=== PATIENT | female | born 1955 | race Caucasian/White ===

== ENCOUNTER 2019-05-29 22:10 | Inpatient (IN) | payer MEDICARE ==
[~2019-05-29] VITALS: Ht 162.6 cm; Wt 128.8 kg
[2019-05-30] MEDS ORDERED: MAG HYDROX/AL HYDROX/SIMETH 30 ML ORAL.SUSP PO PRN
[2019-05-30] MEDS ORDERED: MAGNESIUM HYDROXIDE 2,400 MG/30 ML ORAL.SUSP. PO PRN
[2019-05-30] MEDS ORDERED: METHYL SALICYLATE/MENTHOL TOPICAL OINTMENT 57GM TUBE. TP PRN
[2019-05-30 00:31] VITALS: BP 106/62
[2019-05-30] MEDS ORDERED: CALC500T31 PO (00:58)
[2019-05-30] MEDS ORDERED: CETI10TA16 PO (00:58)
[2019-05-30] MEDS ORDERED: IPRA0.2S5 IH (00:58)
[2019-05-30] MEDS ORDERED: HYDR-2765 PO (00:58)
[2019-05-30] MEDS ORDERED: FLUT1DIS5 IH (00:58)
[2019-05-30] MEDS ORDERED: NYST15CR TP (00:58)
[2019-05-30] MEDS ORDERED: CYAN100072 PO (00:58)
[2019-05-30] MEDS ORDERED: ASPI-612 PO (00:58)
[2019-05-30] MEDS ORDERED: FERR324T14 PO (00:58)
[2019-05-30] MEDS ORDERED: CYCL-331 PO (00:58)
[2019-05-30] MEDS ORDERED: POTA20TA4 PO (00:58)
[2019-05-30] MEDS ORDERED: ERGO800010 PO (00:58)
[2019-05-30] MEDS ORDERED: MECL-75 PO (00:58)
[2019-05-30] MEDS ORDERED: FLUO15CR TP (00:58)
[2019-05-30] MEDS ORDERED: LOSA100T14 PO (00:58)
[2019-05-30] MEDS ORDERED: ALPR0.5T6 PO (00:58)
[2019-05-30] MEDS ORDERED: FURO40TA4 PO (00:58)
[2019-05-30] MEDS ORDERED: PANT40TA5 PO (00:58)
[2019-05-30] MEDS ORDERED: SENN1TAB37 PO (00:58)
[2019-05-30] MEDS ORDERED: XOPENEX0.63 MG/3 IH (00:58)
[2019-05-30] MEDS ORDERED: CARV25TA2 PO (00:58)
[2019-05-30] MEDS ORDERED: TIOT18CA IH (00:58)
[2019-05-30] MEDS ORDERED: SIME80TA14 PO (00:58)
[2019-05-30] MEDS ORDERED: SIMETHICONE 80 MG TAB.CHEW PO PRN (01:00)
[2019-05-30] MEDS ORDERED: CALCIUM CARBONATE 500 MG TAB.CHEW PO PRN (01:15)
[2019-05-30] MEDS: IPRATRPIUM/ALBUTEROL 0.5/2.5MG 3 ML NEBU. NEB SCH ×4 (05:24→23:04)
[2019-05-30 06:40] VITALS: BP 134/76
[2019-05-30 07:34] LABS: BASO % 0 % (0-3); EOS # 0.2 x10^3/uL (0.0-0.7); EOS % 3 % (0-3); HEMOGLOBIN 13.1 g/dL (12.0-15.5); LYMPH # 1.7 x10^3/uL (1.0-4.8); LYMPH % 18 % (24-48); MEAN CORPUSCULAR HEMOGLOBIN 29 pg (25-35); MEAN CORPUSCULAR HGB CONC 32 g/dL (31-37); MEAN CORPUSCULAR VOLUME 92 fL (79-100); MONO # 0.5 x10^3/uL (0.0-1.1); MONO % 5 % (0-9); NEUT % 74 % (31-73); PLATELET COUNT 289 x10^3/uL (140-400); RED BLOOD COUNT 4.48 x10^6/uL (3.50-5.40); RED CELL DISTRIBUTION WIDTH 13.6 % (11.5-14.5); WHITE BLOOD COUNT 9.5 x10^3/uL (4.0-11.0)
[2019-05-30 07:47] LABS: ALBUMIN 3.5 g/dL (3.4-5.0); ALBUMIN/GLOBULIN RATIO 0.8 (1.0-1.7); CALCIUM 8.9 mg/dL (8.5-10.1); CREATININE 0.9 mg/dL (0.6-1.0); GFR 62.8; POTASSIUM 4.1 mmol/L (3.5-5.1); TOTAL BILIRUBIN 0.3 mg/dL (0.2-1.0); TOTAL PROTEIN 8.1 g/dL (6.4-8.2)
[2019-05-30] MEDS: PANTOPRAZOLE 40 MG TABLET. PO SCH (08:20)
[2019-05-30] MEDS: CETIRIZINE HCL 10 MG TABLET PO SCH (08:22)
[2019-05-30] MEDS: SENNOSIDES/DOCUSATE 8.6/50MG TABLET. PO SCH (08:23)
[2019-05-30] MEDS: POTASSIUM CHLORIDE 20 MEQ TABLET.ER. PO SCH ×2 (08:23→21:14)
[2019-05-30] MEDS: ASPIRIN ENTERIC COATED 81 MG TABLET.DR. PO SCH (08:24)
[2019-05-30] MEDS: CARVEDILOL 6.25 MG TABLET PO SCH ×2 (08:24→16:12)
[2019-05-30] MEDS: CYANOCOBALAMIN (VITAMIN B-12) 1,000 MCG TABLET. PO SCH (08:25)
[2019-05-30] MEDS: LOSARTAN 50 MG TABLET. PO SCH (08:25)
[2019-05-30] MEDS: FERROUS SULFATE 325 MG TABLET. PO SCH (08:25)
[2019-05-30] MEDS: HYDROCORTISONE 1% TOPICAL CREAM 30GM TUBE. TP SCH (09:00)
[2019-05-30] MEDS ORDERED: FUROSEMIDE 40 MG TABLET PO SCH (09:00)
[2019-05-30] MEDS ORDERED: NON FORMULARY ITEM (Tiotropium Bromide (Spiriva) 18 MCG) IH SCH (09:00)
[2019-05-30] MEDS: BUDESONIDE 0.5 MG/2 ML NEBU NEB SCH ×2 (10:20→23:04)
[2019-05-30 11:24] LABS: BILIRUBIN,URINE NEG (NEG); CLARITY,URINE CLOUDY; COLOR,URINE AMBER; GLUCOSE,URINE NEG (NEG)
[2019-05-30 11:25] LABS: UROBILINOGEN,URINE 0.2 mg/dL (0.2 mg/dL)
[2019-05-30 11:27] LABS: BACTERIA,URINE MOD /HPF (0-FEW); NITRITE,URINE POS (NEG); SQUAMOUS EPITHELIAL CELL,UR FEW /LPF; WBC,URINE >40 /HPF (0-4)
[2019-05-30 13:43] LABS: THYROID STIM HORMONE (TSH) 2.627 uIU/mL (0.358-3.740)
[2019-05-30] MEDS: FUROSEMIDE 40 MG TABLET PO SCH (16:12)
[2019-05-30 16:26] VITALS: BP 125/74
[2019-05-30] MEDS: NYSTATIN 100,000 UNITS/ML ORAL SUSPENSION 60ML BOTTLE. SWSW SCH ×2 (17:00→21:00)
[2019-05-30 17:07] LABS: THYROXINE 6.9 ug/dL (4.5-12.0)
[2019-05-30] MEDS: ENOXAPARIN 40 MG/0.4 ML SYRINGE. SQ SCH (21:14)
[2019-05-30] MEDS: ALPRAZolam 0.5 MG TABLET PO PRN (21:15)
--- NOTE | 2019-05-30 21:21 | PDOC ---
Exam Note: Heri Note: Please also refer to the separate dictated note~for this date of service dictated separately. Discussed the patient with Nursing staff reviewed the chart.~Reviewed interim history and current functioning. Reviewed vital signs,~Labs/ Radiology~and current medications noted below. Continue current treatment with the changes noted in the dictated addendum note Assessment: Vital Signs/I&O: Vital Signs Date Time Temp Pulse Resp B/P (MAP) Pulse Ox O2 Delivery O2 Flow Rate FiO2 05/30/19 16:26 98.2 83 18 125/74 (91) 95 2.0 05/30/19 16:17 Nasal Cannula Labs: Laboratory Tests Test 05/30/19 06:45 05/30/19 11:00 White Blood Count 9.5 x10^3/uL (4.0-11.0) Red Blood Count 4.48 x10^6/uL (3.50-5.40) Hemoglobin 13.1 g/dL (12.0-15.5) Hematocrit 41.0 % (36.0-47.0) Mean Corpuscular Volume 92 fL (79-100) Mean Corpuscular Hemoglobin 29 pg (25-35) Mean Corpuscular Hemoglobin Concent 32 g/dL (31-37) Red Cell Distribution Width 13.6 % (11.5-14.5) Platelet Count 289 x10^3/uL (140-400) Neutrophils (%) (Auto) 74 % (31-73) H Lymphocytes (%) (Auto) 18 % (24-48) L Monocytes (%) (Auto) 5 % (0-9) Eosinophils (%) (Auto) 3 % (0-3) Basophils (%) (Auto) 0 % (0-3) Neutrophils # (Auto) 7.0 x10^3uL (1.8-7.7) Lymphocytes # (Auto) 1.7 x10^3/uL (1.0-4.8) Monocytes # (Auto) 0.5 x10^3/uL (0.0-1.1) Eosinophils # (Auto) 0.2 x10^3/uL (0.0-0.7) Basophils # (Auto) 0.0 x10^3/uL (0.0-0.2) Sodium Level 139 mmol/L (136-145) Potassium Level 4.1 mmol/L (3.5-5.1) Chloride Level 96 mmol/L (98-107) L Carbon Dioxide Level 37 mmol/L (21-32) H Anion Gap 6 (6-14) Blood Urea Nitrogen 20 mg/dL (7-20) Creatinine 0.9 mg/dL (0.6-1.0) Estimated GFR (Cockcroft-Gault) 62.8 BUN/Creatinine Ratio 22 (6-20) H Glucose Level 147 mg/dL (70-99) H Calcium Level 8.9 mg/dL (8.5-10.1) Magnesium Level 2.0 mg/dL (1.8-2.4) Iron Level 59 ug/dL (50-170) Total Iron Binding Capacity 376 ug/dL (250-450) Iron Saturation 16 % (15-34) Total Bilirubin 0.3 mg/dL (0.2-1.0) Aspartate Amino Transferase (AST) 21 U/L (15-37) Alanine Aminotransferase (ALT) 41 U/L (14-59) Alkaline Phosphatase 82 U/L (46-116) Total Protein 8.1 g/dL (6.4-8.2) Albumin 3.5 g/dL (3.4-5.0) Albumin/Globulin Ratio 0.8 (1.0-1.7) L Triglycerides Level 142 mg/dL (0-150) Cholesterol Level 204 mg/dL (0-200) H LDL Cholesterol, Calculated 121 mg/dL (0-100) H VLDL Cholesterol, Calculated 28 mg/dL (0-40) Non-HDL Cholesterol Calculated 149 mg/dL (0-129) H HDL Cholesterol 55 mg/dL (40-60) Cholesterol/HDL Ratio 3.0 Vitamin B12 Level 1645 pg/mL (247-911) H 25-Hydroxy Vitamin D Total 17.1 ng/mL (30-100) L Thyroid Stimulating Hormone (TSH) 2.627 uIU/mL (0.358-3.740) Thyroxine (T4) 6.9 ug/dL (4.5-12.0) Total Triiodothyronine (TT3) 78 ng/dL (71-180) Treponema pallidum Antibody Nonreactive (Nonreactive) Urine Collection Type Unknown Urine Color Amelia Urine Clarity Cloudy Urine pH 6.0 Urine Specific [place] 1.020 Urine Protein 30 mg/dl (NEG-TRACE) Urine Glucose (UA) Neg mg/dL (NEG) Urine Ketones (Stick) Neg mg/dL (NEG) Urine Blood Mod (NEG) Urine Nitrite Pos (NEG) Urine Bilirubin Neg (NEG) Urine Urobilinogen Dipstick 0.2 mg/dL (0.2 mg/dL) Urine Leukocyte Esterase Mod (NEG) Urine RBC 1-2 /HPF (0-2) Urine WBC >40 /HPF (0-4) Urine Squamous Epithelial Cells Few /LPF Urine Bacteria Mod /HPF (0-FEW) Current Medications: Meds: Current Medications Medications (Trade) Dose Ordered Sig/Mason Route PRN Reason Start Time Stop Time Status Last Admin Dose Admin Alprazolam (Xanax) 0.5 mg PRN Q6HRS PRN PO ANXIETY / AGITATION 05/30/19 01:00 05/30/19 21:15 Aspirin (Aspirin Enteric Coated) 81 mg DAILY PO 05/30/19 09:00 05/30/19 08:24 Cetirizine HCl (ZyrTEC) 10 mg DAILY PO 05/30/19 09:00 05/30/19 08:22 Cyanocobalamin (Vitamin B-12) 2,500 mcg DAILY PO 05/30/19 09:00 05/30/19 08:25 Furosemide (Lasix) 40 mg DAILY PO 05/30/19 09:00 05/30/19 14:04 DC 05/30/19 08:23 Albuterol/ Ipratropium (Duoneb) 3 ml RTQID NEB 05/30/19 08:00 05/30/19 16:16 Pantoprazole Sodium (Protonix) 40 mg DAILYAC PO 05/30/19 07:30 05/30/19 08:20 Potassium Chloride (Klor-Con) 20 meq BID PO 05/30/19 09:00 05/30/19 21:14 Senna/Docusate Sodium (Senna Plus) 2 tab DAILY PO 05/30/19 09:00 05/30/19 08:23 Carvedilol (Coreg) 6.25 mg BIDWMEALS PO 05/30/19 08:00 05/30/19 16:12 Ferrous Sulfate (Feosol) 325 mg DAILYWBKFT PO 05/30/19 08:00 05/30/19 08:25 Hydrocortisone (Cortaid) 1 gricel DAILY TP 05/30/19 09:00 05/30/19 09:00 Budesonide (Pulmicort) 0.5 mg RTBID NEB 05/30/19 08:00 05/30/19 10:20 Losartan Potassium (Cozaar) 50 mg DAILY PO 05/30/19 09:00 05/30/19 08:25 Furosemide (Lasix) 40 mg BID94 PO 05/30/19 16:00 05/30/19 16:12 Enoxaparin Sodium (Lovenox 40mg Syringe) 40 mg BID SQ 05/30/19 21:00 05/30/19 21:14 I have reviewed the current psychotropics carefully including drug interactions. Risk benefit ratio favors no change other than as noted in my dictated progress note. ALBER GARCES MD May 30, 2019 21:21
[2019-05-30 23:07] LABS: HEMOGLOBIN A1C 6.6 % (4.8-5.6)
[2019-05-31] MEDS: IPRATRPIUM/ALBUTEROL 0.5/2.5MG 3 ML NEBU. NEB SCH ×4 (06:16→19:28)
[2019-05-31 06:36] VITALS: BP 116/73
[2019-05-31] MEDS: ASPIRIN ENTERIC COATED 81 MG TABLET.DR. PO SCH (08:25)
[2019-05-31] MEDS: CARVEDILOL 6.25 MG TABLET PO SCH ×2 (08:25→17:22)
[2019-05-31] MEDS: PANTOPRAZOLE 40 MG TABLET. PO SCH (08:25)
[2019-05-31] MEDS: FERROUS SULFATE 325 MG TABLET. PO SCH (08:25)
[2019-05-31] MEDS: SENNOSIDES/DOCUSATE 8.6/50MG TABLET. PO SCH (08:26)
[2019-05-31] MEDS: FUROSEMIDE 40 MG TABLET PO SCH ×2 (08:26→17:22)
[2019-05-31] MEDS: LOSARTAN 50 MG TABLET. PO SCH (08:26)
[2019-05-31] MEDS: POTASSIUM CHLORIDE 20 MEQ TABLET.ER. PO SCH ×2 (08:26→21:23)
[2019-05-31] MEDS: CYANOCOBALAMIN (VITAMIN B-12) 1,000 MCG TABLET. PO SCH (08:27)
[2019-05-31] MEDS: ENOXAPARIN 40 MG/0.4 ML SYRINGE. SQ SCH ×3 (08:27→21:25)
[2019-05-31] MEDS: CETIRIZINE HCL 10 MG TABLET PO SCH (08:27)
[2019-05-31] MEDS: HYDROCORTISONE 1% TOPICAL CREAM 30GM TUBE. TP SCH (09:00)
[2019-05-31] MEDS: NYSTATIN 100,000 UNITS/ML ORAL SUSPENSION 60ML BOTTLE. SWSW SCH ×4 (09:00→21:23)
[2019-05-31] MEDS: BUDESONIDE 0.5 MG/2 ML NEBU NEB SCH ×2 (10:03→19:28)
--- NOTE | 2019-05-31 13:40 | CONS ---
DATE OF CONSULTATION: 05/30/2019 REASON FOR CONSULTATION: Medical management. HISTORY OF PRESENT ILLNESS: The patient is a 63-year-old female patient who was transferred from [facility] where she was admitted with suicidal ideation. She was admitted originally to the Emergency Room with complaint of aches and pains all over. She apparently has been almost in every hospital including [facility], [facility] and [facility]. 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 for inpatient psychiatric stabilization. PAST MEDICAL HISTORY: Significant for hypertension, chronic obstructive pulmonary disease, congestive heart failure, bronchial asthma. She apparently, had tonsillectomy, total abdominal hysterectomy, breast surgery, open reduction and internal fixation of left ankle and hardware removal. ALLERGIES: She is allergic to WELLBUTRIN, CLONAZEPAM, ERYTHROMYCIN, FENTANYL, HALOPERIDOL, LISINOPRIL, LORAZEPAM, ONDANSETRON, and TREE NUT. MEDICATIONS: She is currently on following medications: She is on cetirizine 10 mg once a day, ipratropium bromide 4 times a day, Spiriva HandiHaler 1 inhalation once a day, Xopenex 0.63 mg every 6 hours, Flexeril 10 mg every 6 hours, ferrous fumarate 325 mg once a day, carvedilol 6.25 mg twice a day, losartan potassium 50 mg once a day, aspirin 81 mg once a day, hydrocodone/APAP 7.5/325 one tablet every 6 hours, alprazolam 0.5 mg every 6 hours, calcium carbonate 500 mg once a day, potassium chloride 20 mEq twice a day, furosemide 40 mg once a day, Advair Diskus 500/50 twice a day, simethicone 125 mg twice a day, senna-S 1 capsule twice a day, meclizine 25 mg every 6 hours, Protonix 40 mg daily, Nystatin cream applied topically 3 times a day, fluocinonide cream apply topically daily. She is on cyanocobalamin 1000 mcg tablet once a day and ergocalciferol for vitamin D2 50,000 units once a week. REVIEW OF SYSTEMS: The patient denied any blurring of vision, cataract, glaucoma or macular degeneration. Denied any earache, tinnitus or sensorineural deafness. Denied any nosebleeds, stuffy nose or postnasal drip. Did complain of sore throat that has been going on for almost 4 months now. Denied any nausea, vomiting, diarrhea or constipation. Denied any hematemesis, melena, hematochezia. Denied any dysuria, frequency or hematuria. PHYSICAL EXAMINATION: GENERAL: When I examined her, she was resting slightly propped up in bed, in no apparent respiratory distress. No pallor, jaundice, cyanosis or thyromegaly. No jugular venous distention. No lower limb edema. VITAL SIGNS: Her heart rate was 93, blood pressure was 134/76, temperature was 98.1, respiratory rate was 22 and oxygen saturation was 93% on 2.5 liters of oxygen. HEAD, EYES, EARS, NOSE AND THROAT: Showed she is normocephalic, atraumatic. NECK: Supple. HEART: Showed normal first and second heart sounds with no gallop, rub or murmur. CHEST: Clear to auscultation. No crepitation or rhonchi. ABDOMEN: Distended, soft, nontender. NEUROLOGIC: She is awake, alert, responding appropriately. All cranial nerves intact. EXTREMITIES: She moves extremities without difficulty. LABORATORY DATA: Showed a white cell count 9500, hemoglobin 13, hematocrit 41, MCV 92, and platelet count 289,000. Her chemistry showed a serum sodium 139, potassium 4.1, chloride 96, bicarbonate 37, anion gap of 6, BUN 20, creatinine 0.9, estimated GFR was 62 mL per minute. Her glucose 147, calcium was 8.9, magnesium 2. Her serum iron, TIBC and iron saturation are all consistent with replenished iron stores. Her total bilirubin, AST, ALT, alkaline phosphatase were normal. Total protein was 8.1, albumin was 3.5. Serum triglycerides 142, total cholesterol 204, LDL was 121, VLDL was 28, HDL was 55 and the ratio was 3. TSH was 2.67. Her urinalysis showed the urine was cloudy with a pH of 6, specific gravity of 1.020. There was small amount of protein. The urine was negative for glucose and ketones. There was moderate amount of blood, positive for nitrite, moderate amount of leukocyte esterase, 1-2 rbc's, more than 40 wbc's, moderate amount of bacteria. ASSESSMENT AND PLAN: In summary, this is a 63-year-old female patient who was basically admitted on account of making suicidal threats and has suicidal ideation. She has a multitude of complaints of somatic nature, difficult to verify. She is definitely on oxygen apparently at 2.5 liters and maintaining her oxygen saturation above 90. Clinically, I do not hear any wheezing or rhonchi. She does not seem to be in congestive heart failure. Her legs are not swollen. She claims that she has hoarseness of voice and sore throat for the last 4 months. My plan is to obviously continue with all her medication; however, she is already on cyclobenzaprine. I will add Lovenox as she seemed to be mostly bedbound and nystatin suspension swish and swallow 4 times a day for possible yeast infection. MADELINE PHILLIPS MD DR: MADHAV/roslyn JOB#: [id number] / [id number]
[2019-05-31 16:26] VITALS: BP 110/70
--- NOTE | 2019-05-31 21:19 | PDOC ---
Exam Note: Heri Note: Please also refer to the separate dictated note~for this date of service dictated separately.~Patient seen individually. Discussed the patient with Nursing staff reviewed the chart.~Reviewed interim history and current functioning. Reviewed vital signs,~Labs/ Radiology~and current medications noted below. Continue current treatment with the changes noted in the dictated addendum note Assessment: Vital Signs/I&O: Vital Signs Date Time Temp Pulse Resp B/P (MAP) Pulse Ox O2 Delivery O2 Flow Rate FiO2 05/31/19 19:32 97 Nasal Cannula 2.5 05/31/19 17:22 79 110/70 05/31/19 16:26 97.6 16 I & O 0 05/30/19 05/30/19 05/31/19 15:00 23:00 07:00 Intake Total 480 ml 480 ml 240 ml Balance 480 ml 480 ml 240 ml Current Medications: I have reviewed the current psychotropics carefully including drug interactions. Risk benefit ratio favors no change other than as noted in my dictated progress note. Diagnosis: Problems: (1) Anxiety disorder (2) Major depressive disorder, recurrent episode (3) Bipolar affective, mixed ALBER GARCES MD May 31, 2019 21:19
[2019-05-31] MEDS: risperiDONE 0.25 MG TABLET. PO SCH (21:22)
--- NOTE | 2019-05-31 21:22 | HP ---
ADMIT DATE: 05/30/2019 PSYCHIATRIC ADMISSION HISTORY/EVALUATION This late entry 05/30/2019 covers elements not covered in my initial note. SUBJECTIVE: I met with the patient evening of 05/30/2019, previously discussed with Ana Gutierrez, quality improvement coordinator (rn). IDENTIFYING DATA: The patient is a 63-year-old female referred to us from [facility] where she was seen for a Psychiatry consult on account of depression and anxiety. Reportedly, the patient lives by herself at home and has multiple medical issues she feels overwhelmed with. She has been depressed and voiced suicidal ideation. Has failed multiple psychotropics in the past and was started on Cymbalta and then referred to us for inpatient psychiatric stabilization. CHIEF COMPLAINT: "They say I have borderline personality disorder. That is wrong. I have medical issues, no one can figure out what they are, that is the problem. I could go home and just end my life." HISTORY OF PRESENT ILLNESS: The patient has a long history of psychiatric treatment including with Dr. Chao Duran in [place], [place]. She is unaware of her diagnosis and states she never was given a diagnosis, but states she gets intermittently depressed, anxious. Nevertheless, she does seem to have significant mood swings as well, but has never been diagnosed with bipolar disorder in the past. More recently, she feels hopeless, helpless, worthless with sleep and appetite changes, suicidal ideation and living alone by herself at home, has been overwhelming. 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 Cognitively, she is reasonably intact. PAST PSYCHIATRIC HISTORY: Positive for depression; anxiety. She has had inpatient psychiatric hospitalizations at [facility] and a suicide attempt by overdose on alcohol. She has been on multiple psychotropics in the past with inadequate response. DRUG ALLERGIES: LISINOPRIL causing cardiac arrest and ATIVAN, TREE NUTS AND BUPROPION causing cramps and CLONAZEPAM, ERYTHROMYCIN, FENTANYL, HALDOL, ZOFRAN. CURRENT PSYCHOTROPICS: Cymbalta 30 mg a day. FAMILY HISTORY: Noncontributory. SOCIAL HISTORY: No alcohol, drug abuse, physical, sexual or elder abuse history is noted. Not known to be a perpetrator. REACTION TO HOSPITALIZATION: The patient accepting of it. The quality improvement coordinator (rn) Ana Gutierrez had called and talked to the patient at length prior to admission, explaining to the patient that this was a Dementia Unit and whether the patient felt comfortable coming here. She had agreed to this hospitalization. MENTAL STATUS EXAMINATION: The patient was seen individually evening of 05/30/2019. She is oriented reasonably. Speech coherent, rapid at times, quite anxious. Abstraction fair, computation impaired, language function intact. Mood and affect labile, appears depressed at times, quite obsessive, somatically preoccupied. No active suicidal or homicidal ideation. Intellect average. Insight limited, judgment marginal. IMPRESSION: Major depressive disorder, recurrent; anxiety disorder, unspecified; probable bipolar disorder, mixed versus depressed, personality disorder, unspecified. Rest as above. PLAN: Admit to Geropsychiatry Unit at [facility]. I will see the patient daily individually from a psychiatric standpoint. Medical followup per Dr. Morales. Continue the patient on her current psychotropics, can maintain Xanax p.r.n., Cymbalta 30 mg a day. Consider Seroquel as a mood stabilizer. We will make all these decisions post baseline assessment and get her past psychiatric records from [facility] and other facilities. She has been hospitalized. Estimated length of stay 10-12 days. DISPOSITION PLAN: Will have to be determined depending on how she responds to current treatment. ALBER GARCES MD DR: JOSE CARLOS/roslyn JOB#: [id number] / [id number]
[2019-05-31] MEDS: CYCLOBENZAPRINE 10 MG TABLET. PO PRN (22:02)
[2019-05-31] MEDS: ALPRAZolam 0.5 MG TABLET PO PRN (22:03)
[2019-06-01] MEDS: HYDROcodone/APAP 7.5/325MG 1 TAB TABLET PO PRN (00:07)
[2019-06-01] MEDS: IPRATRPIUM/ALBUTEROL 0.5/2.5MG 3 ML NEBU. NEB SCH ×4 (04:49→19:58)
[2019-06-01 06:32] VITALS: BP 173/80
[2019-06-01] MEDS: PANTOPRAZOLE 40 MG TABLET. PO SCH (08:44)
[2019-06-01] MEDS: FERROUS SULFATE 325 MG TABLET. PO SCH (08:44)
[2019-06-01] MEDS: CARVEDILOL 6.25 MG TABLET PO SCH ×2 (08:44→17:00)
[2019-06-01] MEDS: ASPIRIN ENTERIC COATED 81 MG TABLET.DR. PO SCH (08:45)
[2019-06-01] MEDS: LOSARTAN 50 MG TABLET. PO SCH (08:46)
[2019-06-01] MEDS: FUROSEMIDE 40 MG TABLET PO SCH ×2 (08:46→16:00)
[2019-06-01] MEDS: POTASSIUM CHLORIDE 20 MEQ TABLET.ER. PO SCH ×2 (08:46→21:36)
[2019-06-01] MEDS: CYANOCOBALAMIN (VITAMIN B-12) 1,000 MCG TABLET. PO SCH (08:47)
[2019-06-01] MEDS: SENNOSIDES/DOCUSATE 8.6/50MG TABLET. PO SCH (08:47)
[2019-06-01] MEDS: CETIRIZINE HCL 10 MG TABLET PO SCH (08:48)
[2019-06-01] MEDS: ENOXAPARIN 40 MG/0.4 ML SYRINGE. SQ SCH ×2 (08:48→21:35)
[2019-06-01] MEDS: CHOLECALCIFEROL (VITAMIN D3) 50,000 UNIT CAPSULE PO SCH (08:51)
[2019-06-01] MEDS: NYSTATIN 100,000 UNITS/ML ORAL SUSPENSION 60ML BOTTLE. SWSW SCH ×4 (08:52→21:40)
[2019-06-01] MEDS: HYDROCORTISONE 1% TOPICAL CREAM 30GM TUBE. TP SCH (09:00)
[2019-06-01] MEDS: BUDESONIDE 0.5 MG/2 ML NEBU NEB SCH ×2 (10:41→19:58)
[2019-06-01 16:15] VITALS: BP 95/60
[2019-06-01] MEDS: risperiDONE 0.25 MG TABLET. PO SCH (21:00)
--- NOTE | 2019-06-01 21:26 | PDOC ---
Exam Note: Heri Note: Please also refer to the separate dictated note~for this date of service dictated separately.~Patient seen individually. Discussed the patient with Nursing staff reviewed the chart.~Reviewed interim history and current functioning. Reviewed vital signs,~Labs/ Radiology~and current medications noted below. Continue current treatment with the changes noted in the dictated addendum note Assessment: Vital Signs/I&O: Vital Signs Date Time Temp Pulse Resp B/P (MAP) Pulse Ox O2 Delivery O2 Flow Rate FiO2 06/01/19 20:07 98 Nasal Cannula 2.5 06/01/19 16:15 97.9 91 20 95/60 (72) I & O 05/31/19 05/31/19 06/01/19 15:00 23:00 07:00 Intake Total 600 ml 600 ml 200 ml Balance 600 ml 600 ml 200 ml Current Medications: Meds: Current Medications Medications (Trade) Dose Ordered Sig/Mason Route PRN Reason Start Time Stop Time Status Last Admin Dose Admin Vitamin D (Vitamin D3) 50,000 unit WEEKLY PO 06/01/19 09:00 06/01/19 08:51 I have reviewed the current psychotropics carefully including drug interactions. Risk benefit ratio favors no change other than as noted in my dictated progress note. Diagnosis: Problems: (1) Anxiety disorder (2) Major depressive disorder, recurrent episode (3) Bipolar affective, mixed (4) Personality disorder, unspecified ALBER GARCES MD Jun 01, 2019 21:26
[2019-06-01] MEDS: ALPRAZolam 0.5 MG TABLET PO PRN (21:36)
[2019-06-01] MEDS: traZODone 50 MG TABLET. PO SCH (21:39)
[2019-06-02] MEDS: IPRATRPIUM/ALBUTEROL 0.5/2.5MG 3 ML NEBU. NEB SCH ×4 (04:59→20:00)
[2019-06-02 05:59] VITALS: BP 144/82
[2019-06-02] MEDS: BUDESONIDE 0.5 MG/2 ML NEBU NEB SCH ×2 (08:00→20:00)
[2019-06-02] MEDS: PANTOPRAZOLE 40 MG TABLET. PO SCH (08:14)
[2019-06-02] MEDS: FERROUS SULFATE 325 MG TABLET. PO SCH (08:14)
[2019-06-02] MEDS: CARVEDILOL 6.25 MG TABLET PO SCH ×2 (08:14→16:53)
[2019-06-02] MEDS: SENNOSIDES/DOCUSATE 8.6/50MG TABLET. PO SCH (08:15)
[2019-06-02] MEDS: FUROSEMIDE 40 MG TABLET PO SCH ×2 (08:15→16:53)
[2019-06-02] MEDS: LOSARTAN 50 MG TABLET. PO SCH (08:15)
[2019-06-02] MEDS: POTASSIUM CHLORIDE 20 MEQ TABLET.ER. PO SCH ×2 (08:15→19:30)
[2019-06-02] MEDS: ASPIRIN ENTERIC COATED 81 MG TABLET.DR. PO SCH (08:15)
[2019-06-02] MEDS: CETIRIZINE HCL 10 MG TABLET PO SCH (08:16)
[2019-06-02] MEDS: CYANOCOBALAMIN (VITAMIN B-12) 1,000 MCG TABLET. PO SCH (08:16)
[2019-06-02] MEDS: ENOXAPARIN 40 MG/0.4 ML SYRINGE. SQ SCH ×2 (08:16→19:31)
[2019-06-02] MEDS: NYSTATIN 100,000 UNITS/ML ORAL SUSPENSION 60ML BOTTLE. SWSW SCH ×4 (08:18→19:36)
[2019-06-02] MEDS: HYDROCORTISONE 1% TOPICAL CREAM 30GM TUBE. TP SCH (09:00)
--- NOTE | 2019-06-02 12:03 | PN ---
DATE: 06/01/2019 PSYCHIATRIC PROGRESS NOTE This late entry 06/01/2019 covers elements not covered in my initial note. SUBJECTIVE: I met with the patient evening of 06/01/2019. Per XIN Mir, the patient slept 3 hours previous night. She remains somatically preoccupied. States she is unable to tolerate the Risperdal due to restless legs. She has vague somatic symptoms, kidney pain, dysuria, abdominal pain, will defer to Dr. Morales and also complains of leg pain. REVIEW OF SYSTEMS: Ambulation impaired with walker. Rest as above. MENTAL STATUS EXAM: Reasonably oriented. Speech coherent, rapid at times. Abstraction fair, computation impaired, language function intact, attention span short. Mood and affect is quite labile. LABORATORY DATA: Reviewed. IMPRESSION: Probable bipolar disorder, mixed, history of major depressive disorder; anxiety disorder, unspecified. Rest as above. PLAN: Start trazodone 50 mg at bedtime, may repeat x 2 for insomnia. Continue rest of the psychotropics. We will try Risperdal another night and if she refuses consider Seroquel, Geodon or Abilify as alternative as a mood stabilizer. MAN Morris GARCES MD DR: JOSE CARLOS/roslyn JOB#: [id number] / [id number]
--- NOTE | 2019-06-02 12:04 | PN ---
DATE: 05/31/2019 PSYCHIATRIC PROGRESS NOTE This late entry 05/31/2019 covers elements not covered in my initial note. SUBJECTIVE: I met with the patient evening of 05/31/2019 at length. Per XIN Lang, the patient slept 4-1/2 hours previous night. She continues to have multiple somatic complaints. Previous night, she was on the paulino "constantly" per nursing report. During the day 05/31/2019, she has been "splitting staff" per nursing report. She has been feigning some chest pain, will defer to Dr. Morales. UA has reflex to culture. She has vague somatic symptoms including kidney pain, dysuria, vague somatic symptoms. MENTAL STATUS EXAM: Reasonably oriented. Speech coherent, rapid at times. Abstraction fair, computation impaired, language function intact. She is quite paranoid, suspicious. No active suicidal or homicidal ideation. She is hyperverbal, distractible, quite labile in her mood, restless, complaining about staff as I addressed and met with her at length. LABORATORY DATA: Reviewed. IMPRESSION: Major depressive disorder, recurrent; anxiety disorder, unspecified; rule out bipolar disorder, mixed; impulse control disorder. PLAN: Followup on possible UTI, defer to Dr. Morales. Start Risperdal 0.5 mg p.o. at bedtime. May consider alternatives including Geodon, Seroquel as a mood stabilizers in due course including Abilify. I would like to avoid antidepressants, though given the obsessiveness she has and somatic obsessiveness, may consider low dose Luvox gradually. MAN Morris GARCES MD DR: JOSE CARLOS/roslyn JOB#: [id number] / [id number]
[2019-06-02] MEDS: CEFDINIR 300 MG CAPSULE PO SCH ×2 (13:44→19:35)
[2019-06-02] MEDS: HYDROcodone/APAP 7.5/325MG 1 TAB TABLET PO PRN ×2 (13:44→19:34)
[2019-06-02 15:49] VITALS: BP 112/65
[2019-06-02] MEDS: CYCLOBENZAPRINE 10 MG TABLET. PO PRN (19:34)
[2019-06-02] MEDS: traZODone 50 MG TABLET. PO PRN (19:35)
[2019-06-02] MEDS: ALPRAZolam 0.5 MG TABLET PO PRN (19:36)
--- NOTE | 2019-06-02 21:17 | PDOC ---
Exam Note: Heri Note: Please also refer to the separate dictated note~for this date of service dictated separately.~Patient seen individually. Discussed the patient with Nursing staff reviewed the chart.~Reviewed interim history and current functioning. Reviewed vital signs,~Labs/ Radiology~and current medications noted below. Continue current treatment with the changes noted in the dictated addendum note Assessment: Vital Signs/I&O: Vital Signs Date Time Temp Pulse Resp B/P (MAP) Pulse Ox O2 Delivery O2 Flow Rate FiO2 06/02/19 19:34 18 92 06/02/19 16:53 108 112/65 06/02/19 15:49 98.2 2.0 06/02/19 05:01 Nasal Cannula I & O 06/01/19 06/01/19 06/02/19 15:00 23:00 07:00 Intake Total 480 ml 240 ml 240 ml Balance 480 ml 240 ml 240 ml Current Medications: Meds: Current Medications Medications (Trade) Dose Ordered Sig/Mason Route PRN Reason Start Time Stop Time Status Last Admin Dose Admin Trazodone HCl (Desyrel) 50 mg QHS PO 06/02/19 21:00 06/01/19 21:39 Cefdinir (Omnicef) 300 mg BID PO 06/02/19 14:00 06/06/19 21:01 06/02/19 19:35 I have reviewed the current psychotropics carefully including drug interactions. Risk benefit ratio favors no change other than as noted in my dictated progress note. Diagnosis: Problems: (1) Personality disorder, unspecified (2) Anxiety disorder (3) Major depressive disorder, recurrent episode (4) Bipolar affective, mixed ALBER GARCES MD Jun 02, 2019 21:16
[2019-06-03] MEDS: IPRATRPIUM/ALBUTEROL 0.5/2.5MG 3 ML NEBU. NEB SCH ×3 (04:49→22:02)
[2019-06-03 06:16] VITALS: BP 168/82
[2019-06-03] MEDS: HYDROCORTISONE 1% TOPICAL CREAM 30GM TUBE. TP SCH (09:00)
[2019-06-03] MEDS: CYANOCOBALAMIN (VITAMIN B-12) 1,000 MCG TABLET. PO SCH ×2 (09:00→17:01)
[2019-06-03] MEDS: SENNOSIDES/DOCUSATE 8.6/50MG TABLET. PO SCH (09:03)
[2019-06-03] MEDS: ARIPiprazole 5 MG TABLET PO SCH (09:03)
[2019-06-03] MEDS: PANTOPRAZOLE 40 MG TABLET. PO SCH (09:03)
[2019-06-03] MEDS: FERROUS SULFATE 325 MG TABLET. PO SCH (09:03)
[2019-06-03] MEDS: FUROSEMIDE 40 MG TABLET PO SCH ×2 (09:03→17:00)
[2019-06-03] MEDS: CETIRIZINE HCL 10 MG TABLET PO SCH (09:03)
[2019-06-03] MEDS: ASPIRIN ENTERIC COATED 81 MG TABLET.DR. PO SCH (09:03)
[2019-06-03] MEDS: LOSARTAN 50 MG TABLET. PO SCH (09:04)
[2019-06-03] MEDS: POTASSIUM CHLORIDE 20 MEQ TABLET.ER. PO SCH ×2 (09:04→21:30)
[2019-06-03] MEDS: CEFDINIR 300 MG CAPSULE PO SCH ×2 (09:04→21:29)
[2019-06-03] MEDS: CARVEDILOL 6.25 MG TABLET PO SCH ×2 (09:05→17:01)
[2019-06-03] MEDS: NYSTATIN 100,000 UNITS/ML ORAL SUSPENSION 60ML BOTTLE. SWSW SCH ×4 (09:05→21:30)
[2019-06-03] MEDS: ENOXAPARIN 40 MG/0.4 ML SYRINGE. SQ SCH ×2 (09:07→21:29)
[2019-06-03] MEDS: BUDESONIDE 0.5 MG/2 ML NEBU NEB SCH ×2 (10:38→22:02)
[2019-06-03 16:09] VITALS: BP 115/77
--- NOTE | 2019-06-03 21:26 | PDOC ---
Exam Note: Heri Note: Please also refer to the separate dictated note~for this date of service dictated separately.~Patient seen individually. Discussed the patient with Nursing staff reviewed the chart.~Reviewed interim history and current functioning. Reviewed vital signs,~Labs/ Radiology~and current medications noted below. Continue current treatment with the changes noted in the dictated addendum note Assessment: Vital Signs/I&O: Vital Signs Date Time Temp Pulse Resp B/P (MAP) Pulse Ox O2 Delivery O2 Flow Rate FiO2 06/03/19 17:01 94 115/77 06/03/19 16:09 98.7 18 95 2.0 06/03/19 10:38 Nasal Cannula I & O 06/02/19 06/02/19 06/03/19 14:59 22:59 06:59 Intake Total 720 ml 480 ml 120 ml Balance 720 ml 480 ml 120 ml Labs: Laboratory Tests Test 06/03/19 08:13 Glucose (Fingerstick) 136 mg/dL (70-99) H Current Medications: Meds: Current Medications Medications (Trade) Dose Ordered Sig/Mason Route PRN Reason Start Time Stop Time Status Last Admin Dose Admin Aripiprazole (Abilify) 5 mg DAILY PO 06/03/19 09:00 06/05/19 11:00 06/03/19 09:03 Cyanocobalamin (Vitamin B-12) 500 mcg DAILY PO 06/03/19 14:00 06/03/19 17:01 I have reviewed the current psychotropics carefully including drug interactions. Risk benefit ratio favors no change other than as noted in my dictated progress note. Diagnosis: Problems: (1) Personality disorder, unspecified (2) Anxiety disorder (3) Major depressive disorder, recurrent episode (4) Bipolar affective, mixed ALBER GARCES MD Jun 03, 2019 21:26
[2019-06-03] MEDS: LACTOBACILLUS RHAMNOSUS GG 1 CAPSULE. PO SCH (21:29)
[2019-06-03] MEDS: traZODone 50 MG TABLET. PO SCH (21:30)
[2019-06-03] MEDS: ALPRAZolam 0.5 MG TABLET PO PRN (21:36)
[2019-06-03] MEDS: CYCLOBENZAPRINE 10 MG TABLET. PO PRN (21:36)
--- NOTE | 2019-06-04 00:17 | PN ---
DATE: 06/02/2019 PSYCHIATRIC PROGRESS NOTE This late entry 06/02/2019 covers elements not covered in my initial note. SUBJECTIVE: I met with the patient evening of 06/02/2019 and I had multiple phone calls during the day by nursing staff and social service staff, Yenifer about the patient's noncompliance with treatment complaints of side effects from Risperdal refusing to take that in any of her other psychotropics. She has been splitting staff. She does have a UTI, started on cefdinir. She has been urinating on herself on the floor, hitting out at staff, name calling staff. We discussed added options for mood stabilizers with her and she refuses Risperdal, Geodon, Seroquel, but after a very lengthy discussion with me in the evening she is agreeable to Abilify which she states she was started in the past. REVIEW OF SYSTEMS: Ambulation impaired with walker. She has vague somatic symptoms, believes she is dying, has kidney problems, muscle problems, very somatically preoccupied, anxious, labile, loud as I met with her, somewhat domineering. MENTAL STATUS EXAM: Oriented reasonably. Speech coherent, rapid at times. Abstraction fair, computation impaired, language function intact, attention span short. Mood and affect labile. LABORATORY DATA: Reviewed. IMPRESSION: Major depressive disorder, recurrent with psychotic features, rule out bipolar disorder, mixed with psychotic features, personality disorder. Rest unchanged. PLAN: Start Abilify 2.5 mg a day, increasing to 5 mg a day. We will restart Cymbalta 30 mg a day as an antidepressant. Consider Depakote as a mood stabilizer or an alternate mood stabilizer depending on how she does with the Abilify. Continue Xanax p.r.n. unchanged. ALBER GARCES MD DR: JOSE CARLOS/roslyn JOB#: [id number] / [id number]
[2019-06-04] MEDS: IPRATRPIUM/ALBUTEROL 0.5/2.5MG 3 ML NEBU. NEB SCH ×4 (05:38→22:43)
[2019-06-04 05:55] VITALS: BP 117/70
[2019-06-04] MEDS: HYDROCORTISONE 1% TOPICAL CREAM 30GM TUBE. TP SCH (09:00)
[2019-06-04] MEDS: FUROSEMIDE 40 MG TABLET PO SCH ×2 (09:24→17:18)
[2019-06-04] MEDS: ARIPiprazole 5 MG TABLET PO SCH (09:25)
[2019-06-04] MEDS: LOSARTAN 50 MG TABLET. PO SCH (09:25)
[2019-06-04] MEDS: LACTOBACILLUS RHAMNOSUS GG 1 CAPSULE. PO SCH ×2 (09:25→20:58)
[2019-06-04] MEDS: ASPIRIN ENTERIC COATED 81 MG TABLET.DR. PO SCH (09:25)
[2019-06-04] MEDS: CEFDINIR 300 MG CAPSULE PO SCH ×2 (09:25→21:00)
[2019-06-04] MEDS: CARVEDILOL 6.25 MG TABLET PO SCH ×2 (09:25→17:18)
[2019-06-04] MEDS: DULoxetine HCL 30 MG CAPSULE.DR PO SCH (09:26)
[2019-06-04] MEDS: POTASSIUM CHLORIDE 20 MEQ TABLET.ER. PO SCH ×2 (09:26→20:58)
[2019-06-04] MEDS: CETIRIZINE HCL 10 MG TABLET PO SCH (09:26)
[2019-06-04] MEDS: SENNOSIDES/DOCUSATE 8.6/50MG TABLET. PO SCH (09:26)
[2019-06-04] MEDS: PANTOPRAZOLE 40 MG TABLET. PO SCH (09:27)
[2019-06-04] MEDS: FERROUS SULFATE 325 MG TABLET. PO SCH (09:27)
[2019-06-04] MEDS: CYANOCOBALAMIN (VITAMIN B-12) 1,000 MCG TABLET. PO SCH (09:27)
[2019-06-04] MEDS: NYSTATIN 100,000 UNITS/ML ORAL SUSPENSION 60ML BOTTLE. SWSW SCH ×4 (09:28→20:59)
[2019-06-04] MEDS: ENOXAPARIN 40 MG/0.4 ML SYRINGE. SQ SCH ×2 (09:28→20:59)
[2019-06-04] MEDS: BUDESONIDE 0.5 MG/2 ML NEBU NEB SCH ×2 (10:30→22:43)
[2019-06-04] MEDS: HYDROcodone/APAP 7.5/325MG 1 TAB TABLET PO PRN (11:23)
[2019-06-04 15:55] VITALS: BP 131/67
[2019-06-04] MEDS: traZODone 50 MG TABLET. PO SCH (20:58)
[2019-06-04] MEDS: ALPRAZolam 0.5 MG TABLET PO PRN (21:06)
--- NOTE | 2019-06-04 21:19 | PN ---
DATE: 06/03/2019 PSYCHIATRIC PROGRESS NOTE This late entry 06/03/2019 covers the elements not covered in my initial note. SUBJECTIVE: I met with the patient in the evening. I had a call from nursing staff earlier in the day. Per XIN [place], the patient slept 6-3/4 hours previous night. She has been extremely manipulative, took her medications, compliant with the 3:30 meds and oxygen, but acting very helpless, loud, disruptive, in the day room in the evening, had to be placed in the West hallway and then she urinated on the floor, blaming staff for it. REVIEW OF SYSTEMS: Ambulation impaired, in wheelchair. No CV, , eye, ENT system symptoms on review. MENTAL STATUS EXAM: Reasonably oriented. Speech is coherent, rapid, pressured at times, threatening staff. Abstraction fair, computation impaired, language function intact, attention span short. Mood and affect depressed. No active suicidal ideation. LABORATORY DATA: Reviewed. IMPRESSION: Bipolar disorder, mixed with psychotic features versus bipolar disorder, depressed; anxiety disorder, unspecified; personality disorder. Rest unchanged. PLAN: Continue current psychotropics. Start Cymbalta 30 mg a day. Maintain Geodon 20 mg b.i.d. Continue trazodone p.r.n. Adjust further as clinically indicated. MAN Morris GARCES MD DR: JOSE CARLOS/roslyn JOB#: [id number] / [id number]
--- NOTE | 2019-06-04 21:19 | PDOC ---
Exam Note: Heri Note: Please also refer to the separate dictated note~for this date of service dictated separately.~Patient seen individually. Discussed the patient with Nursing staff reviewed the chart.~Reviewed interim history and current functioning. Reviewed vital signs,~Labs/ Radiology~and current medications noted below. Continue current treatment with the changes noted in the dictated addendum note Assessment: Vital Signs/I&O: Vital Signs Date Time Temp Pulse Resp B/P (MAP) Pulse Ox O2 Delivery O2 Flow Rate FiO2 06/04/19 17:18 109 131/67 06/04/19 16:27 99 Nasal Cannula 2.0 06/04/19 15:55 98.1 20 I & O 06/03/19 06/03/19 06/04/19 15:00 23:00 07:00 Intake Total 960 ml 580 ml Balance 960 ml 580 ml Labs: Laboratory Tests Test 06/04/19 08:25 Glucose (Fingerstick) 146 mg/dL (70-99) H Current Medications: Meds: Current Medications Medications (Trade) Dose Ordered Sig/Mason Route PRN Reason Start Time Stop Time Status Last Admin Dose Admin Duloxetine HCl (Cymbalta) 30 mg DAILY PO 06/04/19 09:00 06/04/19 09:26 I have reviewed the current psychotropics carefully including drug interactions. Risk benefit ratio favors no change other than as noted in my dictated progress note. Diagnosis: Problems: (1) Personality disorder, unspecified (2) Anxiety disorder (3) Major depressive disorder, recurrent episode (4) Bipolar affective, mixed ALBER GARCES MD Jun 04, 2019 21:19
[2019-06-05] MEDS: CYCLOBENZAPRINE 10 MG TABLET. PO PRN (00:29)
[2019-06-05] MEDS: IPRATRPIUM/ALBUTEROL 0.5/2.5MG 3 ML NEBU. NEB SCH ×4 (06:00→21:57)
[2019-06-05 06:07] VITALS: BP 151/81
[2019-06-05 07:37] LABS: BASO % 1 % (0-3); EOS # 0.2 x10^3/uL (0.0-0.7); EOS % 4 % (0-3); HEMATOCRIT 35.6 % (36.0-47.0); HEMOGLOBIN 11.3 g/dL (12.0-15.5); LYMPH # 1.1 x10^3/uL (1.0-4.8); LYMPH % 20 % (24-48); MEAN CORPUSCULAR HEMOGLOBIN 29 pg (25-35); MEAN CORPUSCULAR HGB CONC 32 g/dL (31-37); MEAN CORPUSCULAR VOLUME 91 fL (79-100); MONO # 0.4 x10^3/uL (0.0-1.1); MONO % 8 % (0-9); NEUT # 3.7 x10^3uL (1.8-7.7); NEUT % 68 % (31-73); PLATELET COUNT 184 x10^3/uL (140-400); RED BLOOD COUNT 3.89 x10^6/uL (3.50-5.40); RED CELL DISTRIBUTION WIDTH 13.7 % (11.5-14.5); WHITE BLOOD COUNT 5.5 x10^3/uL (4.0-11.0)
[2019-06-05 07:52] LABS: ALBUMIN 2.8 g/dL (3.4-5.0); ALBUMIN/GLOBULIN RATIO 0.8 (1.0-1.7); CALCIUM 8.2 mg/dL (8.5-10.1); CREATININE 0.8 mg/dL (0.6-1.0); TOTAL BILIRUBIN 0.2 mg/dL (0.2-1.0); TOTAL PROTEIN 6.5 g/dL (6.4-8.2)
[2019-06-05] MEDS: NYSTATIN 100,000 UNITS/ML ORAL SUSPENSION 60ML BOTTLE. SWSW SCH ×4 (08:38→21:20)
[2019-06-05] MEDS: ARIPiprazole 5 MG TABLET PO SCH (08:38)
[2019-06-05] MEDS: PANTOPRAZOLE 40 MG TABLET. PO SCH (08:39)
[2019-06-05] MEDS: CYANOCOBALAMIN (VITAMIN B-12) 1,000 MCG TABLET. PO SCH (08:39)
[2019-06-05] MEDS: ENOXAPARIN 40 MG/0.4 ML SYRINGE. SQ SCH ×2 (08:39→21:20)
[2019-06-05] MEDS: CEFDINIR 300 MG CAPSULE PO SCH ×2 (08:39→21:19)
[2019-06-05] MEDS: LACTOBACILLUS RHAMNOSUS GG 1 CAPSULE. PO SCH ×2 (08:39→21:19)
[2019-06-05] MEDS: POTASSIUM CHLORIDE 20 MEQ TABLET.ER. PO SCH ×2 (08:40→21:20)
[2019-06-05] MEDS: SENNOSIDES/DOCUSATE 8.6/50MG TABLET. PO SCH (08:40)
[2019-06-05] MEDS: FERROUS SULFATE 325 MG TABLET. PO SCH (08:40)
[2019-06-05] MEDS: DULoxetine HCL 30 MG CAPSULE.DR PO SCH (08:40)
[2019-06-05] MEDS: FUROSEMIDE 40 MG TABLET PO SCH ×2 (08:40→16:36)
[2019-06-05] MEDS: ASPIRIN ENTERIC COATED 81 MG TABLET.DR. PO SCH (08:40)
[2019-06-05] MEDS: CETIRIZINE HCL 10 MG TABLET PO SCH (08:41)
[2019-06-05] MEDS: CARVEDILOL 6.25 MG TABLET PO SCH ×2 (08:41→16:36)
[2019-06-05] MEDS: LOSARTAN 50 MG TABLET. PO SCH (08:41)
[2019-06-05] MEDS: HYDROCORTISONE 1% TOPICAL CREAM 30GM TUBE. TP SCH (09:00)
[2019-06-05] MEDS: BUDESONIDE 0.5 MG/2 ML NEBU NEB SCH ×2 (09:41→21:57)
[2019-06-05] MEDS: HYDROcodone/APAP 7.5/325MG 1 TAB TABLET PO PRN ×2 (11:06→21:47)
--- NOTE | 2019-06-05 12:21 | RAD ---
CHEST AP ONLY Clinical Indication: Shortness of air, crackles, left base upper airway wheezes. Comparison: AP chest 06/21/2012. Findings: The cardiomediastinal silhouette is normal. There is left basilar airspace disease. There is no pneumothorax. No pleural effusion is appreciated. No acute bone abnormality. IMPRESSION: Left basilar atelectasis or pneumonia or scarring. Electronically signed by: Greg Ferreira MD (06/05/2019 12:18 PM) [id number]
[2019-06-05 16:14] VITALS: BP 125/78
[2019-06-05] MEDS: ALPRAZolam 0.5 MG TABLET PO PRN (21:19)
--- NOTE | 2019-06-05 21:19 | PDOC ---
Exam Note: Heri Note: Please also refer to the separate dictated note~for this date of service dictated separately.~Patient seen individually. Discussed the patient with Nursing staff reviewed the chart.~Reviewed interim history and current functioning. Reviewed vital signs,~Labs/ Radiology~and current medications noted below. Continue current treatment with the changes noted in the dictated addendum note Assessment: Vital Signs/I&O: Vital Signs Date Time Temp Pulse Resp B/P (MAP) Pulse Ox O2 Delivery O2 Flow Rate FiO2 06/05/19 16:36 93 125/78 06/05/19 16:14 98.0 20 96 06/05/19 15:36 Nasal Cannula 2.5 I & O 06/04/19 06/04/19 06/05/19 15:00 23:00 07:00 Intake Total 840 ml 600 ml Balance 840 ml 600 ml Labs: Laboratory Tests Test 06/05/19 07:22 06/05/19 07:57 White Blood Count 5.5 x10^3/uL (4.0-11.0) Red Blood Count 3.89 x10^6/uL (3.50-5.40) Hemoglobin 11.3 g/dL (12.0-15.5) L Hematocrit 35.6 % (36.0-47.0) L Mean Corpuscular Volume 91 fL (79-100) Mean Corpuscular Hemoglobin 29 pg (25-35) Mean Corpuscular Hemoglobin Concent 32 g/dL (31-37) Red Cell Distribution Width 13.7 % (11.5-14.5) Platelet Count 184 x10^3/uL (140-400) Neutrophils (%) (Auto) 68 % (31-73) Lymphocytes (%) (Auto) 20 % (24-48) L Monocytes (%) (Auto) 8 % (0-9) Eosinophils (%) (Auto) 4 % (0-3) H Basophils (%) (Auto) 1 % (0-3) Neutrophils # (Auto) 3.7 x10^3uL (1.8-7.7) Lymphocytes # (Auto) 1.1 x10^3/uL (1.0-4.8) Monocytes # (Auto) 0.4 x10^3/uL (0.0-1.1) Eosinophils # (Auto) 0.2 x10^3/uL (0.0-0.7) Basophils # (Auto) 0.0 x10^3/uL (0.0-0.2) Sodium Level 139 mmol/L (136-145) Potassium Level 4.0 mmol/L (3.5-5.1) Chloride Level 100 mmol/L (98-107) Carbon Dioxide Level 35 mmol/L (21-32) H Anion Gap 4 (6-14) L Blood Urea Nitrogen 16 mg/dL (7-20) Creatinine 0.8 mg/dL (0.6-1.0) Estimated GFR (Cockcroft-Gault) 72.0 BUN/Creatinine Ratio 20 (6-20) Glucose Level 117 mg/dL (70-99) H Calcium Level 8.2 mg/dL (8.5-10.1) L Total Bilirubin 0.2 mg/dL (0.2-1.0) Aspartate Amino Transferase (AST) 15 U/L (15-37) Alanine Aminotransferase (ALT) 28 U/L (14-59) Alkaline Phosphatase 65 U/L (46-116) CD-Ttt-P-Type Natriuretic Peptide 40 pg/mL (0-124) Total Protein 6.5 g/dL (6.4-8.2) Albumin 2.8 g/dL (3.4-5.0) L Albumin/Globulin Ratio 0.8 (1.0-1.7) L Glucose (Fingerstick) 118 mg/dL (70-99) H Current Medications: I have reviewed the current psychotropics carefully including drug interactions. Risk benefit ratio favors no change other than as noted in my dictated progress note. Diagnosis: Problems: (1) Personality disorder, unspecified (2) Anxiety disorder (3) Major depressive disorder, recurrent episode (4) Bipolar affective, mixed ALBER GARCES MD Jun 05, 2019 21:19
[2019-06-05] MEDS: traZODone 50 MG TABLET. PO SCH (21:20)
[2019-06-06] MEDS: IPRATRPIUM/ALBUTEROL 0.5/2.5MG 3 ML NEBU. NEB SCH ×4 (06:15→21:24)
[2019-06-06 06:38] VITALS: BP 125/61
[2019-06-06] MEDS: HYDROCORTISONE 1% TOPICAL CREAM 30GM TUBE. TP SCH (09:00)
[2019-06-06] MEDS: KETOCONAZOLE 2% TOPICAL CREAM 30GM TUBE. TP SCH (09:04)
[2019-06-06] MEDS: CEFDINIR 300 MG CAPSULE PO SCH ×2 (09:05→21:08)
[2019-06-06] MEDS: POTASSIUM CHLORIDE 20 MEQ TABLET.ER. PO SCH ×2 (09:05→21:10)
[2019-06-06] MEDS: LACTOBACILLUS RHAMNOSUS GG 1 CAPSULE. PO SCH ×2 (09:05→21:09)
[2019-06-06] MEDS: ENOXAPARIN 40 MG/0.4 ML SYRINGE. SQ SCH ×2 (09:06→21:08)
[2019-06-06] MEDS: FUROSEMIDE 40 MG TABLET PO SCH ×2 (09:07→17:26)
[2019-06-06] MEDS: ASPIRIN ENTERIC COATED 81 MG TABLET.DR. PO SCH (09:07)
[2019-06-06] MEDS: PANTOPRAZOLE 40 MG TABLET. PO SCH (09:07)
[2019-06-06] MEDS: SENNOSIDES/DOCUSATE 8.6/50MG TABLET. PO SCH (09:08)
[2019-06-06] MEDS: CARVEDILOL 6.25 MG TABLET PO SCH ×2 (09:08→17:27)
[2019-06-06] MEDS: CETIRIZINE HCL 10 MG TABLET PO SCH (09:10)
[2019-06-06] MEDS: FERROUS SULFATE 325 MG TABLET. PO SCH (09:11)
[2019-06-06] MEDS: CYANOCOBALAMIN (VITAMIN B-12) 1,000 MCG TABLET. PO SCH (09:11)
[2019-06-06] MEDS: LOSARTAN 50 MG TABLET. PO SCH (09:12)
[2019-06-06] MEDS: DULoxetine HCL 30 MG CAPSULE.DR PO SCH (09:12)
[2019-06-06] MEDS: NYSTATIN 100,000 UNITS/ML ORAL SUSPENSION 60ML BOTTLE. SWSW SCH ×4 (10:01→21:07)
[2019-06-06] MEDS: HYDROcodone/APAP 7.5/325MG 1 TAB TABLET PO PRN ×2 (10:02→21:09)
[2019-06-06] MEDS: ARIPiprazole 10 MG TABLET PO SCH (10:02)
[2019-06-06] MEDS: BUDESONIDE 0.5 MG/2 ML NEBU NEB SCH ×2 (10:15→21:24)
--- NOTE | 2019-06-06 15:16 | TX PLAN ---
Interdisciplinary Tx Plan Admission Information May 29, 2019 at 22:10 Legal Status (on Admission): Voluntary DPOA/Guardian Name: Pt is a self-sign Contact Verified Code Status: Full Code Allergies: Coded Allergies: bupropion (Verified Allergy, Unknown, 05/29/19) clonazepam (Verified Allergy, Unknown, 05/29/19) erythromycin base (Verified Allergy, Unknown, 05/29/19) fentanyl (Verified Allergy, Unknown, 05/29/19) haloperidol (Verified Allergy, Unknown, 05/29/19) lisinopril (Verified Allergy, Unknown, 05/29/19) lorazepam (Verified Allergy, Unknown, 05/29/19) ondansetron (Verified Allergy, Unknown, 05/29/19) tree nut (Verified Allergy, Unknown, 05/29/19) Diagnoses Primary Diagnosis: MDD recurrent Reasons for Admission: Depressed, Suicidal ideation Problem in Patient's Words: I have so much going on I just don't know what kind of life I have left to live. Additional Admission Comments: SI with plan but will not disclose the plan. paranoid, thinks people at hospitals don't treat her nicely, anxious, depressed, suspicious, intermittent verbal aggression. Problems Active Problems: SI with no plan Verbal aggression Physical aggression Attention-seeking/demanding Medication non-compliance Inactive Problems: N/A Pt Strengths/Limitations Ability for [place]: Poor Cognitive Functioning/Ability: Fair Communication Skills/Ability: Fair Financial Resources: Poor Insight/Judgement: Poor Intellectual Ability: Fair Physical Health: Poor Social Skills: Fair Stability in Family: Poor Stability in School/Work: Poor Verbal Skills: Fair Discharge Criteria Discharge Criteria: Able meet basic life need, No need for close observ., Able to meet health needs, Adequate arrangements @DC, Verbal commit aftercare, Adequate self-care, Improved behavior, Improved mood/thought Preliminary Discharge Plan Preliminary DC Plan: Current Living Arrange., Home Special Precautions Fall Risk: Moderate Initial D/C Plan Patient will plan to discharge home and have an evaluation for hospice Identified Discharge Needs: Pt will be assessed for Hospice and other community services Additional Needs Continued psychiatric services Currently Utilized Resources Currently Utilized Resources/P: None; pt appears to have no active services in place Referrals Community Resources: Primary Care Psychiatry Counseling Case Management/Social Work Potential Hospice referrals Identified Problems/Hx/Goals Objectives/Short-Term Goals Short Term Goals: Dec. Anxiety/Panic, Decrease Isolation, Dec. Symp. Depression, Medication Stabilization, No Suicidal/Mal. ideation, Promote Coping Skill Short Term Goals in Patient's: I need to get out of here. You guys are horrible. Interventions/Frequency Staff Interventions/Frequency&: Psychiatry to assess pt at least 3x per week. Branch Operations Manager to assess pt at least 2x per week. Nursing to complete 15 minute checks daily. Encourage group/active participation during activities. 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 Education: BS in Nursing Community Follow-up May send referrals to potential SNF's. Treatment Plan Explained Patient/Commercial Green Building Architect had this treatment plan explained to him/her as indicated by the signature below and has been given the opportunity to ask questions and make suggestions: Date: Patient/Commercial Green Building Architect Signature: Patient/Commercial Green Building Architect Decline: No Additional Comments Patient family is not active in patient care. EVITA CLARK Jun 06, 2019 15:16
[2019-06-06 15:32] VITALS: BP 124/72
--- NOTE | 2019-06-06 19:44 | PN ---
DATE: 06/04/2019 PSYCHIATRIC PROGRESS NOTE This late entry June 03, covers elements not covered in my initial note. SUBJECTIVE: I met with the patient evening of June 03. Per XIN Merritt, the patient slept six and a half hours previous night. She has had a better day, less complaints and less arguing with staff, less demeaning, remains hyperverbal, calling for help, had problems with a specific LITHOPONE MILL WORKER, which I addressed with her. REVIEW OF SYSTEMS: Ambulation impaired, in wheelchair. No CV, , pulmonary, eye system symptoms on review. She has vague somatic symptoms. MENTAL STATUS EXAM: Reasonably oriented. Speech has some latency, coherent, at times pressured. Abstraction fair, computation impaired, language function intact. Mood and affect, lability is improved. LABORATORY DATA: Reviewed. IMPRESSION: Major depressive disorder, rule out bipolar disorder, unspecified. Rest unchanged. PLAN: No change from initial note. MAN Morris GARCES MD DR: JOSE CARLOS/roslyn JOB#: [id number] / [id number]
--- NOTE | 2019-06-06 19:44 | PN ---
DATE: 06/05/2019 PSYCHIATRIC PROGRESS NOTE This late entry 06/05/2019 covers the elements not covered in my initial note. SUBJECTIVE: I met with the patient in the evening and staffed at a treatment team meeting with the entire team in the morning. The patient's appetite is 100%, sleeping average 6-1/2 hours, compliant with medications. She has been complementing staff, which is quite a change for her. Less anxious, labile. REVIEW OF SYSTEMS: Ambulation impaired, in wheelchair. No CV, , pulmonary, eye system symptoms on review. MENTAL STATUS EXAM: Reasonably oriented. Speech is coherent, abstraction fair, computation impaired, language function intact, attention span short. Mood and affect less labile, less depressed. LABORATORY DATA: Reviewed. IMPRESSION: Unchanged from initial note. PLAN: No change from initial note. MAN Morris GARCES MD DR: JOSE CARLOS/roslyn JOB#: [id number] / [id number]
[2019-06-06] MEDS: BENZOCAINE/MENTHOL LOZNGE 18'S BOX. PO PRN (21:07)
[2019-06-06] MEDS: ALPRAZolam 0.5 MG TABLET PO PRN (21:09)
[2019-06-06] MEDS: traZODone 50 MG TABLET. PO SCH (21:10)
--- NOTE | 2019-06-06 21:22 | PDOC ---
Exam Note: Heri Note: Please also refer to the separate dictated note~for this date of service dictated separately.~Patient seen individually. Discussed the patient with Nursing staff reviewed the chart.~Reviewed interim history and current functioning. Reviewed vital signs,~Labs/ Radiology~and current medications noted below. Continue current treatment with the changes noted in the dictated addendum note Assessment: Vital Signs/I&O: Vital Signs Date Time Temp Pulse Resp B/P (MAP) Pulse Ox O2 Delivery O2 Flow Rate FiO2 06/06/19 17:27 101 124/72 06/06/19 16:04 99 Nasal Cannula 2.5 06/06/19 15:32 97.4 20 I & O 06/05/19 06/05/19 06/06/19 15:00 23:00 07:00 Intake Total 360 ml 240 ml 240 ml Balance 360 ml 240 ml 240 ml Labs: Laboratory Tests Test 06/06/19 07:36 Glucose (Fingerstick) 112 mg/dL (70-99) H Current Medications: Meds: Current Medications Medications (Trade) Dose Ordered Sig/Mason Route PRN Reason Start Time Stop Time Status Last Admin Dose Admin Aripiprazole (Abilify) 10 mg DAILY PO 06/06/19 09:00 06/06/19 10:02 Ketoconazole (Nizoral 2% Topical) 1 gricel DAILY TP 06/06/19 09:00 06/06/19 09:04 Throat Lozenges (Cepacol Sore Throat Lozenge) 1 chago PRN Q2HR PRN PO SORE THROAT 06/05/19 22:00 06/06/19 21:07 Alprazolam (Xanax) 0.5 mg PRN Q4HRS PRN PO ANXIETY / AGITATION 06/06/19 18:30 06/06/19 21:09 I have reviewed the current psychotropics carefully including drug interactions. Risk benefit ratio favors no change other than as noted in my dictated progress note. Diagnosis: Problems: (1) Personality disorder, unspecified (2) Anxiety disorder (3) Major depressive disorder, recurrent episode (4) Bipolar affective, mixed ALBER GARCES MD Jun 06, 2019 21:22
[2019-06-07] MEDS: IPRATRPIUM/ALBUTEROL 0.5/2.5MG 3 ML NEBU. NEB SCH ×4 (05:10→21:20)
[2019-06-07 06:33] VITALS: BP 142/83
[2019-06-07] MEDS: HYDROCORTISONE 1% TOPICAL CREAM 30GM TUBE. TP SCH (09:00)
[2019-06-07] MEDS: SENNOSIDES/DOCUSATE 8.6/50MG TABLET. PO SCH (09:06)
[2019-06-07] MEDS: ENOXAPARIN 40 MG/0.4 ML SYRINGE. SQ SCH ×2 (09:06→21:01)
[2019-06-07] MEDS: LACTOBACILLUS RHAMNOSUS GG 1 CAPSULE. PO SCH ×2 (09:07→21:02)
[2019-06-07] MEDS: POTASSIUM CHLORIDE 20 MEQ TABLET.ER. PO SCH ×2 (09:07→21:02)
[2019-06-07] MEDS: LOSARTAN 50 MG TABLET. PO SCH (09:07)
[2019-06-07] MEDS: ARIPiprazole 10 MG TABLET PO SCH (09:07)
[2019-06-07] MEDS: ASPIRIN ENTERIC COATED 81 MG TABLET.DR. PO SCH (09:07)
[2019-06-07] MEDS: CYANOCOBALAMIN (VITAMIN B-12) 1,000 MCG TABLET. PO SCH (09:07)
[2019-06-07] MEDS: CETIRIZINE HCL 10 MG TABLET PO SCH (09:08)
[2019-06-07] MEDS: FERROUS SULFATE 325 MG TABLET. PO SCH (09:08)
[2019-06-07] MEDS: FUROSEMIDE 40 MG TABLET PO SCH ×2 (09:08→17:12)
[2019-06-07] MEDS: DULoxetine HCL 30 MG CAPSULE.DR PO SCH (09:08)
[2019-06-07] MEDS: PANTOPRAZOLE 40 MG TABLET. PO SCH (09:08)
[2019-06-07] MEDS: CARVEDILOL 6.25 MG TABLET PO SCH ×2 (09:09→17:12)
[2019-06-07] MEDS: KETOCONAZOLE 2% TOPICAL CREAM 30GM TUBE. TP SCH (09:09)
[2019-06-07] MEDS: NYSTATIN 100,000 UNITS/ML ORAL SUSPENSION 60ML BOTTLE. SWSW SCH ×4 (09:11→21:00)
[2019-06-07] MEDS: BUDESONIDE 0.5 MG/2 ML NEBU NEB SCH ×2 (09:38→21:20)
[2019-06-07 15:53] VITALS: BP 147/72
[2019-06-07] MEDS: HYDROcodone/APAP 7.5/325MG 1 TAB TABLET PO PRN (18:44)
[2019-06-07] MEDS: traZODone 50 MG TABLET. PO SCH (21:02)
[2019-06-07] MEDS: ALPRAZolam 0.5 MG TABLET PO PRN (21:05)
--- NOTE | 2019-06-07 21:14 | PDOC ---
Exam Note: Heri Note: Please also refer to the separate dictated note~for this date of service dictated separately.~Patient seen individually. Discussed the patient with Nursing staff reviewed the chart.~Reviewed interim history and current functioning. Reviewed vital signs,~Labs/ Radiology~and current medications noted below. Continue current treatment with the changes noted in the dictated addendum note Assessment: Vital Signs/I&O: Vital Signs Date Time Temp Pulse Resp B/P (MAP) Pulse Ox O2 Delivery O2 Flow Rate FiO2 06/07/19 20:53 93 06/07/19 17:12 100 147/72 06/07/19 15:53 97.9 16 06/07/19 15:46 2.5 06/07/19 09:38 Nasal Cannula I & O 06/06/19 06/06/19 06/07/19 15:00 23:00 07:00 Intake Total 720 ml 240 ml 240 ml Balance 720 ml 240 ml 240 ml Labs: Laboratory Tests Test 06/07/19 07:52 Glucose (Fingerstick) 142 mg/dL (70-99) H Current Medications: I have reviewed the current psychotropics carefully including drug interactions. Risk benefit ratio favors no change other than as noted in my dictated progress note. Diagnosis: Problems: (1) Personality disorder, unspecified (2) Anxiety disorder (3) Major depressive disorder, recurrent episode (4) Bipolar affective, mixed ALBER GARCES MD Jun 07, 2019 21:14
[2019-06-08] MEDS: IPRATRPIUM/ALBUTEROL 0.5/2.5MG 3 ML NEBU. NEB SCH ×4 (05:10→21:32)
[2019-06-08 06:20] VITALS: BP 169/85
[2019-06-08] MEDS: LOSARTAN 50 MG TABLET. PO SCH (08:43)
[2019-06-08] MEDS: CETIRIZINE HCL 10 MG TABLET PO SCH (08:43)
[2019-06-08] MEDS: FERROUS SULFATE 325 MG TABLET. PO SCH (08:44)
[2019-06-08] MEDS: LACTOBACILLUS RHAMNOSUS GG 1 CAPSULE. PO SCH ×2 (08:44→20:49)
[2019-06-08] MEDS: CYANOCOBALAMIN (VITAMIN B-12) 1,000 MCG TABLET. PO SCH (08:44)
[2019-06-08] MEDS: DULoxetine HCL 30 MG CAPSULE.DR PO SCH (08:44)
[2019-06-08] MEDS: FUROSEMIDE 40 MG TABLET PO SCH ×2 (08:44→17:11)
[2019-06-08] MEDS: CHOLECALCIFEROL (VITAMIN D3) 50,000 UNIT CAPSULE PO SCH (08:44)
[2019-06-08] MEDS: POTASSIUM CHLORIDE 20 MEQ TABLET.ER. PO SCH ×2 (08:45→20:49)
[2019-06-08] MEDS: SENNOSIDES/DOCUSATE 8.6/50MG TABLET. PO SCH (08:45)
[2019-06-08] MEDS: ASPIRIN ENTERIC COATED 81 MG TABLET.DR. PO SCH (08:45)
[2019-06-08] MEDS: CARVEDILOL 6.25 MG TABLET PO SCH ×2 (08:46→17:00)
[2019-06-08] MEDS: ARIPiprazole 10 MG TABLET PO SCH (08:46)
[2019-06-08] MEDS: PANTOPRAZOLE 40 MG TABLET. PO SCH (08:46)
[2019-06-08] MEDS: ENOXAPARIN 40 MG/0.4 ML SYRINGE. SQ SCH ×2 (08:47→20:50)
[2019-06-08] MEDS: HYDROCORTISONE 1% TOPICAL CREAM 30GM TUBE. TP SCH ×2 (08:47→09:00)
[2019-06-08] MEDS: NYSTATIN 100,000 UNIT/GM TOPICAL CREAM 15GM TUBE. TP PRN (08:47)
[2019-06-08] MEDS: KETOCONAZOLE 2% TOPICAL CREAM 30GM TUBE. TP SCH ×2 (08:47→09:00)
[2019-06-08] MEDS: NYSTATIN 100,000 UNITS/ML ORAL SUSPENSION 60ML BOTTLE. SWSW SCH ×4 (08:48→21:00)
[2019-06-08] MEDS: BUDESONIDE 0.5 MG/2 ML NEBU NEB SCH ×2 (09:47→21:32)
[2019-06-08 15:29] VITALS: BP 129/72
[2019-06-08] MEDS: HYDROcodone/APAP 7.5/325MG 1 TAB TABLET PO PRN (17:20)
[2019-06-08] MEDS: ALPRAZolam 0.5 MG TABLET PO PRN (20:49)
[2019-06-08] MEDS: traZODone 50 MG TABLET. PO SCH (20:50)
[2019-06-08] MEDS: BENZOCAINE/MENTHOL LOZNGE 18'S BOX. PO PRN (20:51)
--- NOTE | 2019-06-08 21:54 | PN ---
DATE: 06/07/2019 PSYCHIATRIC PROGRESS NOTE This late entry 06/07/2019 covers elements not covered in my initial note. SUBJECTIVE: I met with the patient evening of 06/07/2019. Per XIN Michelle, the patient slept 7-3/4 hours previous night. She has been somewhat manic splitting staff, demanding, little more anxious, restless, and some interactions reflective of a personality disorder. REVIEW OF SYSTEMS: No CV, , pulmonary, eye system symptoms on review, does complain of pedal edema, ambulation impaired, in wheelchair. MENTAL STATUS EXAM: Reasonably oriented. Speech is coherent, a little pressured at times. Abstraction fair, computation impaired, language function intact, attention span short. Mood and affect remain somewhat anxious, labile. LABORATORY DATA: Reviewed. IMPRESSION: Major depressive disorder, recurrent; anxiety disorder, unspecified; mood disorder, unspecified. PLAN: Increase the maximum Xanax to 2.5 mg in 24 hours. Maintain Abilify 5 mg a day. Continue trazodone, Cymbalta at current dosage. Rest unchanged for now. ALBER GARCES MD DR: JOSE CARLOS/roslyn JOB#: [id number] / [id number]
[2019-06-08 22:09] LABS: BACTERIA,URINE FEW /HPF (0-FEW); BILIRUBIN,URINE NEG (NEG); CLARITY,URINE HAZY; COLOR,URINE YELLOW; GLUCOSE,URINE NEG (NEG); NITRITE,URINE NEG (NEG); RBC,URINE OCC /HPF (0-2); SQUAMOUS EPITHELIAL CELL,UR MOD /LPF; UROBILINOGEN,URINE 0.2 mg/dL (0.2 mg/dL); YEAST,URINE PRESENT /HPF
--- NOTE | 2019-06-08 22:33 | PDOC ---
Exam Note: Heri Note: Please also refer to the separate dictated note~for this date of service dictated separately.~Patient seen individually. Discussed the patient with Nursing staff reviewed the chart.~Reviewed interim history and current functioning. Reviewed vital signs,~Labs/ Radiology~and current medications noted below. Continue current treatment with the changes noted in the dictated addendum note Assessment: Vital Signs/I&O: Vital Signs Date Time Temp Pulse Resp B/P (MAP) Pulse Ox O2 Delivery O2 Flow Rate FiO2 06/08/19 21:32 95 Nasal Cannula 2.5 06/08/19 17:00 92 129/72 06/08/19 15:29 97.8 18 I & O 06/07/19 06/07/19 06/08/19 15:00 23:00 07:00 Intake Total 720 ml 480 ml 240 ml Balance 720 ml 480 ml 240 ml Labs: Laboratory Tests Test 06/08/19 21:50 Urine Collection Type Unknown Urine Color Yellow Urine Clarity Hazy Urine pH 5.0 Urine Specific [place] 1.015 Urine Protein Neg (NEG-TRACE) Urine Glucose (UA) Neg mg/dL (NEG) Urine Ketones (Stick) Neg mg/dL (NEG) Urine Blood Neg (NEG) Urine Nitrite Neg (NEG) Urine Bilirubin Neg (NEG) Urine Urobilinogen Dipstick 0.2 mg/dL (0.2 mg/dL) Urine Leukocyte Esterase Neg (NEG) Urine RBC Occ /HPF (0-2) Urine WBC 1-4 /HPF (0-4) Urine Squamous Epithelial Cells Mod /LPF Urine Bacteria Few /HPF (0-FEW) Urine Mucus Slight /LPF Urine Yeast Present /HPF Current Medications: I have reviewed the current psychotropics carefully including drug interactions. Risk benefit ratio favors no change other than as noted in my dictated progress note. Diagnosis: Problems: (1) Personality disorder, unspecified (2) Anxiety disorder (3) Major depressive disorder, recurrent episode (4) Bipolar affective, mixed (5) Mood disorder ALBER GARCES MD Jun 08, 2019 22:33
[2019-06-09] MEDS: IPRATRPIUM/ALBUTEROL 0.5/2.5MG 3 ML NEBU. NEB SCH ×4 (05:04→20:04)
[2019-06-09] MEDS: HYDROcodone/APAP 7.5/325MG 1 TAB TABLET PO PRN ×2 (06:07→21:17)
[2019-06-09 06:17] VITALS: BP 156/71
[2019-06-09] MEDS: SENNOSIDES/DOCUSATE 8.6/50MG TABLET. PO SCH (08:48)
[2019-06-09] MEDS: ARIPiprazole 10 MG TABLET PO SCH (08:48)
[2019-06-09] MEDS: CARVEDILOL 6.25 MG TABLET PO SCH ×2 (08:49→17:06)
[2019-06-09] MEDS: CYANOCOBALAMIN (VITAMIN B-12) 1,000 MCG TABLET. PO SCH (08:49)
[2019-06-09] MEDS: FUROSEMIDE 40 MG TABLET PO SCH ×2 (08:49→17:06)
[2019-06-09] MEDS: LACTOBACILLUS RHAMNOSUS GG 1 CAPSULE. PO SCH ×2 (08:49→21:17)
[2019-06-09] MEDS: CETIRIZINE HCL 10 MG TABLET PO SCH (08:49)
[2019-06-09] MEDS: POTASSIUM CHLORIDE 20 MEQ TABLET.ER. PO SCH ×2 (08:50→21:17)
[2019-06-09] MEDS: PANTOPRAZOLE 40 MG TABLET. PO SCH (08:50)
[2019-06-09] MEDS: DULoxetine HCL 30 MG CAPSULE.DR PO SCH (08:50)
[2019-06-09] MEDS: ASPIRIN ENTERIC COATED 81 MG TABLET.DR. PO SCH (08:50)
[2019-06-09] MEDS: FERROUS SULFATE 325 MG TABLET. PO SCH (08:50)
[2019-06-09] MEDS: LOSARTAN 50 MG TABLET. PO SCH (08:50)
[2019-06-09] MEDS: ENOXAPARIN 40 MG/0.4 ML SYRINGE. SQ SCH ×2 (08:51→21:18)
[2019-06-09] MEDS: HYDROCORTISONE 1% TOPICAL CREAM 30GM TUBE. TP SCH (08:52)
[2019-06-09] MEDS: KETOCONAZOLE 2% TOPICAL CREAM 30GM TUBE. TP SCH (08:52)
[2019-06-09] MEDS: NYSTATIN 100,000 UNITS/ML ORAL SUSPENSION 60ML BOTTLE. SWSW SCH ×4 (08:52→21:00)
[2019-06-09] MEDS: BUDESONIDE 0.5 MG/2 ML NEBU NEB SCH ×2 (10:35→20:04)
[2019-06-09 16:10] VITALS: BP 144/77
--- NOTE | 2019-06-09 20:29 | PN ---
DATE: 06/08/2019 PSYCHIATRIC PROGRESS NOTE This late entry 06/08/2019 covers the elements not covered in my initial note. SUBJECTIVE: I met with the patient in the evening of 06/08/2019. The patient slept 4-1/4 hours previous night per XIN Michelle. UA has been repeated. She may have a UTI. We will defer to Dr. Morales. Otherwise, she has been a little more pleasant. REVIEW OF SYSTEMS: Positive for pedal edema. Impaired ambulation in wheelchair. No CV, , pulmonary, eye system symptoms on review. Does have some dysuria. MENTAL STATUS EXAM: Reasonably oriented. Speech is coherent, less pressured. Abstraction fair, computation impaired, language function intact, attention span short. Mood and affect less labile. LABORATORY DATA: Reviewed. IMPRESSION: Unchanged from initial note. Rule out urinary tract infection. Rest unchanged. PLAN: No change from initial note. MAN Morris GARCES MD DR: JOSE CARLOS/roslyn JOB#: [id number] / [id number]
[2019-06-09] MEDS: traZODone 50 MG TABLET. PO SCH (21:17)
[2019-06-09] MEDS: ALPRAZolam 0.5 MG TABLET PO PRN (21:17)
[2019-06-09] MEDS: BENZOCAINE/MENTHOL LOZNGE 18'S BOX. PO PRN (21:18)
--- NOTE | 2019-06-09 21:41 | PDOC ---
Exam Note: Heri Note: Please also refer to the separate dictated note~for this date of service dictated separately.~Patient seen individually. Discussed the patient with Nursing staff reviewed the chart.~Reviewed interim history and current functioning. Reviewed vital signs,~Labs/ Radiology~and current medications noted below. Continue current treatment with the changes noted in the dictated addendum note Assessment: Vital Signs/I&O: Vital Signs Date Time Temp Pulse Resp B/P (MAP) Pulse Ox O2 Delivery O2 Flow Rate FiO2 06/09/19 21:17 99 06/09/19 20:09 Nasal Cannula 2.5 06/09/19 17:06 95 144/77 06/09/19 16:10 97.5 16 I & O 06/08/19 06/08/19 06/09/19 15:00 23:00 07:00 Intake Total 780 ml 600 ml Balance 780 ml 600 ml Labs: Laboratory Tests Test 06/08/19 21:50 06/09/19 07:22 Urine Collection Type Unknown Urine Color Yellow Urine Clarity Hazy Urine pH 5.0 Urine Specific [place] 1.015 Urine Protein Neg (NEG-TRACE) Urine Glucose (UA) Neg mg/dL (NEG) Urine Ketones (Stick) Neg mg/dL (NEG) Urine Blood Neg (NEG) Urine Nitrite Neg (NEG) Urine Bilirubin Neg (NEG) Urine Urobilinogen Dipstick 0.2 mg/dL (0.2 mg/dL) Urine Leukocyte Esterase Neg (NEG) Urine RBC Occ /HPF (0-2) Urine WBC 1-4 /HPF (0-4) Urine Squamous Epithelial Cells Mod /LPF Urine Bacteria Few /HPF (0-FEW) Urine Mucus Slight /LPF Urine Yeast Present /HPF Glucose (Fingerstick) 126 mg/dL (70-99) H Current Medications: I have reviewed the current psychotropics carefully including drug interactions. Risk benefit ratio favors no change other than as noted in my dictated progress note. Diagnosis: Problems: (1) Personality disorder, unspecified (2) Mood disorder (3) Anxiety disorder (4) Major depressive disorder, recurrent episode (5) Bipolar affective, mixed ALBER GARCES MD Jun 09, 2019 21:41
[2019-06-10] MEDS: IPRATRPIUM/ALBUTEROL 0.5/2.5MG 3 ML NEBU. NEB SCH ×4 (04:57→22:52)
[2019-06-10 06:22] VITALS: BP 175/84
[2019-06-10] MEDS: ASPIRIN ENTERIC COATED 81 MG TABLET.DR. PO SCH (08:22)
[2019-06-10] MEDS: CYANOCOBALAMIN (VITAMIN B-12) 1,000 MCG TABLET. PO SCH (08:23)
[2019-06-10] MEDS: ARIPiprazole 10 MG TABLET PO SCH (08:23)
[2019-06-10] MEDS: SENNOSIDES/DOCUSATE 8.6/50MG TABLET. PO SCH (08:23)
[2019-06-10] MEDS: POTASSIUM CHLORIDE 20 MEQ TABLET.ER. PO SCH ×2 (08:23→20:59)
[2019-06-10] MEDS: CETIRIZINE HCL 10 MG TABLET PO SCH (08:24)
[2019-06-10] MEDS: FERROUS SULFATE 325 MG TABLET. PO SCH (08:24)
[2019-06-10] MEDS: LACTOBACILLUS RHAMNOSUS GG 1 CAPSULE. PO SCH ×2 (08:24→20:59)
[2019-06-10] MEDS: CARVEDILOL 6.25 MG TABLET PO SCH ×2 (08:24→17:12)
[2019-06-10] MEDS: PANTOPRAZOLE 40 MG TABLET. PO SCH (08:24)
[2019-06-10] MEDS: FUROSEMIDE 40 MG TABLET PO SCH ×2 (08:24→17:12)
[2019-06-10] MEDS: DULoxetine HCL 30 MG CAPSULE.DR PO SCH (08:24)
[2019-06-10] MEDS: NYSTATIN 100,000 UNITS/ML ORAL SUSPENSION 60ML BOTTLE. SWSW SCH ×4 (08:25→21:00)
[2019-06-10] MEDS: LOSARTAN 50 MG TABLET. PO SCH (08:25)
[2019-06-10] MEDS: ENOXAPARIN 40 MG/0.4 ML SYRINGE. SQ SCH ×2 (08:25→20:59)
[2019-06-10] MEDS: HYDROCORTISONE 1% TOPICAL CREAM 30GM TUBE. TP SCH (08:26)
[2019-06-10] MEDS: KETOCONAZOLE 2% TOPICAL CREAM 30GM TUBE. TP SCH (08:26)
[2019-06-10] MEDS: BUDESONIDE 0.5 MG/2 ML NEBU NEB SCH ×2 (09:56→22:52)
[2019-06-10] MEDS: HYDROcodone/APAP 7.5/325MG 1 TAB TABLET PO PRN ×2 (10:44→20:59)
[2019-06-10 16:03] VITALS: BP 140/81
--- NOTE | 2019-06-10 19:31 | PN ---
DATE: 06/09/2019 PSYCHIATRIC PROGRESS NOTE This late entry 06/09/2019 covers elements not covered in my initial note. SUBJECTIVE: I met with the patient evening of 06/09/2019. Per XIN Lehman, the patient slept 8-1/2 hours previous night. She is noted to be manipulative, split staff according to nursing report, hyperverbal, anxious. REVIEW OF SYSTEMS: Ambulation impaired, in wheelchair. No CV, , pulmonary, eye system symptoms on review. She has vague somatic symptoms complaining about staff mistreating her and I addressed this with her. Does complain of pedal edema. MENTAL STATUS EXAM: Oriented reasonably. Speech is coherent, abstraction fair, computation impaired, language function intact, attention span short. Mood and affect still somewhat anxious, labile. LABORATORY DATA: Reviewed. No suicidal or homicidal ideation. IMPRESSION: Unchanged from initial note. PLAN: Increase Abilify from 10 mg a day to 15 mg a day to help with mood stabilization. Rest unchanged for now including Cymbalta, Xanax and trazodone p.r.n. ALBER GARCES MD DR: JOSE CARLOS/roslyn JOB#: [id number] / [id number]
[2019-06-10] MEDS: traZODone 50 MG TABLET. PO SCH (20:59)
[2019-06-10] MEDS: ALPRAZolam 0.5 MG TABLET PO PRN (20:59)
[2019-06-10] MEDS: BENZOCAINE/MENTHOL LOZNGE 18'S BOX. PO PRN (20:59)
--- NOTE | 2019-06-10 21:38 | PDOC ---
Exam Note: Heri Note: Please also refer to the separate dictated note~for this date of service dictated separately.~Patient seen individually. Discussed the patient with Nursing staff reviewed the chart.~Reviewed interim history and current functioning. Reviewed vital signs,~Labs/ Radiology~and current medications noted below. Continue current treatment with the changes noted in the dictated addendum note Assessment: Vital Signs/I&O: Vital Signs Date Time Temp Pulse Resp B/P (MAP) Pulse Ox O2 Delivery O2 Flow Rate FiO2 06/10/19 20:59 94 06/10/19 17:12 105 140/81 06/10/19 16:03 97.7 18 06/10/19 15:52 2.5 06/10/19 09:59 Nasal Cannula I & O 06/09/19 06/09/19 06/10/19 15:00 23:00 07:00 Intake Total 600 ml 600 ml Balance 600 ml 600 ml Current Medications: Meds: Current Medications Medications (Trade) Dose Ordered Sig/Mason Route PRN Reason Start Time Stop Time Status Last Admin Dose Admin Aripiprazole (Abilify) 15 mg DAILY PO 06/10/19 09:00 06/10/19 08:23 I have reviewed the current psychotropics carefully including drug interactions. Risk benefit ratio favors no change other than as noted in my dictated progress note. Diagnosis: Problems: (1) Personality disorder, unspecified (2) Mood disorder (3) Anxiety disorder (4) Major depressive disorder, recurrent episode (5) Bipolar affective, mixed ALBER GARCES MD Jun 10, 2019 21:38
[2019-06-11] MEDS: IPRATRPIUM/ALBUTEROL 0.5/2.5MG 3 ML NEBU. NEB SCH ×4 (05:24→21:19)
[2019-06-11 06:21] VITALS: BP 150/75
[2019-06-11 06:48] LABS: BASO % 1 % (0-3); EOS # 0.2 x10^3/uL (0.0-0.7); EOS % 3 % (0-3); HEMATOCRIT 34.6 % (36.0-47.0); HEMOGLOBIN 11.3 g/dL (12.0-15.5); LYMPH # 1.5 x10^3/uL (1.0-4.8); LYMPH % 31 % (24-48); MEAN CORPUSCULAR HEMOGLOBIN 30 pg (25-35); MEAN CORPUSCULAR HGB CONC 33 g/dL (31-37); MEAN CORPUSCULAR VOLUME 91 fL (79-100); MONO # 0.3 x10^3/uL (0.0-1.1); MONO % 6 % (0-9); NEUT # 2.9 x10^3uL (1.8-7.7); NEUT % 59 % (31-73); PLATELET COUNT 213 x10^3/uL (140-400); RED BLOOD COUNT 3.82 x10^6/uL (3.50-5.40); RED CELL DISTRIBUTION WIDTH 13.6 % (11.5-14.5); WHITE BLOOD COUNT 4.8 x10^3/uL (4.0-11.0)
[2019-06-11 07:08] LABS: ALBUMIN 2.9 g/dL (3.4-5.0); ALBUMIN/GLOBULIN RATIO 0.8 (1.0-1.7); CALCIUM 8.6 mg/dL (8.5-10.1); CREATININE 0.8 mg/dL (0.6-1.0); TOTAL BILIRUBIN 0.1 mg/dL (0.2-1.0); TOTAL PROTEIN 6.7 g/dL (6.4-8.2)
[2019-06-11] MEDS: BUDESONIDE 0.5 MG/2 ML NEBU NEB SCH ×3 (08:00→21:19)
[2019-06-11] MEDS: FUROSEMIDE 40 MG TABLET PO SCH ×2 (08:27→16:17)
[2019-06-11] MEDS: ARIPiprazole 10 MG TABLET PO SCH (08:27)
[2019-06-11] MEDS: FERROUS SULFATE 325 MG TABLET. PO SCH (08:27)
[2019-06-11] MEDS: ASPIRIN ENTERIC COATED 81 MG TABLET.DR. PO SCH (08:27)
[2019-06-11] MEDS: CARVEDILOL 6.25 MG TABLET PO SCH ×2 (08:27→16:20)
[2019-06-11] MEDS: SENNOSIDES/DOCUSATE 8.6/50MG TABLET. PO SCH (08:27)
[2019-06-11] MEDS: POTASSIUM CHLORIDE 20 MEQ TABLET.ER. PO SCH ×2 (08:27→20:46)
[2019-06-11] MEDS: LACTOBACILLUS RHAMNOSUS GG 1 CAPSULE. PO SCH ×2 (08:28→20:46)
[2019-06-11] MEDS: DULoxetine HCL 30 MG CAPSULE.DR PO SCH (08:28)
[2019-06-11] MEDS: CETIRIZINE HCL 10 MG TABLET PO SCH (08:28)
[2019-06-11] MEDS: ENOXAPARIN 40 MG/0.4 ML SYRINGE. SQ SCH ×2 (08:28→20:46)
[2019-06-11] MEDS: CYANOCOBALAMIN (VITAMIN B-12) 1,000 MCG TABLET. PO SCH (08:28)
[2019-06-11] MEDS: PANTOPRAZOLE 40 MG TABLET. PO SCH (08:28)
[2019-06-11] MEDS: LOSARTAN 50 MG TABLET. PO SCH (08:28)
[2019-06-11] MEDS: HYDROCORTISONE 1% TOPICAL CREAM 30GM TUBE. TP SCH (09:00)
[2019-06-11] MEDS: KETOCONAZOLE 2% TOPICAL CREAM 30GM TUBE. TP SCH (09:00)
[2019-06-11] MEDS: NYSTATIN 100,000 UNITS/ML ORAL SUSPENSION 60ML BOTTLE. SWSW SCH ×4 (09:00→20:46)
--- NOTE | 2019-06-11 09:39 | PN ---
DATE: 06/10/2019 PSYCHIATRIC PROGRESS NOTE This late entry 06/10/2019 covers elements not covered in my initial note. SUBJECTIVE: I met with the patient evening of 06/10/2019. The patient slept 6-1/2 hours previous night per XIN [place]. She has been manipulative, splitting staff per nursing report, upset that her commode was taken away, urinated on the bed. I discussed with [facility] Social Service staff earlier as well. The patient blames staff for not doing things she wants as quickly as she would like them done and I addressed this with her. She is insistent on returning home to live by herself and social service staff is trying to work out the best arrangement. She has fairly significant disabilities and to live by herself may be a risk factor. Perhaps going to [facility] prior to being by herself might be a better option. We will let Yenifer discuss this further with the patient. REVIEW OF SYSTEMS: Ambulation impaired. She is lying in bed as I met with her. No CV, , pulmonary, eye system symptoms on review. She has vague somatic symptoms. Complains of seborrhea and itching of her skin. MENTAL STATUS EXAM: Reasonably oriented. Speech is coherent, rapid at times. Abstraction fair, computation impaired, language function intact, attention span short. Mood and affect somewhat anxious, labile. LABORATORY DATA: Reviewed. IMPRESSION: Unchanged from initial note. PLAN: No change from initial note. Abilify was increased. Maintain Cymbalta at current dosage, trazodone and Xanax as PRN. ALBER GARCES MD DR: JOSE CARLOS/roslyn JOB#: [id number] / [id number]
[2019-06-11 15:37] VITALS: BP_DIAS 90
[2019-06-11] MEDS: HYDROcodone/APAP 7.5/325MG 1 TAB TABLET PO PRN (16:16)
[2019-06-11] MEDS: ALPRAZolam 0.5 MG TABLET PO PRN (20:46)
[2019-06-11] MEDS: traZODone 50 MG TABLET. PO SCH (20:46)
[2019-06-11] MEDS: BENZOCAINE/MENTHOL LOZNGE 18'S BOX. PO PRN (20:55)
--- NOTE | 2019-06-11 21:49 | PDOC ---
Exam Note: Heri Note: Please also refer to the separate dictated note~for this date of service dictated separately.~Patient seen individually. Discussed the patient with Nursing staff reviewed the chart.~Reviewed interim history and current functioning. Reviewed vital signs,~Labs/ Radiology~and current medications noted below. Continue current treatment with the changes noted in the dictated addendum note Assessment: Vital Signs/I&O: Vital Signs Date Time Temp Pulse Resp B/P (MAP) Pulse Ox O2 Delivery O2 Flow Rate FiO2 06/11/19 21:20 94 Nasal Cannula 2.5 06/11/19 17:16 16 06/11/19 16:20 95 150/90 06/11/19 15:37 97.0 I & O 06/10/19 06/10/19 06/11/19 15:00 23:00 07:00 Intake Total 960 ml 480 ml Balance 960 ml 480 ml Labs: Laboratory Tests Test 06/11/19 06:29 06/11/19 07:35 White Blood Count 4.8 x10^3/uL (4.0-11.0) Red Blood Count 3.82 x10^6/uL (3.50-5.40) Hemoglobin 11.3 g/dL (12.0-15.5) L Hematocrit 34.6 % (36.0-47.0) L Mean Corpuscular Volume 91 fL (79-100) Mean Corpuscular Hemoglobin 30 pg (25-35) Mean Corpuscular Hemoglobin Concent 33 g/dL (31-37) Red Cell Distribution Width 13.6 % (11.5-14.5) Platelet Count 213 x10^3/uL (140-400) Neutrophils (%) (Auto) 59 % (31-73) Lymphocytes (%) (Auto) 31 % (24-48) Monocytes (%) (Auto) 6 % (0-9) Eosinophils (%) (Auto) 3 % (0-3) Basophils (%) (Auto) 1 % (0-3) Neutrophils # (Auto) 2.9 x10^3uL (1.8-7.7) Lymphocytes # (Auto) 1.5 x10^3/uL (1.0-4.8) Monocytes # (Auto) 0.3 x10^3/uL (0.0-1.1) Eosinophils # (Auto) 0.2 x10^3/uL (0.0-0.7) Basophils # (Auto) 0.0 x10^3/uL (0.0-0.2) Sodium Level 141 mmol/L (136-145) Potassium Level 4.0 mmol/L (3.5-5.1) Chloride Level 99 mmol/L (98-107) Carbon Dioxide Level 40 mmol/L (21-32) H Anion Gap 2 (6-14) L Blood Urea Nitrogen 15 mg/dL (7-20) Creatinine 0.8 mg/dL (0.6-1.0) Estimated GFR (Cockcroft-Gault) 72.0 BUN/Creatinine Ratio 19 (6-20) Glucose Level 115 mg/dL (70-99) H Calcium Level 8.6 mg/dL (8.5-10.1) Total Bilirubin 0.1 mg/dL (0.2-1.0) L Aspartate Amino Transferase (AST) 20 U/L (15-37) Alanine Aminotransferase (ALT) 33 U/L (14-59) Alkaline Phosphatase 64 U/L (46-116) Total Protein 6.7 g/dL (6.4-8.2) Albumin 2.9 g/dL (3.4-5.0) L Albumin/Globulin Ratio 0.8 (1.0-1.7) L Glucose (Fingerstick) 125 mg/dL (70-99) H Current Medications: I have reviewed the current psychotropics carefully including drug interactions. Risk benefit ratio favors no change other than as noted in my dictated progress note. Diagnosis: Problems: (1) Personality disorder, unspecified (2) Mood disorder (3) Anxiety disorder (4) Major depressive disorder, recurrent episode (5) Bipolar affective, mixed ALBER GARCES MD Jun 11, 2019 21:49
[2019-06-12] MEDS: CYCLOBENZAPRINE 10 MG TABLET. PO PRN (04:26)
[2019-06-12] MEDS: HYDROcodone/APAP 7.5/325MG 1 TAB TABLET PO PRN ×2 (04:30→17:14)
[2019-06-12] MEDS: IPRATRPIUM/ALBUTEROL 0.5/2.5MG 3 ML NEBU. NEB SCH ×4 (04:56→21:34)
[2019-06-12 07:00] VITALS: BP 155/79
[2019-06-12] MEDS: ARIPiprazole 10 MG TABLET PO SCH (08:09)
[2019-06-12] MEDS: SENNOSIDES/DOCUSATE 8.6/50MG TABLET. PO SCH (08:09)
[2019-06-12] MEDS: ASPIRIN ENTERIC COATED 81 MG TABLET.DR. PO SCH (08:09)
[2019-06-12] MEDS: FERROUS SULFATE 325 MG TABLET. PO SCH (08:09)
[2019-06-12] MEDS: DULoxetine HCL 30 MG CAPSULE.DR PO SCH (08:10)
[2019-06-12] MEDS: PANTOPRAZOLE 40 MG TABLET. PO SCH (08:10)
[2019-06-12] MEDS: CETIRIZINE HCL 10 MG TABLET PO SCH (08:10)
[2019-06-12] MEDS: POTASSIUM CHLORIDE 20 MEQ TABLET.ER. PO SCH ×2 (08:10→20:58)
[2019-06-12] MEDS: CARVEDILOL 6.25 MG TABLET PO SCH ×2 (08:10→17:10)
[2019-06-12] MEDS: LACTOBACILLUS RHAMNOSUS GG 1 CAPSULE. PO SCH ×2 (08:11→20:57)
[2019-06-12] MEDS: LOSARTAN 50 MG TABLET. PO SCH (08:11)
[2019-06-12] MEDS: FUROSEMIDE 40 MG TABLET PO SCH ×2 (08:11→17:10)
[2019-06-12] MEDS: CYANOCOBALAMIN (VITAMIN B-12) 1,000 MCG TABLET. PO SCH (08:11)
[2019-06-12] MEDS: ENOXAPARIN 40 MG/0.4 ML SYRINGE. SQ SCH ×2 (08:12→20:59)
[2019-06-12] MEDS: NYSTATIN 100,000 UNITS/ML ORAL SUSPENSION 60ML BOTTLE. SWSW SCH ×4 (08:12→21:10)
[2019-06-12] MEDS: SELENIUM SULFIDE 1% TOPICAL SHAMPOO 207ML BOTTLE. TP SCH (08:12)
[2019-06-12] MEDS: HYDROCORTISONE 1% TOPICAL CREAM 30GM TUBE. TP SCH (08:12)
[2019-06-12] MEDS: KETOCONAZOLE 2% TOPICAL CREAM 30GM TUBE. TP SCH (08:12)
--- NOTE | 2019-06-12 14:10 | TX PLAN ---
Interdisciplinary Tx Plan Admission Information May 29, 2019 at 22:10 Legal Status (on Admission): Voluntary DPOA/Guardian Name: Pt is a self-sign Contact Verified Code Status: Full Code Allergies: Coded Allergies: bupropion (Verified Allergy, Unknown, 05/29/19) clonazepam (Verified Allergy, Unknown, 05/29/19) erythromycin base (Verified Allergy, Unknown, 05/29/19) fentanyl (Verified Allergy, Unknown, 05/29/19) haloperidol (Verified Allergy, Unknown, 05/29/19) lisinopril (Verified Allergy, Unknown, 05/29/19) lorazepam (Verified Allergy, Unknown, 05/29/19) ondansetron (Verified Allergy, Unknown, 05/29/19) tree nut (Verified Allergy, Unknown, 05/29/19) Diagnoses Primary Diagnosis: MDD recurrent Reasons for Admission: Depressed, Suicidal ideation Problem in Patient's Words: I have so much going on I just don't know what kind of life I have left to live. Additional Admission Comments: SI with plan but will not disclose the plan. paranoid, thinks people at hospitals don't treat her nicely, anxious, depressed, suspicious, intermittent verbal aggression. Problems Active Problems: SI with no plan Verbal aggression Physical aggression Attention-seeking/demanding Medication non-compliance Inactive Problems: N/A Pt Strengths/Limitations Ability for [place]: Poor Cognitive Functioning/Ability: Fair Communication Skills/Ability: Fair Financial Resources: Poor Insight/Judgement: Poor Intellectual Ability: Fair Physical Health: Poor Social Skills: Fair Stability in Family: Poor Stability in School/Work: Poor Verbal Skills: Fair Discharge Criteria Discharge Criteria: Able meet basic life need, No need for close observ., Able to meet health needs, Adequate arrangements @DC, Verbal commit aftercare, Adequate self-care, Improved behavior, Improved mood/thought Preliminary Discharge Plan Preliminary DC Plan: Current Living Arrange., Home Special Precautions Fall Risk: Moderate Initial D/C Plan Patient will plan to discharge home and have an evaluation for hospice Identified Discharge Needs: Pt will be assessed for Hospice and other community services Currently Utilized Resources Currently Utilized Resources/P: None; pt appears to have no active services in place Referrals Community Resources: Primary Care Psychiatry Counseling Case Management/Social Work Potential Hospice referrals Identified Problems/Hx/Goals Objectives/Short-Term Goals Short Term Goals: Dec. Anxiety/Panic, Decrease Isolation, Dec. Symp. Depression, Medication Stabilization, No Suicidal/Mal. ideation, Promote Coping Skill Short Term Goals in Patient's: I need to get out of here. You guys are horrible. Interventions/Frequency Staff Interventions/Frequency&: Psychiatry to assess pt at least 3x per week. Shrimp Picker to assess pt at least 2x per week. Nursing to complete 15 minute checks daily. Encourage group/active participation during activities. 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 Education: BS in Nursing Community Follow-up May send referrals to potential SNF's. Treatment Plan Explained Patient/City Collector had this treatment plan explained to him/her as indicated by the signature below and has been given the opportunity to ask questions and make suggestions: Date: Patient/City Collector Signature: Status Update Update Pt is eating 100% of meals and sleeping on average 7 hours. Pt continues to be somewhat needy but is more compliant with assessment and cares. Pt has expressed multiple complaints again staff and does not feel they are treating he r fairly. All parties of treatment team and the nurse unit manager, met to discuss options as pt is refusing the recommendation of going to SNF for short term. All parties feel that pt will not be safe to go home and needs more assistance that she is willing to admit. At this time, pt has denied some services as agencies refuse to care for pt from past history experiences. Risk Management has been notified and the legal team will also be included to ensure that the team has followed all regulations and ability to ensure pt safety. SW will continue to follow up with pt and discharge arrangements. EVITA CLARK Jun 12, 2019 14:10
[2019-06-12 16:13] VITALS: BP 112/65
[2019-06-12 16:16] VITALS: BP 133/66
[2019-06-12] MEDS: traZODone 50 MG TABLET. PO SCH (20:58)
[2019-06-12] MEDS: ALPRAZolam 0.5 MG TABLET PO PRN (21:10)
[2019-06-12] MEDS: BENZOCAINE/MENTHOL LOZNGE 18'S BOX. PO PRN (21:11)
[2019-06-12] MEDS: BUDESONIDE 0.5 MG/2 ML NEBU NEB SCH (21:34)
--- NOTE | 2019-06-12 21:38 | PDOC ---
Exam Note: Heri Note: Please also refer to the separate dictated note~for this date of service dictated separately.~Patient seen individually. Discussed the patient with Nursing staff reviewed the chart.~Reviewed interim history and current functioning. Reviewed vital signs,~Labs/ Radiology~and current medications noted below. Continue current treatment with the changes noted in the dictated addendum note Assessment: Vital Signs/I&O: Vital Signs Date Time Temp Pulse Resp B/P (MAP) Pulse Ox O2 Delivery O2 Flow Rate FiO2 06/12/19 21:36 94 Nasal Cannula 2.5 06/12/19 17:10 95 133/66 06/12/19 16:16 98.1 20 I & O 0 06/11/19 06/11/19 06/12/19 15:00 23:00 07:00 Intake Total 960 ml 360 ml Balance 960 ml 360 ml Labs: Laboratory Tests Test 06/12/19 07:24 Glucose (Fingerstick) 114 mg/dL (70-99) H Current Medications: Meds: Current Medications Medications (Trade) Dose Ordered Sig/Mason Route PRN Reason Start Time Stop Time Status Last Admin Dose Admin Selenium Sulfide (Selsun) 1 gricel 3X/WEEK TP 06/12/19 09:00 06/12/19 08:12 I have reviewed the current psychotropics carefully including drug interactions. Risk benefit ratio favors no change other than as noted in my dictated progress note. Diagnosis: Problems: (1) Personality disorder, unspecified (2) Mood disorder (3) Anxiety disorder (4) Major depressive disorder, recurrent episode (5) Bipolar affective, mixed ALBER GARCES MD Jun 12, 2019 21:38
[2019-06-13] MEDS ORDERED: NITROGLYCERIN SUBLINGUAL 0.4 MG BOTTLE OF 25. SL PRN (00:30)
[2019-06-13 01:10] LABS: BASO # 0.1 x10^3/uL (0.0-0.2); BASO % 1 % (0-3); EOS # 0.2 x10^3/uL (0.0-0.7); EOS % 2 % (0-3); HEMATOCRIT 35.4 % (36.0-47.0); HEMOGLOBIN 11.5 g/dL (12.0-15.5); LYMPH # 1.8 x10^3/uL (1.0-4.8); LYMPH % 26 % (24-48); MEAN CORPUSCULAR HEMOGLOBIN 30 pg (25-35); MEAN CORPUSCULAR HGB CONC 32 g/dL (31-37); MEAN CORPUSCULAR VOLUME 91 fL (79-100); MONO # 0.3 x10^3/uL (0.0-1.1); MONO % 5 % (0-9); NEUT # 4.4 x10^3uL (1.8-7.7); NEUT % 66 % (31-73); PLATELET COUNT 225 x10^3/uL (140-400); RED BLOOD COUNT 3.89 x10^6/uL (3.50-5.40); RED CELL DISTRIBUTION WIDTH 13.9 % (11.5-14.5); WHITE BLOOD COUNT 6.7 x10^3/uL (4.0-11.0)
[2019-06-13 01:33] LABS: ALBUMIN 3.1 g/dL (3.4-5.0); ALBUMIN/GLOBULIN RATIO 0.9 (1.0-1.7); CALCIUM 8.8 mg/dL (8.5-10.1); CREATININE 0.9 mg/dL (0.6-1.0); GFR 62.8; POTASSIUM 4.2 mmol/L (3.5-5.1); TOTAL BILIRUBIN 0.1 mg/dL (0.2-1.0); TOTAL PROTEIN 6.4 g/dL (6.4-8.2)
[2019-06-13] MEDS: HYDROcodone/APAP 7.5/325MG 1 TAB TABLET PO PRN ×2 (02:06→17:04)
[2019-06-13] MEDS: BENZOCAINE/MENTHOL LOZNGE 18'S BOX. PO PRN ×2 (02:10→19:44)
[2019-06-13] MEDS: IPRATRPIUM/ALBUTEROL 0.5/2.5MG 3 ML NEBU. NEB SCH ×4 (05:17→20:51)
[2019-06-13 05:44] VITALS: BP 152/74
--- NOTE | 2019-06-13 06:44 | EKG ---
[address] [address] Test Date: 2019-06-12 Test Time: 23:33:33 Pat Name: TE PERRY Department: Room: [address] [place] [address] Gender: Bottle Carrier: : 1955 Requested By: MADELINE PHILLIPS Order Number: [id number] Reading MD: Edwin Garcia Measurements Intervals [place] Rate: P: [place]: QRS: QRSD: T: QT: QTc: Interpretive Statements Compared to ECG 06/23/2012 18:11:51 Sinus rhythm no longer present Left-axis deviation no longer present Electronically Signed On 06-30-2019 9:21:47 CDT by Edwin Garcia
[2019-06-13] MEDS: BUDESONIDE 0.5 MG/2 ML NEBU NEB SCH ×2 (08:00→20:51)
[2019-06-13] MEDS: ENOXAPARIN 40 MG/0.4 ML SYRINGE. SQ SCH ×2 (08:21→19:42)
[2019-06-13] MEDS: ARIPiprazole 10 MG TABLET PO SCH (08:22)
[2019-06-13] MEDS: LACTOBACILLUS RHAMNOSUS GG 1 CAPSULE. PO SCH ×2 (08:22→19:42)
[2019-06-13] MEDS: CETIRIZINE HCL 10 MG TABLET PO SCH (08:22)
[2019-06-13] MEDS: ASPIRIN ENTERIC COATED 81 MG TABLET.DR. PO SCH (08:22)
[2019-06-13] MEDS: FERROUS SULFATE 325 MG TABLET. PO SCH (08:23)
[2019-06-13] MEDS: POTASSIUM CHLORIDE 20 MEQ TABLET.ER. PO SCH ×2 (08:23→19:42)
[2019-06-13] MEDS: CARVEDILOL 6.25 MG TABLET PO SCH ×2 (08:23→16:50)
[2019-06-13] MEDS: NYSTATIN 100,000 UNIT/GM TOPICAL CREAM 15GM TUBE. TP PRN (08:23)
[2019-06-13] MEDS: SENNOSIDES/DOCUSATE 8.6/50MG TABLET. PO SCH (08:23)
[2019-06-13] MEDS: KETOCONAZOLE 2% TOPICAL CREAM 30GM TUBE. TP SCH (08:24)
[2019-06-13] MEDS: DULoxetine HCL 30 MG CAPSULE.DR PO SCH (08:25)
[2019-06-13] MEDS: FUROSEMIDE 40 MG TABLET PO SCH ×2 (08:25→16:50)
[2019-06-13] MEDS: LOSARTAN 50 MG TABLET. PO SCH (08:25)
[2019-06-13] MEDS: PANTOPRAZOLE 40 MG TABLET. PO SCH (08:26)
[2019-06-13] MEDS: NYSTATIN 100,000 UNITS/ML ORAL SUSPENSION 60ML BOTTLE. SWSW SCH ×4 (08:26→19:43)
[2019-06-13] MEDS: CYANOCOBALAMIN (VITAMIN B-12) 1,000 MCG TABLET. PO SCH (08:26)
[2019-06-13] MEDS: HYDROCORTISONE 1% TOPICAL CREAM 30GM TUBE. TP SCH (08:28)
[2019-06-13] MEDS: SELENIUM SULFIDE 1% TOPICAL SHAMPOO 207ML BOTTLE. TP SCH (09:00)
[2019-06-13 15:40] VITALS: BP 133/77
[2019-06-13] MEDS: traZODone 50 MG TABLET. PO SCH (19:42)
[2019-06-13] MEDS: ALPRAZolam 0.5 MG TABLET PO PRN (19:43)
[2019-06-13] MEDS: traZODone 50 MG TABLET. PO PRN (19:43)
[2019-06-13] MEDS: CYCLOBENZAPRINE 10 MG TABLET. PO PRN (19:53)
--- NOTE | 2019-06-13 20:29 | PN ---
DATE: 06/11/2019 PSYCHIATRIC PROGRESS NOTE This late entry June 10, covers elements not covered in my initial note. SUBJECTIVE: I met with the patient evening of June 10. Per XIN Simons, the patient slept 6-3/4 hours previous night. She has been quite anxious, labile, argumentative, splitting staff somatically preoccupied, but denies suicidal ideation, slept 6-3/4 hours. I met in the evening. REVIEW OF SYSTEMS: Ambulation impaired, in a wheelchair. She has vague somatic symptoms, vague chest pain, symptoms, urinates in bed at times. No pulmonary, eye system symptoms on review, does complain of dry skin. MENTAL STATUS EXAM: Reasonably oriented. Speech is coherent, rapid at times. Abstraction fair, computation impaired, language function intact, attention span short. Mood and affect somewhat labile. LABORATORY DATA: Reviewed. IMPRESSION: Major depressive disorder, recurrent; rule out bipolar disorder, unspecified; personality disorder. PLAN: Continue current psychotropics. Abilify has been increased to 15 mg a day. Maintain Cymbalta, trazodone, Xanax as p.r.n. The patient is wanting to return home to live by herself given her multiple medical problems and physical disability this becomes tenuous and social service staff is actively looking at appropriate options to assist the patient with placement and/or in-home services. MAN Morris GARCES MD DR: JOSE CARLOS/roslyn JOB#: [id number] / [id number]
--- NOTE | 2019-06-13 21:20 | PDOC ---
Exam Note: Heri Note: Please also refer to the separate dictated note~for this date of service dictated separately.~Patient seen individually. Discussed the patient with Nursing staff reviewed the chart.~Reviewed interim history and current functioning. Reviewed vital signs,~Labs/ Radiology~and current medications noted below. Continue current treatment with the changes noted in the dictated addendum note Assessment: Vital Signs/I&O: Vital Signs Date Time Temp Pulse Resp B/P (MAP) Pulse Ox O2 Delivery O2 Flow Rate FiO2 06/13/19 20:51 Nasal Cannula 2.5 06/13/19 18:04 20 06/13/19 17:04 97 06/13/19 16:50 102 133/77 06/13/19 15:40 97.7 I & O 06/12/19 06/12/19 06/13/19 15:00 23:00 07:00 Intake Total 960 ml 480 ml Balance 960 ml 480 ml Labs: Laboratory Tests Test 06/13/19 01:01 06/13/19 08:08 White Blood Count 6.7 x10^3/uL (4.0-11.0) Red Blood Count 3.89 x10^6/uL (3.50-5.40) Hemoglobin 11.5 g/dL (12.0-15.5) L Hematocrit 35.4 % (36.0-47.0) L Mean Corpuscular Volume 91 fL (79-100) Mean Corpuscular Hemoglobin 30 pg (25-35) Mean Corpuscular Hemoglobin Concent 32 g/dL (31-37) Red Cell Distribution Width 13.9 % (11.5-14.5) Platelet Count 225 x10^3/uL (140-400) Neutrophils (%) (Auto) 66 % (31-73) Lymphocytes (%) (Auto) 26 % (24-48) Monocytes (%) (Auto) 5 % (0-9) Eosinophils (%) (Auto) 2 % (0-3) Basophils (%) (Auto) 1 % (0-3) Neutrophils # (Auto) 4.4 x10^3uL (1.8-7.7) Lymphocytes # (Auto) 1.8 x10^3/uL (1.0-4.8) Monocytes # (Auto) 0.3 x10^3/uL (0.0-1.1) Eosinophils # (Auto) 0.2 x10^3/uL (0.0-0.7) Basophils # (Auto) 0.1 x10^3/uL (0.0-0.2) Sodium Level 139 mmol/L (136-145) Potassium Level 4.2 mmol/L (3.5-5.1) Chloride Level 99 mmol/L (98-107) Carbon Dioxide Level 36 mmol/L (21-32) H Anion Gap 4 (6-14) L Blood Urea Nitrogen 16 mg/dL (7-20) Creatinine 0.9 mg/dL (0.6-1.0) Estimated GFR (Cockcroft-Gault) 62.8 BUN/Creatinine Ratio 18 (6-20) Glucose Level 121 mg/dL (70-99) H Calcium Level 8.8 mg/dL (8.5-10.1) Total Bilirubin 0.1 mg/dL (0.2-1.0) L Aspartate Amino Transferase (AST) 18 U/L (15-37) Alanine Aminotransferase (ALT) 31 U/L (14-59) Alkaline Phosphatase 70 U/L (46-116) Creatine Kinase 49 U/L (26-192) Troponin I Quantitative < 0.017 ng/mL (0-0.055) Total Protein 6.4 g/dL (6.4-8.2) Albumin 3.1 g/dL (3.4-5.0) L Albumin/Globulin Ratio 0.9 (1.0-1.7) L Glucose (Fingerstick) 121 mg/dL (70-99) H Current Medications: Meds: Current Medications Medications (Trade) Dose Ordered Sig/Mason Route PRN Reason Start Time Stop Time Status Last Admin Dose Admin Aripiprazole (Abilify) 10 mg DAILY PO 06/13/19 09:00 06/13/19 08:22 I have reviewed the current psychotropics carefully including drug interactions. Risk benefit ratio favors no change other than as noted in my dictated progress note. Diagnosis: Problems: (1) Personality disorder, unspecified (2) Mood disorder (3) Anxiety disorder (4) Major depressive disorder, recurrent episode (5) Bipolar affective, mixed ALBER GARCES MD Jun 13, 2019 21:20
[2019-06-14] MEDS ORDERED: hydrOXYzine PAMOATE 25 MG CAPSULE PO PRN (00:45)
[2019-06-14] MEDS: PANTOPRAZOLE 40 MG TABLET. PO SCH (07:30)
[2019-06-14] MEDS: CARVEDILOL 6.25 MG TABLET PO SCH ×2 (08:00→16:54)
[2019-06-14] MEDS: FERROUS SULFATE 325 MG TABLET. PO SCH (08:00)
[2019-06-14] MEDS: IPRATRPIUM/ALBUTEROL 0.5/2.5MG 3 ML NEBU. NEB SCH ×4 (08:00→23:27)
[2019-06-14] MEDS: BUDESONIDE 0.5 MG/2 ML NEBU NEB SCH ×2 (08:00→23:28)
--- NOTE | 2019-06-14 08:29 | PN ---
DATE: 06/12/2019 PSYCHIATRIC PROGRESS NOTE This late entry 06/12/2019 covers elements not covered in my initial note. SUBJECTIVE: I met with the patient evening of 06/12/2019 and staffed a treatment team meeting with the entire team in the morning. The patient has been eating 100% each meal, sleeping 7 hours average. She is frequently triangulating staff, anxious, somatically preoccupied, complains of demented patients walking into her room, which she resents. I addressed this with her at great length. She is wanting to leave the hospital, go back home, live by herself, take care of herself, do her grocery shopping, cooking, cleaning by herself and here in the hospital, she is able to do little or none of those activities of daily living. She is unable to drive due to her physical inabilities as well. We had a discussion at the treatment team meeting, including Haley, nurse transportation manager, social service staff, nursing staff. Legal will be consulted on options. Her best placement would be a jail care to get rehabs and strength back and then make decisions on further appropriate placements. I have addressed all this at great length with the patient. She also complains of some drooling on the side of her mouth and we will drop the Abilify down from 15 mg a day to 10 mg a day. REVIEW OF SYSTEMS: Vague somatic symptoms. No CV, GI, system symptoms on review. Does complain of dry skin and hair and seborrhea. Impaired ambulation. MENTAL STATUS EXAM: Reasonably oriented. Speech is coherent, rapid at times. Abstraction fair, computation impaired, language function intact, attention span short. Mood and affect remains anxious, labile. LABORATORY DATA: Reviewed. IMPRESSION: Major depressive disorder with psychotic features; anxiety disorder, unspecified; rule out bipolar disorder, unspecified; personality disorder, physical inabilities. PLAN: Continue current psychotropics, reduce the Abilify, find appropriate placement. MAN Morris GARCES MD DR: JOSE CARLOS/roslyn JOB#: [id number] / [id number]
--- NOTE | 2019-06-14 08:31 | PN ---
DATE: 06/13/2019 PSYCHIATRIC PROGRESS NOTE This late entry of 06/13/2019 covers elements not covered in my initial note. SUBJECTIVE: I met with the patient in the evening of 06/13/2019. The patient slept just 1-1/4 hours previous night, in fact 1-3/4 hours. She has been irritable, obstinate per nursing report, complains of vague chest pain, did have a workup with Dr. Morales, was negative. She complains, as before, about others coming into her room. Nursing staff are going to take appropriate care for this. She is tolerating the reduction of Abilify, but might benefit from a mood stabilizer, perhaps even Lamictal given her mood swings and anxiety. REVIEW OF SYSTEMS: Impaired ambulation, vague somatic symptoms. No GI, system symptoms on review, does complain of seborrhea. MENTAL STATUS EXAM: Reasonably oriented. Speech coherent, rapid. Abstraction fair, computation impaired, language function intact. Mood and affect remains labile. LABORATORY DATA: Reviewed. IMPRESSION: Unchanged from initial note. PLAN: No change from initial note. MAN Morris GARCES MD DR: JOSE CARLOS/roslyn JOB#: [id number] / [id number]
[2019-06-14] MEDS: ENOXAPARIN 40 MG/0.4 ML SYRINGE. SQ SCH ×2 (09:00→19:55)
[2019-06-14] MEDS: LACTOBACILLUS RHAMNOSUS GG 1 CAPSULE. PO SCH ×2 (09:00→19:54)
[2019-06-14] MEDS: POTASSIUM CHLORIDE 20 MEQ TABLET.ER. PO SCH ×2 (09:00→19:55)
[2019-06-14] MEDS: DULoxetine HCL 30 MG CAPSULE.DR PO SCH (09:00)
[2019-06-14] MEDS: KETOCONAZOLE 2% TOPICAL CREAM 30GM TUBE. TP SCH (09:00)
[2019-06-14] MEDS: LOSARTAN 50 MG TABLET. PO SCH (09:00)
[2019-06-14] MEDS: CYANOCOBALAMIN (VITAMIN B-12) 1,000 MCG TABLET. PO SCH (09:00)
[2019-06-14] MEDS: FUROSEMIDE 40 MG TABLET PO SCH ×2 (09:00→16:54)
[2019-06-14] MEDS: ASPIRIN ENTERIC COATED 81 MG TABLET.DR. PO SCH (09:00)
[2019-06-14] MEDS: HYDROCORTISONE 1% TOPICAL CREAM 30GM TUBE. TP SCH (09:00)
[2019-06-14] MEDS: ARIPiprazole 10 MG TABLET PO SCH (09:00)
[2019-06-14] MEDS: SENNOSIDES/DOCUSATE 8.6/50MG TABLET. PO SCH (09:00)
[2019-06-14] MEDS: CETIRIZINE HCL 10 MG TABLET PO SCH (09:00)
[2019-06-14] MEDS: NYSTATIN 100,000 UNITS/ML ORAL SUSPENSION 60ML BOTTLE. SWSW SCH ×4 (12:53→19:56)
[2019-06-14 13:47] VITALS: BP 165/70
[2019-06-14 16:21] VITALS: BP 160/80
[2019-06-14] MEDS: traZODone 50 MG TABLET. PO SCH (19:54)
[2019-06-14] MEDS: HYDROcodone/APAP 7.5/325MG 1 TAB TABLET PO PRN (19:55)
[2019-06-14] MEDS: ALPRAZolam 0.5 MG TABLET PO PRN (19:55)
--- NOTE | 2019-06-14 21:02 | PN ---
DATE: 06/14/2019 SUBJECTIVE: The patient was seen today, met with the staff, chart reviewed and also covering for Dr. Sanchez. The patient is accepting of her stay here, somewhat withdrawn. Denies of feeling depressed. Denies of having any suicidal thoughts. The patient also talked about her family, apparently son. He is under financial stress because of grandchild having medical issues. The patient also admits she is suffering from a lot of medical issues. 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 OBSERVATION: VITAL SIGNS: Temperature 92.4, blood pressure 165/90, pulse 101, respirations 18, O2 sat 96%. GENERAL: Slept about 6 hours last night. The patient's appetite is fair. MEDICATIONS: The patient's current medications include hydroxyzine 50 mg every daily p.r.n., aripiprazole 10 mg daily, Xanax 0.25 mg q.4 hours p.r.n., Cymbalta 30 mg daily, trazodone 50 mg at night and also p.r.n. at night for sleep. The patient is not having any side effects to medications. LABORATORY DATA: The patient's lab reviewed. ASSESSMENT: 1. Major depression, recurrent, moderate to severe. 2. History of bipolar disorder, mixed. PLAN: To continue with the current treatment plan. The patient is not presenting with any major medical issues at this time. AMANDA GALAN MD DR: RUBIA/roslyn JOB#: [id number] / [id number]
[2019-06-15 05:17] VITALS: BP 165/85
[2019-06-15] MEDS: IPRATRPIUM/ALBUTEROL 0.5/2.5MG 3 ML NEBU. NEB SCH ×4 (06:19→22:58)
[2019-06-15] MEDS: LACTOBACILLUS RHAMNOSUS GG 1 CAPSULE. PO SCH ×2 (08:41→19:47)
[2019-06-15] MEDS: POTASSIUM CHLORIDE 20 MEQ TABLET.ER. PO SCH ×2 (08:42→19:47)
[2019-06-15] MEDS: CYANOCOBALAMIN (VITAMIN B-12) 1,000 MCG TABLET. PO SCH (08:42)
[2019-06-15] MEDS: FUROSEMIDE 40 MG TABLET PO SCH ×2 (08:42→17:02)
[2019-06-15] MEDS: ARIPiprazole 10 MG TABLET PO SCH (08:42)
[2019-06-15] MEDS: DULoxetine HCL 30 MG CAPSULE.DR PO SCH (08:42)
[2019-06-15] MEDS: LOSARTAN 50 MG TABLET. PO SCH (08:42)
[2019-06-15] MEDS: CETIRIZINE HCL 10 MG TABLET PO SCH (08:43)
[2019-06-15] MEDS: CHOLECALCIFEROL (VITAMIN D3) 50,000 UNIT CAPSULE PO SCH (08:43)
[2019-06-15] MEDS: CARVEDILOL 6.25 MG TABLET PO SCH ×2 (08:43→17:01)
[2019-06-15] MEDS: PANTOPRAZOLE 40 MG TABLET. PO SCH (08:43)
[2019-06-15] MEDS: SENNOSIDES/DOCUSATE 8.6/50MG TABLET. PO SCH (08:43)
[2019-06-15] MEDS: FERROUS SULFATE 325 MG TABLET. PO SCH (08:43)
[2019-06-15] MEDS: ASPIRIN ENTERIC COATED 81 MG TABLET.DR. PO SCH (08:43)
[2019-06-15] MEDS: HYDROCORTISONE 1% TOPICAL CREAM 30GM TUBE. TP SCH (08:44)
[2019-06-15] MEDS: KETOCONAZOLE 2% TOPICAL CREAM 30GM TUBE. TP SCH (08:44)
[2019-06-15] MEDS: ENOXAPARIN 40 MG/0.4 ML SYRINGE. SQ SCH ×2 (08:44→19:48)
[2019-06-15] MEDS: NYSTATIN 100,000 UNITS/ML ORAL SUSPENSION 60ML BOTTLE. SWSW SCH ×5 (08:44→21:00)
[2019-06-15] MEDS: HYDROcodone/APAP 7.5/325MG 1 TAB TABLET PO PRN (09:21)
[2019-06-15] MEDS: BUDESONIDE 0.5 MG/2 ML NEBU NEB SCH ×2 (10:49→22:59)
--- NOTE | 2019-06-15 13:25 | PN ---
DATE: 06/15/2019 SUBJECTIVE: The patient was seen today, met with the staff, chart reviewed and also covering for Dr. Sanchez. Staff reports no major behavior problems. The patient has been demanding, complaining and she feels that she is not getting all the help that she needs, it feels like the prison. 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 OBSERVATION: VITAL SIGNS: Temperature 97.7, blood pressure 165/85, pulse 97, respirations 20, O2 sat 96%. GENERAL: Slept about 4 hours last night. The patient's appetite is good. The patient is on wheelchair. The patient has not presented with any major behavior problems today except tend to become argumentative. The patient gets along well with the other residents. MEDICATIONS: The patient's medication reviewed. She is on aripiprazole 10 mg daily, Xanax 0.25 mg q. 4 hours p.r.n., Cymbalta 30 mg daily, trazodone 50 mg at night and also p.r.n. for sleep. The patient is also on hydroxyzine 50 mg daily p.r.n. for anxiety. The patient denies of any side effects. LABORATORY DATA: The patient's lab reviewed. ASSESSMENT: 1. Major depression, recurrent, moderate to severe. 2. History of bipolar disorder, mixed. PLAN: To continue with the treatment. The patient is not wanting to change any meds. The patient is hoping to get back home. AMANDA GALAN MD DR: RUBIA/roslyn JOB#: [id number] / [id number]
[2019-06-15 15:29] VITALS: BP 155/75
[2019-06-15] MEDS: traZODone 50 MG TABLET. PO SCH (19:47)
[2019-06-15] MEDS: NYSTATIN 100,000 UNIT/GM TOPICAL CREAM 15GM TUBE. TP PRN ×2 (19:48→20:00)
[2019-06-15] MEDS: ALPRAZolam 0.5 MG TABLET PO PRN (19:59)
[2019-06-15] MEDS: BENZOCAINE/MENTHOL LOZNGE 18'S BOX. PO PRN (19:59)
[2019-06-16] MEDS: HYDROcodone/APAP 7.5/325MG 1 TAB TABLET PO PRN ×4 (01:37→20:10)
[2019-06-16 05:56] VITALS: BP 151/85
[2019-06-16] MEDS: IPRATRPIUM/ALBUTEROL 0.5/2.5MG 3 ML NEBU. NEB SCH ×3 (06:10→16:25)
[2019-06-16] MEDS: SENNOSIDES/DOCUSATE 8.6/50MG TABLET. PO SCH (08:18)
[2019-06-16] MEDS: DULoxetine HCL 30 MG CAPSULE.DR PO SCH (08:18)
[2019-06-16] MEDS: LACTOBACILLUS RHAMNOSUS GG 1 CAPSULE. PO SCH ×2 (08:18→20:09)
[2019-06-16] MEDS: ENOXAPARIN 40 MG/0.4 ML SYRINGE. SQ SCH ×2 (08:18→20:11)
[2019-06-16] MEDS: ASPIRIN ENTERIC COATED 81 MG TABLET.DR. PO SCH (08:18)
[2019-06-16] MEDS: POTASSIUM CHLORIDE 20 MEQ TABLET.ER. PO SCH ×2 (08:18→20:10)
[2019-06-16] MEDS: CETIRIZINE HCL 10 MG TABLET PO SCH (08:18)
[2019-06-16] MEDS: ARIPiprazole 10 MG TABLET PO SCH (08:18)
[2019-06-16] MEDS: FUROSEMIDE 40 MG TABLET PO SCH ×2 (08:19→16:22)
[2019-06-16] MEDS: FERROUS SULFATE 325 MG TABLET. PO SCH (08:19)
[2019-06-16] MEDS: CYANOCOBALAMIN (VITAMIN B-12) 1,000 MCG TABLET. PO SCH (08:19)
[2019-06-16] MEDS: PANTOPRAZOLE 40 MG TABLET. PO SCH (08:19)
[2019-06-16] MEDS: NYSTATIN 100,000 UNITS/ML ORAL SUSPENSION 60ML BOTTLE. SWSW SCH ×4 (08:20→20:16)
[2019-06-16] MEDS: CARVEDILOL 6.25 MG TABLET PO SCH ×2 (08:20→16:22)
[2019-06-16] MEDS: HYDROCORTISONE 1% TOPICAL CREAM 30GM TUBE. TP SCH (08:20)
[2019-06-16] MEDS: KETOCONAZOLE 2% TOPICAL CREAM 30GM TUBE. TP SCH (08:20)
[2019-06-16] MEDS: SELENIUM SULFIDE 1% TOPICAL SHAMPOO 207ML BOTTLE. TP SCH (08:20)
[2019-06-16] MEDS: LOSARTAN 50 MG TABLET. PO SCH (08:20)
[2019-06-16] MEDS: BUDESONIDE 0.5 MG/2 ML NEBU NEB SCH (11:01)
[2019-06-16 16:29] VITALS: BP 139/78
[2019-06-16] MEDS: traZODone 50 MG TABLET. PO PRN (20:10)
[2019-06-16] MEDS: traZODone 100 MG TABLET. PO PRN (20:10)
[2019-06-16] MEDS: ALPRAZolam 0.5 MG TABLET PO PRN (20:10)
[2019-06-16] MEDS: BENZOCAINE/MENTHOL LOZNGE 18'S BOX. PO PRN (20:16)
[2019-06-16] MEDS: NYSTATIN 100,000 UNIT/GM TOPICAL CREAM 15GM TUBE. TP PRN (20:16)
--- NOTE | 2019-06-16 21:43 | PDOC ---
Exam Note: Heri Note: Please also refer to the separate dictated note~for this date of service dictated separately.~Patient seen individually. Discussed the patient with Nursing staff reviewed the chart.~Reviewed interim history and current functioning. Reviewed vital signs,~Labs/ Radiology~and current medications noted below. Continue current treatment with the changes noted in the dictated addendum note Assessment: Vital Signs/I&O: Vital Signs Date Time Temp Pulse Resp B/P (MAP) Pulse Ox O2 Delivery O2 Flow Rate FiO2 06/16/19 20:30 94 Nasal Cannula 2.5 06/16/19 17:52 16 06/16/19 16:29 98.0 100 139/78 (98) I & O0 06/15/19 06/15/19 06/16/19 15:00 23:00 07:00 Intake Total 720 ml 720 ml Balance 720 ml 720 ml Labs: Laboratory Tests Test 06/16/19 07:38 Glucose (Fingerstick) 110 mg/dL (70-99) H Current Medications: Meds: Current Medications Medications (Trade) Dose Ordered Sig/Mason Route PRN Reason Start Time Stop Time Status Last Admin Dose Admin Trazodone HCl (Desyrel) 100 mg PRN QHS PRN PO INSOMNIA MRX1 06/16/19 19:30 06/16/19 20:10 I have reviewed the current psychotropics carefully including drug interactions. Risk benefit ratio favors no change other than as noted in my dictated progress note. Diagnosis: Problems: (1) Personality disorder, unspecified (2) Mood disorder (3) Anxiety disorder (4) Major depressive disorder, recurrent episode (5) Bipolar affective, mixed ALBER GARCES MD Jun 16, 2019 21:43
[2019-06-17] MEDS: BUDESONIDE 0.5 MG/2 ML NEBU NEB SCH ×3 (03:38→21:42)
[2019-06-17] MEDS: IPRATRPIUM/ALBUTEROL 0.5/2.5MG 3 ML NEBU. NEB SCH ×5 (03:38→21:41)
[2019-06-17 06:19] VITALS: BP 174/80
[2019-06-17] MEDS: HYDROcodone/APAP 7.5/325MG 1 TAB TABLET PO PRN (06:33)
[2019-06-17] MEDS: PANTOPRAZOLE 40 MG TABLET. PO SCH (08:42)
[2019-06-17] MEDS: ARIPiprazole 10 MG TABLET PO SCH (08:42)
[2019-06-17] MEDS: FERROUS SULFATE 325 MG TABLET. PO SCH (08:43)
[2019-06-17] MEDS: LACTOBACILLUS RHAMNOSUS GG 1 CAPSULE. PO SCH ×2 (08:43→20:35)
[2019-06-17] MEDS: ASPIRIN ENTERIC COATED 81 MG TABLET.DR. PO SCH (08:43)
[2019-06-17] MEDS: DULoxetine HCL 30 MG CAPSULE.DR PO SCH (08:43)
[2019-06-17] MEDS: FUROSEMIDE 40 MG TABLET PO SCH ×2 (08:43→18:25)
[2019-06-17] MEDS: CETIRIZINE HCL 10 MG TABLET PO SCH (08:43)
[2019-06-17] MEDS: POTASSIUM CHLORIDE 20 MEQ TABLET.ER. PO SCH ×2 (08:44→20:36)
[2019-06-17] MEDS: SENNOSIDES/DOCUSATE 8.6/50MG TABLET. PO SCH (08:44)
[2019-06-17] MEDS: LOSARTAN 50 MG TABLET. PO SCH (08:44)
[2019-06-17] MEDS: CYANOCOBALAMIN (VITAMIN B-12) 1,000 MCG TABLET. PO SCH (08:45)
[2019-06-17] MEDS: NYSTATIN 100,000 UNITS/ML ORAL SUSPENSION 60ML BOTTLE. SWSW SCH ×4 (08:45→21:00)
[2019-06-17] MEDS: ENOXAPARIN 40 MG/0.4 ML SYRINGE. SQ SCH ×2 (08:45→20:36)
[2019-06-17] MEDS: KETOCONAZOLE 2% TOPICAL CREAM 30GM TUBE. TP SCH (08:47)
[2019-06-17] MEDS: HYDROCORTISONE 1% TOPICAL CREAM 30GM TUBE. TP SCH (08:47)
[2019-06-17] MEDS: CARVEDILOL 6.25 MG TABLET PO SCH ×2 (08:52→18:25)
--- NOTE | 2019-06-17 12:44 | PN ---
DATE: 06/16/2019 PSYCHIATRIC PROGRESS NOTE. This late entry of 06/16/2019 covers the elements not covered in my initial note. SUBJECTIVE: I met with the patient in the evening of 06/16/2019 in her room. Overall, the patient remains isolative in her room and per nursing report, she splits staff had a "rough day." Nursing staff reported that she seems entitled. As I met with her in her room, she complained of some intermittent palpitations. She has been through an extensive workup with Dr. Morales from a cardiac standpoint. Workup was negative for atrial fibrillation, amongst others, will defer medical followup to Dr. Morales. REVIEW OF SYSTEMS: Ambulation impaired and lying in bed. She has vague cardiac symptoms. No CV, , pulmonary, eye system symptoms on review. MENTAL STATUS EXAM: Reasonably oriented. Speech coherent, rapid at times. Abstraction fair, computation impaired, language function intact, attention span short. Mood and affect remain somewhat labile. LABORATORY DATA: Reviewed. IMPRESSION: Unchanged from initial note. PLAN: Increase trazodone to 100 mg at bedtime p.r.n., may repeat x 1 for insomnia since she slept poorly previous night. Continue Cymbalta along with Abilify 10 mg a day, Xanax p.r.n. Vistaril p.r.n. MAN Morris GARCES MD DR: JOSE CARLOS/roslyn JOB#: [id number] / [id number]
[2019-06-17 15:57] VITALS: BP 155/73
[2019-06-17] MEDS: ALPRAZolam 0.5 MG TABLET PO PRN (20:35)
[2019-06-17] MEDS: traZODone 100 MG TABLET. PO PRN (20:36)
--- NOTE | 2019-06-17 21:37 | PDOC ---
Exam Note: Heri Note: Please also refer to the separate dictated note~for this date of service dictated separately.~Patient seen individually. Discussed the patient with Nursing staff reviewed the chart.~Reviewed interim history and current functioning. Reviewed vital signs,~Labs/ Radiology~and current medications noted below. Continue current treatment with the changes noted in the dictated addendum note Assessment: Vital Signs/I&O: Vital Signs Date Time Temp Pulse Resp B/P (MAP) Pulse Ox O2 Delivery O2 Flow Rate FiO2 06/17/19 18:25 70 155/73 06/17/19 15:57 97.8 18 99 06/17/19 15:44 Nasal Cannula 2.5 I & O 0 06/16/19 06/16/19 06/17/19 15:00 23:00 07:00 Intake Total 960 ml 480 ml Balance 960 ml 480 ml Labs: Laboratory Tests Test 06/17/19 07:46 Glucose (Fingerstick) 117 mg/dL (70-99) H Current Medications: I have reviewed the current psychotropics carefully including drug interactions. Risk benefit ratio favors no change other than as noted in my dictated progress note. Diagnosis: Problems: (1) Personality disorder, unspecified (2) Mood disorder (3) Anxiety disorder (4) Major depressive disorder, recurrent episode (5) Bipolar affective, mixed ALBER GARCES MD Jun 17, 2019 21:37
[2019-06-18] MEDS: IPRATRPIUM/ALBUTEROL 0.5/2.5MG 3 ML NEBU. NEB SCH ×5 (05:04→23:15)
[2019-06-18] MEDS: HYDROcodone/APAP 7.5/325MG 1 TAB TABLET PO PRN ×3 (05:23→21:38)
[2019-06-18 05:40] VITALS: BP 150/89
[2019-06-18 06:18] LABS: BASO % 1 % (0-3); EOS # 0.1 x10^3/uL (0.0-0.7); EOS % 3 % (0-3); HEMATOCRIT 35.4 % (36.0-47.0); HEMOGLOBIN 11.3 g/dL (12.0-15.5); LYMPH # 1.5 x10^3/uL (1.0-4.8); LYMPH % 26 % (24-48); MEAN CORPUSCULAR HEMOGLOBIN 29 pg (25-35); MEAN CORPUSCULAR HGB CONC 32 g/dL (31-37); MEAN CORPUSCULAR VOLUME 91 fL (79-100); MONO # 0.3 x10^3/uL (0.0-1.1); MONO % 5 % (0-9); NEUT # 3.8 x10^3uL (1.8-7.7); NEUT % 66 % (31-73); PLATELET COUNT 229 x10^3/uL (140-400); RED BLOOD COUNT 3.89 x10^6/uL (3.50-5.40); RED CELL DISTRIBUTION WIDTH 13.9 % (11.5-14.5); WHITE BLOOD COUNT 5.8 x10^3/uL (4.0-11.0)
[2019-06-18 06:33] LABS: ALBUMIN/GLOBULIN RATIO 0.8 (1.0-1.7); CALCIUM 8.9 mg/dL (8.5-10.1); CREATININE 0.8 mg/dL (0.6-1.0); POTASSIUM 3.8 mmol/L (3.5-5.1); TOTAL BILIRUBIN 0.2 mg/dL (0.2-1.0); TOTAL PROTEIN 6.8 g/dL (6.4-8.2)
[2019-06-18] MEDS: DULoxetine HCL 30 MG CAPSULE.DR PO SCH (08:39)
[2019-06-18] MEDS: CYANOCOBALAMIN (VITAMIN B-12) 1,000 MCG TABLET. PO SCH (08:39)
[2019-06-18] MEDS: LOSARTAN 50 MG TABLET. PO SCH (08:39)
[2019-06-18] MEDS: ARIPiprazole 10 MG TABLET PO SCH (08:39)
[2019-06-18] MEDS: LACTOBACILLUS RHAMNOSUS GG 1 CAPSULE. PO SCH ×2 (08:39→19:36)
[2019-06-18] MEDS: POTASSIUM CHLORIDE 20 MEQ TABLET.ER. PO SCH ×2 (08:39→19:36)
[2019-06-18] MEDS: FUROSEMIDE 40 MG TABLET PO SCH ×2 (08:39→17:28)
[2019-06-18] MEDS: CETIRIZINE HCL 10 MG TABLET PO SCH (08:39)
[2019-06-18] MEDS: ASPIRIN ENTERIC COATED 81 MG TABLET.DR. PO SCH (08:39)
[2019-06-18] MEDS: PANTOPRAZOLE 40 MG TABLET. PO SCH (08:39)
[2019-06-18] MEDS: FERROUS SULFATE 325 MG TABLET. PO SCH (08:39)
[2019-06-18] MEDS: SENNOSIDES/DOCUSATE 8.6/50MG TABLET. PO SCH (08:40)
[2019-06-18] MEDS: CARVEDILOL 6.25 MG TABLET PO SCH ×3 (08:40→19:36)
[2019-06-18] MEDS: ENOXAPARIN 40 MG/0.4 ML SYRINGE. SQ SCH ×2 (08:41→19:37)
[2019-06-18] MEDS: KETOCONAZOLE 2% TOPICAL CREAM 30GM TUBE. TP SCH (09:00)
[2019-06-18] MEDS: NYSTATIN 100,000 UNITS/ML ORAL SUSPENSION 60ML BOTTLE. SWSW SCH ×4 (09:00→20:15)
[2019-06-18] MEDS: HYDROCORTISONE 1% TOPICAL CREAM 30GM TUBE. TP SCH (09:00)
[2019-06-18] MEDS: SELENIUM SULFIDE 1% TOPICAL SHAMPOO 207ML BOTTLE. TP SCH (09:00)
--- NOTE | 2019-06-18 09:55 | PN ---
DATE: 06/17/2019 PSYCHIATRIC PROGRESS NOTE This late entry 06/17/2019 covers the elements not covered in my initial note. SUBJECTIVE: I met with the patient evening of 06/17/2019. Per XIN Alexandre, the patient slept 7 hours previous night. She remains anxious, attention seeking, somatically preoccupied. I met with her in her room. She was complaining of not having got her evening medications due at 5:00 p.m. and it was almost 6:30 p.m. when I saw her. She is fixated, obsessed about this, and I did talk to Bettie when meds were being administered at that time. She has complaints of vague GI, system symptoms, cardiac symptoms of palpitations, impaired ambulation due to marked obesity, ill health, debilitation. MENTAL STATUS EXAM: Reasonably oriented. Speech is coherent, abstraction fair, computation impaired, language function intact, attention span short. Mood and affect remains anxious, labile. LABORATORY DATA: Reviewed. IMPRESSION: Major depressive disorder, recurrent; bipolar disorder, depressed; anxiety disorder, unspecified; personality disorder. PLAN: Continue current psychotropics. Trazodone was increased for insomnia. Maintain Cymbalta, Abilify, Vistaril, Xanax p.r.n., trazodone. MAN Morris GARCES MD DR: JOSE CARLOS/roslyn JOB#: [id number] / [id number]
[2019-06-18] MEDS: BUDESONIDE 0.5 MG/2 ML NEBU NEB SCH ×3 (10:17→23:15)
[2019-06-18 16:27] VITALS: BP 149/80
[2019-06-18] MEDS: traZODone 100 MG TABLET. PO PRN (19:36)
[2019-06-18] MEDS: ALPRAZolam 0.5 MG TABLET PO PRN (21:05)
--- NOTE | 2019-06-18 21:56 | PDOC ---
Exam Note: Heri Note: Please also refer to the separate dictated note~for this date of service dictated separately.~Patient seen individually. Discussed the patient with Nursing staff reviewed the chart.~Reviewed interim history and current functioning. Reviewed vital signs,~Labs/ Radiology~and current medications noted below. Continue current treatment with the changes noted in the dictated addendum note Assessment: Vital Signs/I&O: Vital Signs Date Time Temp Pulse Resp B/P (MAP) Pulse Ox O2 Delivery O2 Flow Rate FiO2 06/18/19 21:38 Nasal Cannula 06/18/19 21:23 98 2.5 06/18/19 17:28 101 149/80 06/18/19 16:27 97.4 16 I & O 06/17/19 06/17/19 06/18/19 15:00 23:00 07:00 Intake Total 840 ml 720 ml Balance 840 ml 720 ml Labs: Laboratory Tests Test 06/18/19 06:03 06/18/19 08:10 White Blood Count 5.8 x10^3/uL (4.0-11.0) Red Blood Count 3.89 x10^6/uL (3.50-5.40) Hemoglobin 11.3 g/dL (12.0-15.5) L Hematocrit 35.4 % (36.0-47.0) L Mean Corpuscular Volume 91 fL (79-100) Mean Corpuscular Hemoglobin 29 pg (25-35) Mean Corpuscular Hemoglobin Concent 32 g/dL (31-37) Red Cell Distribution Width 13.9 % (11.5-14.5) Platelet Count 229 x10^3/uL (140-400) Neutrophils (%) (Auto) 66 % (31-73) Lymphocytes (%) (Auto) 26 % (24-48) Monocytes (%) (Auto) 5 % (0-9) Eosinophils (%) (Auto) 3 % (0-3) Basophils (%) (Auto) 1 % (0-3) Neutrophils # (Auto) 3.8 x10^3uL (1.8-7.7) Lymphocytes # (Auto) 1.5 x10^3/uL (1.0-4.8) Monocytes # (Auto) 0.3 x10^3/uL (0.0-1.1) Eosinophils # (Auto) 0.1 x10^3/uL (0.0-0.7) Basophils # (Auto) 0.0 x10^3/uL (0.0-0.2) Sodium Level 141 mmol/L (136-145) Potassium Level 3.8 mmol/L (3.5-5.1) Chloride Level 98 mmol/L (98-107) Carbon Dioxide Level 39 mmol/L (21-32) H Anion Gap 4 (6-14) L Blood Urea Nitrogen 13 mg/dL (7-20) Creatinine 0.8 mg/dL (0.6-1.0) Estimated GFR (Cockcroft-Gault) 72.0 BUN/Creatinine Ratio 16 (6-20) Glucose Level 114 mg/dL (70-99) H Calcium Level 8.9 mg/dL (8.5-10.1) Total Bilirubin 0.2 mg/dL (0.2-1.0) Aspartate Amino Transferase (AST) 15 U/L (15-37) Alanine Aminotransferase (ALT) 29 U/L (14-59) Alkaline Phosphatase 67 U/L (46-116) Total Protein 6.8 g/dL (6.4-8.2) Albumin 3.0 g/dL (3.4-5.0) L Albumin/Globulin Ratio 0.8 (1.0-1.7) L Glucose (Fingerstick) 115 mg/dL (70-99) H Current Medications: I have reviewed the current psychotropics carefully including drug interactions. Risk benefit ratio favors no change other than as noted in my dictated progress note. Diagnosis: Problems: (1) Personality disorder, unspecified (2) Mood disorder (3) Anxiety disorder (4) Major depressive disorder, recurrent episode (5) Bipolar affective, mixed ALBER GARCES MD Jun 18, 2019 21:56
[2019-06-19] MEDS: IPRATRPIUM/ALBUTEROL 0.5/2.5MG 3 ML NEBU. NEB SCH ×3 (05:11→15:58)
[2019-06-19 05:47] VITALS: BP 178/83
[2019-06-19] MEDS: ASPIRIN ENTERIC COATED 81 MG TABLET.DR. PO SCH (08:19)
[2019-06-19] MEDS: DULoxetine HCL 30 MG CAPSULE.DR PO SCH (08:19)
[2019-06-19] MEDS: LACTOBACILLUS RHAMNOSUS GG 1 CAPSULE. PO SCH ×2 (08:19→20:40)
[2019-06-19] MEDS: CARVEDILOL 6.25 MG TABLET PO SCH ×2 (08:19→17:04)
[2019-06-19] MEDS: CYANOCOBALAMIN (VITAMIN B-12) 1,000 MCG TABLET. PO SCH (08:20)
[2019-06-19] MEDS: LOSARTAN 50 MG TABLET. PO SCH (08:20)
[2019-06-19] MEDS: POTASSIUM CHLORIDE 20 MEQ TABLET.ER. PO SCH ×2 (08:20→20:41)
[2019-06-19] MEDS: CETIRIZINE HCL 10 MG TABLET PO SCH (08:20)
[2019-06-19] MEDS: ARIPiprazole 10 MG TABLET PO SCH (08:20)
[2019-06-19] MEDS: FUROSEMIDE 40 MG TABLET PO SCH ×2 (08:20→17:05)
[2019-06-19] MEDS: PANTOPRAZOLE 40 MG TABLET. PO SCH (08:20)
[2019-06-19] MEDS: FERROUS SULFATE 325 MG TABLET. PO SCH (08:21)
[2019-06-19] MEDS: HYDROCORTISONE 1% TOPICAL CREAM 30GM TUBE. TP SCH (08:21)
[2019-06-19] MEDS: SENNOSIDES/DOCUSATE 8.6/50MG TABLET. PO SCH (08:21)
[2019-06-19] MEDS: ENOXAPARIN 40 MG/0.4 ML SYRINGE. SQ SCH ×2 (08:21→20:40)
[2019-06-19] MEDS: NYSTATIN 100,000 UNITS/ML ORAL SUSPENSION 60ML BOTTLE. SWSW SCH ×4 (08:21→20:48)
[2019-06-19] MEDS: KETOCONAZOLE 2% TOPICAL CREAM 30GM TUBE. TP SCH (08:25)
[2019-06-19] MEDS: HYDROcodone/APAP 7.5/325MG 1 TAB TABLET PO PRN ×2 (09:00→20:46)
[2019-06-19] MEDS: BUDESONIDE 0.5 MG/2 ML NEBU NEB SCH (10:46)
[2019-06-19 15:58] VITALS: BP 146/81
--- NOTE | 2019-06-19 20:16 | PN ---
DATE: 06/18/2019 PSYCHIATRIC PROGRESS NOTE This late entry, 06/17, covers the elements not covered in my initial note. SUBJECTIVE: I met with the patient on the evening of 06/17 at length. Per XIN Simons, the patient slept 7 hours previous night. Per nursing report, she has been anxious, restless, trying to late staff, talking bad about staff members and other patients. She seems to have significant mood swings. REVIEW OF SYSTEMS: Ambulation impaired, in wheelchair. No CV, , pulmonary, eye systems symptoms on review. She has vague somatic symptoms and some cardiac symptoms, all of which are being worked up negative. MENTAL STATUS EXAM: Reasonably oriented. Speech coherent, rapid at times. Abstraction fair, computation impaired, language function intact, attention span short. Mood and affect remains labile. LABORATORY DATA: Reviewed. IMPRESSION: Major depressive disorder, recurrent, rule out bipolar disorder, unspecified; personality disorder. Rest unchanged. PLAN: We had a lengthy discussion about treating her mood swings on Depakote or Trileptal. She is not agreeable to either one of these because she does not feel she has any problems. It is everyone around her who has the problems. She is her own person. For now, we will not initiate this since she is refusing it. Continue rest of the psychotropics. My lengthy discussion with her trying to convince her to try one of the mood stabilizers was ineffective. MAN Morris GARCES MD DR: JOSE CARLOS/roslyn JOB#: [id number] / [id number]
[2019-06-19] MEDS: traZODone 100 MG TABLET. PO PRN (20:41)
[2019-06-19] MEDS: ALPRAZolam 0.5 MG TABLET PO PRN (20:41)
--- NOTE | 2019-06-19 22:58 | PDOC ---
Exam Note: Heri Note: Please also refer to the separate dictated note~for this date of service dictated separately.~Patient seen individually. Discussed the patient with Nursing staff reviewed the chart.~Reviewed interim history and current functioning. Reviewed vital signs,~Labs/ Radiology~and current medications noted below. Continue current treatment with the changes noted in the dictated addendum note Assessment: Vital Signs/I&O: Vital Signs Date Time Temp Pulse Resp B/P (MAP) Pulse Ox O2 Delivery O2 Flow Rate FiO2 06/19/19 20:46 Nasal Cannula 06/19/19 17:04 88 146/81 06/19/19 15:58 98.2 18 92 06/19/19 15:58 2.5 I & O 06/18/19 06/18/19 06/19/19 15:00 23:00 07:00 Intake Total 600 ml 720 ml Balance 600 ml 720 ml Labs: Laboratory Tests Test 06/19/19 07:35 Glucose (Fingerstick) 108 mg/dL (70-99) H Current Medications: I have reviewed the current psychotropics carefully including drug interactions. Risk benefit ratio favors no change other than as noted in my dictated progress note. Diagnosis: Problems: (1) Personality disorder, unspecified (2) Mood disorder (3) Anxiety disorder (4) Major depressive disorder, recurrent episode (5) Bipolar affective, mixed ALBER GARCES MD Jun 19, 2019 22:58
[2019-06-20] MEDS: IPRATRPIUM/ALBUTEROL 0.5/2.5MG 3 ML NEBU. NEB SCH ×3 (05:09→16:03)
[2019-06-20 06:19] VITALS: BP 142/77
[2019-06-20] MEDS: KETOCONAZOLE 2% TOPICAL CREAM 30GM TUBE. TP SCH (08:33)
[2019-06-20] MEDS: LOSARTAN 50 MG TABLET. PO SCH (08:37)
[2019-06-20] MEDS: PANTOPRAZOLE 40 MG TABLET. PO SCH (08:37)
[2019-06-20] MEDS: DULoxetine HCL 30 MG CAPSULE.DR PO SCH (08:37)
[2019-06-20] MEDS: ARIPiprazole 10 MG TABLET PO SCH (08:37)
[2019-06-20] MEDS: ENOXAPARIN 40 MG/0.4 ML SYRINGE. SQ SCH ×2 (08:37→21:31)
[2019-06-20] MEDS: ASPIRIN ENTERIC COATED 81 MG TABLET.DR. PO SCH (08:37)
[2019-06-20] MEDS: LACTOBACILLUS RHAMNOSUS GG 1 CAPSULE. PO SCH ×2 (08:41→21:26)
[2019-06-20] MEDS: CYANOCOBALAMIN (VITAMIN B-12) 1,000 MCG TABLET. PO SCH (08:41)
[2019-06-20] MEDS: FERROUS SULFATE 325 MG TABLET. PO SCH (08:41)
[2019-06-20] MEDS: SENNOSIDES/DOCUSATE 8.6/50MG TABLET. PO SCH (08:41)
[2019-06-20] MEDS: POTASSIUM CHLORIDE 20 MEQ TABLET.ER. PO SCH ×2 (08:41→21:26)
[2019-06-20] MEDS: CETIRIZINE HCL 10 MG TABLET PO SCH (08:42)
[2019-06-20] MEDS: CARVEDILOL 6.25 MG TABLET PO SCH ×2 (08:42→17:00)
[2019-06-20] MEDS: FUROSEMIDE 40 MG TABLET PO SCH ×2 (08:42→16:00)
[2019-06-20] MEDS: NYSTATIN 100,000 UNITS/ML ORAL SUSPENSION 60ML BOTTLE. SWSW SCH ×4 (08:43→21:29)
[2019-06-20] MEDS: HYDROCORTISONE 1% TOPICAL CREAM 30GM TUBE. TP SCH (08:43)
[2019-06-20] MEDS ORDERED: SELENIUM SULFIDE 1% TOPICAL SHAMPOO 207ML BOTTLE. TP PRN (08:45)
--- NOTE | 2019-06-20 09:59 | PN ---
DATE: 06/19/2019 PSYCHIATRIC PROGRESS NOTE This late entry 06/19/2019 covers elements not covered in my initial note. SUBJECTIVE: I met with the patient in the evening at length in her room and staffed at treatment team meeting earlier in the day with the entire team. Per XIN German, the patient slept for 5-3/4 hours. Appetite 100%. She denies suicidal ideation, but continues to have ongoing mood lability, anxiety, trying to triangulate staff per nursing report. REVIEW OF SYSTEMS: Positive for impaired ambulation. She was lying in bed as I met where the patient was looking out of a window at the cloud formations and talked at length about what she could see and the different clouds and how much she enjoyed doing this. She was in fact more animated, seemed to be doing better, but still wanting a call paulino to call the nurses and I have discussed this with the nursing staff again. REVIEW OF SYSTEMS: Ambulation impaired. No CV, , pulmonary, eye system symptoms on review. She has a vague chest pains, nothing specific. MENTAL STATUS EXAMINATION: The patient is reasonably oriented. Speech is coherent, abstraction fair, computation impaired, language function intact, attention span short. Mood and affect showing some improvement. LABORATORY DATA: Reviewed. We had a lengthy discussion about placement options. She is refusing to go to a lower level of care, once to return home. She has significant disabilities, raising a question how she would function at home and Adult Protective Services may need to be involved. We will defer to social service staff to coordinate. LABORATORY DATA: Reviewed. IMPRESSION: Unchanged from initial note. PLAN: She does complain of some ongoing insomnia, we will increase trazodone to 150 mg at bedtime scheduled and 100 mg p.r.n., may repeat x 1. Rest of the psychotropics unchanged for now. ALBER GARCES MD DR: JOSE CARLOS/roslyn JOB#: [id number] / [id number]
[2019-06-20] MEDS: HYDROcodone/APAP 7.5/325MG 1 TAB TABLET PO PRN ×2 (11:18→19:13)
[2019-06-20] MEDS: BUDESONIDE 0.5 MG/2 ML NEBU NEB SCH ×2 (11:23→20:00)
[2019-06-20 16:16] VITALS: BP 173/89
[2019-06-20] MEDS: ALPRAZolam 0.5 MG TABLET PO PRN (21:26)
[2019-06-20] MEDS: BENZOCAINE/MENTHOL LOZNGE 18'S BOX. PO PRN (21:27)
[2019-06-20] MEDS: CICLOPIROX 0.77% TOPICAL CREAM 15GM TUBE. TP SCH (21:28)
--- NOTE | 2019-06-20 22:41 | PDOC ---
Exam Note: Heri Note: Please also refer to the separate dictated note~for this date of service dictated separately. Discussed the patient with Nursing staff reviewed the chart.~Reviewed interim history and current functioning. Reviewed vital signs,~Labs/ Radiology~and current medications noted below. Continue current treatment with the changes noted in the dictated addendum note Assessment: Vital Signs/I&O: Vital Signs Date Time Temp Pulse Resp B/P (MAP) Pulse Ox O2 Delivery O2 Flow Rate FiO2 06/20/19 17:00 96 173/89 06/20/19 16:16 97.7 18 95 06/20/19 16:07 Nasal Cannula 2.5 I & O 06/19/19 06/19/19 06/20/19 15:00 23:00 07:00 Intake Total 700 ml 1040 ml Balance 700 ml 1040 ml Labs: Laboratory Tests Test 06/20/19 07:46 Glucose (Fingerstick) 92 mg/dL (70-99) Current Medications: Meds: Current Medications Medications (Trade) Dose Ordered Sig/Mason Route PRN Reason Start Time Stop Time Status Last Admin Dose Admin Ciclopirox Olamine (Loprox) 1 gricel BID TP 06/20/19 21:00 06/20/19 21:28 I have reviewed the current psychotropics carefully including drug interactions. Risk benefit ratio favors no change other than as noted in my dictated progress note. Diagnosis: Problems: (1) Personality disorder, unspecified (2) Mood disorder (3) Anxiety disorder (4) Major depressive disorder, recurrent episode (5) Bipolar affective, mixed ALBER GARCES MD Jun 20, 2019 22:41
[2019-06-21] MEDS: IPRATRPIUM/ALBUTEROL 0.5/2.5MG 3 ML NEBU. NEB SCH ×5 (04:05→20:44)
[2019-06-21] MEDS: HYDROcodone/APAP 7.5/325MG 1 TAB TABLET PO PRN ×3 (06:07→23:34)
[2019-06-21 06:46] VITALS: BP 130/71
[2019-06-21] MEDS: BUDESONIDE 0.5 MG/2 ML NEBU NEB SCH ×2 (08:00→20:44)
[2019-06-21] MEDS: ASPIRIN ENTERIC COATED 81 MG TABLET.DR. PO SCH (08:46)
[2019-06-21] MEDS: ARIPiprazole 10 MG TABLET PO SCH (08:46)
[2019-06-21] MEDS: CYANOCOBALAMIN (VITAMIN B-12) 1,000 MCG TABLET. PO SCH (08:47)
[2019-06-21] MEDS: FUROSEMIDE 40 MG TABLET PO SCH ×2 (08:47→17:32)
[2019-06-21] MEDS: FERROUS SULFATE 325 MG TABLET. PO SCH (08:47)
[2019-06-21] MEDS: POTASSIUM CHLORIDE 20 MEQ TABLET.ER. PO SCH ×2 (08:47→20:44)
[2019-06-21] MEDS: LACTOBACILLUS RHAMNOSUS GG 1 CAPSULE. PO SCH ×2 (08:47→20:44)
[2019-06-21] MEDS: DULoxetine HCL 30 MG CAPSULE.DR PO SCH (08:48)
[2019-06-21] MEDS: SENNOSIDES/DOCUSATE 8.6/50MG TABLET. PO SCH (08:48)
[2019-06-21] MEDS: LOSARTAN 50 MG TABLET. PO SCH (08:48)
[2019-06-21] MEDS: CETIRIZINE HCL 10 MG TABLET PO SCH (08:48)
[2019-06-21] MEDS: CARVEDILOL 6.25 MG TABLET PO SCH ×2 (08:48→17:32)
[2019-06-21] MEDS: PANTOPRAZOLE 40 MG TABLET. PO SCH (08:48)
[2019-06-21] MEDS: NYSTATIN 100,000 UNITS/ML ORAL SUSPENSION 60ML BOTTLE. SWSW SCH ×4 (08:49→20:46)
[2019-06-21] MEDS: HYDROCORTISONE 1% TOPICAL CREAM 30GM TUBE. TP SCH (08:49)
[2019-06-21] MEDS: ENOXAPARIN 40 MG/0.4 ML SYRINGE. SQ SCH ×2 (08:49→20:45)
[2019-06-21] MEDS: CICLOPIROX 0.77% TOPICAL CREAM 15GM TUBE. TP SCH ×2 (08:49→20:41)
[2019-06-21 15:58] VITALS: BP 145/75
[2019-06-21] MEDS: BENZOCAINE/MENTHOL LOZNGE 18'S BOX. PO PRN (20:42)
[2019-06-21] MEDS: ALPRAZolam 0.5 MG TABLET PO PRN (20:43)
--- NOTE | 2019-06-21 22:34 | PDOC ---
Exam Note: Ehri Note: Please also refer to the separate dictated note~for this date of service dictated separately. Discussed the patient with Nursing staff reviewed the chart.~Reviewed interim history and current functioning. Reviewed vital signs,~Labs/ Radiology~and current medications noted below. Continue current treatment with the changes noted in the dictated addendum note Assessment: Vital Signs/I&O: Vital Signs Date Time Temp Pulse Resp B/P (MAP) Pulse Ox O2 Delivery O2 Flow Rate FiO2 06/21/19 17:32 94 145/75 06/21/19 15:58 98.5 20 95 06/21/19 06:46 Nasal Cannula 2.0 I & O 06/20/19 06/20/19 06/21/19 15:00 23:00 07:00 Intake Total 960 ml 360 ml Balance 960 ml 360 ml Labs: Laboratory Tests Test 06/21/19 07:48 Glucose (Fingerstick) 104 mg/dL (70-99) H Current Medications: I have reviewed the current psychotropics carefully including drug interactions. Risk benefit ratio favors no change other than as noted in my dictated progress note. Diagnosis: Problems: (1) Personality disorder, unspecified (2) Mood disorder (3) Anxiety disorder (4) Major depressive disorder, recurrent episode (5) Bipolar affective, mixed ALBER GRACES MD Jun 21, 2019 22:34
[2019-06-22 06:07] VITALS: BP 128/69
[2019-06-22] MEDS: IPRATRPIUM/ALBUTEROL 0.5/2.5MG 3 ML NEBU. NEB SCH ×4 (08:00→20:58)
[2019-06-22] MEDS: BUDESONIDE 0.5 MG/2 ML NEBU NEB SCH ×2 (08:00→20:57)
[2019-06-22] MEDS: CHOLECALCIFEROL (VITAMIN D3) 50,000 UNIT CAPSULE PO SCH (08:24)
[2019-06-22] MEDS: FERROUS SULFATE 325 MG TABLET. PO SCH (08:24)
[2019-06-22] MEDS: LOSARTAN 50 MG TABLET. PO SCH (08:24)
[2019-06-22] MEDS: ENOXAPARIN 40 MG/0.4 ML SYRINGE. SQ SCH ×2 (08:24→21:00)
[2019-06-22] MEDS: LACTOBACILLUS RHAMNOSUS GG 1 CAPSULE. PO SCH ×2 (08:24→20:55)
[2019-06-22] MEDS: FUROSEMIDE 40 MG TABLET PO SCH ×2 (08:25→18:12)
[2019-06-22] MEDS: POTASSIUM CHLORIDE 20 MEQ TABLET.ER. PO SCH ×2 (08:25→20:55)
[2019-06-22] MEDS: SENNOSIDES/DOCUSATE 8.6/50MG TABLET. PO SCH (08:25)
[2019-06-22] MEDS: ASPIRIN ENTERIC COATED 81 MG TABLET.DR. PO SCH (08:25)
[2019-06-22] MEDS: PANTOPRAZOLE 40 MG TABLET. PO SCH (08:25)
[2019-06-22] MEDS: CARVEDILOL 6.25 MG TABLET PO SCH ×2 (08:25→18:12)
[2019-06-22] MEDS: NYSTATIN 100,000 UNITS/ML ORAL SUSPENSION 60ML BOTTLE. SWSW SCH ×4 (08:26→20:56)
[2019-06-22] MEDS: ARIPiprazole 10 MG TABLET PO SCH (08:26)
[2019-06-22] MEDS: DULoxetine HCL 30 MG CAPSULE.DR PO SCH (08:26)
[2019-06-22] MEDS: CYANOCOBALAMIN (VITAMIN B-12) 1,000 MCG TABLET. PO SCH (08:26)
[2019-06-22] MEDS: CICLOPIROX 0.77% TOPICAL CREAM 15GM TUBE. TP SCH ×2 (08:26→20:58)
[2019-06-22] MEDS: CETIRIZINE HCL 10 MG TABLET PO SCH (08:26)
[2019-06-22] MEDS: HYDROCORTISONE 1% TOPICAL CREAM 30GM TUBE. TP SCH (08:27)
[2019-06-22] MEDS ORDERED: HYDROCORTISONE 1% TOPICAL CREAM 30GM TUBE. TP PRN (08:30)
[2019-06-22] MEDS: HYDROcodone/APAP 7.5/325MG 1 TAB TABLET PO PRN ×2 (11:17→20:56)
[2019-06-22 16:28] VITALS: BP 166/89
[2019-06-22] MEDS ORDERED: LOSARTAN 50 MG TABLET. PO ONE (17:40)
[2019-06-22 18:39] LABS: CALCIUM 8.9 mg/dL (8.5-10.1); CREATININE 0.9 mg/dL (0.6-1.0); GFR 62.8; POTASSIUM 4.1 mmol/L (3.5-5.1)
[2019-06-22] MEDS: ALPRAZolam 0.5 MG TABLET PO PRN (20:56)
[2019-06-22] MEDS: BENZOCAINE/MENTHOL LOZNGE 18'S BOX. PO PRN (20:58)
--- NOTE | 2019-06-22 21:42 | PDOC ---
Exam Note: Heri Note: Please also refer to the separate dictated note~for this date of service dictated separately. Discussed the patient with Nursing staff reviewed the chart.~Reviewed interim history and current functioning. Reviewed vital signs,~Labs/ Radiology~and current medications noted below. Continue current treatment with the changes noted in the dictated addendum note Assessment: Vital Signs/I&O: Vital Signs Date Time Temp Pulse Resp B/P (MAP) Pulse Ox O2 Delivery O2 Flow Rate FiO2 06/22/19 18:14 92 166/89 06/22/19 16:28 97.8 20 96 Nasal Cannula 2.0 I & O 06/21/19 06/21/19 06/22/19 15:00 23:00 07:00 Intake Total 1300 ml 480 ml Balance 1300 ml 480 ml Labs: Laboratory Tests Test 06/22/19 06:05 06/22/19 08:00 Sodium Level 137 mmol/L (136-145) Potassium Level 4.1 mmol/L (3.5-5.1) Chloride Level 99 mmol/L (98-107) Carbon Dioxide Level 37 mmol/L (21-32) H Anion Gap 1 (6-14) L Blood Urea Nitrogen 14 mg/dL (7-20) Creatinine 0.9 mg/dL (0.6-1.0) Estimated GFR (Cockcroft-Gault) 62.8 Glucose Level 136 mg/dL (70-99) H Calcium Level 8.9 mg/dL (8.5-10.1) Glucose (Fingerstick) 87 mg/dL (70-99) Current Medications: Meds: Current Medications Medications (Trade) Dose Ordered Sig/Mason Route PRN Reason Start Time Stop Time Status Last Admin Dose Admin Losartan Potassium (Cozaar) 50 mg 1X ONCE PO 06/22/19 17:40 06/22/19 17:41 DC 06/22/19 18:14 I have reviewed the current psychotropics carefully including drug interactions. Risk benefit ratio favors no change other than as noted in my dictated progress note. Diagnosis: Problems: (1) Personality disorder, unspecified (2) Mood disorder (3) Anxiety disorder (4) Major depressive disorder, recurrent episode (5) Bipolar affective, mixed ALBER GARCES MD Jun 22, 2019 21:42
[2019-06-23 06:04] VITALS: BP 148/78
[2019-06-23] MEDS: BUDESONIDE 0.5 MG/2 ML NEBU NEB SCH ×2 (08:00→21:07)
[2019-06-23] MEDS: CYANOCOBALAMIN (VITAMIN B-12) 1,000 MCG TABLET. PO SCH (08:29)
[2019-06-23] MEDS: DULoxetine HCL 30 MG CAPSULE.DR PO SCH (08:30)
[2019-06-23] MEDS: ARIPiprazole 10 MG TABLET PO SCH (08:30)
[2019-06-23] MEDS: ASPIRIN ENTERIC COATED 81 MG TABLET.DR. PO SCH (08:30)
[2019-06-23] MEDS: CETIRIZINE HCL 10 MG TABLET PO SCH (08:31)
[2019-06-23] MEDS: LOSARTAN 50 MG TABLET. PO SCH (08:31)
[2019-06-23] MEDS: LACTOBACILLUS RHAMNOSUS GG 1 CAPSULE. PO SCH ×2 (08:32→21:07)
[2019-06-23] MEDS: FERROUS SULFATE 325 MG TABLET. PO SCH (08:32)
[2019-06-23] MEDS: PANTOPRAZOLE 40 MG TABLET. PO SCH (08:33)
[2019-06-23] MEDS: CARVEDILOL 6.25 MG TABLET PO SCH ×2 (08:33→17:08)
[2019-06-23] MEDS: POTASSIUM CHLORIDE 20 MEQ TABLET.ER. PO SCH ×2 (08:33→21:07)
[2019-06-23] MEDS: FUROSEMIDE 40 MG TABLET PO SCH ×2 (08:33→17:09)
[2019-06-23] MEDS: NYSTATIN 100,000 UNIT/GM TOPICAL CREAM 15GM TUBE. TP PRN ×2 (08:34→10:58)
[2019-06-23] MEDS: ENOXAPARIN 40 MG/0.4 ML SYRINGE. SQ SCH ×2 (08:34→21:11)
[2019-06-23] MEDS: CICLOPIROX 0.77% TOPICAL CREAM 15GM TUBE. TP SCH ×2 (09:00→21:08)
[2019-06-23] MEDS: SENNOSIDES/DOCUSATE 8.6/50MG TABLET. PO SCH (09:00)
[2019-06-23] MEDS: NYSTATIN 100,000 UNITS/ML ORAL SUSPENSION 60ML BOTTLE. SWSW SCH ×4 (09:00→21:13)
[2019-06-23] MEDS: IPRATRPIUM/ALBUTEROL 0.5/2.5MG 3 ML NEBU. NEB SCH ×4 (09:30→21:12)
[2019-06-23] MEDS: ALPRAZolam 0.5 MG TABLET PO PRN (13:06)
[2019-06-23 16:16] VITALS: BP 156/71
[2019-06-23] MEDS: HYDROcodone/APAP 7.5/325MG 1 TAB TABLET PO PRN (18:07)
[2019-06-23] MEDS: ALBUTEROL SULFATE 2.5 MG/3 ML NEBU. NEB PRN (21:07)
--- NOTE | 2019-06-23 21:44 | PDOC ---
Exam Note: Ehri Note: Please also refer to the separate dictated note~for this date of service dictated separately. Discussed the patient with Nursing staff reviewed the chart.~Reviewed interim history and current functioning. Reviewed vital signs,~Labs/ Radiology~and current medications noted below. Continue current treatment with the changes noted in the dictated addendum note Assessment: Vital Signs/I&O: Vital Signs Date Time Temp Pulse Resp B/P (MAP) Pulse Ox O2 Delivery O2 Flow Rate FiO2 06/23/19 18:07 14 06/23/19 17:08 98 156/71 06/23/19 16:16 98.5 94 3.0 06/23/19 06:04 Nasal Cannula I & O 06/22/19 06/22/19 06/23/19 15:00 23:00 07:00 Intake Total 820 ml 480 ml Balance 820 ml 480 ml Labs: Laboratory Tests Test 06/23/19 08:05 Glucose (Fingerstick) 107 mg/dL (70-99) H Current Medications: Meds: Current Medications Medications (Trade) Dose Ordered Sig/Mason Route PRN Reason Start Time Stop Time Status Last Admin Dose Admin Losartan Potassium (Cozaar) 100 mg DAILY PO 06/23/19 09:00 06/23/19 08:31 I have reviewed the current psychotropics carefully including drug interactions. Risk benefit ratio favors no change other than as noted in my dictated progress note. Diagnosis: Problems: (1) Personality disorder, unspecified (2) Mood disorder (3) Anxiety disorder (4) Major depressive disorder, recurrent episode (5) Bipolar affective, mixed ALBER GARCES MD Jun 23, 2019 21:44
[2019-06-24] MEDS: HYDROcodone/APAP 7.5/325MG 1 TAB TABLET PO PRN ×3 (03:35→20:57)
[2019-06-24 05:43] VITALS: BP 105/49
[2019-06-24] MEDS: CARVEDILOL 6.25 MG TABLET PO SCH ×2 (08:00→16:41)
[2019-06-24] MEDS: IPRATRPIUM/ALBUTEROL 0.5/2.5MG 3 ML NEBU. NEB SCH ×4 (08:30→20:57)
[2019-06-24] MEDS: ARIPiprazole 10 MG TABLET PO SCH (08:30)
[2019-06-24] MEDS: CYANOCOBALAMIN (VITAMIN B-12) 1,000 MCG TABLET. PO SCH (08:31)
[2019-06-24] MEDS: FERROUS SULFATE 325 MG TABLET. PO SCH (08:31)
[2019-06-24] MEDS: CETIRIZINE HCL 10 MG TABLET PO SCH (08:32)
[2019-06-24] MEDS: POTASSIUM CHLORIDE 20 MEQ TABLET.ER. PO SCH ×2 (08:32→20:56)
[2019-06-24] MEDS: ENOXAPARIN 40 MG/0.4 ML SYRINGE. SQ SCH ×2 (08:33→20:58)
[2019-06-24] MEDS: DULoxetine HCL 30 MG CAPSULE.DR PO SCH (08:33)
[2019-06-24] MEDS: PANTOPRAZOLE 40 MG TABLET. PO SCH (08:33)
[2019-06-24] MEDS: ASPIRIN ENTERIC COATED 81 MG TABLET.DR. PO SCH (08:33)
[2019-06-24] MEDS: FUROSEMIDE 40 MG TABLET PO SCH ×2 (08:33→16:40)
[2019-06-24] MEDS: NYSTATIN 100,000 UNIT/GM TOPICAL CREAM 15GM TUBE. TP PRN (08:34)
[2019-06-24] MEDS: NYSTATIN 100,000 UNITS/ML ORAL SUSPENSION 60ML BOTTLE. SWSW SCH ×4 (08:34→20:56)
[2019-06-24] MEDS: CICLOPIROX 0.77% TOPICAL CREAM 15GM TUBE. TP SCH ×2 (09:00→20:56)
[2019-06-24] MEDS: LOSARTAN 50 MG TABLET. PO SCH (09:00)
[2019-06-24] MEDS: SENNOSIDES/DOCUSATE 8.6/50MG TABLET. PO SCH (09:00)
[2019-06-24] MEDS: ALPRAZolam 0.5 MG TABLET PO PRN ×2 (10:29→20:57)
[2019-06-24] MEDS: ALBUTEROL SULFATE 2.5 MG/3 ML NEBU. NEB PRN (10:41)
[2019-06-24] MEDS: BUDESONIDE 0.5 MG/2 ML NEBU NEB SCH ×2 (10:45→20:57)
[2019-06-24] MEDS: LACTOBACILLUS RHAMNOSUS GG 1 CAPSULE. PO SCH ×2 (10:45→20:57)
[2019-06-24 15:34] VITALS: BP 151/75
[2019-06-24] MEDS: traZODone 100 MG TABLET. PO PRN (20:56)
[2019-06-25 06:00] VITALS: BP 126/71
--- NOTE | 2019-06-25 06:23 | PDOC ---
Exam Note: Heri Note: This is a late entry for 06/20/2019. Currently, the unit is shutdown for any admissions and discharges as directed by the Centers for Disease Control (CDC) and the [facility] and [facility] ([facility]) because of Coronavirus (COVID-19) exposure on the unit. S/O: . This is a Telepsychiatry Progress Note . This note covers elements not covered in my initial note. The patient was reviewed with nursing staff, reviewed the chart and TeleHealth Services provided for this date for the patient. Reviewed the labs. Discussed the patient with XIN Pires. The patient has been argumentative and strangulating staff. She has been somewhat anxious, irritable, minimizes her problems, and blames staff for all her difficulties. ROS: She has difficulty ambulating herself, mainly stays in bed, otherwise, in wheelchair. MSE: Reasonably oriented. Speech has been coherent per nursing report. Abstraction fair. Computation impaired. Language function intact. Attention span short. Mood and affect somewhat anxious, labile, though the patient minimizes this. Labs: Reviewed. Imp: Unchanged from my initial note. Plan: Continue psychotropics mentioned in my initial note. Assessment: Vital Signs/I&O: VS - Last 72 Hours, by Label Date Time Temp Pulse Resp B/P (MAP) Pulse Ox O2 Delivery O2 Flow Rate FiO2 06/25/19 06:00 97.7 82 20 126/71 (89) 98 2.0 06/24/19 22:00 Nasal Cannula 06/24/19 20:57 Nasal Cannula 06/24/19 16:41 105 151/75 06/24/19 15:34 98.1 105 22 151/75 (100) 94 2.0 06/24/19 14:43 14 06/24/19 12:38 14 06/24/19 07:21 94 06/24/19 05:43 97.8 87 20 105/49 (67) 94 06/24/19 03:35 Nasal Cannula 06/23/19 19:30 Nasal Cannula 06/23/19 18:07 14 06/23/19 17:08 98 156/71 06/23/19 16:16 98.5 98 24 156/71 (99) 94 3.0 06/23/19 08:33 89 148/78 06/23/19 08:31 89 148/78 06/23/19 06:04 97.7 89 18 148/78 (101) 96 Nasal Cannula 2.0 06/22/19 18:14 92 166/89 06/22/19 18:12 92 166/89 06/22/19 16:28 97.8 92 20 166/89 (114) 96 Nasal Cannula 2.0 06/22/19 08:25 88 128/69 06/22/19 08:24 88 128/69 Vital Signs Date Time Temp Pulse Resp B/P (MAP) Pulse Ox O2 Delivery O2 Flow Rate FiO2 06/25/19 06:00 97.7 82 20 126/71 (89) 98 2.0 06/24/19 22:00 Nasal Cannula I & O 06/24/19 06/24/19 06/25/19 15:00 23:00 07:00 Intake Total 600 ml 340 ml Balance 600 ml 340 ml Labs: Laboratory Tests Test 06/24/19 08:11 Glucose (Fingerstick) 96 mg/dL (70-99) Current Medications: I have reviewed the current psychotropics carefully including drug interactions. Risk benefit ratio favors no change other than as noted in my dictated progress note. Diagnosis: Problems: (1) Personality disorder, unspecified (2) Mood disorder (3) Anxiety disorder (4) Major depressive disorder, recurrent episode (5) Bipolar affective, mixed ALBER GARCES MD Jun 25, 2019 06:23
--- NOTE | 2019-06-25 07:20 | PDOC ---
Exam Note: Heri Note: This is a late entry for 06/21/2019. Currently, the unit is shutdown for any admissions and discharges as directed by the Centers for Disease Control (CDC) and the [facility] of [facility] and Environment ([facility]) because of Coronavirus (COVID-19) exposure on the unit. S/O: This note covers elements not covered in my initial note. The patient was reviewed with nursing staff, reviewed the chart and TeleHealth Services provided for this date for the patient. Discussed the patient with XIN Pires. The patient has been argumentative and strangulating staff. She has been somewhat anxious, irritable, minimizes her problems, and blames staff for all her difficulties. ROS: She has difficulty ambulating herself, mainly stays in bed, otherwise, in wheelchair. MSE: Reasonably oriented. Speech has been coherent per nursing report. Abstraction fair. Computation impaired. Language function intact. Attention span short. Mood and affect somewhat anxious, labile, though the patient minimizes this. Labs: Reviewed. Imp: Unchanged from my initial note. Plan: Continue psychotropics mentioned in my initial note. Assessment: Vital Signs/I&O: Vital Signs Date Time Temp Pulse Resp B/P (MAP) Pulse Ox O2 Delivery O2 Flow Rate FiO2 06/25/19 06:00 97.7 82 20 126/71 (89) 98 2.0 06/24/19 22:00 Nasal Cannula I & O 06/24/19 06/24/19 06/25/19 15:00 23:00 07:00 Intake Total 600 ml 340 ml Balance 600 ml 340 ml Labs: Laboratory Tests Test 06/24/19 08:11 Glucose (Fingerstick) 96 mg/dL (70-99) Current Medications: I have reviewed the current psychotropics carefully including drug interactions. Risk benefit ratio favors no change other than as noted in my dictated progress note. Diagnosis: Problems: (1) Personality disorder, unspecified (2) Mood disorder (3) Anxiety disorder (4) Major depressive disorder, recurrent episode (5) Bipolar affective, mixed ALBER GARCES MD Jun 25, 2019 07:20
--- NOTE | 2019-06-25 07:50 | PDOC ---
Exam Note: Heri Note: This is a late entry 06/22/2019. Currently, the unit is shutdown for any admissions and discharges as directed by the Centers for Disease Control (CDC) and the [facility] and Environment ([facility]) because of Coronavirus (COVID-19) exposure on the unit. S/O: This note covers elements not covered in my initial note. The patient was reviewed with nursing staff, reviewed the chart and TeleHealth Services provided for this date for the patient. Discussed the patient with XIN Pires. The patient has been argumentative and strangulating staff. She has been somewhat anxious, irritable, minimizes her problems, and blames staff for all her difficulties. ROS: She has difficulty ambulating herself, mainly stays in bed, otherwise, in wheelchair. MSE: Reasonably oriented. Speech has been coherent per nursing report. Abstraction fair. Computation impaired. Language function intact. Attention span short. Mood and affect somewhat anxious, labile, though the patient minimizes this. Labs: Reviewed. Imp: Unchanged from my initial note. Plan: Continue psychotropics mentioned in my initial note. Assessment: Vital Signs/I&O: Vital Signs Date Time Temp Pulse Resp B/P (MAP) Pulse Ox O2 Delivery O2 Flow Rate FiO2 06/25/19 06:00 97.7 82 20 126/71 (89) 98 2.0 06/24/19 22:00 Nasal Cannula I & O 06/24/19 06/24/19 06/25/19 15:00 23:00 07:00 Intake Total 600 ml 340 ml Balance 600 ml 340 ml Labs: Laboratory Tests Test 06/24/19 08:11 Glucose (Fingerstick) 96 mg/dL (70-99) Current Medications: I have reviewed the current psychotropics carefully including drug interactions. Risk benefit ratio favors no change other than as noted in my dictated progress note. Diagnosis: Problems: (1) Personality disorder, unspecified (2) Mood disorder (3) Anxiety disorder (4) Major depressive disorder, recurrent episode (5) Bipolar affective, mixed ALBER GARCES MD Jun 25, 2019 07:50
[2019-06-25] MEDS: BUDESONIDE 0.5 MG/2 ML NEBU NEB SCH ×2 (08:00→21:00)
[2019-06-25] MEDS: IPRATRPIUM/ALBUTEROL 0.5/2.5MG 3 ML NEBU. NEB SCH ×4 (08:00→21:00)
--- NOTE | 2019-06-25 08:15 | PDOC ---
Exam Note: Heri Note: This is a late entry for 06/23/2019. Currently, the unit is shutdown for any admissions and discharges as directed by the Centers for Disease Control (CDC) and the [facility] ([facility]) because of Coronavirus (COVID-19) exposure on the unit. S/O: This note covers elements not covered in my initial note. The patient was reviewed with nursing staff, reviewed the chart and TeleHealth Services provided for this date for the patient. Discussed the patient with XIN Waters. The patient has been argumentative and strangulating staff. She has been somewhat anxious, irritable, minimizes her problems, and blames staff for all her difficulties. She was irritable per nursing report, slept 7-1/4 hours. ROS: She has difficulty ambulating herself, mainly stays in bed, otherwise, in wheelchair. MSE: Reasonably oriented. Speech has been coherent per nursing report. Abstraction fair. Computation impaired. Language function intact. Attention span short. Mood and affect somewhat anxious, labile, though the patient minimizes this. Labs: Reviewed. Imp: Unchanged from my initial note. Plan: Continue psychotropics mentioned in my initial note. Assessment: Vital Signs/I&O: Vital Signs Date Time Temp Pulse Resp B/P (MAP) Pulse Ox O2 Delivery O2 Flow Rate FiO2 06/25/19 06:00 97.7 82 20 126/71 (89) 98 2.0 06/24/19 22:00 Nasal Cannula I & O 06/24/19 06/24/19 06/25/19 15:00 23:00 07:00 Intake Total 600 ml 340 ml Balance 600 ml 340 ml Labs: Laboratory Tests Test 06/25/19 07:51 Glucose (Fingerstick) 98 mg/dL (70-99) Current Medications: I have reviewed the current psychotropics carefully including drug interactions. Risk benefit ratio favors no change other than as noted in my dictated progress note. Diagnosis: Problems: (1) Personality disorder, unspecified (2) Mood disorder (3) Anxiety disorder (4) Major depressive disorder, recurrent episode (5) Bipolar affective, mixed ALBER GARCES MD Jun 25, 2019 08:15
--- NOTE | 2019-06-25 08:43 | PDOC ---
Exam Note: Heri Note: This is a late entry for 06/24/2019. Currently, the unit is shutdown for any admissions and discharges as directed by the Centers for Disease Control (CDC) and the [facility] ([facility]) because of Coronavirus (COVID-19) exposure on the unit. S/O: This note covers elements not covered in my initial note. The patient was reviewed with nursing staff, reviewed the chart and TeleHealth Services provided for this date for the patient. The patient was seen on a video-conferencing call coordinated with René LAUREN, nursing staff on the unit whose appropriately protected with personal protective equipment and mask on the unit. Nursing report was from XIN Waters. She slept 4-3/4 hours. She spends much time in her room. She got some Xanax and Lortab in the afternoon and less anxious, irritable. ROS: She has difficulty ambulating herself, mainly stays in bed, otherwise, in wheelchair. MSE: Patient was lying in bed, was able to communicate properly through the TeleHealth video-conferencing call but minimized her problems. Again, had complaints regarding nursing staff, not responding to her as quickly as she would like them to. Speech coherent. Abstraction fair. Computation impaired. Language function intact. Attention span short. Labs: Reviewed. Imp: Unchanged from my initial note. Plan: Continue psychotropics mentioned in my initial note. Assessment: Vital Signs/I&O: Vital Signs Date Time Temp Pulse Resp B/P (MAP) Pulse Ox O2 Delivery O2 Flow Rate FiO2 06/25/19 06:00 97.7 82 20 126/71 (89) 98 2.0 06/24/19 22:00 Nasal Cannula I & O 06/24/19 06/24/19 06/25/19 15:00 23:00 07:00 Intake Total 600 ml 340 ml Balance 600 ml 340 ml Labs: Laboratory Tests Test 06/25/19 07:51 Glucose (Fingerstick) 98 mg/dL (70-99) Current Medications: I have reviewed the current psychotropics carefully including drug interactions. Risk benefit ratio favors no change other than as noted in my dictated progress note. Diagnosis: Problems: (1) Personality disorder, unspecified (2) Mood disorder (3) Anxiety disorder (4) Major depressive disorder, recurrent episode (5) Bipolar affective, mixed ALBER GARCES MD Jun 25, 2019 08:43
[2019-06-25] MEDS: NYSTATIN 100,000 UNITS/ML ORAL SUSPENSION 60ML BOTTLE. SWSW SCH ×4 (09:00→20:59)
[2019-06-25] MEDS: CICLOPIROX 0.77% TOPICAL CREAM 15GM TUBE. TP SCH ×2 (09:00→20:58)
[2019-06-25] MEDS: DULoxetine HCL 30 MG CAPSULE.DR PO SCH (09:00)
[2019-06-25] MEDS: FUROSEMIDE 40 MG TABLET PO SCH ×2 (09:21→15:46)
[2019-06-25] MEDS: SENNOSIDES/DOCUSATE 8.6/50MG TABLET. PO SCH (09:21)
[2019-06-25] MEDS: CETIRIZINE HCL 10 MG TABLET PO SCH (09:21)
[2019-06-25] MEDS: ARIPiprazole 10 MG TABLET PO SCH (09:21)
[2019-06-25] MEDS: FERROUS SULFATE 325 MG TABLET. PO SCH (09:21)
[2019-06-25] MEDS: LACTOBACILLUS RHAMNOSUS GG 1 CAPSULE. PO SCH ×2 (09:21→20:59)
[2019-06-25] MEDS: CYANOCOBALAMIN (VITAMIN B-12) 1,000 MCG TABLET. PO SCH (09:22)
[2019-06-25] MEDS: ASPIRIN ENTERIC COATED 81 MG TABLET.DR. PO SCH (09:22)
[2019-06-25] MEDS: HYDROcodone/APAP 7.5/325MG 1 TAB TABLET PO PRN ×3 (09:22→20:59)
[2019-06-25] MEDS: LOSARTAN 50 MG TABLET. PO SCH (09:22)
[2019-06-25] MEDS: POTASSIUM CHLORIDE 20 MEQ TABLET.ER. PO SCH ×2 (09:22→20:59)
[2019-06-25] MEDS: PANTOPRAZOLE 40 MG TABLET. PO SCH (09:23)
[2019-06-25] MEDS: CARVEDILOL 6.25 MG TABLET PO SCH ×2 (09:23→15:47)
[2019-06-25] MEDS: CHOLECALCIFEROL (VITAMIN D3) 50,000 UNIT CAPSULE PO SCH (09:23)
[2019-06-25] MEDS: ENOXAPARIN 40 MG/0.4 ML SYRINGE. SQ SCH ×2 (09:23→20:58)
[2019-06-25] MEDS: ALPRAZolam 0.5 MG TABLET PO PRN (15:45)
[2019-06-25 16:18] VITALS: BP 130/69
--- NOTE | 2019-06-25 23:04 | PDOC ---
Exam Note: Heri Note: S/O: This note covers elements not covered in my initial note. The patient was reviewed with nursing staff, reviewed the chart. Nursing report was from Doris sheppard RN. The patient has been attention seeking. Does come out for meals, somewhat helpless. As I met with her she was complaining of having infected tooth. Will defer to Dr. Morales. ROS: Ambulation impaired, lying in bed. No CV, , Pulmonary, Eye system symptoms on review. MSE: Oriented reasonably. Speech coherent, has some latency. Abstraction fair. Computation impaired. Language function intact. Mood and affect remains somewhat anxious, labile. Labs: Reviewed. Imp: Unchanged from initial note. Plan: No change from initial note. Assessment: Vital Signs/I&O: Vital Signs Date Time Temp Pulse Resp B/P (MAP) Pulse Ox O2 Delivery O2 Flow Rate FiO2 06/25/19 22:46 18 Room Air 06/25/19 16:18 98.5 100 130/69 (89) 94 2.0 I & O 06/24/19 06/24/19 06/25/19 15:00 23:00 07:00 Intake Total 600 ml 340 ml Balance 600 ml 340 ml Labs: Laboratory Tests Test 06/25/19 07:51 Glucose (Fingerstick) 98 mg/dL (70-99) Current Medications: I have reviewed the current psychotropics carefully including drug interactions. Risk benefit ratio favors no change other than as noted in my dictated progress note. Diagnosis: Problems: (1) Personality disorder, unspecified (2) Mood disorder (3) Anxiety disorder (4) Major depressive disorder, recurrent episode (5) Bipolar affective, mixed ALBER GARCES MD Jun 25, 2019 23:04
[2019-06-26] MEDS: ALPRAZolam 0.5 MG TABLET PO PRN ×3 (02:02→21:33)
[2019-06-26] MEDS: HYDROcodone/APAP 7.5/325MG 1 TAB TABLET PO PRN ×2 (05:48→21:34)
[2019-06-26 06:23] VITALS: BP 126/67
[2019-06-26] MEDS: BUDESONIDE 0.5 MG/2 ML NEBU NEB SCH ×2 (08:00→21:32)
[2019-06-26] MEDS: NYSTATIN 100,000 UNITS/ML ORAL SUSPENSION 60ML BOTTLE. SWSW SCH ×4 (08:26→21:32)
[2019-06-26] MEDS: NYSTATIN 100,000 UNIT/GM TOPICAL CREAM 15GM TUBE. TP PRN (08:27)
[2019-06-26] MEDS: CICLOPIROX 0.77% TOPICAL CREAM 15GM TUBE. TP SCH ×2 (08:27→21:33)
[2019-06-26] MEDS: POTASSIUM CHLORIDE 20 MEQ TABLET.ER. PO SCH ×2 (08:27→21:33)
[2019-06-26] MEDS: ENOXAPARIN 40 MG/0.4 ML SYRINGE. SQ SCH ×2 (08:27→21:32)
[2019-06-26] MEDS: LACTOBACILLUS RHAMNOSUS GG 1 CAPSULE. PO SCH ×2 (08:27→21:33)
[2019-06-26] MEDS: FERROUS SULFATE 325 MG TABLET. PO SCH (08:27)
[2019-06-26] MEDS: CETIRIZINE HCL 10 MG TABLET PO SCH (08:28)
[2019-06-26] MEDS: SENNOSIDES/DOCUSATE 8.6/50MG TABLET. PO SCH (08:28)
[2019-06-26] MEDS: ASPIRIN ENTERIC COATED 81 MG TABLET.DR. PO SCH (08:28)
[2019-06-26] MEDS: ARIPiprazole 10 MG TABLET PO SCH (08:28)
[2019-06-26] MEDS: FUROSEMIDE 40 MG TABLET PO SCH ×2 (08:29→16:10)
[2019-06-26] MEDS: LOSARTAN 50 MG TABLET. PO SCH (08:29)
[2019-06-26] MEDS: DULoxetine HCL 30 MG CAPSULE.DR PO SCH (08:29)
[2019-06-26] MEDS: CARVEDILOL 6.25 MG TABLET PO SCH ×2 (08:29→16:11)
[2019-06-26] MEDS: PANTOPRAZOLE 40 MG TABLET. PO SCH (08:29)
[2019-06-26] MEDS: CYANOCOBALAMIN (VITAMIN B-12) 1,000 MCG TABLET. PO SCH (08:29)
[2019-06-26] MEDS: ALBUTEROL SULFATE 2.5 MG/3 ML NEBU. NEB PRN (08:30)
[2019-06-26] MEDS: IPRATRPIUM/ALBUTEROL 0.5/2.5MG 3 ML NEBU. NEB SCH ×4 (08:31→21:32)
--- NOTE | 2019-06-26 11:23 | TX PLAN ---
Interdisciplinary Tx Plan Admission Information May 29, 2019 at 22:10 Legal Status (on Admission): Voluntary DPOA/Guardian Name: Pt is a self-sign Contact Verified Code Status: Full Code Allergies: Coded Allergies: bupropion (Verified Allergy, Unknown, 05/29/19) clonazepam (Verified Allergy, Unknown, 05/29/19) erythromycin base (Verified Allergy, Unknown, 05/29/19) fentanyl (Verified Allergy, Unknown, 05/29/19) haloperidol (Verified Allergy, Unknown, 05/29/19) lisinopril (Verified Allergy, Unknown, 05/29/19) lorazepam (Verified Allergy, Unknown, 05/29/19) ondansetron (Verified Allergy, Unknown, 05/29/19) tree nut (Verified Allergy, Unknown, 05/29/19) Diagnoses Primary Diagnosis: MDD recurrent Reasons for Admission: Depressed, Suicidal ideation Problem in Patient's Words: I have so much going on I just don't know what kind of life I have left to live. Additional Admission Comments: SI with plan but will not disclose the plan. paranoid, thinks people at hospitals don't treat her nicely, anxious, depressed, suspicious, intermittent verbal aggression. Problems Active Problems: SI with no plan Verbal aggression Physical aggression Attention-seeking/demanding Medication non-compliance Inactive Problems: N/A Pt Strengths/Limitations Ability for [place]: Poor Cognitive Functioning/Ability: Fair Communication Skills/Ability: Fair Financial Resources: Poor Insight/Judgement: Poor Intellectual Ability: Fair Physical Health: Poor Social Skills: Fair Stability in Family: Poor Stability in School/Work: Poor Verbal Skills: Fair Discharge Criteria Discharge Criteria: Able meet basic life need, No need for close observ., Able to meet health needs, Adequate arrangements @DC, Verbal commit aftercare, Adequate self-care, Improved behavior, Improved mood/thought Preliminary Discharge Plan Preliminary DC Plan: Current Living Arrange., Home Special Precautions Fall Risk: Moderate Initial D/C Plan Patient will plan to discharge home and have an evaluation for hospice Identified Discharge Needs: Pt will be assessed for Hospice and other community services Currently Utilized Resources Currently Utilized Resources/P: None; pt appears to have no active services in place Referrals Community Resources: Primary Care Psychiatry Counseling Case Management/Social Work Potential Hospice referrals Identified Problems/Hx/Goals Objectives/Short-Term Goals Short Term Goals: Dec. Anxiety/Panic, Decrease Isolation, Dec. Symp. Depression, Medication Stabilization, No Suicidal/Mal. ideation, Promote Coping Skill Short Term Goals in Patient's: I need to get out of here. You guys are horrible. Interventions/Frequency Staff Interventions/Frequency&: Psychiatry to assess pt at least 3x per week. Patent Prosecution Attorney to assess pt at least 2x per week. Nursing to complete 15 minute checks daily. Encourage group/active participation during activities. 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 Pt stated that that she started out as a [employer] and only got paid $3.50 and hour. Education: BS in Nursing Community Follow-up May send referrals to potential SNF's. Treatment Plan Explained Patient/Import Dispatcher had this treatment plan explained to him/her as indicated by the signature below and has been given the opportunity to ask questions and make suggestions: Date: Patient/Import Dispatcher Signature: Status Update Update WEEKLY NOTE/UPDATE: Nguyen is averaging 100% of meal intakes and 5.5 hours of sleep at night. She is attending meals in the dining area but prefers to spend all other time in her room due to potential Covid-19 exposure and unit currently being quarantined. She has been compliant with medications and assessments. Nursing staff report her to be attention seeking and staff splitting but cooperative. Discussion held about contacting APS if Pat continues to insist on discharging home versus to a lower level of care. Also discussed the importance of having follow up care with a PCP and getting Pat's feedback as to who she believes should follow from a physician perspective so that she is agreeable to work with this provider. SW will continue to work with Pat on discharge planning. JOHNATHAN ALCALA Jun 26, 2019 11:23
[2019-06-26 16:19] VITALS: BP 115/57
[2019-06-26] MEDS: LOPERAMIDE 2 MG CAPSULE PO PRN (21:38)
--- NOTE | 2019-06-26 23:42 | PDOC ---
Exam Note: Heri Note: S/O: This note covers elements not covered in my initial note. Discussed the patient with nursing staff, reviewed the chart. In the morning, the patient had treatment team meeting with the entire team nursing staff, social service staff and myself and TeleHealth Services provided via audio-visual visit in the evening coordinated with René LAUREN. Appetite is 100%. Sleeping average 5-1/2 hours. At the treatment team we addressed at some length, the patient need to have a primary care physician after she is discharged from us. We are still recommending a step down of care, but the patient is insistent on going home. No primary care physician has accepted her in the past and the home physician services refused to follow up with her. Patient states she has been treated by Dr. Tabby Richardson in the past and would be willing to get back with him if Dr. Richardson is able to accept her. We will have the social service staff coordinate this. I addressed this with her at some length in the evening and at the treatment team meeting. ROS: Positive for some diarrhea, impaired ambulation. She was lying in bed as I met with her. No CV, , Pulmonary, Eye system symptoms on review. MSE: Reasonably oriented. Speech coherent. Abstraction fair. Computation impaired. Language function intact. Attention span short. Mood and affect somewhat withdrawn. Insight is somewhat limited. Labs: Reviewed. Imp: Unchanged from initial note. Plan: Continue psychotropics from initial note. She has refused mood stabilizers in the past. She does have some mood vacillation and I feel she would benefit from it but each time I have addressed this with her she is quite adamant she will not accept it because she does not have any mood swings or any psychiatric problems whatsoever. Assessment: Vital Signs/I&O: Vital Signs Date Time Temp Pulse Resp B/P (MAP) Pulse Ox O2 Delivery O2 Flow Rate FiO2 06/26/19 21:34 18 06/26/19 16:19 97.9 96 115/57 (76) 98 Nasal Cannula 2.0 I & O 06/25/19 06/25/19 06/26/19 15:00 23:00 07:00 Intake Total 960 ml 480 ml Balance 960 ml 480 ml Labs: Laboratory Tests Test 06/26/19 07:59 Glucose (Fingerstick) 104 mg/dL (70-99) H Current Medications: Meds: Current Medications Medications (Trade) Dose Ordered Sig/Mason Route PRN Reason Start Time Stop Time Status Last Admin Dose Admin Loperamide HCl (Imodium) 2 mg PRN Q15MIN PRN PO DIARRHEA 06/26/19 20:15 06/26/19 21:38 I have reviewed the current psychotropics carefully including drug interactions. Risk benefit ratio favors no change other than as noted in my dictated progress note. Diagnosis: Problems: (1) Personality disorder, unspecified (2) Mood disorder (3) Anxiety disorder (4) Major depressive disorder, recurrent episode (5) Bipolar affective, mixed ALBER GARCES MD Jun 26, 2019 23:42
[2019-06-27 05:42] VITALS: BP 118/67
[2019-06-27] MEDS: ALPRAZolam 0.5 MG TABLET PO PRN ×3 (08:36→21:14)
[2019-06-27] MEDS: SENNOSIDES/DOCUSATE 8.6/50MG TABLET. PO SCH ×2 (08:36→09:00)
[2019-06-27] MEDS: ENOXAPARIN 40 MG/0.4 ML SYRINGE. SQ SCH ×2 (08:36→21:14)
[2019-06-27] MEDS: FERROUS SULFATE 325 MG TABLET. PO SCH (08:37)
[2019-06-27] MEDS: PANTOPRAZOLE 40 MG TABLET. PO SCH (08:37)
[2019-06-27] MEDS: DULoxetine HCL 30 MG CAPSULE.DR PO SCH (08:37)
[2019-06-27] MEDS: ARIPiprazole 10 MG TABLET PO SCH (08:37)
[2019-06-27] MEDS: CARVEDILOL 6.25 MG TABLET PO SCH ×2 (08:37→16:42)
[2019-06-27] MEDS: CETIRIZINE HCL 10 MG TABLET PO SCH (08:37)
[2019-06-27] MEDS: LACTOBACILLUS RHAMNOSUS GG 1 CAPSULE. PO SCH ×2 (08:37→21:14)
[2019-06-27] MEDS: POTASSIUM CHLORIDE 20 MEQ TABLET.ER. PO SCH ×2 (08:38→21:13)
[2019-06-27] MEDS: CYANOCOBALAMIN (VITAMIN B-12) 1,000 MCG TABLET. PO SCH (08:38)
[2019-06-27] MEDS: HYDROcodone/APAP 7.5/325MG 1 TAB TABLET PO PRN ×2 (08:38→21:19)
[2019-06-27] MEDS: LOSARTAN 50 MG TABLET. PO SCH (08:38)
[2019-06-27] MEDS: ASPIRIN ENTERIC COATED 81 MG TABLET.DR. PO SCH (08:38)
[2019-06-27] MEDS: LOPERAMIDE 2 MG CAPSULE PO PRN (08:38)
[2019-06-27] MEDS: BUDESONIDE 0.5 MG/2 ML NEBU NEB SCH ×2 (08:42→21:15)
[2019-06-27] MEDS: IPRATRPIUM/ALBUTEROL 0.5/2.5MG 3 ML NEBU. NEB SCH ×4 (08:42→21:15)
[2019-06-27] MEDS: CICLOPIROX 0.77% TOPICAL CREAM 15GM TUBE. TP SCH ×2 (08:42→21:15)
[2019-06-27] MEDS: NYSTATIN 100,000 UNITS/ML ORAL SUSPENSION 60ML BOTTLE. SWSW SCH ×4 (08:42→21:15)
[2019-06-27] MEDS: FUROSEMIDE 40 MG TABLET PO SCH ×2 (08:42→16:42)
[2019-06-27] MEDS: ACETAMINOPHEN 325 MG TABLET PO PRN (13:05)
[2019-06-27 15:54] VITALS: BP 123/64
[2019-06-28 06:06] VITALS: BP 153/76
[2019-06-28] MEDS: FERROUS SULFATE 325 MG TABLET. PO SCH (08:43)
[2019-06-28] MEDS: BUDESONIDE 0.5 MG/2 ML NEBU NEB SCH ×2 (08:43→20:32)
[2019-06-28] MEDS: ARIPiprazole 10 MG TABLET PO SCH (08:43)
[2019-06-28] MEDS: PANTOPRAZOLE 40 MG TABLET. PO SCH (08:43)
[2019-06-28] MEDS: CARVEDILOL 6.25 MG TABLET PO SCH ×2 (08:43→17:00)
[2019-06-28] MEDS: IPRATRPIUM/ALBUTEROL 0.5/2.5MG 3 ML NEBU. NEB SCH ×4 (08:43→20:32)
[2019-06-28] MEDS: LACTOBACILLUS RHAMNOSUS GG 1 CAPSULE. PO SCH ×2 (08:44→20:32)
[2019-06-28] MEDS: DULoxetine HCL 30 MG CAPSULE.DR PO SCH (08:44)
[2019-06-28] MEDS: ASPIRIN ENTERIC COATED 81 MG TABLET.DR. PO SCH (08:44)
[2019-06-28] MEDS: ENOXAPARIN 40 MG/0.4 ML SYRINGE. SQ SCH ×2 (08:45→20:32)
[2019-06-28] MEDS: POTASSIUM CHLORIDE 20 MEQ TABLET.ER. PO SCH ×2 (08:45→20:31)
[2019-06-28] MEDS: CETIRIZINE HCL 10 MG TABLET PO SCH (08:45)
[2019-06-28] MEDS: SENNOSIDES/DOCUSATE 8.6/50MG TABLET. PO SCH (08:45)
[2019-06-28] MEDS: CYANOCOBALAMIN (VITAMIN B-12) 1,000 MCG TABLET. PO SCH (08:45)
[2019-06-28] MEDS: FUROSEMIDE 40 MG TABLET PO SCH ×2 (08:45→16:00)
[2019-06-28] MEDS: LOSARTAN 50 MG TABLET. PO SCH (08:52)
[2019-06-28] MEDS: CICLOPIROX 0.77% TOPICAL CREAM 15GM TUBE. TP SCH ×2 (09:00→20:32)
[2019-06-28] MEDS: ALPRAZolam 0.5 MG TABLET PO PRN ×3 (09:04→20:53)
[2019-06-28] MEDS: HYDROcodone/APAP 7.5/325MG 1 TAB TABLET PO PRN ×2 (09:04→18:13)
[2019-06-28 10:14] LABS: BASO % 0 % (0-3); EOS # 0.1 x10^3/uL (0.0-0.7); EOS % 2 % (0-3); HEMATOCRIT 35.1 % (36.0-47.0); HEMOGLOBIN 11.1 g/dL (12.0-15.5); LYMPH # 1.4 x10^3/uL (1.0-4.8); LYMPH % 22 % (24-48); MEAN CORPUSCULAR HEMOGLOBIN 29 pg (25-35); MEAN CORPUSCULAR HGB CONC 32 g/dL (31-37); MEAN CORPUSCULAR VOLUME 92 fL (79-100); MONO # 0.3 x10^3/uL (0.0-1.1); MONO % 5 % (0-9); NEUT # 4.3 x10^3uL (1.8-7.7); NEUT % 70 % (31-73); PLATELET COUNT 247 x10^3/uL (140-400); RED BLOOD COUNT 3.83 x10^6/uL (3.50-5.40); RED CELL DISTRIBUTION WIDTH 13.8 % (11.5-14.5); WHITE BLOOD COUNT 6.1 x10^3/uL (4.0-11.0)
[2019-06-28 10:38] LABS: ALBUMIN/GLOBULIN RATIO 0.8 (1.0-1.7); CALCIUM 8.7 mg/dL (8.5-10.1); CREATININE 0.9 mg/dL (0.6-1.0); GFR 62.8; POTASSIUM 4.3 mmol/L (3.5-5.1); TOTAL BILIRUBIN 0.1 mg/dL (0.2-1.0); TOTAL PROTEIN 6.9 g/dL (6.4-8.2)
[2019-06-28 15:57] VITALS: BP 94/68
[2019-06-28 16:55] VITALS: BP 94/68
[2019-06-28] MEDS: SODIUM CHLORIDE 0.65% NASAL SPRAY 45ML BOTTLE. NS PRN (20:33)
[2019-06-28] MEDS: CYCLOBENZAPRINE 10 MG TABLET. PO PRN (20:53)
[2019-06-29 06:38] VITALS: BP 121/66
--- NOTE | 2019-06-29 07:56 | PDOC ---
Exam Note: Heri Note: S/O: This note is a late entry for DOS 06/27/2019, covers elements not covered in my initial note. Discussed the patient with nursing staff, reviewed the chart. I did see her on the videoconference coordinated by René LAUREN. Discussed with XIN Larkin. Patient slept 6-3/4 hours. She complains of loose stools. Nursing staff will monitor this and discuss with Dr. Morales about it. ROS: Ambulation impaired. No CV, , Pulmonary, Eye system symptoms on review. MSE: Reasonably oriented. Speech coherent. Abstraction fair. Computation impaired. Language function intact. Attention span short. Mood and affect somewhat withdrawn. Labs: Reviewed. Imp: Unchanged from initial note. Plan: Continue psychotropics from initial note. Assessment: Vital Signs/I&O: Vital Signs Date Time Temp Pulse Resp B/P (MAP) Pulse Ox O2 Delivery O2 Flow Rate FiO2 06/29/19 06:38 97.5 84 20 121/66 (84) 97 Room Air 06/28/19 15:57 2.0 I & O 06/28/19 06/28/19 06/29/19 15:00 23:00 07:00 Intake Total 1060 ml 480 ml Balance 1060 ml 480 ml Labs: Laboratory Tests Test 06/28/19 09:40 White Blood Count 6.1 x10^3/uL (4.0-11.0) Red Blood Count 3.83 x10^6/uL (3.50-5.40) Hemoglobin 11.1 g/dL (12.0-15.5) L Hematocrit 35.1 % (36.0-47.0) L Mean Corpuscular Volume 92 fL (79-100) Mean Corpuscular Hemoglobin 29 pg (25-35) Mean Corpuscular Hemoglobin Concent 32 g/dL (31-37) Red Cell Distribution Width 13.8 % (11.5-14.5) Platelet Count 247 x10^3/uL (140-400) Neutrophils (%) (Auto) 70 % (31-73) Lymphocytes (%) (Auto) 22 % (24-48) L Monocytes (%) (Auto) 5 % (0-9) Eosinophils (%) (Auto) 2 % (0-3) Basophils (%) (Auto) 0 % (0-3) Neutrophils # (Auto) 4.3 x10^3uL (1.8-7.7) Lymphocytes # (Auto) 1.4 x10^3/uL (1.0-4.8) Monocytes # (Auto) 0.3 x10^3/uL (0.0-1.1) Eosinophils # (Auto) 0.1 x10^3/uL (0.0-0.7) Basophils # (Auto) 0.0 x10^3/uL (0.0-0.2) Sodium Level 137 mmol/L (136-145) Potassium Level 4.3 mmol/L (3.5-5.1) Chloride Level 96 mmol/L (98-107) L Carbon Dioxide Level 35 mmol/L (21-32) H Anion Gap 6 (6-14) Blood Urea Nitrogen 14 mg/dL (7-20) Creatinine 0.9 mg/dL (0.6-1.0) Estimated GFR (Cockcroft-Gault) 62.8 BUN/Creatinine Ratio 16 (6-20) Glucose Level 160 mg/dL (70-99) H Calcium Level 8.7 mg/dL (8.5-10.1) Total Bilirubin 0.1 mg/dL (0.2-1.0) L Aspartate Amino Transferase (AST) 22 U/L (15-37) Alanine Aminotransferase (ALT) 43 U/L (14-59) Alkaline Phosphatase 65 U/L (46-116) Total Protein 6.9 g/dL (6.4-8.2) Albumin 3.0 g/dL (3.4-5.0) L Albumin/Globulin Ratio 0.8 (1.0-1.7) L Current Medications: I have reviewed the current psychotropics carefully including drug interactions. Risk benefit ratio favors no change other than as noted in my dictated progress note. Diagnosis: Problems: (1) Personality disorder, unspecified (2) Mood disorder (3) Anxiety disorder (4) Major depressive disorder, recurrent episode (5) Bipolar affective, mixed ALBER GARCES MD Jun 29, 2019 07:55
--- NOTE | 2019-06-29 08:17 | PDOC ---
Exam Note: Heri Note: S/O: This note is a late entry for DOS 06/28/2019, covers elements not covered in my initial note. Discussed the patient with nursing staff, reviewed the chart. I did see her on the videoconference coordinated by Maritza LAUREN. Discussed with XIN Ray. Patient slept 6 hours. No behaviors noted. She tries to tr iangulate staff at times. She talked at some length about having worked at [facility] in the past and is agreeable to seeing Dr. Tabby Richardson as her primary care physician as an outpatient and I will defer this to [facility] service staff to coordinate this. ROS: Ambulation impaired. No CV, , Pulmonary, Eye system symptoms on review. MSE: She was lying in bed, met with her in her room in the evening on a teleconference. Speech coherent. Abstraction fair. Computation impaired. Language function intact. Mood and affect improved, still somewhat anxious, labile. No suicidal or homicidal ideation. Labs: Reviewed. Imp: Unchanged from initial note. Plan: No change from initial note. Assessment: Vital Signs/I&O: Vital Signs Date Time Temp Pulse Resp B/P (MAP) Pulse Ox O2 Delivery O2 Flow Rate FiO2 06/29/19 06:38 97.5 84 20 121/66 (84) 97 Room Air 06/28/19 15:57 2.0 I & O 06/28/19 06/28/19 06/29/19 15:00 23:00 07:00 Intake Total 1060 ml 480 ml Balance 1060 ml 480 ml Labs: Laboratory Tests Test 06/28/19 09:40 06/29/19 08:00 White Blood Count 6.1 x10^3/uL (4.0-11.0) Red Blood Count 3.83 x10^6/uL (3.50-5.40) Hemoglobin 11.1 g/dL (12.0-15.5) L Hematocrit 35.1 % (36.0-47.0) L Mean Corpuscular Volume 92 fL (79-100) Mean Corpuscular Hemoglobin 29 pg (25-35) Mean Corpuscular Hemoglobin Concent 32 g/dL (31-37) Red Cell Distribution Width 13.8 % (11.5-14.5) Platelet Count 247 x10^3/uL (140-400) Neutrophils (%) (Auto) 70 % (31-73) Lymphocytes (%) (Auto) 22 % (24-48) L Monocytes (%) (Auto) 5 % (0-9) Eosinophils (%) (Auto) 2 % (0-3) Basophils (%) (Auto) 0 % (0-3) Neutrophils # (Auto) 4.3 x10^3uL (1.8-7.7) Lymphocytes # (Auto) 1.4 x10^3/uL (1.0-4.8) Monocytes # (Auto) 0.3 x10^3/uL (0.0-1.1) Eosinophils # (Auto) 0.1 x10^3/uL (0.0-0.7) Basophils # (Auto) 0.0 x10^3/uL (0.0-0.2) Sodium Level 137 mmol/L (136-145) Potassium Level 4.3 mmol/L (3.5-5.1) Chloride Level 96 mmol/L (98-107) L Carbon Dioxide Level 35 mmol/L (21-32) H Anion Gap 6 (6-14) Blood Urea Nitrogen 14 mg/dL (7-20) Creatinine 0.9 mg/dL (0.6-1.0) Estimated GFR (Cockcroft-Gault) 62.8 BUN/Creatinine Ratio 16 (6-20) Glucose Level 160 mg/dL (70-99) H Calcium Level 8.7 mg/dL (8.5-10.1) Total Bilirubin 0.1 mg/dL (0.2-1.0) L Aspartate Amino Transferase (AST) 22 U/L (15-37) Alanine Aminotransferase (ALT) 43 U/L (14-59) Alkaline Phosphatase 65 U/L (46-116) Total Protein 6.9 g/dL (6.4-8.2) Albumin 3.0 g/dL (3.4-5.0) L Albumin/Globulin Ratio 0.8 (1.0-1.7) L Glucose (Fingerstick) 80 mg/dL (70-99) Current Medications: I have reviewed the current psychotropics carefully including drug interactions. Risk benefit ratio favors no change other than as noted in my dictated progress note. Diagnosis: Problems: (1) Personality disorder, unspecified (2) Mood disorder (3) Anxiety disorder (4) Major depressive disorder, recurrent episode (5) Bipolar affective, mixed ALBER GARCES MD Jun 29, 2019 08:17
[2019-06-29] MEDS: FERROUS SULFATE 325 MG TABLET. PO SCH (08:57)
[2019-06-29] MEDS: CARVEDILOL 6.25 MG TABLET PO SCH ×2 (08:57→17:31)
[2019-06-29] MEDS: BUDESONIDE 0.5 MG/2 ML NEBU NEB SCH ×2 (08:57→21:14)
[2019-06-29] MEDS: ARIPiprazole 10 MG TABLET PO SCH (08:57)
[2019-06-29] MEDS: IPRATRPIUM/ALBUTEROL 0.5/2.5MG 3 ML NEBU. NEB SCH ×4 (08:57→21:15)
[2019-06-29] MEDS: PANTOPRAZOLE 40 MG TABLET. PO SCH (08:57)
[2019-06-29] MEDS: ASPIRIN ENTERIC COATED 81 MG TABLET.DR. PO SCH (08:57)
[2019-06-29] MEDS: POTASSIUM CHLORIDE 20 MEQ TABLET.ER. PO SCH ×2 (08:58→21:15)
[2019-06-29] MEDS: CYANOCOBALAMIN (VITAMIN B-12) 1,000 MCG TABLET. PO SCH (08:58)
[2019-06-29] MEDS: LOSARTAN 50 MG TABLET. PO SCH (08:58)
[2019-06-29] MEDS: SENNOSIDES/DOCUSATE 8.6/50MG TABLET. PO SCH (08:58)
[2019-06-29] MEDS: DULoxetine HCL 30 MG CAPSULE.DR PO SCH (08:58)
[2019-06-29] MEDS: FUROSEMIDE 40 MG TABLET PO SCH ×2 (08:58→17:31)
[2019-06-29] MEDS: LACTOBACILLUS RHAMNOSUS GG 1 CAPSULE. PO SCH ×2 (08:58→21:15)
[2019-06-29] MEDS: CETIRIZINE HCL 10 MG TABLET PO SCH (08:59)
[2019-06-29] MEDS: ENOXAPARIN 40 MG/0.4 ML SYRINGE. SQ SCH ×2 (09:02→21:15)
[2019-06-29] MEDS: CICLOPIROX 0.77% TOPICAL CREAM 15GM TUBE. TP SCH ×2 (09:02→21:00)
[2019-06-29] MEDS: CHOLECALCIFEROL (VITAMIN D3) 50,000 UNIT CAPSULE PO SCH (09:02)
[2019-06-29] MEDS: HYDROcodone/APAP 7.5/325MG 1 TAB TABLET PO PRN ×2 (09:11→17:32)
[2019-06-29] MEDS: ALPRAZolam 0.5 MG TABLET PO PRN ×3 (09:11→21:15)
[2019-06-29 16:03] VITALS: BP 111/66
[2019-06-29] MEDS: SODIUM CHLORIDE 0.65% NASAL SPRAY 45ML BOTTLE. NS PRN (21:15)
--- NOTE | 2019-06-29 22:40 | PDOC ---
Exam Note: Heri Note: S/O: This note covers elements not covered in my initial note. The patient was seen on TeleHealth rounds evening of 06/29/2019. Discussed the patient with nursing staff, reviewed the chart. Discussed patient with Viji LAUREN. She slept 6-1/4 hours. Patient remains withdrawn, spends much time in her room. St ill somewhat manipulative, trying to triangulate staff but nothing different from before. ROS: Ambulation impaired. No CV, , Pulmonary, Eye system symptoms on review. MSE: She was lying in bed in her room which is where I met with her. Speech coherent. Abstraction fair. Computation impaired. Language function intact. Mood and affect anxious, labile. No suicidal or homicidal ideation. Labs: Reviewed. Imp: Unchanged from initial note. Plan: No change from psychotropics mentioned in my note. Assessment: Vital Signs/I&O: Vital Signs Date Time Temp Pulse Resp B/P (MAP) Pulse Ox O2 Delivery O2 Flow Rate FiO2 06/29/19 18:38 20 06/29/19 17:31 85 111/66 06/29/19 16:03 98.1 96 Nasal Cannula 2.0 I & O 06/28/19 06/28/19 06/29/19 15:00 23:00 07:00 Intake Total 1060 ml 480 ml Balance 1060 ml 480 ml Labs: Laboratory Tests Test 06/29/19 08:00 Glucose (Fingerstick) 80 mg/dL (70-99) Current Medications: I have reviewed the current psychotropics carefully including drug interactions. Risk benefit ratio favors no change other than as noted in my dictated progress note. Diagnosis: Problems: (1) Personality disorder, unspecified (2) Mood disorder (3) Anxiety disorder (4) Major depressive disorder, recurrent episode (5) Bipolar affective, mixed ALBER GARCES MD Jun 29, 2019 22:40
[2019-06-30] MEDS: ALPRAZolam 0.5 MG TABLET PO PRN ×3 (05:35→21:08)
[2019-06-30 05:55] VITALS: BP 120/70
[2019-06-30] MEDS: IPRATRPIUM/ALBUTEROL 0.5/2.5MG 3 ML NEBU. NEB SCH ×4 (08:41→21:06)
[2019-06-30] MEDS: BUDESONIDE 0.5 MG/2 ML NEBU NEB SCH ×2 (08:41→21:06)
[2019-06-30] MEDS: PANTOPRAZOLE 40 MG TABLET. PO SCH (08:41)
[2019-06-30] MEDS: FERROUS SULFATE 325 MG TABLET. PO SCH (08:42)
[2019-06-30] MEDS: CARVEDILOL 6.25 MG TABLET PO SCH ×2 (08:42→17:15)
[2019-06-30] MEDS: ASPIRIN ENTERIC COATED 81 MG TABLET.DR. PO SCH (08:43)
[2019-06-30] MEDS: ARIPiprazole 10 MG TABLET PO SCH (08:43)
[2019-06-30] MEDS: POTASSIUM CHLORIDE 20 MEQ TABLET.ER. PO SCH ×2 (08:44→21:00)
[2019-06-30] MEDS: FUROSEMIDE 40 MG TABLET PO SCH ×2 (08:44→17:15)
[2019-06-30] MEDS: LACTOBACILLUS RHAMNOSUS GG 1 CAPSULE. PO SCH ×2 (08:44→21:08)
[2019-06-30] MEDS: LOSARTAN 50 MG TABLET. PO SCH (08:44)
[2019-06-30] MEDS: DULoxetine HCL 30 MG CAPSULE.DR PO SCH (08:44)
[2019-06-30] MEDS: ENOXAPARIN 40 MG/0.4 ML SYRINGE. SQ SCH ×2 (08:45→21:09)
[2019-06-30] MEDS: CETIRIZINE HCL 10 MG TABLET PO SCH (08:45)
[2019-06-30] MEDS: CYANOCOBALAMIN (VITAMIN B-12) 1,000 MCG TABLET. PO SCH (08:45)
[2019-06-30] MEDS: CICLOPIROX 0.77% TOPICAL CREAM 15GM TUBE. TP SCH ×2 (08:45→21:09)
[2019-06-30] MEDS: HYDROcodone/APAP 7.5/325MG 1 TAB TABLET PO PRN ×2 (08:49→21:08)
[2019-06-30] MEDS: SENNOSIDES/DOCUSATE 8.6/50MG TABLET. PO SCH (09:00)
[2019-06-30 15:59] VITALS: BP 118/70
[2019-06-30] MEDS: SODIUM CHLORIDE 0.65% NASAL SPRAY 45ML BOTTLE. NS PRN (21:09)
--- NOTE | 2019-06-30 22:45 | PDOC ---
Exam Note: Heri Note: S/O: This note covers elements not covered in my initial note. The patient was seen on TeleHealth rounds in the evening with Viji LAUREN. Discussed the patient with nursing staff, reviewed the chart. Discussed the patient with Viji LAUREN. Patient slept 5-3/4 hours. ROS: Ambulation impaired. No CV, , Pulmonary, Eye system symptoms on review. MSE: We had a discussion about the patient returning to her own home and doing her own ADLs and cooking and cleaning and whether she should consider alternate options for placement in a more higher level of care. The patient is quite adamant that she wants to return home and we will have the social service staff address this with her. Speech coherent. Abstraction fair. Computation impaired. Language function intact. Mood and affect anxious, labile. No suicidal or homicidal ideation. Labs: Reviewed. Imp: Unchanged from initial note. Assessment: Vital Signs/I&O: Vital Signs Date Time Temp Pulse Resp B/P (MAP) Pulse Ox O2 Delivery O2 Flow Rate FiO2 06/30/19 22:09 96 06/30/19 17:15 90 118/70 06/30/19 15:59 97.8 20 Nasal Cannula 2.0 I & O 06/29/19 06/29/19 06/30/19 14:59 22:59 06:59 Intake Total 720 ml 480 ml Balance 720 ml 480 ml Labs: Laboratory Tests Test 06/30/19 08:16 Glucose (Fingerstick) 88 mg/dL (70-99) Current Medications: I have reviewed the current psychotropics carefully including drug interactions. Risk benefit ratio favors no change other than as noted in my dictated progress note. Diagnosis: Problems: (1) Personality disorder, unspecified (2) Mood disorder (3) Anxiety disorder (4) Major depressive disorder, recurrent episode (5) Bipolar affective, mixed ALBER GARCES MD Jun 30, 2019 22:45
[2019-07-01 05:09] VITALS: BP 114/54
[2019-07-01] MEDS: BUDESONIDE 0.5 MG/2 ML NEBU NEB SCH ×2 (08:00→20:58)
[2019-07-01] MEDS: IPRATRPIUM/ALBUTEROL 0.5/2.5MG 3 ML NEBU. NEB SCH ×4 (08:00→20:58)
[2019-07-01] MEDS: LACTOBACILLUS RHAMNOSUS GG 1 CAPSULE. PO SCH ×2 (08:32→21:00)
[2019-07-01] MEDS: ENOXAPARIN 40 MG/0.4 ML SYRINGE. SQ SCH ×2 (08:32→21:00)
[2019-07-01] MEDS: CETIRIZINE HCL 10 MG TABLET PO SCH (08:33)
[2019-07-01] MEDS: PANTOPRAZOLE 40 MG TABLET. PO SCH (08:33)
[2019-07-01] MEDS: ASPIRIN ENTERIC COATED 81 MG TABLET.DR. PO SCH (08:33)
[2019-07-01] MEDS: CYANOCOBALAMIN (VITAMIN B-12) 1,000 MCG TABLET. PO SCH (08:33)
[2019-07-01] MEDS: CARVEDILOL 6.25 MG TABLET PO SCH ×2 (08:33→17:17)
[2019-07-01] MEDS: FERROUS SULFATE 325 MG TABLET. PO SCH (08:33)
[2019-07-01] MEDS: LOSARTAN 50 MG TABLET. PO SCH (08:33)
[2019-07-01] MEDS: CICLOPIROX 0.77% TOPICAL CREAM 15GM TUBE. TP SCH ×2 (08:34→21:01)
[2019-07-01] MEDS: ARIPiprazole 10 MG TABLET PO SCH (08:34)
[2019-07-01] MEDS: SENNOSIDES/DOCUSATE 8.6/50MG TABLET. PO SCH (08:34)
[2019-07-01] MEDS: DULoxetine HCL 30 MG CAPSULE.DR PO SCH (08:34)
[2019-07-01] MEDS: FUROSEMIDE 40 MG TABLET PO SCH ×2 (08:34→17:17)
[2019-07-01] MEDS: POTASSIUM CHLORIDE 20 MEQ TABLET.ER. PO SCH ×2 (08:34→21:01)
[2019-07-01] MEDS: HYDROcodone/APAP 7.5/325MG 1 TAB TABLET PO PRN ×2 (09:09→21:01)
[2019-07-01 15:29] VITALS: BP 144/71
[2019-07-01] MEDS: ALPRAZolam 0.5 MG TABLET PO PRN ×2 (17:19→21:01)
[2019-07-01 19:04] VITALS: BP 142/70
[2019-07-01] MEDS: SODIUM CHLORIDE 0.65% NASAL SPRAY 45ML BOTTLE. NS PRN (21:02)
--- NOTE | 2019-07-01 21:51 | PDOC ---
Exam Note: Heri Note: Please also refer to the separate dictated note~for this date of service dictated separately. Discussed the patient with Nursing staff reviewed the chart.~Reviewed interim history and current functioning. Reviewed vital signs,~Labs/ Radiology~and current medications noted below. Continue current treatment with the changes noted in the dictated addendum note Assessment: Vital Signs/I&O: Vital Signs Date Time Temp Pulse Resp B/P (MAP) Pulse Ox O2 Delivery O2 Flow Rate FiO2 07/01/19 21:01 96 07/01/19 19:04 97.9 90 18 142/70 (94) 2.0 06/30/19 15:59 Nasal Cannula I & O 06/30/19 06/30/19 07/01/19 15:00 23:00 07:00 Intake Total 960 ml 720 ml Balance 960 ml 720 ml Labs: Laboratory Tests Test 07/01/19 08:10 Glucose (Fingerstick) 91 mg/dL (70-99) Current Medications: I have reviewed the current psychotropics carefully including drug interactions. Risk benefit ratio favors no change other than as noted in my dictated progress note. Diagnosis: Problems: (1) Personality disorder, unspecified (2) Mood disorder (3) Anxiety disorder (4) Major depressive disorder, recurrent episode (5) Bipolar affective, mixed ALBER GARCES MD Jul 01, 2019 21:51
[2019-07-02 06:16] VITALS: BP 127/73
[2019-07-02] MEDS: CETIRIZINE HCL 10 MG TABLET PO SCH (08:28)
[2019-07-02] MEDS: FERROUS SULFATE 325 MG TABLET. PO SCH (08:29)
[2019-07-02] MEDS: CYANOCOBALAMIN (VITAMIN B-12) 1,000 MCG TABLET. PO SCH (08:29)
[2019-07-02] MEDS: DULoxetine HCL 30 MG CAPSULE.DR PO SCH (08:29)
[2019-07-02] MEDS: SENNOSIDES/DOCUSATE 8.6/50MG TABLET. PO SCH (08:29)
[2019-07-02] MEDS: ARIPiprazole 10 MG TABLET PO SCH (08:30)
[2019-07-02] MEDS: LACTOBACILLUS RHAMNOSUS GG 1 CAPSULE. PO SCH ×2 (08:30→20:26)
[2019-07-02] MEDS: CARVEDILOL 6.25 MG TABLET PO SCH ×2 (08:30→16:02)
[2019-07-02] MEDS: ASPIRIN ENTERIC COATED 81 MG TABLET.DR. PO SCH (08:30)
[2019-07-02] MEDS: POTASSIUM CHLORIDE 20 MEQ TABLET.ER. PO SCH ×2 (08:30→20:36)
[2019-07-02] MEDS: PANTOPRAZOLE 40 MG TABLET. PO SCH (08:30)
[2019-07-02] MEDS: ENOXAPARIN 40 MG/0.4 ML SYRINGE. SQ SCH ×2 (08:31→20:27)
[2019-07-02] MEDS: LOSARTAN 50 MG TABLET. PO SCH (08:31)
[2019-07-02] MEDS: FUROSEMIDE 40 MG TABLET PO SCH ×2 (08:31→16:02)
[2019-07-02] MEDS: CICLOPIROX 0.77% TOPICAL CREAM 15GM TUBE. TP SCH ×2 (08:32→20:40)
[2019-07-02] MEDS: IPRATRPIUM/ALBUTEROL 0.5/2.5MG 3 ML NEBU. NEB SCH ×4 (09:03→20:36)
[2019-07-02] MEDS: HYDROcodone/APAP 7.5/325MG 1 TAB TABLET PO PRN ×2 (09:03→20:27)
[2019-07-02] MEDS: BUDESONIDE 0.5 MG/2 ML NEBU NEB SCH ×2 (09:03→12:42)
[2019-07-02] MEDS: SODIUM CHLORIDE 0.65% NASAL SPRAY 45ML BOTTLE. NS PRN ×3 (09:20→20:34)
--- NOTE | 2019-07-02 10:29 | PDOC ---
Exam Note: Heri Note: S/O: This note is a late entry for DOS 07/01/2019 covers elements not covered in my initial note. The patient was seen on TeleHealth rounds in the evening with Rosemarie LAUREN. Discussed the patient with nursing staff, reviewed the chart. Discussed the patient with Anita LAUREN in the morning. Patient slept 6-1/2 h ours. I also discussed the patient during the individual visit about discharge plans. She is still insistent on returning home in her rental apartment, doing grocery shopping by herself, cooking, cleaning and taking care of herself. I will defer to social service staff to coordinate appropriate arrangements for this. ROS: Ambulation impaired. No CV, , Pulmonary, Eye system symptoms on review. MSE: Oriented. Speech coherent. Abstraction fair. Computation impaired. Language function intact. Mood and affect anxious, labile. No suicidal or homicidal ideation. Labs: Reviewed. Imp: Unchanged from initial note. Plan: No change in psychotropics mentioned in my note. Assessment: Vital Signs/I&O: Vital Signs Date Time Temp Pulse Resp B/P (MAP) Pulse Ox O2 Delivery O2 Flow Rate FiO2 07/02/19 09:03 98 07/02/19 08:31 87 127/73 07/02/19 06:16 97.5 22 2.0 06/30/19 15:59 Nasal Cannula I & O 07/01/19 07/01/19 07/02/19 15:00 23:00 07:00 Intake Total 960 ml 360 ml Balance 960 ml 360 ml Labs: Laboratory Tests Test 07/02/19 07:20 Glucose (Fingerstick) 87 mg/dL (70-99) Current Medications: I have reviewed the current psychotropics carefully including drug interactions. Risk benefit ratio favors no change other than as noted in my dictated progress note. Diagnosis: Problems: (1) Personality disorder, unspecified (2) Mood disorder (3) Anxiety disorder (4) Major depressive disorder, recurrent episode (5) Bipolar affective, mixed ALBER GARCES MD Jul 02, 2019 10:29
[2019-07-02] MEDS: ALPRAZolam 0.5 MG TABLET PO PRN ×2 (12:41→20:34)
[2019-07-02 15:31] VITALS: BP 143/67
--- NOTE | 2019-07-02 21:52 | PDOC ---
Exam Note: Heri Note: Please also refer to the separate dictated note~for this date of service dictated separately. Discussed the patient with Nursing staff reviewed the chart.~Reviewed interim history and current functioning. Reviewed vital signs,~Labs/ Radiology~and current medications noted below. Continue current treatment with the changes noted in the dictated addendum note Assessment: Vital Signs/I&O: Vital Signs Date Time Temp Pulse Resp B/P (MAP) Pulse Ox O2 Delivery O2 Flow Rate FiO2 07/02/19 20:27 96 07/02/19 16:02 96 143/67 07/02/19 15:31 97.5 18 07/02/19 06:16 2.0 06/30/19 15:59 Nasal Cannula I & O 07/01/19 07/01/19 07/02/19 15:00 23:00 07:00 Intake Total 960 ml 360 ml Balance 960 ml 360 ml Labs: Laboratory Tests Test 07/02/19 07:20 Glucose (Fingerstick) 87 mg/dL (70-99) Current Medications: I have reviewed the current psychotropics carefully including drug interactions. Risk benefit ratio favors no change other than as noted in my dictated progress note. Diagnosis: Problems: (1) Personality disorder, unspecified (2) Mood disorder (3) Anxiety disorder (4) Major depressive disorder, recurrent episode (5) Bipolar affective, mixed ALBER GARCES MD Jul 02, 2019 21:52
[2019-07-03] MEDS: BENZOCAINE/MENTHOL LOZNGE 18'S BOX. PO PRN ×2 (05:11→20:33)
[2019-07-03] MEDS: MECLIZINE 12.5 MG TABLET. PO PRN (05:14)
[2019-07-03] MEDS: PANTOPRAZOLE 40 MG TABLET. PO SCH (05:15)
[2019-07-03 05:42] VITALS: BP 118/66
[2019-07-03] MEDS: BUDESONIDE 0.5 MG/2 ML NEBU NEB SCH ×2 (08:36→20:32)
[2019-07-03] MEDS: IPRATRPIUM/ALBUTEROL 0.5/2.5MG 3 ML NEBU. NEB SCH ×4 (08:36→20:32)
[2019-07-03] MEDS: ENOXAPARIN 40 MG/0.4 ML SYRINGE. SQ SCH ×2 (08:37→20:32)
[2019-07-03] MEDS: FUROSEMIDE 40 MG TABLET PO SCH ×2 (08:37→16:16)
[2019-07-03] MEDS: SODIUM CHLORIDE 0.65% NASAL SPRAY 45ML BOTTLE. NS PRN ×2 (08:37→20:33)
[2019-07-03] MEDS: POTASSIUM CHLORIDE 20 MEQ TABLET.ER. PO SCH ×2 (08:37→20:32)
[2019-07-03] MEDS: LACTOBACILLUS RHAMNOSUS GG 1 CAPSULE. PO SCH ×2 (08:37→20:31)
[2019-07-03] MEDS: DULoxetine HCL 30 MG CAPSULE.DR PO SCH (08:38)
[2019-07-03] MEDS: FERROUS SULFATE 325 MG TABLET. PO SCH (08:38)
[2019-07-03] MEDS: LOSARTAN 50 MG TABLET. PO SCH (08:38)
[2019-07-03] MEDS: ALPRAZolam 0.5 MG TABLET PO PRN ×3 (08:38→20:31)
[2019-07-03] MEDS: HYDROcodone/APAP 7.5/325MG 1 TAB TABLET PO PRN ×2 (08:38→20:31)
[2019-07-03] MEDS: CETIRIZINE HCL 10 MG TABLET PO SCH (08:38)
[2019-07-03] MEDS: CYANOCOBALAMIN (VITAMIN B-12) 1,000 MCG TABLET. PO SCH (08:38)
[2019-07-03] MEDS: SENNOSIDES/DOCUSATE 8.6/50MG TABLET. PO SCH (08:38)
[2019-07-03] MEDS: CICLOPIROX 0.77% TOPICAL CREAM 15GM TUBE. TP SCH ×2 (08:39→21:00)
[2019-07-03] MEDS: CARVEDILOL 6.25 MG TABLET PO SCH ×2 (08:39→16:16)
[2019-07-03] MEDS: ASPIRIN ENTERIC COATED 81 MG TABLET.DR. PO SCH (08:39)
[2019-07-03] MEDS: ARIPiprazole 10 MG TABLET PO SCH (08:39)
--- NOTE | 2019-07-03 10:27 | PDOC ---
Exam Note: Heri Note: S/O: This note is a late entry for DOS 07/02/2019 covers elements not covered in my initial note. We have had exposure of COVID-19 on the unit consequent to a staff member. The unit was on lockdown per [facility] ([facility])/Centers for Disease Control (CDC). Three patients had dev eloped fever and other symptoms for which they were screened for the COVID-19, two of which have come back negative, result for one is awaited and one other patient today is running a fever and we are doing a COVID-19 screen for this patient. Per regulations from the CDC/[facility], we are unable to admit or discharge any patients, still all of this is negative and the length of stay has affected not entirely by the clinical situation but by this directive additionally from the [facility]/CDC. The patient was seen on TeleHealth rounds in the evening with Gladys LAUREN. Discussed the patient with nursing staff, reviewed the chart. Nursing report was discussed with Arleth LAUREN in the morning. Patient slept 6-1/2 hours. For the most part, the patient continues to be somewhat triangulating of staff and blaming staff. She is insistent on wanting to be home, do her own driving, cooking, cleaning and taking care of herself independently. I had a discussion with her during rounds in the evening about the practicality of doing all this and that she has not been accepted by any primary care physician as well as a patient because they have refused to follow in the past. Patient minimizes all of this. ROS: Shortness of breath, on O2 supplements. Impaired ambulation in [facility]. No CV, GI/ system symptoms on review. She has vague somatic symptoms. MSE: Reasonably oriented. Speech coherent. Abstraction fair. Computation impaired. Language function intact. Mood and affect remains somewhat anxious, labile at times with very limited insight into her challenges for doing all of what she wants to do independently. No active suicidal or homicidal ideation. Labs: Reviewed. Imp: Unchanged from initial note. Plan: Unchanged from initial note. Assessment: Vital Signs/I&O: Vital Signs Date Time Temp Pulse Resp B/P (MAP) Pulse Ox O2 Delivery O2 Flow Rate FiO2 07/03/19 09:40 16 07/03/19 08:39 97 118/66 07/03/19 05:42 97.5 97 07/02/19 06:16 2.0 06/30/19 15:59 Nasal Cannula I & O 07/02/19 07/02/19 07/03/19 15:00 23:00 07:00 Intake Total 960 ml 480 ml Balance 960 ml 480 ml Labs: Laboratory Tests Test 07/03/19 07:29 Glucose (Fingerstick) 95 mg/dL (70-99) Current Medications: I have reviewed the current psychotropics carefully including drug interactions. Risk benefit ratio favors no change other than as noted in my dictated progress note. Diagnosis: Problems: (1) Personality disorder, unspecified (2) Mood disorder (3) Anxiety disorder (4) Major depressive disorder, recurrent episode (5) Bipolar affective, mixed ALBER GARCES MD Jul 03, 2019 10:27
[2019-07-03 15:46] VITALS: BP 142/76
--- NOTE | 2019-07-03 21:56 | PDOC ---
Exam Note: Heri Note: Please also refer to the separate dictated note~for this date of service dictated separately.~Patient seen individually. Discussed the patient with Nursing staff reviewed the chart.~Reviewed interim history and current functioning. Reviewed vital signs,~Labs/ Radiology~and current medications noted below. Continue current treatment with the changes noted in the dictated addendum note Assessment: Vital Signs/I&O: Vital Signs Date Time Temp Pulse Resp B/P (MAP) Pulse Ox O2 Delivery O2 Flow Rate FiO2 07/03/19 20:31 96 07/03/19 18:36 98.4 07/03/19 16:16 97 142/76 07/03/19 15:46 22 07/03/19 08:00 Nasal Cannula 07/02/19 06:16 2.0 I & O 07/02/19 07/02/19 07/03/19 15:00 23:00 07:00 Intake Total 960 ml 480 ml Balance 960 ml 480 ml Labs: Laboratory Tests Test 07/03/19 07:29 Glucose (Fingerstick) 95 mg/dL (70-99) Current Medications: I have reviewed the current psychotropics carefully including drug interactions. Risk benefit ratio favors no change other than as noted in my dictated progress note. Diagnosis: Problems: (1) Personality disorder, unspecified (2) Mood disorder (3) Anxiety disorder (4) Major depressive disorder, recurrent episode (5) Bipolar affective, mixed ALBER GARCES MD Jul 03, 2019 21:56
[2019-07-04] MEDS: MECLIZINE 12.5 MG TABLET. PO PRN (04:47)
[2019-07-04 05:58] VITALS: BP 152/71
[2019-07-04] MEDS: LACTOBACILLUS RHAMNOSUS GG 1 CAPSULE. PO SCH ×2 (08:26→22:03)
[2019-07-04] MEDS: ENOXAPARIN 40 MG/0.4 ML SYRINGE. SQ SCH ×2 (08:26→22:05)
[2019-07-04] MEDS: ARIPiprazole 10 MG TABLET PO SCH (08:26)
[2019-07-04] MEDS: DULoxetine HCL 30 MG CAPSULE.DR PO SCH (08:27)
[2019-07-04] MEDS: SENNOSIDES/DOCUSATE 8.6/50MG TABLET. PO SCH (08:27)
[2019-07-04] MEDS: CETIRIZINE HCL 10 MG TABLET PO SCH (08:27)
[2019-07-04] MEDS: ASPIRIN ENTERIC COATED 81 MG TABLET.DR. PO SCH (08:27)
[2019-07-04] MEDS: FUROSEMIDE 40 MG TABLET PO SCH ×2 (08:27→15:32)
[2019-07-04] MEDS: PANTOPRAZOLE 40 MG TABLET. PO SCH (08:27)
[2019-07-04] MEDS: LOSARTAN 50 MG TABLET. PO SCH (08:28)
[2019-07-04] MEDS: FERROUS SULFATE 325 MG TABLET. PO SCH (08:29)
[2019-07-04] MEDS: CYANOCOBALAMIN (VITAMIN B-12) 1,000 MCG TABLET. PO SCH (08:29)
[2019-07-04] MEDS: POTASSIUM CHLORIDE 20 MEQ TABLET.ER. PO SCH ×2 (08:29→22:04)
[2019-07-04] MEDS: IPRATRPIUM/ALBUTEROL 0.5/2.5MG 3 ML NEBU. NEB SCH ×4 (08:30→22:05)
[2019-07-04] MEDS: BUDESONIDE 0.5 MG/2 ML NEBU NEB SCH ×2 (08:30→22:05)
[2019-07-04] MEDS: CARVEDILOL 6.25 MG TABLET PO SCH ×2 (08:30→17:26)
[2019-07-04] MEDS: CICLOPIROX 0.77% TOPICAL CREAM 15GM TUBE. TP SCH ×2 (09:00→22:04)
[2019-07-04] MEDS: HYDROcodone/APAP 7.5/325MG 1 TAB TABLET PO PRN ×2 (10:11→18:20)
[2019-07-04] MEDS: ALPRAZolam 0.5 MG TABLET PO PRN ×3 (10:15→22:03)
[2019-07-04] MEDS: SODIUM CHLORIDE 0.65% NASAL SPRAY 45ML BOTTLE. NS PRN ×3 (10:16→22:04)
--- NOTE | 2019-07-04 12:44 | PDOC ---
Exam Note: Heri Note: S/O: This note is a late entry for DOS 07/03/2019 covers elements not covered in my initial note. We are still waiting on the COVID-19 screen on two patients before the unit can be opened for admissions and discharges per the [facility] ([facility])/Centers for Disease Control (CDC). Discussed the patient with nursing staff, reviewed the chart. Treatment team meeting was done in the morning with social service staff Daphney in Activity [facility], nursing staff, Gladys LAUREN and myself. Yenifer, social service staff discussed at length at the treatment team meeting patients inability to take care of herself in her home. The patient was seen on audio-visual rounds in the evening with Rosemarie LAUREN. Patients appetite is 95%. Sleeping 8 hours average. She slept 6-1/2 hours previous night. She has been somewhat demanding per nursing report, splitting staff, insistent on being discharged against medical advice. The patient is unable to drive to go grocery shopping. She has no primary care physician. No ride from here to her home which would be an unsafe disposition anyway. Nevertheless, she is well oriented, cognizant, just making poor choices and has no active suicidal or homicidal ideation. We discussed informing the Adult Protective Services if she decides to leave AMA and having the person who comes to pick her up sign on the AMA form as well that they were transporting the patient. Also discussed with XIN June, nurse rn unit manager who joined the meeting. We also discussed an option of patient following up with Dr. Tabby Richardson, [facility] physician as an outpatient but unsure if Dr. Richardson will accept the patient. Several physicians have refused to see the patient in the past and dropped her from their list. Addressed all of this in the evening with the patient as well and Yenifer did it as well with the patient. ROS: Impaired ambulation, shortness of breath. She is lying in bed. No CV, , Pulmonary, Eye system symptoms on review other than above. MSE: Reasonably oriented. Speech coherent. Abstraction fair. Computation impaired. Language function intact. Attention span short. Mood and affect remains somewhat labile. She minimizes most problems, blames staff and providers for different things. Labs: Reviewed. Imp: Major depressive disorder in partial remission. Anxiety disorder unspecified. Plan: Continue psychotropics mentioned in my initial note. Rest as noted above. Discussed various options, none of which are ideal. Assessment: Vital Signs/I&O: Vital Signs Date Time Temp Pulse Resp B/P (MAP) Pulse Ox O2 Delivery O2 Flow Rate FiO2 07/04/19 11:39 14 07/04/19 08:30 87 152/71 07/04/19 05:58 97.6 98 07/03/19 08:00 Nasal Cannula 07/02/19 06:16 2.0 I & O 0 07/03/19 07/03/19 07/04/19 15:00 23:00 07:00 Intake Total 840 ml 660 ml Balance 840 ml 660 ml Labs: Laboratory Tests Test 07/04/19 08:04 Glucose (Fingerstick) 95 mg/dL (70-99) Current Medications: I have reviewed the current psychotropics carefully including drug interactions. Risk benefit ratio favors no change other than as noted in my dictated progress note. Diagnosis: Problems: (1) Personality disorder, unspecified (2) Mood disorder (3) Anxiety disorder (4) Major depressive disorder, recurrent episode (5) Bipolar affective, mixed ALBER GARCES MD Jul 04, 2019 12:44
[2019-07-04 16:05] VITALS: BP 127/72
--- NOTE | 2019-07-04 21:56 | PDOC ---
Exam Note: Heri Note: Please also refer to the separate dictated note~for this date of service dictated separately.~Patient seen individually. Discussed the patient with Nursing staff reviewed the chart.~Reviewed interim history and current functioning. Reviewed vital signs,~Labs/ Radiology~and current medications noted below. Continue current treatment with the changes noted in the dictated addendum note Assessment: Vital Signs/I&O: Vital Signs Date Time Temp Pulse Resp B/P (MAP) Pulse Ox O2 Delivery O2 Flow Rate FiO2 07/04/19 18:20 14 07/04/19 17:26 93 127/72 07/04/19 16:05 97.3 96 07/03/19 08:00 Nasal Cannula 07/02/19 06:16 2.0 I & O 07/03/19 07/03/19 07/04/19 14:59 22:59 06:59 Intake Total 840 ml 660 ml Balance 840 ml 660 ml Labs: Laboratory Tests Test 07/04/19 08:04 Glucose (Fingerstick) 95 mg/dL (70-99) Current Medications: I have reviewed the current psychotropics carefully including drug interactions. Risk benefit ratio favors no change other than as noted in my dictated progress note. Diagnosis: Problems: (1) Personality disorder, unspecified (2) Mood disorder (3) Anxiety disorder (4) Major depressive disorder, recurrent episode (5) Bipolar affective, mixed ALBER GARCES MD Jul 04, 2019 21:56
[2019-07-05 05:46] VITALS: BP 142/74
[2019-07-05] MEDS: HYDROcodone/APAP 7.5/325MG 1 TAB TABLET PO PRN ×3 (06:41→21:18)
[2019-07-05] MEDS: IPRATRPIUM/ALBUTEROL 0.5/2.5MG 3 ML NEBU. NEB SCH ×4 (08:20→21:15)
[2019-07-05] MEDS: PANTOPRAZOLE 40 MG TABLET. PO SCH (08:20)
[2019-07-05] MEDS: BUDESONIDE 0.5 MG/2 ML NEBU NEB SCH ×2 (08:20→21:15)
[2019-07-05] MEDS: ARIPiprazole 10 MG TABLET PO SCH (08:21)
[2019-07-05] MEDS: ASPIRIN ENTERIC COATED 81 MG TABLET.DR. PO SCH (08:21)
[2019-07-05] MEDS: FERROUS SULFATE 325 MG TABLET. PO SCH (08:21)
[2019-07-05] MEDS: LOSARTAN 50 MG TABLET. PO SCH (08:21)
[2019-07-05] MEDS: CARVEDILOL 6.25 MG TABLET PO SCH ×2 (08:21→17:19)
[2019-07-05] MEDS: SENNOSIDES/DOCUSATE 8.6/50MG TABLET. PO SCH (08:22)
[2019-07-05] MEDS: LACTOBACILLUS RHAMNOSUS GG 1 CAPSULE. PO SCH ×2 (08:22→21:17)
[2019-07-05] MEDS: FUROSEMIDE 40 MG TABLET PO SCH ×2 (08:22→17:18)
[2019-07-05] MEDS: POTASSIUM CHLORIDE 20 MEQ TABLET.ER. PO SCH ×2 (08:22→21:18)
[2019-07-05] MEDS: DULoxetine HCL 30 MG CAPSULE.DR PO SCH (08:22)
[2019-07-05] MEDS: CYANOCOBALAMIN (VITAMIN B-12) 1,000 MCG TABLET. PO SCH (08:22)
[2019-07-05] MEDS: CICLOPIROX 0.77% TOPICAL CREAM 15GM TUBE. TP SCH ×2 (08:23→21:16)
[2019-07-05] MEDS: CETIRIZINE HCL 10 MG TABLET PO SCH (08:23)
[2019-07-05] MEDS: ENOXAPARIN 40 MG/0.4 ML SYRINGE. SQ SCH ×2 (08:23→21:14)
[2019-07-05 10:06] LABS: BASO % 1 % (0-3); EOS # 0.1 x10^3/uL (0.0-0.7); EOS % 2 % (0-3); HEMATOCRIT 34.8 % (36.0-47.0); HEMOGLOBIN 11.3 g/dL (12.0-15.5); LYMPH # 1.2 x10^3/uL (1.0-4.8); LYMPH % 17 % (24-48); MEAN CORPUSCULAR HEMOGLOBIN 30 pg (25-35); MEAN CORPUSCULAR HGB CONC 32 g/dL (31-37); MEAN CORPUSCULAR VOLUME 91 fL (79-100); MONO # 0.3 x10^3/uL (0.0-1.1); MONO % 5 % (0-9); NEUT # 5.1 x10^3uL (1.8-7.7); NEUT % 76 % (31-73); PLATELET COUNT 223 x10^3/uL (140-400); RED BLOOD COUNT 3.81 x10^6/uL (3.50-5.40); RED CELL DISTRIBUTION WIDTH 13.7 % (11.5-14.5); WHITE BLOOD COUNT 6.7 x10^3/uL (4.0-11.0)
[2019-07-05 10:19] LABS: ALBUMIN 3.1 g/dL (3.4-5.0); ALBUMIN/GLOBULIN RATIO 0.8 (1.0-1.7); CALCIUM 9.1 mg/dL (8.5-10.1); CREATININE 0.9 mg/dL (0.6-1.0); GFR 62.8; POTASSIUM 4.6 mmol/L (3.5-5.1); TOTAL BILIRUBIN 0.1 mg/dL (0.2-1.0); TOTAL PROTEIN 6.9 g/dL (6.4-8.2)
[2019-07-05] MEDS: ALPRAZolam 0.5 MG TABLET PO PRN ×3 (10:34→21:19)
[2019-07-05] MEDS: SODIUM CHLORIDE 0.65% NASAL SPRAY 45ML BOTTLE. NS PRN ×2 (10:34→21:14)
[2019-07-05 16:08] VITALS: BP 133/70
[2019-07-05] MEDS: BENZOCAINE/MENTHOL LOZNGE 18'S BOX. PO PRN (21:15)
--- NOTE | 2019-07-05 21:37 | PDOC ---
Exam Note: Heri Note: S/O: This note is a late entry for DOS 07/04/2019 covers elements not covered in my initial note. Discussed the patient with nursing staff, reviewed the chart. The patient was seen on audio-visual rounds in the evening with René LAUREN. Nursing report was with Arleth LAUREN. The patient complained of some neck pain and weakness in her neck muscles. We will defer to Dr. Wright. ROS: Impaired ambulation, shortness of breath. She is lying in bed. No CV, , Pulmonary, Eye system symptoms on review other than above. MSE: Oriented. Speech coherent. Abstraction fair. Computation impaired. Language function intact. Attention span short. Mood and affect remains somewhat labile. Labs: Reviewed. Imp: Major depressive disorder in partial remission. Anxiety disorder unspecified. Plan: Continue psychotropics mentioned in my initial note. Rest as noted above Assessment: Vital Signs/I&O: Vital Signs Date Time Temp Pulse Resp B/P (MAP) Pulse Ox O2 Delivery O2 Flow Rate FiO2 07/05/19 17:19 88 133/70 07/05/19 16:08 97.7 22 97 2.0 07/03/19 08:00 Nasal Cannula I & O 07/04/19 07/04/19 07/05/19 14:59 22:59 06:59 Intake Total 840 ml 600 ml Balance 840 ml 600 ml Labs: Laboratory Tests Test 07/05/19 07:30 07/05/19 09:59 Glucose (Fingerstick) 88 mg/dL (70-99) White Blood Count 6.7 x10^3/uL (4.0-11.0) Red Blood Count 3.81 x10^6/uL (3.50-5.40) Hemoglobin 11.3 g/dL (12.0-15.5) L Hematocrit 34.8 % (36.0-47.0) L Mean Corpuscular Volume 91 fL (79-100) Mean Corpuscular Hemoglobin 30 pg (25-35) Mean Corpuscular Hemoglobin Concent 32 g/dL (31-37) Red Cell Distribution Width 13.7 % (11.5-14.5) Platelet Count 223 x10^3/uL (140-400) Neutrophils (%) (Auto) 76 % (31-73) H Lymphocytes (%) (Auto) 17 % (24-48) L Monocytes (%) (Auto) 5 % (0-9) Eosinophils (%) (Auto) 2 % (0-3) Basophils (%) (Auto) 1 % (0-3) Neutrophils # (Auto) 5.1 x10^3uL (1.8-7.7) Lymphocytes # (Auto) 1.2 x10^3/uL (1.0-4.8) Monocytes # (Auto) 0.3 x10^3/uL (0.0-1.1) Eosinophils # (Auto) 0.1 x10^3/uL (0.0-0.7) Basophils # (Auto) 0.0 x10^3/uL (0.0-0.2) Sodium Level 138 mmol/L (136-145) Potassium Level 4.6 mmol/L (3.5-5.1) Chloride Level 98 mmol/L (98-107) Carbon Dioxide Level 37 mmol/L (21-32) H Anion Gap 3 (6-14) L Blood Urea Nitrogen 15 mg/dL (7-20) Creatinine 0.9 mg/dL (0.6-1.0) Estimated GFR (Cockcroft-Gault) 62.8 BUN/Creatinine Ratio 17 (6-20) Glucose Level 130 mg/dL (70-99) H Calcium Level 9.1 mg/dL (8.5-10.1) Total Bilirubin 0.1 mg/dL (0.2-1.0) L Aspartate Amino Transferase (AST) 19 U/L (15-37) Alanine Aminotransferase (ALT) 37 U/L (14-59) Alkaline Phosphatase 70 U/L (46-116) Total Protein 6.9 g/dL (6.4-8.2) Albumin 3.1 g/dL (3.4-5.0) L Albumin/Globulin Ratio 0.8 (1.0-1.7) L Current Medications: I have reviewed the current psychotropics carefully including drug interactions. Risk benefit ratio favors no change other than as noted in my dictated progress note. Diagnosis: Problems: (1) Personality disorder, unspecified (2) Mood disorder (3) Anxiety disorder (4) Major depressive disorder, recurrent episode (5) Bipolar affective, mixed ALBER GARCES MD Jul 05, 2019 21:36
--- NOTE | 2019-07-05 21:55 | PDOC ---
Exam Note: Heri Note: Please also refer to the separate dictated note~for this date of service dictated separately.~Patient seen individually. Discussed the patient with Nursing staff reviewed the chart.~Reviewed interim history and current functioning. Reviewed vital signs,~Labs/ Radiology~and current medications noted below. Continue current treatment with the changes noted in the dictated addendum note Assessment: Vital Signs/I&O: Vital Signs Date Time Temp Pulse Resp B/P (MAP) Pulse Ox O2 Delivery O2 Flow Rate FiO2 07/05/19 17:19 88 133/70 07/05/19 16:08 97.7 22 97 2.0 07/03/19 08:00 Nasal Cannula I & O 07/04/19 07/04/19 07/05/19 15:00 23:00 07:00 Intake Total 840 ml 600 ml Balance 840 ml 600 ml Labs: Laboratory Tests Test 07/05/19 07:30 07/05/19 09:59 Glucose (Fingerstick) 88 mg/dL (70-99) White Blood Count 6.7 x10^3/uL (4.0-11.0) Red Blood Count 3.81 x10^6/uL (3.50-5.40) Hemoglobin 11.3 g/dL (12.0-15.5) L Hematocrit 34.8 % (36.0-47.0) L Mean Corpuscular Volume 91 fL (79-100) Mean Corpuscular Hemoglobin 30 pg (25-35) Mean Corpuscular Hemoglobin Concent 32 g/dL (31-37) Red Cell Distribution Width 13.7 % (11.5-14.5) Platelet Count 223 x10^3/uL (140-400) Neutrophils (%) (Auto) 76 % (31-73) H Lymphocytes (%) (Auto) 17 % (24-48) L Monocytes (%) (Auto) 5 % (0-9) Eosinophils (%) (Auto) 2 % (0-3) Basophils (%) (Auto) 1 % (0-3) Neutrophils # (Auto) 5.1 x10^3uL (1.8-7.7) Lymphocytes # (Auto) 1.2 x10^3/uL (1.0-4.8) Monocytes # (Auto) 0.3 x10^3/uL (0.0-1.1) Eosinophils # (Auto) 0.1 x10^3/uL (0.0-0.7) Basophils # (Auto) 0.0 x10^3/uL (0.0-0.2) Sodium Level 138 mmol/L (136-145) Potassium Level 4.6 mmol/L (3.5-5.1) Chloride Level 98 mmol/L (98-107) Carbon Dioxide Level 37 mmol/L (21-32) H Anion Gap 3 (6-14) L Blood Urea Nitrogen 15 mg/dL (7-20) Creatinine 0.9 mg/dL (0.6-1.0) Estimated GFR (Cockcroft-Gault) 62.8 BUN/Creatinine Ratio 17 (6-20) Glucose Level 130 mg/dL (70-99) H Calcium Level 9.1 mg/dL (8.5-10.1) Total Bilirubin 0.1 mg/dL (0.2-1.0) L Aspartate Amino Transferase (AST) 19 U/L (15-37) Alanine Aminotransferase (ALT) 37 U/L (14-59) Alkaline Phosphatase 70 U/L (46-116) Total Protein 6.9 g/dL (6.4-8.2) Albumin 3.1 g/dL (3.4-5.0) L Albumin/Globulin Ratio 0.8 (1.0-1.7) L Current Medications: I have reviewed the current psychotropics carefully including drug interactions. Risk benefit ratio favors no change other than as noted in my dictated progress note. Diagnosis: Problems: (1) Personality disorder, unspecified (2) Mood disorder (3) Anxiety disorder (4) Major depressive disorder, recurrent episode (5) Bipolar affective, mixed ALBER GARCES MD Jul 05, 2019 21:55
[2019-07-06 05:53] VITALS: BP 133/76
[2019-07-06] MEDS: IPRATRPIUM/ALBUTEROL 0.5/2.5MG 3 ML NEBU. NEB SCH ×4 (08:06→20:57)
[2019-07-06] MEDS: PANTOPRAZOLE 40 MG TABLET. PO SCH (08:06)
[2019-07-06] MEDS: BUDESONIDE 0.5 MG/2 ML NEBU NEB SCH ×2 (08:06→20:57)
[2019-07-06] MEDS: CARVEDILOL 6.25 MG TABLET PO SCH ×2 (08:06→17:46)
[2019-07-06] MEDS: FERROUS SULFATE 325 MG TABLET. PO SCH (08:06)
[2019-07-06] MEDS: ASPIRIN ENTERIC COATED 81 MG TABLET.DR. PO SCH (08:07)
[2019-07-06] MEDS: LOSARTAN 50 MG TABLET. PO SCH (08:07)
[2019-07-06] MEDS: LACTOBACILLUS RHAMNOSUS GG 1 CAPSULE. PO SCH ×2 (08:07→20:58)
[2019-07-06] MEDS: DULoxetine HCL 30 MG CAPSULE.DR PO SCH (08:07)
[2019-07-06] MEDS: POTASSIUM CHLORIDE 20 MEQ TABLET.ER. PO SCH ×2 (08:07→20:59)
[2019-07-06] MEDS: CETIRIZINE HCL 10 MG TABLET PO SCH (08:08)
[2019-07-06] MEDS: SENNOSIDES/DOCUSATE 8.6/50MG TABLET. PO SCH (08:08)
[2019-07-06] MEDS: CYANOCOBALAMIN (VITAMIN B-12) 1,000 MCG TABLET. PO SCH (08:08)
[2019-07-06] MEDS: FUROSEMIDE 40 MG TABLET PO SCH ×2 (08:08→17:45)
[2019-07-06] MEDS: CICLOPIROX 0.77% TOPICAL CREAM 15GM TUBE. TP SCH ×2 (08:09→20:57)
[2019-07-06] MEDS: ENOXAPARIN 40 MG/0.4 ML SYRINGE. SQ SCH ×2 (08:09→21:00)
[2019-07-06] MEDS: ARIPiprazole 5 MG TABLET PO SCH (08:11)
[2019-07-06] MEDS: CHOLECALCIFEROL (VITAMIN D3) 50,000 UNIT CAPSULE PO SCH (08:11)
[2019-07-06] MEDS: HYDROcodone/APAP 7.5/325MG 1 TAB TABLET PO PRN ×2 (12:16→20:58)
[2019-07-06] MEDS: ALPRAZolam 0.5 MG TABLET PO PRN ×2 (12:16→20:59)
[2019-07-06 15:56] VITALS: BP 154/81
[2019-07-06] MEDS: SODIUM CHLORIDE 0.65% NASAL SPRAY 45ML BOTTLE. NS PRN (21:00)
[2019-07-06] MEDS: BENZOCAINE/MENTHOL LOZNGE 18'S BOX. PO PRN (21:00)
[2019-07-06] MEDS: diphenhydrAMINE HCL 25 MG CAPSULE PO PRN (22:01)
[2019-07-07] MEDS: diphenhydrAMINE HCL 25 MG CAPSULE PO PRN ×4 (03:49→20:33)
[2019-07-07 06:14] VITALS: BP 110/54
[2019-07-07] MEDS: ENOXAPARIN 40 MG/0.4 ML SYRINGE. SQ SCH ×2 (08:11→20:33)
[2019-07-07] MEDS: BUDESONIDE 0.5 MG/2 ML NEBU NEB SCH ×2 (08:11→20:37)
[2019-07-07] MEDS: IPRATRPIUM/ALBUTEROL 0.5/2.5MG 3 ML NEBU. NEB SCH ×4 (08:12→20:37)
[2019-07-07] MEDS: LACTOBACILLUS RHAMNOSUS GG 1 CAPSULE. PO SCH ×2 (08:12→20:32)
[2019-07-07] MEDS: FERROUS SULFATE 325 MG TABLET. PO SCH (08:12)
[2019-07-07] MEDS: ASPIRIN ENTERIC COATED 81 MG TABLET.DR. PO SCH (08:12)
[2019-07-07] MEDS: FUROSEMIDE 40 MG TABLET PO SCH ×2 (08:12→16:41)
[2019-07-07] MEDS: PANTOPRAZOLE 40 MG TABLET. PO SCH (08:12)
[2019-07-07] MEDS: SENNOSIDES/DOCUSATE 8.6/50MG TABLET. PO SCH (08:13)
[2019-07-07] MEDS: CICLOPIROX 0.77% TOPICAL CREAM 15GM TUBE. TP SCH ×2 (08:13→20:33)
[2019-07-07] MEDS: POTASSIUM CHLORIDE 20 MEQ TABLET.ER. PO SCH ×2 (08:13→20:32)
[2019-07-07] MEDS: ARIPiprazole 5 MG TABLET PO SCH (08:13)
[2019-07-07] MEDS: LOSARTAN 50 MG TABLET. PO SCH (08:13)
[2019-07-07] MEDS: CETIRIZINE HCL 10 MG TABLET PO SCH (08:13)
[2019-07-07] MEDS: CYANOCOBALAMIN (VITAMIN B-12) 1,000 MCG TABLET. PO SCH (08:14)
[2019-07-07] MEDS: DULoxetine HCL 30 MG CAPSULE.DR PO SCH (08:14)
[2019-07-07] MEDS: CARVEDILOL 6.25 MG TABLET PO SCH ×2 (08:14→16:41)
--- NOTE | 2019-07-07 08:21 | PDOC ---
Exam Note: Heri Note: S/O: This note is a late entry for DOS 07/05/2019 covers elements not covered in my initial note. Discussed the patient with nursing staff, reviewed the chart. The patient was seen on audio-visual rounds in the evening with René LAUREN. Nursing report was from Viji LAUREN. The patient slept 6-1/4 hours. Selin roger remains somewhat somatically preoccupied, anxious, splitting staff at times. She does complain of some dystonia and we had a lengthy discussion and agreed to reduce the Abilify from 10 mg a day down to 5 mg a day. ROS: She complains of her neck twisting to one side at times. Impaired ambulation. No CV, , Pulmonary, Eye system symptoms on review. MSE: Oriented. Speech coherent. Abstraction fair. Computation impaired. Language function intact. Attention span short. Mood and affect remains darci ewhat labile. Labs: Reviewed. Imp: Major depressive disorder in partial remission. Anxiety disorder unspecified. Plan: We will reduce the Abilify from 10 mg to 5 mg. Assessment: Vital Signs/I&O: Vital Signs Date Time Temp Pulse Resp B/P (MAP) Pulse Ox O2 Delivery O2 Flow Rate FiO2 07/07/19 08:14 78 110/54 07/07/19 06:14 97.7 20 96 2.0 07/03/19 08:00 Nasal Cannula I & O 07/06/19 07/06/19 07/07/19 15:00 23:00 07:00 Intake Total 960 ml 480 ml 240 ml Balance 960 ml 480 ml 240 ml Labs: Laboratory Tests Test 07/07/19 08:05 Glucose (Fingerstick) 86 mg/dL (70-99) Current Medications: Meds: Current Medications Medications (Trade) Dose Ordered Sig/Mason Route PRN Reason Start Time Stop Time Status Last Admin Dose Admin Aripiprazole (Abilify) 5 mg DAILY PO 07/06/19 09:00 07/07/19 08:13 Diphenhydramine HCl (Benadryl) 25 mg PRN Q2HR PRN PO DYSTONIC REACTION 07/06/19 21:45 07/07/19 03:49 I have reviewed the current psychotropics carefully including drug interactions. Risk benefit ratio favors no change other than as noted in my dictated progress note. Diagnosis: Problems: (1) Personality disorder, unspecified (2) Mood disorder (3) Anxiety disorder (4) Major depressive disorder, recurrent episode (5) Bipolar affective, mixed ALBER GARCES MD Jul 07, 2019 08:21
--- NOTE | 2019-07-07 08:49 | PDOC ---
Exam Note: Heri Note: S/O: This note is a late entry for DOS 07/06/2019 covers elements not covered in my initial note. Discussed the patient with nursing staff, reviewed the chart. The patient was seen on audio-visual rounds in the evening with Maritza LAUREN. Nursing report was with Fela LAUREN. The patient still complains of some dystonia of her neck muscles despite reduction of Abilify from10 mg a day down to 5 mg a day. Nursing staff is going to check for any cogwheeling and if it is present we will start Benadryl 25 mg q.2h. p.r.n. EPS/dystonia max 100 mg in 24 hours. ROS: She complains of some neck muscle rigidity. No CV, , Pulmonary, Eye system symptoms on review. MSE: Oriented. Speech coherent. Abstraction fair. Computation impaired. Language function intact. Attention span short. Mood and affect remains somewhat labile. Labs: Reviewed. Imp: Major depressive disorder in partial remission. Anxiety disorder unspecified. Plan: Continue psychotropics unchanged mentioned in initial note. Assessment: Vital Signs/I&O: Vital Signs Date Time Temp Pulse Resp B/P (MAP) Pulse Ox O2 Delivery O2 Flow Rate FiO2 07/07/19 08:14 78 110/54 07/07/19 06:14 97.7 20 96 2.0 07/03/19 08:00 Nasal Cannula I & O 07/06/19 07/06/19 07/07/19 15:00 23:00 07:00 Intake Total 960 ml 480 ml 240 ml Balance 960 ml 480 ml 240 ml Labs: Laboratory Tests Test 07/07/19 08:05 Glucose (Fingerstick) 86 mg/dL (70-99) Current Medications: Meds: Current Medications Medications (Trade) Dose Ordered Sig/Mason Route PRN Reason Start Time Stop Time Status Last Admin Dose Admin Aripiprazole (Abilify) 5 mg DAILY PO 07/06/19 09:00 07/07/19 08:13 Diphenhydramine HCl (Benadryl) 25 mg PRN Q2HR PRN PO DYSTONIC REACTION 07/06/19 21:45 07/07/19 03:49 I have reviewed the current psychotropics carefully including drug interactions. Risk benefit ratio favors no change other than as noted in my dictated progress note. Diagnosis: Problems: (1) Personality disorder, unspecified (2) Mood disorder (3) Anxiety disorder (4) Major depressive disorder, recurrent episode (5) Bipolar affective, mixed ALBER GARCES MD Jul 07, 2019 08:49
[2019-07-07] MEDS: HYDROcodone/APAP 7.5/325MG 1 TAB TABLET PO PRN ×2 (09:24→20:33)
[2019-07-07] MEDS: ALPRAZolam 0.5 MG TABLET PO PRN ×2 (09:24→20:33)
[2019-07-07 15:38] VITALS: BP 122/67
--- NOTE | 2019-07-07 22:09 | PDOC ---
Exam Note: Heri Note: Please also refer to the separate dictated note~for this date of service dictated separately.~Patient seen individually. Discussed the patient with Nursing staff reviewed the chart.~Reviewed interim history and current functioning. Reviewed vital signs,~Labs/ Radiology~and current medications noted below. Continue current treatment with the changes noted in the dictated addendum note Assessment: Vital Signs/I&O: Vital Signs Date Time Temp Pulse Resp B/P (MAP) Pulse Ox O2 Delivery O2 Flow Rate FiO2 07/07/19 20:33 95 07/07/19 16:41 85 122/67 07/07/19 15:38 98.1 20 Nasal Cannula 2.0 I & O 07/06/19 07/06/19 07/07/19 15:00 23:00 07:00 Intake Total 960 ml 480 ml 240 ml Balance 960 ml 480 ml 240 ml Labs: Laboratory Tests Test 07/07/19 08:05 Glucose (Fingerstick) 86 mg/dL (70-99) Current Medications: I have reviewed the current psychotropics carefully including drug interactions. Risk benefit ratio favors no change other than as noted in my dictated progress note. Diagnosis: Problems: (1) Personality disorder, unspecified (2) Mood disorder (3) Anxiety disorder (4) Major depressive disorder, recurrent episode (5) Bipolar affective, mixed ALBER GARCES MD Jul 07, 2019 22:09
[2019-07-07] MEDS: traZODone 100 MG TABLET. PO PRN (22:16)
[2019-07-07] MEDS: CYCLOBENZAPRINE 10 MG TABLET. PO PRN (22:19)
[2019-07-08] MEDS: traZODone 100 MG TABLET. PO PRN ×2 (01:38→20:03)
[2019-07-08 06:13] VITALS: BP 134/68
[2019-07-08 06:27] LABS: BASO # 0.1 x10^3/uL (0.0-0.2); BASO % 1 % (0-3); EOS # 0.1 x10^3/uL (0.0-0.7); EOS % 2 % (0-3); HEMATOCRIT 37.5 % (36.0-47.0); HEMOGLOBIN 12.2 g/dL (12.0-15.5); LYMPH # 2.2 x10^3/uL (1.0-4.8); LYMPH % 32 % (24-48); MEAN CORPUSCULAR HEMOGLOBIN 30 pg (25-35); MEAN CORPUSCULAR HGB CONC 33 g/dL (31-37); MEAN CORPUSCULAR VOLUME 91 fL (79-100); MONO # 0.4 x10^3/uL (0.0-1.1); MONO % 6 % (0-9); NEUT # 4.2 x10^3uL (1.8-7.7); NEUT % 60 % (31-73); PLATELET COUNT 252 x10^3/uL (140-400); RED BLOOD COUNT 4.13 x10^6/uL (3.50-5.40); RED CELL DISTRIBUTION WIDTH 13.7 % (11.5-14.5); WHITE BLOOD COUNT 7.1 x10^3/uL (4.0-11.0)
[2019-07-08 06:36] LABS: ALBUMIN 3.5 g/dL (3.4-5.0); ALBUMIN/GLOBULIN RATIO 0.9 (1.0-1.7); CALCIUM 9.1 mg/dL (8.5-10.1); CREATININE 0.9 mg/dL (0.6-1.0); GFR 62.8; POTASSIUM 3.7 mmol/L (3.5-5.1); TOTAL BILIRUBIN 0.2 mg/dL (0.2-1.0); TOTAL PROTEIN 7.6 g/dL (6.4-8.2)
[2019-07-08] MEDS: FERROUS SULFATE 325 MG TABLET. PO SCH (07:53)
[2019-07-08] MEDS: ENOXAPARIN 40 MG/0.4 ML SYRINGE. SQ SCH ×2 (07:53→19:55)
[2019-07-08] MEDS: FUROSEMIDE 40 MG TABLET PO SCH ×2 (07:54→16:15)
[2019-07-08] MEDS: CARVEDILOL 6.25 MG TABLET PO SCH ×2 (07:54→16:15)
[2019-07-08] MEDS: POTASSIUM CHLORIDE 20 MEQ TABLET.ER. PO SCH ×2 (07:54→19:53)
[2019-07-08] MEDS: ARIPiprazole 5 MG TABLET PO SCH (07:55)
[2019-07-08] MEDS: DULoxetine HCL 30 MG CAPSULE.DR PO SCH (07:55)
[2019-07-08] MEDS: LACTOBACILLUS RHAMNOSUS GG 1 CAPSULE. PO SCH ×2 (07:55→19:55)
[2019-07-08] MEDS: ASPIRIN ENTERIC COATED 81 MG TABLET.DR. PO SCH (07:56)
[2019-07-08] MEDS: CETIRIZINE HCL 10 MG TABLET PO SCH (07:56)
[2019-07-08] MEDS: LOSARTAN 50 MG TABLET. PO SCH (07:56)
[2019-07-08] MEDS: CYANOCOBALAMIN (VITAMIN B-12) 1,000 MCG TABLET. PO SCH (07:56)
[2019-07-08] MEDS: PANTOPRAZOLE 40 MG TABLET. PO SCH (07:56)
[2019-07-08] MEDS: MECLIZINE 12.5 MG TABLET. PO PRN (08:09)
[2019-07-08] MEDS: CICLOPIROX 0.77% TOPICAL CREAM 15GM TUBE. TP SCH ×2 (08:10→20:06)
[2019-07-08] MEDS: SENNOSIDES/DOCUSATE 8.6/50MG TABLET. PO SCH (08:11)
[2019-07-08] MEDS: HYDROcodone/APAP 7.5/325MG 1 TAB TABLET PO PRN ×3 (08:52→19:53)
[2019-07-08] MEDS: ALPRAZolam 0.5 MG TABLET PO PRN ×3 (08:52→19:53)
[2019-07-08] MEDS: IPRATRPIUM/ALBUTEROL 0.5/2.5MG 3 ML NEBU. NEB SCH (08:53)
[2019-07-08] MEDS: BUDESONIDE 0.5 MG/2 ML NEBU NEB SCH (08:53)
[2019-07-08] MEDS ORDERED: ALBUTEROL SULFATE 8GM INHALER. INH PRN (10:30)
[2019-07-08] MEDS: IPRATROPIUM/ALBUTEROL 20/100mcg/INH INHALER. INH SCH ×3 (11:54→19:55)
[2019-07-08 15:40] VITALS: BP 154/86
[2019-07-08] MEDS: BENZOCAINE/MENTHOL LOZNGE 18'S BOX. PO PRN (16:23)
[2019-07-08] MEDS: diphenhydrAMINE HCL 25 MG CAPSULE PO PRN (19:53)
[2019-07-08] MEDS: SODIUM CHLORIDE 0.65% NASAL SPRAY 45ML BOTTLE. NS PRN (19:59)
[2019-07-08] MEDS: CYCLOBENZAPRINE 10 MG TABLET. PO PRN (20:18)
--- NOTE | 2019-07-08 21:42 | PDOC ---
Exam Note: Heri Note: Please also refer to the separate dictated note~for this date of service dictated separately.~Patient seen individually. Discussed the patient with Nursing staff reviewed the chart.~Reviewed interim history and current functioning. Reviewed vital signs,~Labs/ Radiology~and current medications noted below. Continue current treatment with the changes noted in the dictated addendum note Assessment: Vital Signs/I&O: Vital Signs Date Time Temp Pulse Resp B/P (MAP) Pulse Ox O2 Delivery O2 Flow Rate FiO2 07/08/19 19:53 95 07/08/19 16:15 89 154/86 07/08/19 15:40 97.9 16 Nasal Cannula 2.0 I & O 07/07/19 07/07/19 07/08/19 15:00 23:00 07:00 Intake Total 720 ml 600 ml Balance 720 ml 600 ml Labs: Laboratory Tests Test 07/08/19 06:02 White Blood Count 7.1 x10^3/uL (4.0-11.0) Red Blood Count 4.13 x10^6/uL (3.50-5.40) Hemoglobin 12.2 g/dL (12.0-15.5) Hematocrit 37.5 % (36.0-47.0) Mean Corpuscular Volume 91 fL (79-100) Mean Corpuscular Hemoglobin 30 pg (25-35) Mean Corpuscular Hemoglobin Concent 33 g/dL (31-37) Red Cell Distribution Width 13.7 % (11.5-14.5) Platelet Count 252 x10^3/uL (140-400) Neutrophils (%) (Auto) 60 % (31-73) Lymphocytes (%) (Auto) 32 % (24-48) Monocytes (%) (Auto) 6 % (0-9) Eosinophils (%) (Auto) 2 % (0-3) Basophils (%) (Auto) 1 % (0-3) Neutrophils # (Auto) 4.2 x10^3uL (1.8-7.7) Lymphocytes # (Auto) 2.2 x10^3/uL (1.0-4.8) Monocytes # (Auto) 0.4 x10^3/uL (0.0-1.1) Eosinophils # (Auto) 0.1 x10^3/uL (0.0-0.7) Basophils # (Auto) 0.1 x10^3/uL (0.0-0.2) Sodium Level 139 mmol/L (136-145) Potassium Level 3.7 mmol/L (3.5-5.1) Chloride Level 96 mmol/L (98-107) L Carbon Dioxide Level 39 mmol/L (21-32) H Anion Gap 4 (6-14) L Blood Urea Nitrogen 12 mg/dL (7-20) Creatinine 0.9 mg/dL (0.6-1.0) Estimated GFR (Cockcroft-Gault) 62.8 BUN/Creatinine Ratio 13 (6-20) Glucose Level 87 mg/dL (70-99) Calcium Level 9.1 mg/dL (8.5-10.1) Total Bilirubin 0.2 mg/dL (0.2-1.0) Aspartate Amino Transferase (AST) 22 U/L (15-37) Alanine Aminotransferase (ALT) 45 U/L (14-59) Alkaline Phosphatase 69 U/L (46-116) Total Protein 7.6 g/dL (6.4-8.2) Albumin 3.5 g/dL (3.4-5.0) Albumin/Globulin Ratio 0.9 (1.0-1.7) L Current Medications: Meds: Current Medications Medications (Trade) Dose Ordered Sig/Mason Route PRN Reason Start Time Stop Time Status Last Admin Dose Admin Albuterol/ Ipratropium (Combivent Respimat 20-100 Mcg) 1 puff RTQID INH 07/08/19 12:00 07/08/19 19:55 I have reviewed the current psychotropics carefully including drug interactions. Risk benefit ratio favors no change other than as noted in my dictated progress note. Diagnosis: Problems: (1) Personality disorder, unspecified (2) Mood disorder (3) Anxiety disorder (4) Major depressive disorder, recurrent episode (5) Bipolar affective, mixed ALBER GARCES MD Jul 08, 2019 21:42
[2019-07-09 06:12] VITALS: BP 145/76
--- NOTE | 2019-07-09 07:41 | PDOC ---
Exam Note: Heri Note: S/O: This note is a late entry for DOS 07/07/2019 covers elements not covered in my initial note. Discussed the patient with nursing staff, reviewed the chart. The patient was seen on audio-visual rounds in the evening with Arleth LAUREN. Nursing report was with Arsenio LAUREN. The patient has been triangulating staff, having somatic complaints varying from time to time. She complains of head bending backward and having still some dystonic symptoms. Benadryl seems to help with this but we will have a Neurology consult with Frances. Dr. Daniels is not coming on the unit due to the COVID-19 exposure on our unit but hopefully we will be able to have telephonic audio-visual assessment and recommendations for this. She has been taunting nursing staff at times. ROS: No CV, , Pulmonary, Eye system symptoms on review. MSE: Oriented. During the individual visit, she was very upset that she has not been able to pay on rent on time this month. The unit is on further 14-day quarantine because of another patient being positive with COVID-19. Patient is unable to accept this but I will defer to [facility], social service staff to address the rental issue. Speech coherent. Abstraction fair. Computation impaired. Language function intact. Attention span short. Mood and affect remains somewhat labile. Labs: Reviewed. Imp: Major depressive disorder in partial remission. Anxiety disorder unspecified. Plan: Continue psychotropics unchanged mentioned in initial note. Assessment: Vital Signs/I&O: VS - Last 72 Hours, by Label Date Time Temp Pulse Resp B/P (MAP) Pulse Ox O2 Delivery O2 Flow Rate FiO2 07/09/19 07:03 16 07/09/19 06:12 97.7 88 20 145/76 (99) 95 07/08/19 19:53 95 07/08/19 16:15 89 154/86 07/08/19 15:40 97.9 89 16 154/86 (108) 95 Nasal Cannula 2.0 07/08/19 13:54 16 07/08/19 12:54 18 07/08/19 09:52 16 07/08/19 08:52 95 07/08/19 07:56 93 134/68 07/08/19 07:54 93 134/68 07/08/19 06:13 97.9 93 18 134/68 (90) 95 07/07/19 22:59 95 07/07/19 20:33 95 07/07/19 16:41 85 122/67 07/07/19 15:38 98.1 85 20 122/67 (85) 95 Nasal Cannula 2.0 07/07/19 11:10 18 Nasal Cannula 2.0 07/07/19 09:24 20 Room Air 2.0 07/07/19 08:14 78 110/54 07/07/19 08:13 78 110/54 07/07/19 06:14 97.7 78 20 110/54 (72) 96 2.0 07/06/19 17:46 89 154/81 07/06/19 15:56 97.7 89 20 154/81 (105) 95 2.0 07/06/19 12:16 20 07/06/19 08:07 83 133/76 07/06/19 08:06 83 133/76 Vital Signs Date Time Temp Pulse Resp B/P (MAP) Pulse Ox O2 Delivery O2 Flow Rate FiO2 07/09/19 07:03 16 07/09/19 06:12 97.7 88 145/76 (99) 95 07/08/19 15:40 Nasal Cannula 2.0 I & O 07/08/19 07/08/19 07/09/19 15:00 23:00 07:00 Intake Total 720 ml 720 ml Balance 720 ml 720 ml Current Medications: Meds: Current Medications Medications (Trade) Dose Ordered Sig/Mason Route PRN Reason Start Time Stop Time Status Last Admin Dose Admin Albuterol/ Ipratropium (Combivent Respimat 20-100 Mcg) 1 puff RTQID INH 07/08/19 12:00 07/08/19 19:55 I have reviewed the current psychotropics carefully including drug interactions. Risk benefit ratio favors no change other than as noted in my dictated progress note. Diagnosis: Problems: (1) Personality disorder, unspecified (2) Mood disorder (3) Anxiety disorder (4) Major depressive disorder, recurrent episode (5) Bipolar affective, mixed ALBER GARCES MD Jul 09, 2019 07:41
--- NOTE | 2019-07-09 08:04 | PDOC ---
Exam Note: Heri Note: S/O: This note is a late entry for DOS 07/08/2019 covers elements not covered in my initial note. Discussed the patient with nursing staff, reviewed the chart. Nursing report was with Arleth LAUREN. 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 She received Benadryl previous evening which seems to help her dystonia. Dr. Daniels is apparently evaluating her today and we will await his neurological recommendations. ROS: No CV, , Pulmonary, Eye system symptoms on review. MSE: Oriented. Speech coherent. Abstraction fair. Computation impaired. Language function intact. Attention span short. Mood and affect remains somewhat labile. Labs: Reviewed. Imp: Major depressive disorder in partial remission. Anxiety disorder unspecified. Plan: Continue psychotropics unchanged mentioned in initial note. Assessment: Vital Signs/I&O: Vital Signs Date Time Temp Pulse Resp B/P (MAP) Pulse Ox O2 Delivery O2 Flow Rate FiO2 07/09/19 07:03 16 07/09/19 06:12 97.7 88 145/76 (99) 95 07/08/19 15:40 Nasal Cannula 2.0 I & O 07/08/19 07/08/19 07/09/19 15:00 23:00 07:00 Intake Total 720 ml 720 ml Balance 720 ml 720 ml Current Medications: Meds: Current Medications Medications (Trade) Dose Ordered Sig/Mason Route PRN Reason Start Time Stop Time Status Last Admin Dose Admin Albuterol/ Ipratropium (Combivent Respimat 20-100 Mcg) 1 puff RTQID INH 07/08/19 12:00 07/08/19 19:55 I have reviewed the current psychotropics carefully including drug interactions. Risk benefit ratio favors no change other than as noted in my dictated progress note. Diagnosis: Problems: (1) Personality disorder, unspecified (2) Mood disorder (3) Anxiety disorder (4) Major depressive disorder, recurrent episode (5) Bipolar affective, mixed ALBER GARCES MD Jul 09, 2019 08:04
[2019-07-09] MEDS: IPRATROPIUM/ALBUTEROL 20/100mcg/INH INHALER. INH SCH ×4 (08:42→21:06)
[2019-07-09] MEDS: FLUTICASONE FUROATE 200mcg/INH ELLIPTA INHALER. INH SCH (08:42)
[2019-07-09] MEDS: CICLOPIROX 0.77% TOPICAL CREAM 15GM TUBE. TP SCH ×2 (08:44→21:05)
[2019-07-09] MEDS: ENOXAPARIN 40 MG/0.4 ML SYRINGE. SQ SCH ×2 (08:45→21:06)
[2019-07-09] MEDS: ALPRAZolam 0.5 MG TABLET PO PRN ×3 (08:46→21:56)
[2019-07-09] MEDS: ASPIRIN ENTERIC COATED 81 MG TABLET.DR. PO SCH (08:46)
[2019-07-09] MEDS: CETIRIZINE HCL 10 MG TABLET PO SCH (08:46)
[2019-07-09] MEDS: PANTOPRAZOLE 40 MG TABLET. PO SCH (08:46)
[2019-07-09] MEDS: POTASSIUM CHLORIDE 20 MEQ TABLET.ER. PO SCH ×2 (08:47→21:06)
[2019-07-09] MEDS: LACTOBACILLUS RHAMNOSUS GG 1 CAPSULE. PO SCH ×2 (08:47→21:06)
[2019-07-09] MEDS: LOSARTAN 50 MG TABLET. PO SCH (08:47)
[2019-07-09] MEDS: SENNOSIDES/DOCUSATE 8.6/50MG TABLET. PO SCH (08:48)
[2019-07-09] MEDS: ARIPiprazole 5 MG TABLET PO SCH (08:48)
[2019-07-09] MEDS: FERROUS SULFATE 325 MG TABLET. PO SCH (08:48)
[2019-07-09] MEDS: CARVEDILOL 6.25 MG TABLET PO SCH ×2 (08:48→16:23)
[2019-07-09] MEDS: FUROSEMIDE 40 MG TABLET PO SCH ×2 (08:48→16:21)
[2019-07-09] MEDS: CYANOCOBALAMIN (VITAMIN B-12) 1,000 MCG TABLET. PO SCH (08:48)
[2019-07-09] MEDS: HYDROcodone/APAP 7.5/325MG 1 TAB TABLET PO PRN ×2 (08:49→21:57)
[2019-07-09] MEDS: DULoxetine HCL 30 MG CAPSULE.DR PO SCH (08:49)
--- NOTE | 2019-07-09 11:40 | TX PLAN ---
Interdisciplinary Tx Plan Admission Information May 29, 2019 at 22:10 Legal Status (on Admission): Voluntary DPOA/Guardian Name: Pt is a self-sign Contact Verified Code Status: Full Code Allergies: Coded Allergies: bupropion (Verified Allergy, Unknown, 05/29/19) clonazepam (Verified Allergy, Unknown, 05/29/19) erythromycin base (Verified Allergy, Unknown, 05/29/19) fentanyl (Verified Allergy, Unknown, 05/29/19) haloperidol (Verified Allergy, Unknown, 05/29/19) lisinopril (Verified Allergy, Unknown, 05/29/19) lorazepam (Verified Allergy, Unknown, 05/29/19) ondansetron (Verified Allergy, Unknown, 05/29/19) tree nut (Verified Allergy, Unknown, 05/29/19) Diagnoses Primary Diagnosis: MDD recurrent Reasons for Admission: Depressed, Suicidal ideation Problem in Patient's Words: I have so much going on I just don't know what kind of life I have left to live. Additional Admission Comments: SI with plan but will not disclose the plan. paranoid, thinks people at hospitals don't treat her nicely, anxious, depressed, suspicious, intermittent verbal aggression. Problems Active Problems: SI with no plan Verbal aggression Physical aggression Attention-seeking/demanding Medication non-compliance Inactive Problems: N/A Pt Strengths/Limitations Ability for [place]: Poor Cognitive Functioning/Ability: Fair Communication Skills/Ability: Fair Financial Resources: Poor Insight/Judgement: Poor Intellectual Ability: Fair Physical Health: Poor Social Skills: Fair Stability in Family: Poor Stability in School/Work: Poor Verbal Skills: Fair Discharge Criteria Discharge Criteria: Able meet basic life need, No need for close observ., Able to meet health needs, Adequate arrangements @DC, Verbal commit aftercare, Adequate self-care, Improved behavior, Improved mood/thought Preliminary Discharge Plan Preliminary DC Plan: Current Living Arrange., Home Special Precautions Fall Risk: Moderate Initial D/C Plan Patient will plan to discharge home and have an evaluation for hospice Identified Discharge Needs: Pt will be assessed for Hospice and other community services Currently Utilized Resources Currently Utilized Resources/P: None; pt appears to have no active services in place Referrals Community Resources: Primary Care Psychiatry Counseling Case Management/Social Work Potential Hospice referrals Identified Problems/Hx/Goals Objectives/Short-Term Goals Short Term Goals: Dec. Anxiety/Panic, Decrease Isolation, Dec. Symp. Depression, Medication Stabilization, No Suicidal/Mal. ideation, Promote Coping Skill Short Term Goals in Patient's: I need to get out of here. You guys are horrible. Interventions/Frequency Staff Interventions/Frequency&: Psychiatry to assess pt at least 3x per week. Art Therapy Specialist to assess pt at least 2x per week. Nursing to complete 15 minute checks daily. Encourage group/active participation during activities. 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 Pt stated that that she started out as a [employer] and only got paid $3.50 and hour. Education: BS in Nursing Community Follow-up May send referrals to potential SNF's. Treatment Plan Explained Patient/[facility] Examiner had this treatment plan explained to him/her as indicated by the signature below and has been given the opportunity to ask questions and make suggestions: Date: Patient/[facility] Examiner Signature: Status Update Update Pt is eating roughly 100% of meals and sleeping on average 6.25 hours per night. Pt has constant complaints about staff and continues multiple attempts to staff split. Pt does attempt to be interactive with peers but mainly sits in her room withdrawn. Due to current events on the [facility] with positive COVOID-19, pt will continue to be quarantined on the floor. Discharge plan for pt will be to discharge to a SNF once the quarantine ends in 2 weeks. EVITA CLARK Jul 09, 2019 11:40
[2019-07-09 15:50] VITALS: BP 106/63
[2019-07-09] MEDS: diphenhydrAMINE HCL 25 MG CAPSULE PO PRN (21:56)
--- NOTE | 2019-07-09 21:59 | PDOC ---
Exam Note: Heri Note: Please also refer to the separate dictated note~for this date of service dictated separately.~Patient seen individually. Discussed the patient with Nursing staff reviewed the chart.~Reviewed interim history and current functioning. Reviewed vital signs,~Labs/ Radiology~and current medications noted below. Continue current treatment with the changes noted in the dictated addendum note Assessment: Vital Signs/I&O: Vital Signs Date Time Temp Pulse Resp B/P (MAP) Pulse Ox O2 Delivery O2 Flow Rate FiO2 07/09/19 16:23 81 106/63 07/09/19 15:50 97.9 18 96 07/08/19 15:40 Nasal Cannula 2.0 I & O 07/08/19 07/08/19 07/09/19 14:59 22:59 06:59 Intake Total 720 ml 720 ml Balance 720 ml 720 ml Current Medications: Meds: Current Medications Medications (Trade) Dose Ordered Sig/Mason Route PRN Reason Start Time Stop Time Status Last Admin Dose Admin Fluticasone Furoate (ARNUITY 200mcg ELLIPTA) 1 puff DAILY INH 07/09/19 09:00 07/09/19 08:42 I have reviewed the current psychotropics carefully including drug interactions. Risk benefit ratio favors no change other than as noted in my dictated progress note. Diagnosis: Problems: (1) Personality disorder, unspecified (2) Mood disorder (3) Anxiety disorder (4) Major depressive disorder, recurrent episode (5) Bipolar affective, mixed ALBER GARCES MD Jul 09, 2019 21:59
[2019-07-10 05:32] VITALS: BP 125/76
[2019-07-10] MEDS: ARIPiprazole 5 MG TABLET PO SCH (08:21)
[2019-07-10] MEDS: CETIRIZINE HCL 10 MG TABLET PO SCH (08:21)
[2019-07-10] MEDS: LOSARTAN 50 MG TABLET. PO SCH (08:22)
[2019-07-10] MEDS: LACTOBACILLUS RHAMNOSUS GG 1 CAPSULE. PO SCH ×2 (08:22→21:03)
[2019-07-10] MEDS: DULoxetine HCL 30 MG CAPSULE.DR PO SCH (08:22)
[2019-07-10] MEDS: FERROUS SULFATE 325 MG TABLET. PO SCH (08:22)
[2019-07-10] MEDS: SENNOSIDES/DOCUSATE 8.6/50MG TABLET. PO SCH ×2 (08:22→08:27)
[2019-07-10] MEDS: ASPIRIN ENTERIC COATED 81 MG TABLET.DR. PO SCH (08:22)
[2019-07-10] MEDS: CYANOCOBALAMIN (VITAMIN B-12) 1,000 MCG TABLET. PO SCH (08:23)
[2019-07-10] MEDS: POTASSIUM CHLORIDE 20 MEQ TABLET.ER. PO SCH ×2 (08:23→21:03)
[2019-07-10] MEDS: CARVEDILOL 6.25 MG TABLET PO SCH ×2 (08:23→16:32)
[2019-07-10] MEDS: PANTOPRAZOLE 40 MG TABLET. PO SCH (08:24)
[2019-07-10] MEDS: FUROSEMIDE 40 MG TABLET PO SCH ×2 (08:24→16:33)
[2019-07-10] MEDS: IPRATROPIUM/ALBUTEROL 20/100mcg/INH INHALER. INH SCH ×4 (08:25→21:05)
[2019-07-10] MEDS: FLUTICASONE FUROATE 200mcg/INH ELLIPTA INHALER. INH SCH (08:25)
[2019-07-10] MEDS: ENOXAPARIN 40 MG/0.4 ML SYRINGE. SQ SCH ×2 (08:26→21:03)
[2019-07-10] MEDS: CICLOPIROX 0.77% TOPICAL CREAM 15GM TUBE. TP SCH ×2 (08:26→21:05)
--- NOTE | 2019-07-10 09:41 | PDOC ---
Exam Note: Heri Note: S/O: This note is a late entry for DOS 07/09/2019 covers elements not covered in my initial note. Discussed the patient with nursing staff, reviewed the chart. The patient was seen on audio-visual rounds in the evening with Arleth LAUREN. Nursing report was with Arleth LAUREN. She has been obsessed that she is going to because of the COVID-19 as other patients on the unit have come back positive for COVID-19. She has also been put on an inhaler instead of a nebulizer and she states she is going to because of this. I will defer all this to Dr. Morales/Dr. Wright who are following her medically. She was seen by Dr. Daniels, Neurology consults audio-visually and we will await recommendations. As per nursing report she remains somatically preoccupied constantly having different complaints many of which are difficult to corroborate with her clinical symptoms. ROS: Ambulation impaired in wheelchair. She complains of sore throat but there is no temperature, no cough. No CV, , Pulmonary, Eye system symptoms on review. MSE: Oriented. She is quiet, verbal, open, forthcoming, quite obsessed, anxious, asking about her personal belongings she brought in when she came to the hospital because she is wanting to pay her rent. Shaylee LAUREN, nurse manager relationship is addressing this. Speech coherent, somewhat rapid at times. Abstraction fair. Computation impaired. No active suicidal or homicidal ideation. Labs: Reviewed. Imp: Major depressive disorder in partial remission. Anxiety disorder unspecified. Plan: Continue psychotropics mentioned in initial note. Assessment: Vital Signs/I&O: Vital Signs Date Time Temp Pulse Resp B/P (MAP) Pulse Ox O2 Delivery O2 Flow Rate FiO2 07/10/19 08:23 77 125/76 07/10/19 05:32 97.6 18 99 Nasal Cannula 2.5 I & O 07/09/19 07/09/19 07/10/19 15:00 23:00 07:00 Intake Total 960 ml 600 ml Balance 960 ml 600 ml Current Medications: I have reviewed the current psychotropics carefully including drug interactions. Risk benefit ratio favors no change other than as noted in my dictated progress note. Diagnosis: Problems: (1) Personality disorder, unspecified (2) Mood disorder (3) Anxiety disorder (4) Major depressive disorder, recurrent episode (5) Bipolar affective, mixed ALBER GARCES MD Jul 10, 2019 09:41
[2019-07-10] MEDS: HYDROcodone/APAP 7.5/325MG 1 TAB TABLET PO PRN ×2 (12:07→21:02)
[2019-07-10] MEDS: ALPRAZolam 0.5 MG TABLET PO PRN ×2 (12:07→21:01)
[2019-07-10 15:44] VITALS: BP 132/76
[2019-07-10] MEDS: BENZOCAINE/MENTHOL LOZNGE 18'S BOX. PO PRN (21:02)
[2019-07-10] MEDS: PRIMIDONE 50 MG TABLET PO SCH (21:05)
--- NOTE | 2019-07-10 22:02 | PDOC ---
Exam Note: Heri Note: Please also refer to the separate dictated note~for this date of service dictated separately.~Patient seen individually. Discussed the patient with Nursing staff reviewed the chart.~Reviewed interim history and current functioning. Reviewed vital signs,~Labs/ Radiology~and current medications noted below. Continue current treatment with the changes noted in the dictated addendum note Assessment: Vital Signs/I&O: Vital Signs Date Time Temp Pulse Resp B/P (MAP) Pulse Ox O2 Delivery O2 Flow Rate FiO2 07/10/19 21:02 18 Nasal Cannula 2.5 07/10/19 16:32 83 132/76 07/10/19 15:44 98.1 96 I & O 07/09/19 07/09/19 07/10/19 15:00 23:00 07:00 Intake Total 960 ml 600 ml Balance 960 ml 600 ml Current Medications: Meds: Current Medications Medications (Trade) Dose Ordered Sig/Mason Route PRN Reason Start Time Stop Time Status Last Admin Dose Admin Primidone (Mysoline) 50 mg QHS PO 07/10/19 21:00 07/10/19 21:05 I have reviewed the current psychotropics carefully including drug interactions. Risk benefit ratio favors no change other than as noted in my dictated progress note. Diagnosis: Problems: (1) Personality disorder, unspecified (2) Mood disorder (3) Anxiety disorder (4) Major depressive disorder, recurrent episode (5) Bipolar affective, mixed ALBER GARCES MD Jul 10, 2019 22:02
[2019-07-11 06:01] VITALS: BP 131/84
[2019-07-11] MEDS: IPRATROPIUM/ALBUTEROL 20/100mcg/INH INHALER. INH SCH ×4 (09:11→21:08)
[2019-07-11] MEDS: FLUTICASONE FUROATE 200mcg/INH ELLIPTA INHALER. INH SCH (09:11)
[2019-07-11] MEDS: HYDROcodone/APAP 7.5/325MG 1 TAB TABLET PO PRN ×2 (09:12→21:08)
[2019-07-11] MEDS: CICLOPIROX 0.77% TOPICAL CREAM 15GM TUBE. TP SCH ×2 (09:12→21:00)
[2019-07-11] MEDS: ENOXAPARIN 40 MG/0.4 ML SYRINGE. SQ SCH ×2 (09:12→21:08)
[2019-07-11] MEDS: DULoxetine HCL 30 MG CAPSULE.DR PO SCH (09:12)
[2019-07-11] MEDS: POTASSIUM CHLORIDE 20 MEQ TABLET.ER. PO SCH ×2 (09:13→21:08)
[2019-07-11] MEDS: SENNOSIDES/DOCUSATE 8.6/50MG TABLET. PO SCH (09:13)
[2019-07-11] MEDS: PANTOPRAZOLE 40 MG TABLET. PO SCH (09:14)
[2019-07-11] MEDS: ARIPiprazole 5 MG TABLET PO SCH (09:14)
[2019-07-11] MEDS: CARVEDILOL 6.25 MG TABLET PO SCH ×2 (09:14→16:59)
[2019-07-11] MEDS: CETIRIZINE HCL 10 MG TABLET PO SCH (09:14)
[2019-07-11] MEDS: ASPIRIN ENTERIC COATED 81 MG TABLET.DR. PO SCH (09:14)
[2019-07-11] MEDS: CYANOCOBALAMIN (VITAMIN B-12) 1,000 MCG TABLET. PO SCH (09:14)
[2019-07-11] MEDS: LOSARTAN 50 MG TABLET. PO SCH (09:14)
[2019-07-11] MEDS: LACTOBACILLUS RHAMNOSUS GG 1 CAPSULE. PO SCH ×2 (09:15→21:08)
[2019-07-11] MEDS: FUROSEMIDE 40 MG TABLET PO SCH ×2 (09:15→16:59)
[2019-07-11] MEDS: FERROUS SULFATE 325 MG TABLET. PO SCH (09:15)
[2019-07-11] MEDS ORDERED: ACET325T9 PO (10:29)
[2019-07-11] MEDS ORDERED: ALBU2.5V8 IH (10:33)
[2019-07-11] MEDS ORDERED: ARIP5TAB13 PO (10:34)
[2019-07-11] MEDS ORDERED: BENZ1LOZ48 MM (10:35)
[2019-07-11] MEDS ORDERED: [UNRECOGNIZED DRUG - CODE] TP (10:36)
[2019-07-11] MEDS ORDERED: CYAN500T52 PO (10:37)
[2019-07-11] MEDS ORDERED: DULO30CA2 PO (10:37)
[2019-07-11] MEDS ORDERED: ENOX40DI SQ (10:38)
[2019-07-11] MEDS ORDERED: FLUT200B IH (10:39)
[2019-07-11] MEDS ORDERED: HYDR42CR2 TP (10:40)
[2019-07-11] MEDS ORDERED: IPRA4AER INH (10:41)
[2019-07-11] MEDS ORDERED: LOPE2TAB27 PO (10:43)
[2019-07-11] MEDS ORDERED: LACT1CAP19 PO (10:43)
[2019-07-11] MEDS ORDERED: MAG355OR12 PO (10:46)
[2019-07-11] MEDS ORDERED: MAGN24003 PO (10:47)
[2019-07-11] MEDS ORDERED: MENT113G6 TP (10:48)
[2019-07-11] MEDS ORDERED: NITR0.4T22 SL (10:49)
[2019-07-11] MEDS ORDERED: PRIM50TA24 PO (10:49)
[2019-07-11] MEDS ORDERED: SALI325S2 TP (10:50)
[2019-07-11] MEDS ORDERED: SODI45SP4 NS (10:51)
[2019-07-11] MEDS ORDERED: DIPH25CA58 PO (10:52)
[2019-07-11] MEDS ORDERED: HYDR50CA PO (10:53)
[2019-07-11] MEDS ORDERED: TRAZ-120 PO (10:54)
[2019-07-11] MEDS ORDERED: TRAZ-125 PO (10:54)
[2019-07-11] MEDS: MECLIZINE 12.5 MG TABLET. PO PRN (14:25)
[2019-07-11 15:47] VITALS: BP 122/67
[2019-07-11] MEDS: ALPRAZolam 0.5 MG TABLET PO PRN (21:08)
[2019-07-11] MEDS: PRIMIDONE 50 MG TABLET PO SCH (21:08)
--- NOTE | 2019-07-11 22:08 | PDOC ---
Exam Note: Heri Note: Please also refer to the separate dictated note~for this date of service dictated separately.~Patient seen individually. Discussed the patient with Nursing staff reviewed the chart.~Reviewed interim history and current functioning. Reviewed vital signs,~Labs/ Radiology~and current medications noted below. Continue current treatment with the changes noted in the dictated addendum note Assessment: Vital Signs/I&O: Vital Signs Date Time Temp Pulse Resp B/P (MAP) Pulse Ox O2 Delivery O2 Flow Rate FiO2 07/11/19 21:08 96 07/11/19 16:59 82 122/67 07/11/19 15:47 98.1 16 07/11/19 06:01 Nasal Cannula 2.0 I & O 07/10/19 07/10/19 07/11/19 15:00 23:00 07:00 Intake Total 840 ml 480 ml Balance 840 ml 480 ml Current Medications: I have reviewed the current psychotropics carefully including drug interactions. Risk benefit ratio favors no change other than as noted in my dictated progress note. Diagnosis: Problems: (1) Personality disorder, unspecified (2) Mood disorder (3) Anxiety disorder (4) Major depressive disorder, recurrent episode (5) Bipolar affective, mixed ALBER GARCES MD Jul 11, 2019 22:08
[2019-07-12 05:46] VITALS: BP 129/65
--- NOTE | 2019-07-12 07:49 | PDOC ---
Exam Note: Heri Note: S/O: This note is a late entry for DOS 07/10/2019 covers elements not covered in my initial note. Discussed the patient with treatment team meeting with the entire team in the morning including Daya, social service staff, nursing staff, and myself reviewed the chart. Nursing report was with Rosemarie LAUREN. I have been informed that every patient will be tested in sequence for COVID-19 and disposition plans would be determined by the result of the testing. The patient continues to be somewhat somatically preoccupied. She still complains of the movement problems. Dr. Daniels did see her from a neurological standpoint and started her on Primidone 50 mg h.s. She is sleeping 6 hours average. Appetite is 90%. Per nursing report, she is needy and other times somewhat triangulating staff. She was somewhat delusional in the morning per nursing report but better the rest of the day. ROS: Ambulation impaired in wheelchair. She complains of sore throat but there is no temperature, no cough. No CV, , Pulmonary, Eye system symptoms on review. MSE: Oriented. She is somewhat delusional this morning, verbal. Speech coherent, somewhat rapid at times. Abstraction fair. Computation impaired. No active suicidal or homicidal ideation. Labs: Reviewed. Imp: Major depressive disorder in partial remission. Anxiety disorder unspecified. Plan: Continue psychotropics mentioned in initial note. Assessment: Vital Signs/I&O: Vital Signs Date Time Temp Pulse Resp B/P (MAP) Pulse Ox O2 Delivery O2 Flow Rate FiO2 07/12/19 05:46 97.7 80 18 129/65 (86) 98 07/11/19 06:01 Nasal Cannula 2.0 I & O 07/11/19 07/11/19 07/12/19 15:00 23:00 07:00 Intake Total 780 ml 360 ml Balance 780 ml 360 ml Current Medications: I have reviewed the current psychotropics carefully including drug interactions. Risk benefit ratio favors no change other than as noted in my dictated progress note. Diagnosis: Problems: (1) Personality disorder, unspecified (2) Mood disorder (3) Anxiety disorder (4) Major depressive disorder, recurrent episode (5) Bipolar affective, mixed ALBER GARCES MD Jul 12, 2019 07:49
[2019-07-12] MEDS: FLUTICASONE FUROATE 200mcg/INH ELLIPTA INHALER. INH SCH (08:44)
[2019-07-12] MEDS: PANTOPRAZOLE 40 MG TABLET. PO SCH (08:44)
[2019-07-12] MEDS: CARVEDILOL 6.25 MG TABLET PO SCH ×2 (08:45→17:22)
[2019-07-12] MEDS: FERROUS SULFATE 325 MG TABLET. PO SCH (08:46)
[2019-07-12] MEDS: ARIPiprazole 5 MG TABLET PO SCH (08:46)
[2019-07-12] MEDS: ASPIRIN ENTERIC COATED 81 MG TABLET.DR. PO SCH (08:46)
[2019-07-12] MEDS: LOSARTAN 50 MG TABLET. PO SCH (08:47)
[2019-07-12] MEDS: FUROSEMIDE 40 MG TABLET PO SCH ×2 (08:47→17:21)
[2019-07-12] MEDS: POTASSIUM CHLORIDE 20 MEQ TABLET.ER. PO SCH ×2 (08:47→20:51)
[2019-07-12] MEDS: DULoxetine HCL 30 MG CAPSULE.DR PO SCH (08:47)
[2019-07-12] MEDS: LACTOBACILLUS RHAMNOSUS GG 1 CAPSULE. PO SCH ×2 (08:47→20:50)
[2019-07-12] MEDS: CETIRIZINE HCL 10 MG TABLET PO SCH (08:48)
[2019-07-12] MEDS: SENNOSIDES/DOCUSATE 8.6/50MG TABLET. PO SCH (08:48)
[2019-07-12] MEDS: ENOXAPARIN 40 MG/0.4 ML SYRINGE. SQ SCH ×2 (08:48→20:51)
[2019-07-12] MEDS: CYANOCOBALAMIN (VITAMIN B-12) 1,000 MCG TABLET. PO SCH (08:48)
[2019-07-12] MEDS: CICLOPIROX 0.77% TOPICAL CREAM 15GM TUBE. TP SCH ×2 (08:48→21:05)
[2019-07-12] MEDS: ALPRAZolam 0.5 MG TABLET PO PRN ×2 (08:56→17:22)
[2019-07-12] MEDS: HYDROcodone/APAP 7.5/325MG 1 TAB TABLET PO PRN ×2 (08:56→17:22)
[2019-07-12] MEDS: IPRATROPIUM/ALBUTEROL 20/100mcg/INH INHALER. INH SCH ×4 (09:01→20:50)
[2019-07-12 15:10] VITALS: BP 137/71
[2019-07-12] MEDS: diphenhydrAMINE HCL 25 MG CAPSULE PO PRN (20:50)
[2019-07-12] MEDS: PRIMIDONE 50 MG TABLET PO SCH (20:51)
[2019-07-12] MEDS: SODIUM CHLORIDE 0.65% NASAL SPRAY 45ML BOTTLE. NS PRN (21:41)
[2019-07-12] MEDS: LOPERAMIDE 2 MG CAPSULE PO PRN (21:41)
--- NOTE | 2019-07-12 22:11 | PDOC ---
Exam Note: Heri Note: Please also refer to the separate dictated note~for this date of service dictated separately.~Patient seen individually. Discussed the patient with Nursing staff reviewed the chart.~Reviewed interim history and current functioning. Reviewed vital signs,~Labs/ Radiology~and current medications noted below. Continue current treatment with the changes noted in the dictated addendum note Assessment: Vital Signs/I&O: Vital Signs Date Time Temp Pulse Resp B/P (MAP) Pulse Ox O2 Delivery O2 Flow Rate FiO2 07/12/19 17:22 83 137/71 07/12/19 17:22 20 07/12/19 15:10 98.2 97 Nasal Cannula 2.0 I & O 0 07/11/19 07/11/19 07/12/19 15:00 23:00 07:00 Intake Total 780 ml 360 ml Balance 780 ml 360 ml Current Medications: I have reviewed the current psychotropics carefully including drug interactions. Risk benefit ratio favors no change other than as noted in my dictated progress note. Diagnosis: Problems: (1) Personality disorder, unspecified (2) Mood disorder (3) Anxiety disorder (4) Major depressive disorder, recurrent episode (5) Bipolar affective, mixed ALBER GARCES MD Jul 12, 2019 22:11
[2019-07-13] MEDS: HYDROcodone/APAP 7.5/325MG 1 TAB TABLET PO PRN ×3 (03:24→20:40)
[2019-07-13 05:48] VITALS: BP 124/82
[2019-07-13] MEDS: ENOXAPARIN 40 MG/0.4 ML SYRINGE. SQ SCH ×2 (07:33→20:39)
[2019-07-13] MEDS: POTASSIUM CHLORIDE 20 MEQ TABLET.ER. PO SCH ×2 (07:34→20:40)
[2019-07-13] MEDS: FERROUS SULFATE 325 MG TABLET. PO SCH (07:34)
[2019-07-13] MEDS: ARIPiprazole 5 MG TABLET PO SCH (07:34)
[2019-07-13] MEDS: PANTOPRAZOLE 40 MG TABLET. PO SCH (07:34)
[2019-07-13] MEDS: SENNOSIDES/DOCUSATE 8.6/50MG TABLET. PO SCH ×2 (07:34→09:00)
[2019-07-13] MEDS: LOSARTAN 50 MG TABLET. PO SCH (07:35)
[2019-07-13] MEDS: IPRATROPIUM/ALBUTEROL 20/100mcg/INH INHALER. INH SCH ×4 (07:36→20:39)
[2019-07-13] MEDS: CYANOCOBALAMIN (VITAMIN B-12) 1,000 MCG TABLET. PO SCH (07:36)
[2019-07-13] MEDS: DULoxetine HCL 30 MG CAPSULE.DR PO SCH (07:37)
[2019-07-13] MEDS: CARVEDILOL 6.25 MG TABLET PO SCH ×2 (07:37→17:15)
[2019-07-13] MEDS: FUROSEMIDE 40 MG TABLET PO SCH ×2 (07:37→17:15)
[2019-07-13] MEDS: LACTOBACILLUS RHAMNOSUS GG 1 CAPSULE. PO SCH ×2 (07:37→20:40)
[2019-07-13] MEDS: CETIRIZINE HCL 10 MG TABLET PO SCH (07:37)
[2019-07-13] MEDS: ASPIRIN ENTERIC COATED 81 MG TABLET.DR. PO SCH (07:37)
[2019-07-13] MEDS: CHOLECALCIFEROL (VITAMIN D3) 50,000 UNIT CAPSULE PO SCH (07:40)
[2019-07-13] MEDS: CICLOPIROX 0.77% TOPICAL CREAM 15GM TUBE. TP SCH ×2 (07:40→20:39)
[2019-07-13] MEDS: FLUTICASONE FUROATE 200mcg/INH ELLIPTA INHALER. INH SCH (07:40)
--- NOTE | 2019-07-13 07:49 | PDOC ---
Exam Note: Heri Note: S/O: This note is a late entry for DOS 07/11/2019 covers elements not covered in my initial note. Discussed the patient with nursing staff, reviewed the chart. The patient was seen on audio-visual rounds in the evening. Nursing report was with Fela LAUREN. As per the nursing report the patient remains somewhat somatically preoccupied, anxious but this is similar to before. She does complain of some head and neck movements and some vague somatic symptoms. She has been seen by Dr. Daniels, Neurology and started on Primidone 50 mg a day for essential tremors and so far is tolerating it well but does not find any significant improvement. ROS: Ambulation impaired in wheelchair. No CV, , Pulmonary, Eye system symptoms on review. MSE: Oriented. She is somewhat delusional this morning, verbal. Speech coherent, somewhat rapid at times. Abstraction fair. Computation impaired. No active suicidal or homicidal ideation. Labs: Reviewed. Imp: Major depressive disorder in partial remission. Anxiety disorder unspecified. Plan: Continue psychotropics mentioned in initial note. Assessment: Vital Signs/I&O: Vital Signs Date Time Temp Pulse Resp B/P (MAP) Pulse Ox O2 Delivery O2 Flow Rate FiO2 07/13/19 07:37 80 124/82 07/13/19 05:48 97.4 20 97 Nasal Cannula 2.0 I & O 07/12/19 07/12/19 07/13/19 14:59 22:59 06:59 Intake Total 720 ml 360 ml Balance 720 ml 360 ml Current Medications: I have reviewed the current psychotropics carefully including drug interactions. Risk benefit ratio favors no change other than as noted in my dictated progress note. Diagnosis: Problems: (1) Personality disorder, unspecified (2) Mood disorder (3) Anxiety disorder (4) Major depressive disorder, recurrent episode (5) Bipolar affective, mixed ALBER GARCES MD Jul 13, 2019 07:49
--- NOTE | 2019-07-13 08:06 | PDOC ---
Exam Note: Heri Note: S/O: This note is a late entry for DOS 07/12/2019 covers elements not covered in my initial note. Discussed the patient with nursing staff, reviewed the chart. The patient was seen on audio-visual rounds in the evening. Nursing report was with Viji LAUREN. She slept 7 hours. Per nursing report, the patient remains at her baseline. She continues to be somatically preoccupied and again as I met with her on audio-visual rounds in the evening she was complaining of some head and neck tremors, unchanged from before. Nursing report sometimes indicate she is drug seeking. ROS: Other than above ambulation impaired in wheelchair. No CV, , Pulmonary, Eye system symptoms on review. MSE: Oriented. She is somewhat delusional this morning, verbal. Speech coherent, somewhat rapid at times. Abstraction fair. Computation impaired. No active suicidal or homicidal ideation. Labs: Reviewed. Imp: Major depressive disorder in partial remission. Anxiety disorder unspecified. Plan: Continue psychotropics mentioned in initial note. Assessment: Vital Signs/I&O: Vital Signs Date Time Temp Pulse Resp B/P (MAP) Pulse Ox O2 Delivery O2 Flow Rate FiO2 07/13/19 07:37 80 124/82 07/13/19 05:48 97.4 20 97 Nasal Cannula 2.0 I & O 07/12/19 07/12/19 07/13/19 15:00 23:00 07:00 Intake Total 720 ml 360 ml Balance 720 ml 360 ml Current Medications: I have reviewed the current psychotropics carefully including drug interactions. Risk benefit ratio favors no change other than as noted in my dictated progress note. Diagnosis: Problems: (1) Personality disorder, unspecified (2) Mood disorder (3) Anxiety disorder (4) Major depressive disorder, recurrent episode (5) Bipolar affective, mixed ALBER GARCES MD Jul 13, 2019 08:06
[2019-07-13 09:49] LABS: BASO % 0 % (0-3); EOS # 0.1 x10^3/uL (0.0-0.7); EOS % 2 % (0-3); HEMATOCRIT 34.3 % (36.0-47.0); HEMOGLOBIN 11.3 g/dL (12.0-15.5); LYMPH % 18 % (24-48); MEAN CORPUSCULAR HEMOGLOBIN 30 pg (25-35); MEAN CORPUSCULAR HGB CONC 33 g/dL (31-37); MEAN CORPUSCULAR VOLUME 91 fL (79-100); MONO # 0.3 x10^3/uL (0.0-1.1); MONO % 5 % (0-9); NEUT # 4.3 x10^3uL (1.8-7.7); NEUT % 75 % (31-73); PLATELET COUNT 209 x10^3/uL (140-400); RED BLOOD COUNT 3.79 x10^6/uL (3.50-5.40); RED CELL DISTRIBUTION WIDTH 13.3 % (11.5-14.5); WHITE BLOOD COUNT 5.7 x10^3/uL (4.0-11.0)
[2019-07-13 10:01] LABS: ALBUMIN 3.1 g/dL (3.4-5.0); ALBUMIN/GLOBULIN RATIO 0.8 (1.0-1.7); CALCIUM 8.7 mg/dL (8.5-10.1); CREATININE 0.9 mg/dL (0.6-1.0); GFR 62.8; POTASSIUM 3.8 mmol/L (3.5-5.1); TOTAL BILIRUBIN 0.1 mg/dL (0.2-1.0); TOTAL PROTEIN 6.9 g/dL (6.4-8.2)
[2019-07-13] MEDS: ALPRAZolam 0.5 MG TABLET PO PRN ×2 (12:41→20:40)
[2019-07-13 15:46] VITALS: BP 123/70
[2019-07-13] MEDS: SODIUM CHLORIDE 0.65% NASAL SPRAY 45ML BOTTLE. NS PRN (20:39)
[2019-07-13] MEDS: PRIMIDONE 50 MG TABLET PO SCH (20:40)
--- NOTE | 2019-07-13 22:10 | PDOC ---
Exam Note: Heri Note: Please also refer to the separate dictated note~for this date of service dictated separately.~Patient seen individually. Discussed the patient with Nursing staff reviewed the chart.~Reviewed interim history and current functioning. Reviewed vital signs,~Labs/ Radiology~and current medications noted below. Continue current treatment with the changes noted in the dictated addendum note Assessment: Vital Signs/I&O: Vital Signs Date Time Temp Pulse Resp B/P (MAP) Pulse Ox O2 Delivery O2 Flow Rate FiO2 07/13/19 21:41 97 07/13/19 17:15 86 123/70 07/13/19 15:46 98.3 20 07/13/19 05:48 Nasal Cannula 2.0 I & O 07/12/19 07/12/19 07/13/19 15:00 23:00 07:00 Intake Total 720 ml 360 ml Balance 720 ml 360 ml Labs: Laboratory Tests Test 07/13/19 09:15 White Blood Count 5.7 x10^3/uL (4.0-11.0) Red Blood Count 3.79 x10^6/uL (3.50-5.40) Hemoglobin 11.3 g/dL (12.0-15.5) L Hematocrit 34.3 % (36.0-47.0) L Mean Corpuscular Volume 91 fL (79-100) Mean Corpuscular Hemoglobin 30 pg (25-35) Mean Corpuscular Hemoglobin Concent 33 g/dL (31-37) Red Cell Distribution Width 13.3 % (11.5-14.5) Platelet Count 209 x10^3/uL (140-400) Neutrophils (%) (Auto) 75 % (31-73) H Lymphocytes (%) (Auto) 18 % (24-48) L Monocytes (%) (Auto) 5 % (0-9) Eosinophils (%) (Auto) 2 % (0-3) Basophils (%) (Auto) 0 % (0-3) Neutrophils # (Auto) 4.3 x10^3uL (1.8-7.7) Lymphocytes # (Auto) 1.0 x10^3/uL (1.0-4.8) Monocytes # (Auto) 0.3 x10^3/uL (0.0-1.1) Eosinophils # (Auto) 0.1 x10^3/uL (0.0-0.7) Basophils # (Auto) 0.0 x10^3/uL (0.0-0.2) Sodium Level 135 mmol/L (136-145) L Potassium Level 3.8 mmol/L (3.5-5.1) Chloride Level 95 mmol/L (98-107) L Carbon Dioxide Level 36 mmol/L (21-32) H Anion Gap 4 (6-14) L Blood Urea Nitrogen 12 mg/dL (7-20) Creatinine 0.9 mg/dL (0.6-1.0) Estimated GFR (Cockcroft-Gault) 62.8 BUN/Creatinine Ratio 13 (6-20) Glucose Level 140 mg/dL (70-99) H Calcium Level 8.7 mg/dL (8.5-10.1) Total Bilirubin 0.1 mg/dL (0.2-1.0) L Aspartate Amino Transferase (AST) 16 U/L (15-37) Alanine Aminotransferase (ALT) 35 U/L (14-59) Alkaline Phosphatase 60 U/L (46-116) Total Protein 6.9 g/dL (6.4-8.2) Albumin 3.1 g/dL (3.4-5.0) L Albumin/Globulin Ratio 0.8 (1.0-1.7) L Current Medications: I have reviewed the current psychotropics carefully including drug interactions. Risk benefit ratio favors no change other than as noted in my dictated progress note. Diagnosis: Problems: (1) Personality disorder, unspecified (2) Mood disorder (3) Anxiety disorder (4) Major depressive disorder, recurrent episode (5) Bipolar affective, mixed ALBER GARCES MD Jul 13, 2019 22:10
[2019-07-14] MEDS: MECLIZINE 12.5 MG TABLET. PO PRN (00:06)
[2019-07-14 05:52] VITALS: BP 150/74
[2019-07-14] MEDS: CARVEDILOL 6.25 MG TABLET PO SCH ×2 (08:15→16:57)
[2019-07-14] MEDS: PANTOPRAZOLE 40 MG TABLET. PO SCH (08:15)
[2019-07-14] MEDS: FLUTICASONE FUROATE 200mcg/INH ELLIPTA INHALER. INH SCH (08:15)
[2019-07-14] MEDS: IPRATROPIUM/ALBUTEROL 20/100mcg/INH INHALER. INH SCH ×4 (08:15→20:05)
[2019-07-14] MEDS: FERROUS SULFATE 325 MG TABLET. PO SCH (08:15)
[2019-07-14] MEDS: DULoxetine HCL 30 MG CAPSULE.DR PO SCH (08:16)
[2019-07-14] MEDS: ASPIRIN ENTERIC COATED 81 MG TABLET.DR. PO SCH (08:16)
[2019-07-14] MEDS: LOSARTAN 50 MG TABLET. PO SCH (08:16)
[2019-07-14] MEDS: ARIPiprazole 5 MG TABLET PO SCH (08:16)
[2019-07-14] MEDS: LACTOBACILLUS RHAMNOSUS GG 1 CAPSULE. PO SCH ×2 (08:16→20:07)
[2019-07-14] MEDS: POTASSIUM CHLORIDE 20 MEQ TABLET.ER. PO SCH ×2 (08:17→20:07)
[2019-07-14] MEDS: SENNOSIDES/DOCUSATE 8.6/50MG TABLET. PO SCH (08:17)
[2019-07-14] MEDS: CYANOCOBALAMIN (VITAMIN B-12) 1,000 MCG TABLET. PO SCH (08:17)
[2019-07-14] MEDS: CETIRIZINE HCL 10 MG TABLET PO SCH (08:17)
[2019-07-14] MEDS: FUROSEMIDE 40 MG TABLET PO SCH ×2 (08:17→16:57)
[2019-07-14] MEDS: CICLOPIROX 0.77% TOPICAL CREAM 15GM TUBE. TP SCH ×2 (08:18→20:09)
[2019-07-14] MEDS: ENOXAPARIN 40 MG/0.4 ML SYRINGE. SQ SCH ×2 (08:18→20:13)
[2019-07-14] MEDS: ALPRAZolam 0.5 MG TABLET PO PRN ×3 (08:18→22:37)
[2019-07-14] MEDS: HYDROcodone/APAP 7.5/325MG 1 TAB TABLET PO PRN ×3 (08:18→22:36)
[2019-07-14 16:01] VITALS: BP 160/86
[2019-07-14] MEDS: SODIUM CHLORIDE 0.65% NASAL SPRAY 45ML BOTTLE. NS PRN ×2 (17:01→20:07)
[2019-07-14] MEDS: PRIMIDONE 50 MG TABLET PO SCH (20:06)
--- NOTE | 2019-07-14 22:22 | PDOC ---
Exam Note: Heri Note: Please also refer to the separate dictated note~for this date of service dictated separately.~Patient seen individually. Discussed the patient with Nursing staff reviewed the chart.~Reviewed interim history and current functioning. Reviewed vital signs,~Labs/ Radiology~and current medications noted below. Continue current treatment with the changes noted in the dictated addendum note Assessment: Vital Signs/I&O: Vital Signs Date Time Temp Pulse Resp B/P (MAP) Pulse Ox O2 Delivery O2 Flow Rate FiO2 07/14/19 18:01 20 07/14/19 16:57 80 160/86 07/14/19 16:01 97.7 96 Nasal Cannula 2.0 I & O 0 07/13/19 07/13/19 07/14/19 15:00 23:00 07:00 Intake Total 840 ml 480 ml 240 ml Balance 840 ml 480 ml 240 ml Current Medications: I have reviewed the current psychotropics carefully including drug interactions. Risk benefit ratio favors no change other than as noted in my dictated progress note. Diagnosis: Problems: (1) Personality disorder, unspecified (2) Mood disorder (3) Anxiety disorder (4) Major depressive disorder, recurrent episode (5) Bipolar affective, mixed ALBER GARCES MD Jul 14, 2019 22:22
[2019-07-15] MEDS: ALPRAZolam 0.5 MG TABLET PO PRN ×4 (05:36→21:21)
[2019-07-15] MEDS: HYDROcodone/APAP 7.5/325MG 1 TAB TABLET PO PRN ×3 (05:36→21:03)
[2019-07-15 06:13] VITALS: BP 143/84
[2019-07-15 06:21] LABS: BASO % 1 % (0-3); EOS # 0.2 x10^3/uL (0.0-0.7); EOS % 3 % (0-3); HEMATOCRIT 34.3 % (36.0-47.0); HEMOGLOBIN 10.9 g/dL (12.0-15.5); LYMPH # 1.7 x10^3/uL (1.0-4.8); LYMPH % 34 % (24-48); MEAN CORPUSCULAR HEMOGLOBIN 29 pg (25-35); MEAN CORPUSCULAR HGB CONC 32 g/dL (31-37); MEAN CORPUSCULAR VOLUME 91 fL (79-100); MONO # 0.4 x10^3/uL (0.0-1.1); MONO % 7 % (0-9); NEUT # 2.8 x10^3uL (1.8-7.7); NEUT % 55 % (31-73); PLATELET COUNT 225 x10^3/uL (140-400); RED BLOOD COUNT 3.76 x10^6/uL (3.50-5.40); RED CELL DISTRIBUTION WIDTH 13.2 % (11.5-14.5)
[2019-07-15 06:35] LABS: ALBUMIN 3.1 g/dL (3.4-5.0); ALBUMIN/GLOBULIN RATIO 0.8 (1.0-1.7); CALCIUM 8.6 mg/dL (8.5-10.1); CREATININE 0.8 mg/dL (0.6-1.0); POTASSIUM 3.9 mmol/L (3.5-5.1); TOTAL BILIRUBIN 0.1 mg/dL (0.2-1.0); TOTAL PROTEIN 6.9 g/dL (6.4-8.2)
--- NOTE | 2019-07-15 07:33 | PDOC ---
Exam Note: Heri Note: S/O: This note is a late entry for DOS 07/13/2019 covers elements not covered in my initial note. Discussed the patient with nursing staff, reviewed the chart. The patient was seen on audio-visual rounds in the evening with Viji LAUREN. Nursing report was with Viji LAUREN. She slept 6 hours. ROS: She complains of dizziness and wanted a meclizine but a short while later nursing staff checked with her and she had no further complaints of dizziness. Ambulation impaired in wheelchair. No CV, , Pulmonary, Eye systems symptoms on review. She remains somatically preoccupied but otherwise unchanged. MSE: Oriented, delusional, verbal. Speech coherent, somewhat rapid at times. Abstraction fair. Computation impaired. No active suicidal or homicidal ideation. She was not as fixated on the head tremors as she has been in the past. Labs: Reviewed. Sodium 35 and we will redraw it on 07/15/2019. We will defer to Dr. Morales. Imp: Major depressive disorder in partial remission. Anxiety disorder unspecified. Plan: Continue psychotropics mentioned in initial note. Assessment: Vital Signs/I&O: Vital Signs Date Time Temp Pulse Resp B/P (MAP) Pulse Ox O2 Delivery O2 Flow Rate FiO2 07/15/19 06:36 98 07/15/19 06:13 97.6 76 20 143/84 (103) Nasal Cannula 2.0 I & O 07/14/19 07/14/19 07/15/19 15:00 23:00 07:00 Intake Total 480 ml 480 ml Balance 480 ml 480 ml Labs: Laboratory Tests Test 07/15/19 06:01 White Blood Count 5.0 x10^3/uL (4.0-11.0) Red Blood Count 3.76 x10^6/uL (3.50-5.40) Hemoglobin 10.9 g/dL (12.0-15.5) L Hematocrit 34.3 % (36.0-47.0) L Mean Corpuscular Volume 91 fL (79-100) Mean Corpuscular Hemoglobin 29 pg (25-35) Mean Corpuscular Hemoglobin Concent 32 g/dL (31-37) Red Cell Distribution Width 13.2 % (11.5-14.5) Platelet Count 225 x10^3/uL (140-400) Neutrophils (%) (Auto) 55 % (31-73) Lymphocytes (%) (Auto) 34 % (24-48) Monocytes (%) (Auto) 7 % (0-9) Eosinophils (%) (Auto) 3 % (0-3) Basophils (%) (Auto) 1 % (0-3) Neutrophils # (Auto) 2.8 x10^3uL (1.8-7.7) Lymphocytes # (Auto) 1.7 x10^3/uL (1.0-4.8) Monocytes # (Auto) 0.4 x10^3/uL (0.0-1.1) Eosinophils # (Auto) 0.2 x10^3/uL (0.0-0.7) Basophils # (Auto) 0.0 x10^3/uL (0.0-0.2) Platelet Estimate Pending Sodium Level 134 mmol/L (136-145) L Potassium Level 3.9 mmol/L (3.5-5.1) Chloride Level 94 mmol/L (98-107) L Carbon Dioxide Level 39 mmol/L (21-32) H Anion Gap 1 (6-14) L Blood Urea Nitrogen 14 mg/dL (7-20) Creatinine 0.8 mg/dL (0.6-1.0) Estimated GFR (Cockcroft-Gault) 72.0 BUN/Creatinine Ratio 18 (6-20) Glucose Level 80 mg/dL (70-99) Calcium Level 8.6 mg/dL (8.5-10.1) Total Bilirubin 0.1 mg/dL (0.2-1.0) L Aspartate Amino Transferase (AST) 14 U/L (15-37) L Alanine Aminotransferase (ALT) 32 U/L (14-59) Alkaline Phosphatase 59 U/L (46-116) Total Protein 6.9 g/dL (6.4-8.2) Albumin 3.1 g/dL (3.4-5.0) L Albumin/Globulin Ratio 0.8 (1.0-1.7) L Current Medications: I have reviewed the current psychotropics carefully including drug interactions. Risk benefit ratio favors no change other than as noted in my dictated progress note. Diagnosis: Problems: (1) Personality disorder, unspecified (2) Mood disorder (3) Anxiety disorder (4) Major depressive disorder, recurrent episode (5) Bipolar affective, mixed ALBER GARCES MD Jul 15, 2019 07:33
--- NOTE | 2019-07-15 07:48 | PDOC ---
Exam Note: Heri Note: S/O: This note is a late entry for DOS 07/14/2019 covers elements not covered in my initial note. Discussed the patient with nursing staff, reviewed the chart. The patient was seen on audio-visual rounds in the evening with Viji LAUREN. Nursing report was with Viji LAUREN. She slept 4-1/2 hours. ROS: No CV, , Pulmonary, Eye systems symptoms on review. She remains somatically preoccupied but otherwise unchanged. Ambulation impaired on wheelchair. MSE: Oriented reasonably. Speech coherent, somewhat rapid at times. Abstraction fair. Computation impaired. No active suicidal or homicidal ideation. Labs: Reviewed. Imp: Major depressive disorder in partial remission. Anxiety disorder unspecified. Plan: Continue psychotropics mentioned in initial note. Assessment: Vital Signs/I&O: Vital Signs Date Time Temp Pulse Resp B/P (MAP) Pulse Ox O2 Delivery O2 Flow Rate FiO2 07/15/19 06:36 98 07/15/19 06:13 97.6 76 20 143/84 (103) Nasal Cannula 2.0 I & O 07/14/19 07/14/19 07/15/19 15:00 23:00 07:00 Intake Total 480 ml 480 ml Balance 480 ml 480 ml Labs: Laboratory Tests Test 07/15/19 06:01 White Blood Count 5.0 x10^3/uL (4.0-11.0) Red Blood Count 3.76 x10^6/uL (3.50-5.40) Hemoglobin 10.9 g/dL (12.0-15.5) L Hematocrit 34.3 % (36.0-47.0) L Mean Corpuscular Volume 91 fL (79-100) Mean Corpuscular Hemoglobin 29 pg (25-35) Mean Corpuscular Hemoglobin Concent 32 g/dL (31-37) Red Cell Distribution Width 13.2 % (11.5-14.5) Platelet Count 225 x10^3/uL (140-400) Neutrophils (%) (Auto) 55 % (31-73) Lymphocytes (%) (Auto) 34 % (24-48) Monocytes (%) (Auto) 7 % (0-9) Eosinophils (%) (Auto) 3 % (0-3) Basophils (%) (Auto) 1 % (0-3) Neutrophils # (Auto) 2.8 x10^3uL (1.8-7.7) Lymphocytes # (Auto) 1.7 x10^3/uL (1.0-4.8) Monocytes # (Auto) 0.4 x10^3/uL (0.0-1.1) Eosinophils # (Auto) 0.2 x10^3/uL (0.0-0.7) Basophils # (Auto) 0.0 x10^3/uL (0.0-0.2) Platelet Estimate Pending Sodium Level 134 mmol/L (136-145) L Potassium Level 3.9 mmol/L (3.5-5.1) Chloride Level 94 mmol/L (98-107) L Carbon Dioxide Level 39 mmol/L (21-32) H Anion Gap 1 (6-14) L Blood Urea Nitrogen 14 mg/dL (7-20) Creatinine 0.8 mg/dL (0.6-1.0) Estimated GFR (Cockcroft-Gault) 72.0 BUN/Creatinine Ratio 18 (6-20) Glucose Level 80 mg/dL (70-99) Calcium Level 8.6 mg/dL (8.5-10.1) Total Bilirubin 0.1 mg/dL (0.2-1.0) L Aspartate Amino Transferase (AST) 14 U/L (15-37) L Alanine Aminotransferase (ALT) 32 U/L (14-59) Alkaline Phosphatase 59 U/L (46-116) Total Protein 6.9 g/dL (6.4-8.2) Albumin 3.1 g/dL (3.4-5.0) L Albumin/Globulin Ratio 0.8 (1.0-1.7) L Current Medications: I have reviewed the current psychotropics carefully including drug interactions. Risk benefit ratio favors no change other than as noted in my dictated progress note. Diagnosis: Problems: (1) Personality disorder, unspecified (2) Mood disorder (3) Anxiety disorder (4) Major depressive disorder, recurrent episode (5) Bipolar affective, mixed ALBER GARCES MD Jul 15, 2019 07:48
[2019-07-15 08:02] LABS: % ATYL 4 % (0-0); % BANDS 5 % (0-9); % EOS 3 % (0-5); % LYMPHS 26 % (24-48); % MONOS 7 % (0-10); % SEGS 55 % (35-66)
[2019-07-15 08:05] LABS: PLT ESTIMATE ADEQUATE (ADEQUATE)
[2019-07-15 08:07] LABS: STOMATOCYTES PRESENT
[2019-07-15] MEDS: FLUTICASONE FUROATE 200mcg/INH ELLIPTA INHALER. INH SCH (09:03)
[2019-07-15] MEDS: IPRATROPIUM/ALBUTEROL 20/100mcg/INH INHALER. INH SCH ×4 (09:04→21:00)
[2019-07-15] MEDS: CICLOPIROX 0.77% TOPICAL CREAM 15GM TUBE. TP SCH ×4 (09:04→21:03)
[2019-07-15] MEDS: ARIPiprazole 5 MG TABLET PO SCH (09:05)
[2019-07-15] MEDS: ASPIRIN ENTERIC COATED 81 MG TABLET.DR. PO SCH (09:05)
[2019-07-15] MEDS: SENNOSIDES/DOCUSATE 8.6/50MG TABLET. PO SCH ×2 (09:05→09:13)
[2019-07-15] MEDS: CETIRIZINE HCL 10 MG TABLET PO SCH (09:05)
[2019-07-15] MEDS: FUROSEMIDE 40 MG TABLET PO SCH ×2 (09:05→17:18)
[2019-07-15] MEDS: ENOXAPARIN 40 MG/0.4 ML SYRINGE. SQ SCH ×2 (09:05→21:03)
[2019-07-15] MEDS: DULoxetine HCL 30 MG CAPSULE.DR PO SCH (09:05)
[2019-07-15] MEDS: CARVEDILOL 6.25 MG TABLET PO SCH ×2 (09:06→17:18)
[2019-07-15] MEDS: LOSARTAN 50 MG TABLET. PO SCH (09:06)
[2019-07-15] MEDS: LACTOBACILLUS RHAMNOSUS GG 1 CAPSULE. PO SCH ×2 (09:06→21:02)
[2019-07-15] MEDS: FERROUS SULFATE 325 MG TABLET. PO SCH (09:07)
[2019-07-15] MEDS: POTASSIUM CHLORIDE 20 MEQ TABLET.ER. PO SCH ×2 (09:07→21:02)
[2019-07-15] MEDS: PANTOPRAZOLE 40 MG TABLET. PO SCH (09:07)
[2019-07-15] MEDS: CYANOCOBALAMIN (VITAMIN B-12) 1,000 MCG TABLET. PO SCH (09:07)
[2019-07-15 15:38] VITALS: BP 115/65
[2019-07-15] MEDS: PRIMIDONE 50 MG TABLET PO SCH (21:02)
--- NOTE | 2019-07-15 21:53 | PDOC ---
Exam Note: Heri Note: Please also refer to the separate dictated note~for this date of service dictated separately.~Patient seen individually. Discussed the patient with Nursing staff reviewed the chart.~Reviewed interim history and current functioning. Reviewed vital signs,~Labs/ Radiology~and current medications noted below. Continue current treatment with the changes noted in the dictated addendum note Assessment: Vital Signs/I&O: Vital Signs Date Time Temp Pulse Resp B/P (MAP) Pulse Ox O2 Delivery O2 Flow Rate FiO2 07/15/19 21:03 98 07/15/19 17:18 79 115/65 07/15/19 15:38 97.8 18 2.0 07/15/19 06:13 Nasal Cannula I & O 07/14/19 07/14/19 07/15/19 15:00 23:00 07:00 Intake Total 480 ml 480 ml Balance 480 ml 480 ml Labs: Laboratory Tests Test 07/15/19 06:01 White Blood Count 5.0 x10^3/uL (4.0-11.0) Red Blood Count 3.76 x10^6/uL (3.50-5.40) Hemoglobin 10.9 g/dL (12.0-15.5) L Hematocrit 34.3 % (36.0-47.0) L Mean Corpuscular Volume 91 fL (79-100) Mean Corpuscular Hemoglobin 29 pg (25-35) Mean Corpuscular Hemoglobin Concent 32 g/dL (31-37) Red Cell Distribution Width 13.2 % (11.5-14.5) Platelet Count 225 x10^3/uL (140-400) Neutrophils (%) (Auto) 55 % (31-73) Lymphocytes (%) (Auto) 34 % (24-48) Monocytes (%) (Auto) 7 % (0-9) Eosinophils (%) (Auto) 3 % (0-3) Basophils (%) (Auto) 1 % (0-3) Neutrophils # (Auto) 2.8 x10^3uL (1.8-7.7) Lymphocytes # (Auto) 1.7 x10^3/uL (1.0-4.8) Monocytes # (Auto) 0.4 x10^3/uL (0.0-1.1) Eosinophils # (Auto) 0.2 x10^3/uL (0.0-0.7) Basophils # (Auto) 0.0 x10^3/uL (0.0-0.2) Segmented Neutrophils % 55 % (35-66) Band Neutrophils % 5 % (0-9) Lymphocytes % 26 % (24-48) Atypical Lymphocytes % (Manual) 4 % (0-0) H Monocytes % 7 % (0-10) Eosinophils % 3 % (0-5) Platelet Estimate Adequate (ADEQUATE) Basophilic Stippling Present Stomatocytes Present Sodium Level 134 mmol/L (136-145) L Potassium Level 3.9 mmol/L (3.5-5.1) Chloride Level 94 mmol/L (98-107) L Carbon Dioxide Level 39 mmol/L (21-32) H Anion Gap 1 (6-14) L Blood Urea Nitrogen 14 mg/dL (7-20) Creatinine 0.8 mg/dL (0.6-1.0) Estimated GFR (Cockcroft-Gault) 72.0 BUN/Creatinine Ratio 18 (6-20) Glucose Level 80 mg/dL (70-99) Calcium Level 8.6 mg/dL (8.5-10.1) Total Bilirubin 0.1 mg/dL (0.2-1.0) L Aspartate Amino Transferase (AST) 14 U/L (15-37) L Alanine Aminotransferase (ALT) 32 U/L (14-59) Alkaline Phosphatase 59 U/L (46-116) Total Protein 6.9 g/dL (6.4-8.2) Albumin 3.1 g/dL (3.4-5.0) L Albumin/Globulin Ratio 0.8 (1.0-1.7) L Current Medications: I have reviewed the current psychotropics carefully including drug interactions. Risk benefit ratio favors no change other than as noted in my dictated progress note. Diagnosis: Problems: (1) Personality disorder, unspecified (2) Mood disorder (3) Anxiety disorder (4) Major depressive disorder, recurrent episode (5) Bipolar affective, mixed ALBER GARCES MD Jul 15, 2019 21:53
[2019-07-16 04:54] VITALS: BP 119/59
[2019-07-16] MEDS: ALPRAZolam 0.5 MG TABLET PO PRN ×4 (05:10→20:25)
[2019-07-16] MEDS: HYDROcodone/APAP 7.5/325MG 1 TAB TABLET PO PRN ×3 (05:11→20:26)
[2019-07-16] MEDS: CICLOPIROX 0.77% TOPICAL CREAM 15GM TUBE. TP SCH ×3 (09:30→20:26)
[2019-07-16] MEDS: SENNOSIDES/DOCUSATE 8.6/50MG TABLET. PO SCH (09:38)
[2019-07-16] MEDS: IPRATROPIUM/ALBUTEROL 20/100mcg/INH INHALER. INH SCH ×4 (09:38→20:25)
[2019-07-16] MEDS: FLUTICASONE FUROATE 200mcg/INH ELLIPTA INHALER. INH SCH (09:38)
[2019-07-16] MEDS: ENOXAPARIN 40 MG/0.4 ML SYRINGE. SQ SCH ×2 (09:40→20:26)
[2019-07-16] MEDS: LOSARTAN 50 MG TABLET. PO SCH (09:40)
[2019-07-16] MEDS: ASPIRIN ENTERIC COATED 81 MG TABLET.DR. PO SCH (09:40)
[2019-07-16] MEDS: ARIPiprazole 5 MG TABLET PO SCH (09:41)
[2019-07-16] MEDS: POTASSIUM CHLORIDE 20 MEQ TABLET.ER. PO SCH ×2 (09:41→20:26)
[2019-07-16] MEDS: LACTOBACILLUS RHAMNOSUS GG 1 CAPSULE. PO SCH ×2 (09:41→20:25)
[2019-07-16] MEDS: CETIRIZINE HCL 10 MG TABLET PO SCH (09:41)
[2019-07-16] MEDS: FUROSEMIDE 40 MG TABLET PO SCH ×2 (09:41→17:51)
[2019-07-16] MEDS: PANTOPRAZOLE 40 MG TABLET. PO SCH (09:41)
[2019-07-16] MEDS: FERROUS SULFATE 325 MG TABLET. PO SCH (09:42)
[2019-07-16] MEDS: CARVEDILOL 6.25 MG TABLET PO SCH ×2 (09:42→17:51)
[2019-07-16] MEDS: CYANOCOBALAMIN (VITAMIN B-12) 1,000 MCG TABLET. PO SCH (09:42)
[2019-07-16] MEDS: DULoxetine HCL 30 MG CAPSULE.DR PO SCH (09:44)
[2019-07-16 15:30] VITALS: BP 150/74
[2019-07-16] MEDS: traZODone 100 MG TABLET. PO PRN (20:25)
[2019-07-16] MEDS: PRIMIDONE 50 MG TABLET PO SCH (20:26)
--- NOTE | 2019-07-16 22:37 | PDOC ---
Exam Note: Heri Note: S/O: This note is a late entry for DOS 07/15/2019 covers elements not covered in my initial note. This is an addendum to psychiatric progress note for DOS 07/15/2019. Discussed the patient with nursing staff, reviewed the chart. The patient was seen on audio-visual rounds in the evening with Rosemarie LAUREN. Kailyn borrego report was with Gladys LAUREN. Patient slept 4-/14 hours previous night. She remains somewhat somatically preoccupied, complains of headaches and some tremors. She has been started on Primidone 50 mg a day by Dr. Daniels [facility] for the tremors and I will defer to Dr. Daniels for any further adjustments. She has been upset at the nursing staff complaining about how [employer] do lab studies and she does not trust them for it. ROS: Ambulation impaired and she is lying in bed. No CV, , Pulmonary, Eye systems symptoms on review. MSE: Oriented reasonably. Speech coherent. She appears less anxious. Abstraction fair. Computation somewhat impaired. Language function intact. Mood is dysphoric at times. She minimizes this. No suicidal or homicidal idea tion. Labs: Reviewed. Imp: Major depressive disorder in partial remission. Anxiety disorder unspecified. Plan: No change from initial note. Neurology follow-up with Dr. Daniels. Transition plan will be dependent on the COVID-19 quarantine period being completed. Assessment: Vital Signs/I&O: Vital Signs Date Time Temp Pulse Resp B/P (MAP) Pulse Ox O2 Delivery O2 Flow Rate FiO2 07/16/19 21:41 97 07/16/19 18:05 18 Room Air 07/16/19 17:51 91 150/74 07/16/19 15:30 98.3 2.0 I & O 07/15/19 07/15/19 07/16/19 15:00 23:00 07:00 Intake Total 720 ml 600 ml Balance 720 ml 600 ml Current Medications: I have reviewed the current psychotropics carefully including drug interactions. Risk benefit ratio favors no change other than as noted in my dictated progress note. Diagnosis: Problems: (1) Personality disorder, unspecified (2) Mood disorder (3) Anxiety disorder (4) Major depressive disorder, recurrent episode (5) Bipolar affective, mixed ALBER GARCES MD Jul 16, 2019 22:37
--- NOTE | 2019-07-16 22:53 | PDOC ---
Exam Note: Heri Note: Please also refer to the separate dictated note~for this date of service dictated separately.~Patient seen individually. Discussed the patient with Nursing staff reviewed the chart.~Reviewed interim history and current functioning. Reviewed vital signs,~Labs/ Radiology~and current medications noted below. Continue current treatment with the changes noted in the dictated addendum note Assessment: Vital Signs/I&O: Vital Signs Date Time Temp Pulse Resp B/P (MAP) Pulse Ox O2 Delivery O2 Flow Rate FiO2 07/16/19 21:41 97 07/16/19 18:05 18 Room Air 07/16/19 17:51 91 150/74 07/16/19 15:30 98.3 2.0 I & O 07/15/19 07/15/19 07/16/19 15:00 23:00 07:00 Intake Total 720 ml 600 ml Balance 720 ml 600 ml Current Medications: I have reviewed the current psychotropics carefully including drug interactions. Risk benefit ratio favors no change other than as noted in my dictated progress note. Diagnosis: Problems: (1) Personality disorder, unspecified (2) Mood disorder (3) Anxiety disorder (4) Major depressive disorder, recurrent episode (5) Bipolar affective, mixed ALBER GARCES MD Jul 16, 2019 22:53
[2019-07-17] MEDS: ALPRAZolam 0.5 MG TABLET PO PRN ×3 (05:24→20:41)
[2019-07-17] MEDS: HYDROcodone/APAP 7.5/325MG 1 TAB TABLET PO PRN ×3 (05:24→20:41)
[2019-07-17 06:11] VITALS: BP 140/76
[2019-07-17] MEDS: CICLOPIROX 0.77% TOPICAL CREAM 15GM TUBE. TP SCH ×2 (09:00→19:42)
[2019-07-17] MEDS: IPRATROPIUM/ALBUTEROL 20/100mcg/INH INHALER. INH SCH ×4 (09:18→20:42)
[2019-07-17] MEDS: FLUTICASONE FUROATE 200mcg/INH ELLIPTA INHALER. INH SCH (09:19)
[2019-07-17] MEDS: POTASSIUM CHLORIDE 20 MEQ TABLET.ER. PO SCH ×2 (09:21→20:42)
[2019-07-17] MEDS: DULoxetine HCL 30 MG CAPSULE.DR PO SCH (09:22)
[2019-07-17] MEDS: PANTOPRAZOLE 40 MG TABLET. PO SCH (09:22)
[2019-07-17] MEDS: ASPIRIN ENTERIC COATED 81 MG TABLET.DR. PO SCH (09:22)
[2019-07-17] MEDS: ARIPiprazole 5 MG TABLET PO SCH (09:22)
[2019-07-17] MEDS: CARVEDILOL 6.25 MG TABLET PO SCH ×2 (09:22→16:35)
[2019-07-17] MEDS: CETIRIZINE HCL 10 MG TABLET PO SCH (09:23)
[2019-07-17] MEDS: FERROUS SULFATE 325 MG TABLET. PO SCH (09:23)
[2019-07-17] MEDS: SENNOSIDES/DOCUSATE 8.6/50MG TABLET. PO SCH (09:23)
[2019-07-17] MEDS: FUROSEMIDE 40 MG TABLET PO SCH ×2 (09:23→16:34)
[2019-07-17] MEDS: CYANOCOBALAMIN (VITAMIN B-12) 1,000 MCG TABLET. PO SCH (09:23)
[2019-07-17] MEDS: LOSARTAN 50 MG TABLET. PO SCH (09:23)
[2019-07-17] MEDS: LACTOBACILLUS RHAMNOSUS GG 1 CAPSULE. PO SCH ×2 (09:24→20:42)
[2019-07-17] MEDS: ENOXAPARIN 40 MG/0.4 ML SYRINGE. SQ SCH ×2 (09:35→20:40)
[2019-07-17] MEDS: CYCLOBENZAPRINE 10 MG TABLET. PO PRN ×2 (13:06→20:41)
[2019-07-17 15:35] VITALS: BP 152/74
[2019-07-17] MEDS: PRIMIDONE 50 MG TABLET PO SCH (20:42)
--- NOTE | 2019-07-17 22:15 | PDOC ---
Exam Note: Heri Note: S/O: This note is a late entry for DOS 07/16/2019 covers elements not covered in my initial note. Discussed the patient with nursing staff, reviewed the chart. The patient was seen on audio-visual rounds in the evening with René RN. Nursing report was with René LAUREN. Patient slept 9 hours previous night. Reportedly she has been medication seeking, splitting staff per nursing report. Complains of chronic pain worsening during the day. Received Lortab at 9 a.m. and 5 p.m. As I met with her in the evening she was complaining of hip pain. We will defer to Dr. Morales ROS: Ambulation impaired. No CV, , Pulmonary, Eye systems symptoms on review. She has vague somatic symptoms. MSE: Alert and oriented. Speech coherent, rapid at times. Abstraction fair. Computation somewhat impaired. Language function intact. Attention span short. No suicidal or homicidal ideation. Labs: Reviewed. Imp: Major depressive disorder in partial remission. Anxiety disorder unspecified. Plan: Continue psychotropics from initial note. Assessment: Vital Signs/I&O: Vital Signs Date Time Temp Pulse Resp B/P (MAP) Pulse Ox O2 Delivery O2 Flow Rate FiO2 07/17/19 22:02 98 07/17/19 16:36 16 Room Air 07/17/19 16:35 85 152/74 07/17/19 15:35 98.6 2.0 I & O 07/16/19 07/16/19 07/17/19 15:00 23:00 07:00 Intake Total 720 ml 120 ml Balance 720 ml 120 ml Current Medications: I have reviewed the current psychotropics carefully including drug interactions. Risk benefit ratio favors no change other than as noted in my dictated progress note. Diagnosis: Problems: (1) Personality disorder, unspecified (2) Mood disorder (3) Anxiety disorder (4) Major depressive disorder, recurrent episode (5) Bipolar affective, mixed ALBER GARCES MD Jul 17, 2019 22:15
--- NOTE | 2019-07-17 22:16 | PDOC ---
Exam Note: Heri Note: Please also refer to the separate dictated note~for this date of service dictated separately.~Patient seen individually. Discussed the patient with Nursing staff reviewed the chart.~Reviewed interim history and current functioning. Reviewed vital signs,~Labs/ Radiology~and current medications noted below. Continue current treatment with the changes noted in the dictated addendum note Assessment: Vital Signs/I&O: Vital Signs Date Time Temp Pulse Resp B/P (MAP) Pulse Ox O2 Delivery O2 Flow Rate FiO2 07/17/19 22:02 98 07/17/19 16:36 16 Room Air 07/17/19 16:35 85 152/74 07/17/19 15:35 98.6 2.0 I & O 07/16/19 07/16/19 07/17/19 15:00 23:00 07:00 Intake Total 720 ml 120 ml Balance 720 ml 120 ml Current Medications: I have reviewed the current psychotropics carefully including drug interactions. Risk benefit ratio favors no change other than as noted in my dictated progress note. Diagnosis: Problems: (1) Personality disorder, unspecified (2) Mood disorder (3) Anxiety disorder (4) Major depressive disorder, recurrent episode (5) Bipolar affective, mixed ALBER GARCES MD Jul 17, 2019 22:16
[2019-07-18] MEDS: CYCLOBENZAPRINE 10 MG TABLET. PO PRN (03:26)
[2019-07-18] MEDS: HYDROcodone/APAP 7.5/325MG 1 TAB TABLET PO PRN ×3 (03:26→17:05)
[2019-07-18 04:23] VITALS: BP 143/79
[2019-07-18] MEDS: ENOXAPARIN 40 MG/0.4 ML SYRINGE. SQ SCH ×2 (07:58→20:34)
[2019-07-18] MEDS: CETIRIZINE HCL 10 MG TABLET PO SCH (07:58)
[2019-07-18] MEDS: ARIPiprazole 5 MG TABLET PO SCH (07:58)
[2019-07-18] MEDS: IPRATROPIUM/ALBUTEROL 20/100mcg/INH INHALER. INH SCH ×4 (07:58→20:33)
[2019-07-18] MEDS: CYANOCOBALAMIN (VITAMIN B-12) 1,000 MCG TABLET. PO SCH (07:58)
[2019-07-18] MEDS: PANTOPRAZOLE 40 MG TABLET. PO SCH (07:59)
[2019-07-18] MEDS: FUROSEMIDE 40 MG TABLET PO SCH ×2 (07:59→16:00)
[2019-07-18] MEDS: SENNOSIDES/DOCUSATE 8.6/50MG TABLET. PO SCH (07:59)
[2019-07-18] MEDS: POTASSIUM CHLORIDE 20 MEQ TABLET.ER. PO SCH ×2 (07:59→20:33)
[2019-07-18] MEDS: DULoxetine HCL 30 MG CAPSULE.DR PO SCH (07:59)
[2019-07-18] MEDS: ASPIRIN ENTERIC COATED 81 MG TABLET.DR. PO SCH (07:59)
[2019-07-18] MEDS: FERROUS SULFATE 325 MG TABLET. PO SCH (07:59)
[2019-07-18] MEDS: CARVEDILOL 6.25 MG TABLET PO SCH ×2 (08:00→17:00)
[2019-07-18] MEDS: LACTOBACILLUS RHAMNOSUS GG 1 CAPSULE. PO SCH ×2 (08:00→20:33)
[2019-07-18] MEDS: LOSARTAN 50 MG TABLET. PO SCH (08:00)
[2019-07-18] MEDS: CICLOPIROX 0.77% TOPICAL CREAM 15GM TUBE. TP SCH ×2 (08:01→20:34)
[2019-07-18] MEDS: FLUTICASONE FUROATE 200mcg/INH ELLIPTA INHALER. INH SCH (08:01)
[2019-07-18] MEDS: ALPRAZolam 0.5 MG TABLET PO PRN ×2 (09:43→17:05)
[2019-07-18] MEDS: LOPERAMIDE 2 MG CAPSULE PO PRN ×2 (09:43→18:45)
--- NOTE | 2019-07-18 11:52 | TX PLAN ---
Interdisciplinary Tx Plan Admission Information May 29, 2019 at 22:10 Legal Status (on Admission): Voluntary DPOA/Guardian Name: Pt is a self-sign Contact Verified Code Status: Full Code Allergies: Coded Allergies: bupropion (Verified Allergy, Unknown, 05/29/19) clonazepam (Verified Allergy, Unknown, 05/29/19) erythromycin base (Verified Allergy, Unknown, 05/29/19) fentanyl (Verified Allergy, Unknown, 05/29/19) haloperidol (Verified Allergy, Unknown, 05/29/19) lisinopril (Verified Allergy, Unknown, 05/29/19) lorazepam (Verified Allergy, Unknown, 05/29/19) ondansetron (Verified Allergy, Unknown, 05/29/19) tree nut (Verified Allergy, Unknown, 05/29/19) Diagnoses Primary Diagnosis: MDD recurrent Reasons for Admission: Depressed, Suicidal ideation Problem in Patient's Words: I have so much going on I just don't know what kind of life I have left to live. Additional Admission Comments: SI with plan but will not disclose the plan. paranoid, thinks people at hospitals don't treat her nicely, anxious, depressed, suspicious, intermittent verbal aggression. Problems Active Problems: SI with no plan Verbal aggression Physical aggression Attention-seeking/demanding Medication non-compliance Inactive Problems: N/A Pt Strengths/Limitations Ability for Millard: Poor Cognitive Functioning/Ability: Fair Communication Skills/Ability: Fair Financial Resources: Poor Insight/Judgement: Poor Intellectual Ability: Fair Physical Health: Poor Social Skills: Fair Stability in Family: Poor Stability in School/Work: Poor Verbal Skills: Fair Discharge Criteria Discharge Criteria: Able meet basic life need, No need for close observ., Able to meet health needs, Adequate arrangements @DC, Verbal commit aftercare, Adequate self-care, Improved behavior, Improved mood/thought Preliminary Discharge Plan Preliminary DC Plan: Current Living Arrange., Home Special Precautions Fall Risk: Moderate Initial D/C Plan Patient will plan to discharge home and have an evaluation for hospice Identified Discharge Needs: Pt will be assessed for Hospice and other community services Currently Utilized Resources Currently Utilized Resources/P: None; pt appears to have no active services in place Referrals Community Resources: Primary Care Psychiatry Counseling Case Management/Social Work Potential Hospice referrals Identified Problems/Hx/Goals Objectives/Short-Term Goals Short Term Goals: Dec. Anxiety/Panic, Decrease Isolation, Dec. Symp. Depression, Medication Stabilization, No Suicidal/Mal. ideation, Promote Coping Skill Short Term Goals in Patient's: I need to get out of here. You guys are horrible. Interventions/Frequency Staff Interventions/Frequency&: Psychiatry to assess pt at least 3x per week. [facility] [place] to assess pt at least 2x per week. Nursing to complete 15 minute checks daily. Encourage group/active participation during activities. 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 Pt stated that that she started out as a [employer] and only got paid $3.50 and hour. Education: BS in Nursing Community Follow-up May send referrals to potential SNF's. Treatment Plan Explained Patient/Station Gateman had this treatment plan explained to him/her as indicated by the signature below and has been given the opportunity to ask questions and make suggestions: Date: Patient/Station Gateman Signature: Status Update Update Pt is eating 100% and sleeping on average 6.5 hours per night. Pt is somatic, attention and medication seeking, demanding and requests for things that are not appropriate (e.g. a paulino for service). It has been reported that pt is continuously requesting her Xanax every 4 hours. Pt also reports pain as she believes that she pulled a muscle in attempt to get out of her bed with her transfers. continuously sends out referrals on pt and has not received any confirmations for placement. As it stands, pt will look towards discharging on Sunday to placement versus home. EVITA CLARK Jul 18, 2019 11:52
[2019-07-18 15:56] VITALS: BP 105/54
[2019-07-18] MEDS: PRIMIDONE 50 MG TABLET PO SCH (20:34)
--- NOTE | 2019-07-18 21:58 | PDOC ---
Exam Note: Heri Note: Please also refer to the separate dictated note~for this date of service dictated separately.~Patient seen individually. Discussed the patient with Nursing staff reviewed the chart.~Reviewed interim history and current functioning. Reviewed vital signs,~Labs/ Radiology~and current medications noted below. Continue current treatment with the changes noted in the dictated addendum note Assessment: Vital Signs/I&O: Vital Signs Date Time Temp Pulse Resp B/P (MAP) Pulse Ox O2 Delivery O2 Flow Rate FiO2 07/18/19 17:00 86 105/54 07/18/19 15:56 98.4 18 94 2.0 07/18/19 04:23 Nasal Cannula I & O 0 07/17/19 07/17/19 07/18/19 15:00 23:00 07:00 Intake Total 600 ml 600 ml Balance 600 ml 600 ml Current Medications: I have reviewed the current psychotropics carefully including drug interactions. Risk benefit ratio favors no change other than as noted in my dictated progress note. Diagnosis: Problems: (1) Personality disorder, unspecified (2) Mood disorder (3) Anxiety disorder (4) Major depressive disorder, recurrent episode (5) Bipolar affective, mixed ALBER GARCES MD Jul 18, 2019 21:58
[2019-07-19] MEDS: HYDROcodone/APAP 7.5/325MG 1 TAB TABLET PO PRN ×3 (01:20→17:04)
[2019-07-19] MEDS: ALPRAZolam 0.5 MG TABLET PO PRN ×4 (01:20→17:04)
[2019-07-19 05:53] VITALS: BP 123/73
[2019-07-19] MEDS: ENOXAPARIN 40 MG/0.4 ML SYRINGE. SQ SCH ×2 (07:20→19:59)
[2019-07-19] MEDS: IPRATROPIUM/ALBUTEROL 20/100mcg/INH INHALER. INH SCH ×4 (07:20→19:55)
[2019-07-19] MEDS: FLUTICASONE FUROATE 200mcg/INH ELLIPTA INHALER. INH SCH (07:20)
[2019-07-19] MEDS: CYANOCOBALAMIN (VITAMIN B-12) 1,000 MCG TABLET. PO SCH (07:21)
[2019-07-19] MEDS: DULoxetine HCL 30 MG CAPSULE.DR PO SCH (07:21)
[2019-07-19] MEDS: ARIPiprazole 5 MG TABLET PO SCH (07:21)
[2019-07-19] MEDS: CETIRIZINE HCL 10 MG TABLET PO SCH (07:21)
[2019-07-19] MEDS: POTASSIUM CHLORIDE 20 MEQ TABLET.ER. PO SCH ×2 (07:22→19:56)
[2019-07-19] MEDS: LACTOBACILLUS RHAMNOSUS GG 1 CAPSULE. PO SCH ×2 (07:22→19:55)
[2019-07-19] MEDS: FERROUS SULFATE 325 MG TABLET. PO SCH (07:22)
[2019-07-19] MEDS: PANTOPRAZOLE 40 MG TABLET. PO SCH (07:22)
[2019-07-19] MEDS: LOSARTAN 50 MG TABLET. PO SCH (07:22)
[2019-07-19] MEDS: FUROSEMIDE 40 MG TABLET PO SCH ×2 (07:22→17:04)
[2019-07-19] MEDS: ASPIRIN ENTERIC COATED 81 MG TABLET.DR. PO SCH (07:22)
[2019-07-19] MEDS: SENNOSIDES/DOCUSATE 8.6/50MG TABLET. PO SCH (07:23)
[2019-07-19] MEDS: CARVEDILOL 6.25 MG TABLET PO SCH ×2 (07:23→17:04)
[2019-07-19] MEDS: CICLOPIROX 0.77% TOPICAL CREAM 15GM TUBE. TP SCH ×2 (07:23→19:59)
[2019-07-19] MEDS: SODIUM CHLORIDE 0.65% NASAL SPRAY 45ML BOTTLE. NS PRN (08:31)
[2019-07-19] MEDS: LOPERAMIDE 2 MG CAPSULE PO PRN (08:31)
--- NOTE | 2019-07-19 08:35 | PDOC ---
Exam Note: Heri Note: S/O: This note is a late entry for DOS 07/17/2019 covers elements not covered in my initial note. Treatment team meeting was done in the morning with Ana Fernandes, and Yenifer Laurent along with Gladys LAUREN and Daphney from [facility]. Discussed the patient with nursing staff, reviewed the chart. The patient was seen on audio-visual rounds in the evening with René LAUREN. She is sleeping 6-1/2 hours average. Appetite is 95%. She continues to have various somatic symptoms. She was complaining of pain in her groin area. We will defer to Dr. Wright. She spends much time in her room. She has been anxious. Received Xanax p.r.n., Lortab q.6h. p.r.n. ROS: Ambulation impaired in wheelchair. Vague somatic symptoms. No CV, , Pulmonary, Eye systems symptoms on review. MSE: Oriented reasonably. Speech coherent. She appears less anxious. Abstraction fair. Computation somewhat impaired. Language function intact. Mood is dysphoric at times. She minimizes this. No suicidal or homicidal ideation. Labs: Reviewed. Imp: Major depressive disorder in partial remission. Anxiety disorder unspecified. Plan: No change from initial note. Assessment: Vital Signs/I&O: Vital Signs Date Time Temp Pulse Resp B/P (MAP) Pulse Ox O2 Delivery O2 Flow Rate FiO2 07/19/19 07:23 82 123/73 07/19/19 05:53 97.8 18 97 Nasal Cannula 2.0 I & O 07/18/19 07/18/19 07/19/19 15:00 23:00 07:00 Intake Total 1080 ml 480 ml Balance 1080 ml 480 ml Current Medications: I have reviewed the current psychotropics carefully including drug interactions. Risk benefit ratio favors no change other than as noted in my dictated progress note. Diagnosis: Problems: (1) Personality disorder, unspecified (2) Mood disorder (3) Anxiety disorder (4) Major depressive disorder, recurrent episode (5) Bipolar affective, mixed ALBER GARCES MD Jul 19, 2019 08:34
--- NOTE | 2019-07-19 08:50 | PDOC ---
Exam Note: Heri Note: S/O: This note is a late entry for DOS 07/18/2019 covers elements not covered in my initial note. The patient was seen on audio-visual rounds in the evening with Fela LAUREN. Nursing report was with Fela LAUREN. Patient slept 4-1/4 hours previous night. She is seen by Dr. Wright for her groin pain and apparently this is a pulled muscle. Fela RN did trim her nails. She is still complaining of vague somatic symptoms including the groin pain and now complains of diarrhea. ROS: Ambulation impaired in wheelchair. No CV, , Pulmonary, Eye system symptoms on review. MSE: Oriented reasonably. Speech coherent. She appears less anxious. Abstraction fair. Computation somewhat impaired. Language function intact. Mood is dysphoric at times. She minimizes this. No suicidal or homicidal ideation. Labs: Reviewed. Imp: Major depressive disorder in partial remission. Anxiety disorder unspecified. Plan: No change from initial note. Assessment: Vital Signs/I&O: Vital Signs Date Time Temp Pulse Resp B/P (MAP) Pulse Ox O2 Delivery O2 Flow Rate FiO2 07/19/19 07:23 82 123/73 07/19/19 05:53 97.8 18 97 Nasal Cannula 2.0 I & O 07/18/19 07/18/19 07/19/19 15:00 23:00 07:00 Intake Total 1080 ml 480 ml Balance 1080 ml 480 ml Current Medications: I have reviewed the current psychotropics carefully including drug interactions. Risk benefit ratio favors no change other than as noted in my dictated progress note. Diagnosis: Problems: (1) Personality disorder, unspecified (2) Mood disorder (3) Anxiety disorder (4) Major depressive disorder, recurrent episode (5) Bipolar affective, mixed ALBER GARCES MD Jul 19, 2019 08:50
[2019-07-19] MEDS: CYCLOBENZAPRINE 10 MG TABLET. PO PRN (12:38)
[2019-07-19 15:34] VITALS: BP 126/76
[2019-07-19] MEDS ORDERED: NYSTATIN TOPICAL POWDER 15GM BOTTLE. TP ONE (19:38)
[2019-07-19] MEDS: PRIMIDONE 50 MG TABLET PO SCH (19:56)
[2019-07-19] MEDS: NYSTATIN 100,000 UNIT/GM TOPICAL CREAM 15GM TUBE. TP PRN (19:58)
--- NOTE | 2019-07-19 21:59 | PDOC ---
Exam Note: Heri Note: Please also refer to the separate dictated note~for this date of service dictated separately.~Patient seen individually. Discussed the patient with Nursing staff reviewed the chart.~Reviewed interim history and current functioning. Reviewed vital signs,~Labs/ Radiology~and current medications noted below. Continue current treatment with the changes noted in the dictated addendum note Assessment: Vital Signs/I&O: Vital Signs Date Time Temp Pulse Resp B/P (MAP) Pulse Ox O2 Delivery O2 Flow Rate FiO2 07/19/19 17:04 77 126/76 07/19/19 15:34 98.2 16 95 07/19/19 05:53 Nasal Cannula 2.0 I & O 0 07/18/19 07/18/19 07/19/19 15:00 23:00 07:00 Intake Total 1080 ml 480 ml Balance 1080 ml 480 ml Current Medications: I have reviewed the current psychotropics carefully including drug interactions. Risk benefit ratio favors no change other than as noted in my dictated progress note. Diagnosis: Problems: (1) Personality disorder, unspecified (2) Mood disorder (3) Anxiety disorder (4) Major depressive disorder, recurrent episode (5) Bipolar affective, mixed ALBER GARCES MD Jul 19, 2019 21:59
[2019-07-20] MEDS: HYDROcodone/APAP 7.5/325MG 1 TAB TABLET PO PRN ×4 (00:31→20:08)
[2019-07-20] MEDS: ALPRAZolam 0.5 MG TABLET PO PRN ×4 (00:31→20:08)
[2019-07-20 05:38] VITALS: BP 138/79
[2019-07-20] MEDS: IPRATROPIUM/ALBUTEROL 20/100mcg/INH INHALER. INH SCH ×4 (07:58→20:06)
[2019-07-20] MEDS: FLUTICASONE FUROATE 200mcg/INH ELLIPTA INHALER. INH SCH (07:58)
[2019-07-20] MEDS: SENNOSIDES/DOCUSATE 8.6/50MG TABLET. PO SCH ×2 (07:58→08:03)
[2019-07-20] MEDS: ENOXAPARIN 40 MG/0.4 ML SYRINGE. SQ SCH ×2 (07:58→20:09)
[2019-07-20] MEDS: CYANOCOBALAMIN (VITAMIN B-12) 1,000 MCG TABLET. PO SCH (07:59)
[2019-07-20] MEDS: ARIPiprazole 5 MG TABLET PO SCH (07:59)
[2019-07-20] MEDS: LACTOBACILLUS RHAMNOSUS GG 1 CAPSULE. PO SCH ×2 (08:00→20:07)
[2019-07-20] MEDS: CETIRIZINE HCL 10 MG TABLET PO SCH (08:00)
[2019-07-20] MEDS: DULoxetine HCL 30 MG CAPSULE.DR PO SCH (08:00)
[2019-07-20] MEDS: ASPIRIN ENTERIC COATED 81 MG TABLET.DR. PO SCH (08:00)
[2019-07-20] MEDS: FERROUS SULFATE 325 MG TABLET. PO SCH (08:00)
[2019-07-20] MEDS: CARVEDILOL 6.25 MG TABLET PO SCH ×2 (08:00→17:00)
[2019-07-20] MEDS: LOSARTAN 50 MG TABLET. PO SCH (08:01)
[2019-07-20] MEDS: FUROSEMIDE 40 MG TABLET PO SCH ×2 (08:01→16:00)
[2019-07-20] MEDS: POTASSIUM CHLORIDE 20 MEQ TABLET.ER. PO SCH ×2 (08:01→20:07)
[2019-07-20] MEDS: PANTOPRAZOLE 40 MG TABLET. PO SCH (08:02)
[2019-07-20] MEDS: CHOLECALCIFEROL (VITAMIN D3) 50,000 UNIT CAPSULE PO SCH (08:03)
[2019-07-20] MEDS: CICLOPIROX 0.77% TOPICAL CREAM 15GM TUBE. TP SCH (08:04)
[2019-07-20] MEDS ORDERED: CICLOPIROX 0.77% TOPICAL CREAM 15GM TUBE. TP PRN (08:15)
[2019-07-20] MEDS: POLYVINYL ALCOHOL/POVIDONE/PF OPHTH SOLUTION DROPERETTE. OU SCH ×2 (12:28→20:06)
[2019-07-20] MEDS: FLUTICASONE 50MCG/NASAL SPRAY 16GM BOTTLE. NS SCH (12:28)
[2019-07-20] MEDS: NYSTATIN 100,000 UNIT/GM TOPICAL CREAM 15GM TUBE. TP PRN (12:29)
[2019-07-20 15:42] VITALS: BP 117/66
[2019-07-20] MEDS: PRIMIDONE 50 MG TABLET PO SCH (20:08)
--- NOTE | 2019-07-20 21:49 | PDOC ---
Exam Note: Heri Note: Please also refer to the separate dictated note~for this date of service dictated separately.~Patient seen individually. Discussed the patient with Nursing staff reviewed the chart.~Reviewed interim history and current functioning. Reviewed vital signs,~Labs/ Radiology~and current medications noted below. Continue current treatment with the changes noted in the dictated addendum note Assessment: Vital Signs/I&O: Vital Signs Date Time Temp Pulse Resp B/P (MAP) Pulse Ox O2 Delivery O2 Flow Rate FiO2 07/20/19 17:00 80 117/66 07/20/19 15:42 98.0 18 94 07/20/19 05:38 Nasal Cannula 2.0 I & O 0 07/19/19 07/19/19 07/20/19 15:00 23:00 07:00 Intake Total 520 ml 200 ml Balance 520 ml 200 ml Current Medications: Meds: Current Medications Medications (Trade) Dose Ordered Sig/Mason Route PRN Reason Start Time Stop Time Status Last Admin Dose Admin Fluticasone Propionate (Flonase) 2 spray DAILY NS 07/20/19 09:00 07/20/19 12:28 Artificial Tears (Refresh Classic) 1 drop BID OU 07/20/19 10:30 07/20/19 20:06 I have reviewed the current psychotropics carefully including drug interactions. Risk benefit ratio favors no change other than as noted in my dictated progress note. Diagnosis: Problems: (1) Personality disorder, unspecified (2) Mood disorder (3) Anxiety disorder (4) Major depressive disorder, recurrent episode (5) Bipolar affective, mixed ALBER GARCES MD Jul 20, 2019 21:49
[2019-07-21] MEDS: CYCLOBENZAPRINE 10 MG TABLET. PO PRN ×2 (00:18→20:14)
[2019-07-21] MEDS: ALPRAZolam 0.5 MG TABLET PO PRN ×3 (04:53→17:48)
[2019-07-21] MEDS: HYDROcodone/APAP 7.5/325MG 1 TAB TABLET PO PRN ×3 (04:54→17:49)
[2019-07-21 05:53] VITALS: BP 155/84
--- NOTE | 2019-07-21 08:42 | PDOC ---
Exam Note: Heri Note: S/O: This note is a late entry for DOS 07/19/2019 covers elements not covered in my initial note. The patient was seen on audio-visual rounds in the evening with Viji LAUREN. Nursing report was with Fela LAUREN. She is still complaining of vague somatic symptoms. ROS: She is complaining of frequent blinking of the eyes and feeling tired. Ambulation impaired in wheelchair. No CV, , Pulmonary, Eye system symptoms on review. MSE: Oriented reasonably. Speech coherent. She appears less anxious. Abstraction fair. Computation somewhat impaired. Language function intact. Mood is dysphoric at times. She minimizes this. No suicidal or homicidal ideation. Labs: Reviewed. Imp: Major depressive disorder in partial remission. Anxiety disorder unspecified. Plan: No change from initial note. Assessment: Vital Signs/I&O: Vital Signs Date Time Temp Pulse Resp B/P (MAP) Pulse Ox O2 Delivery O2 Flow Rate FiO2 07/21/19 05:53 97.6 85 20 155/84 (107) 96 2.0 07/20/19 05:38 Nasal Cannula I & O 07/20/19 07/20/19 07/21/19 15:00 23:00 07:00 Intake Total 720 ml 720 ml Balance 720 ml 720 ml Current Medications: Meds: Current Medications Medications (Trade) Dose Ordered Sig/Mason Route PRN Reason Start Time Stop Time Status Last Admin Dose Admin Fluticasone Propionate (Flonase) 2 spray DAILY NS 07/20/19 09:00 07/20/19 12:28 Artificial Tears (Refresh Classic) 1 drop BID OU 07/20/19 10:30 07/20/19 20:06 I have reviewed the current psychotropics carefully including drug interactions. Risk benefit ratio favors no change other than as noted in my dictated progress note. Diagnosis: Problems: (1) Personality disorder, unspecified (2) Mood disorder (3) Anxiety disorder (4) Major depressive disorder, recurrent episode (5) Bipolar affective, mixed ALBER GARCES MD Jul 21, 2019 08:42
[2019-07-21] MEDS: FLUTICASONE 50MCG/NASAL SPRAY 16GM BOTTLE. NS SCH (08:45)
[2019-07-21] MEDS: IPRATROPIUM/ALBUTEROL 20/100mcg/INH INHALER. INH SCH ×4 (08:46→20:14)
[2019-07-21] MEDS: PANTOPRAZOLE 40 MG TABLET. PO SCH (08:47)
[2019-07-21] MEDS: FUROSEMIDE 40 MG TABLET PO SCH ×2 (08:47→16:53)
[2019-07-21] MEDS: ASPIRIN ENTERIC COATED 81 MG TABLET.DR. PO SCH (08:47)
[2019-07-21] MEDS: CARVEDILOL 6.25 MG TABLET PO SCH ×2 (08:48→16:53)
[2019-07-21] MEDS: CYANOCOBALAMIN (VITAMIN B-12) 1,000 MCG TABLET. PO SCH (08:48)
[2019-07-21] MEDS: LACTOBACILLUS RHAMNOSUS GG 1 CAPSULE. PO SCH ×2 (08:48→20:14)
[2019-07-21] MEDS: CETIRIZINE HCL 10 MG TABLET PO SCH (08:49)
[2019-07-21] MEDS: FERROUS SULFATE 325 MG TABLET. PO SCH (08:49)
[2019-07-21] MEDS: POLYVINYL ALCOHOL/POVIDONE/PF OPHTH SOLUTION DROPERETTE. OU SCH ×2 (08:49→20:15)
[2019-07-21] MEDS: LOSARTAN 50 MG TABLET. PO SCH (08:49)
[2019-07-21] MEDS: ARIPiprazole 5 MG TABLET PO SCH (08:49)
[2019-07-21] MEDS: SENNOSIDES/DOCUSATE 8.6/50MG TABLET. PO SCH (08:49)
[2019-07-21] MEDS: DULoxetine HCL 30 MG CAPSULE.DR PO SCH (08:49)
[2019-07-21] MEDS: ENOXAPARIN 40 MG/0.4 ML SYRINGE. SQ SCH ×2 (08:50→20:14)
[2019-07-21] MEDS: POTASSIUM CHLORIDE 20 MEQ TABLET.ER. PO SCH ×2 (08:50→20:15)
--- NOTE | 2019-07-21 08:53 | PDOC ---
Exam Note: Heri Note: S/O: This note is a late entry for DOS 07/20/2019 covers elements not covered in my initial note. The patient was seen on audio-visual rounds in the evening with Fela RN. Nursing report was with Fela RN. She is still complaining of vague somatic symptoms. ROS: Blinking of the eyes is better. She has been started on some Artificial Tears which seemed to be helpful. Ambulation impaired in wheelchair. No CV, , Pulmonary, Eye system symptoms on review. MSE: Oriented reasonably. Speech coherent. She appears less anxious. Abstraction fair. Computation somewhat impaired. Language function intact. Mood is dysphoric at times. She minimizes this. No suicidal or homicidal gutierrez ation. Labs: Reviewed. Imp: Major depressive disorder in partial remission. Anxiety disorder unspecified. Plan: No change from initial note. Assessment: Vital Signs/I&O: Vital Signs Date Time Temp Pulse Resp B/P (MAP) Pulse Ox O2 Delivery O2 Flow Rate FiO2 07/21/19 08:49 85 155/84 07/21/19 05:53 97.6 20 96 2.0 07/20/19 05:38 Nasal Cannula I & O 07/20/19 07/20/19 07/21/19 15:00 23:00 07:00 Intake Total 720 ml 720 ml Balance 720 ml 720 ml Current Medications: Meds: Current Medications Medications (Trade) Dose Ordered Sig/Mason Route PRN Reason Start Time Stop Time Status Last Admin Dose Admin Fluticasone Propionate (Flonase) 2 spray DAILY NS 07/20/19 09:00 07/21/19 08:45 Artificial Tears (Refresh Classic) 1 drop BID OU 07/20/19 10:30 07/21/19 08:49 I have reviewed the current psychotropics carefully including drug interactions. Risk benefit ratio favors no change other than as noted in my dictated progress note. Diagnosis: Problems: (1) Personality disorder, unspecified (2) Mood disorder (3) Anxiety disorder (4) Major depressive disorder, recurrent episode (5) Bipolar affective, mixed ALBER GARCES MD Jul 21, 2019 08:53
[2019-07-21] MEDS: FLUTICASONE FUROATE 200mcg/INH ELLIPTA INHALER. INH SCH (11:15)
[2019-07-21 15:38] VITALS: BP 119/73
[2019-07-21] MEDS: traZODone 100 MG TABLET. PO PRN (20:14)
[2019-07-21] MEDS: PRIMIDONE 50 MG TABLET PO SCH (20:15)
--- NOTE | 2019-07-21 22:48 | PDOC ---
Exam Note: Heri Note: S/O: This note covers elements not covered in my initial note. The patient was seen on audio-visual rounds in the evening with René RN. Nursing report was with René RN. She has been demanding for pain medications, still complains of pain in her groin area radiating to the leg. She has been seen by Dr. Wright and being managed for this by Dr. Wright. She states the pain medication seemed to keep the pain at bay. She has not complained of repeated blinking of her eyes and is getting Artificial Tear consequent to possible dry eyes. She has also been using p.r.n. Xanax for anxiety. ROS: Ambulation impaired in wheelchair. No CV, , Pulmonary, Eye system symptoms on review other than above and groin pain. MSE: Oriented reasonably. Speech coherent. She appears less anxious. Abstraction fair. Computation somewhat impaired. Language function intact. Mood is dysphoric at times. She minimizes this. No suicidal or homicidal ideation. Labs: Reviewed. Imp: Major depressive disorder in partial remission. Anxiety disorder unspecified. Plan: No change from initial note. According to the [facility] and CDC, the patient has to remain in the hospital for another 7 days for her quarantine due to COVID-19 exposure on the unit. Assessment: Vital Signs/I&O: Vital Signs Date Time Temp Pulse Resp B/P (MAP) Pulse Ox O2 Delivery O2 Flow Rate FiO2 07/21/19 19:01 97 07/21/19 17:49 16 Room Air 07/21/19 16:53 79 119/73 07/21/19 15:38 97.6 2.0 I & O 07/20/19 07/20/19 07/21/19 15:00 23:00 07:00 Intake Total 720 ml 720 ml Balance 720 ml 720 ml Current Medications: I have reviewed the current psychotropics carefully including drug interactions. Risk benefit ratio favors no change other than as noted in my dictated progress note. Diagnosis: Problems: (1) Personality disorder, unspecified (2) Mood disorder (3) Anxiety disorder (4) Major depressive disorder, recurrent episode (5) Bipolar affective, mixed ALBER GARCES MD Jul 21, 2019 22:48
[2019-07-22] MEDS: ALPRAZolam 0.5 MG TABLET PO PRN ×4 (00:31→20:20)
[2019-07-22] MEDS: HYDROcodone/APAP 7.5/325MG 1 TAB TABLET PO PRN ×4 (00:31→20:20)
[2019-07-22 05:55] VITALS: BP 145/85
[2019-07-22 05:59] LABS: BASO % 1 % (0-3); EOS # 0.2 x10^3/uL (0.0-0.7); EOS % 4 % (0-3); HEMATOCRIT 36.4 % (36.0-47.0); HEMOGLOBIN 11.6 g/dL (12.0-15.5); LYMPH # 1.6 x10^3/uL (1.0-4.8); LYMPH % 36 % (24-48); MEAN CORPUSCULAR HEMOGLOBIN 29 pg (25-35); MEAN CORPUSCULAR HGB CONC 32 g/dL (31-37); MEAN CORPUSCULAR VOLUME 92 fL (79-100); MONO # 0.3 x10^3/uL (0.0-1.1); MONO % 6 % (0-9); NEUT # 2.4 x10^3uL (1.8-7.7); NEUT % 53 % (31-73); PLATELET COUNT 231 x10^3/uL (140-400); RED BLOOD COUNT 3.94 x10^6/uL (3.50-5.40); RED CELL DISTRIBUTION WIDTH 13.4 % (11.5-14.5); WHITE BLOOD COUNT 4.5 x10^3/uL (4.0-11.0)
[2019-07-22 06:09] LABS: ALBUMIN 3.2 g/dL (3.4-5.0); ALBUMIN/GLOBULIN RATIO 0.8 (1.0-1.7); CREATININE 0.8 mg/dL (0.6-1.0); POTASSIUM 4.3 mmol/L (3.5-5.1); TOTAL BILIRUBIN 0.1 mg/dL (0.2-1.0); TOTAL PROTEIN 7.2 g/dL (6.4-8.2)
[2019-07-22] MEDS: FLUTICASONE 50MCG/NASAL SPRAY 16GM BOTTLE. NS SCH (08:31)
[2019-07-22] MEDS: IPRATROPIUM/ALBUTEROL 20/100mcg/INH INHALER. INH SCH ×4 (08:31→20:18)
[2019-07-22] MEDS: ENOXAPARIN 40 MG/0.4 ML SYRINGE. SQ SCH ×2 (08:33→20:19)
[2019-07-22] MEDS: POLYVINYL ALCOHOL/POVIDONE/PF OPHTH SOLUTION DROPERETTE. OU SCH ×2 (08:33→20:20)
[2019-07-22] MEDS: LACTOBACILLUS RHAMNOSUS GG 1 CAPSULE. PO SCH ×2 (08:33→20:19)
[2019-07-22] MEDS: CARVEDILOL 6.25 MG TABLET PO SCH ×2 (08:34→16:56)
[2019-07-22] MEDS: ARIPiprazole 5 MG TABLET PO SCH (08:34)
[2019-07-22] MEDS: FERROUS SULFATE 325 MG TABLET. PO SCH (08:34)
[2019-07-22] MEDS: DULoxetine HCL 30 MG CAPSULE.DR PO SCH (08:34)
[2019-07-22] MEDS: CYANOCOBALAMIN (VITAMIN B-12) 1,000 MCG TABLET. PO SCH (08:34)
[2019-07-22] MEDS: PANTOPRAZOLE 40 MG TABLET. PO SCH (08:34)
[2019-07-22] MEDS: LOSARTAN 50 MG TABLET. PO SCH (08:35)
[2019-07-22] MEDS: SENNOSIDES/DOCUSATE 8.6/50MG TABLET. PO SCH (08:35)
[2019-07-22] MEDS: CETIRIZINE HCL 10 MG TABLET PO SCH (08:35)
[2019-07-22] MEDS: POTASSIUM CHLORIDE 20 MEQ TABLET.ER. PO SCH ×2 (08:35→20:20)
[2019-07-22] MEDS: FUROSEMIDE 40 MG TABLET PO SCH ×2 (08:36→16:55)
[2019-07-22] MEDS: ASPIRIN ENTERIC COATED 81 MG TABLET.DR. PO SCH (08:36)
[2019-07-22] MEDS ORDERED: CHOL500021 PO (11:15)
[2019-07-22] MEDS ORDERED: FLUT9.9S NS (11:18)
[2019-07-22] MEDS ORDERED: FERR325T14 PO (11:18)
[2019-07-22] MEDS ORDERED: POLY1DRO3 OU (11:22)
[2019-07-22] MEDS: FLUTICASONE FUROATE 200mcg/INH ELLIPTA INHALER. INH SCH (11:31)
[2019-07-22 15:36] VITALS: BP 151/79
[2019-07-22] MEDS: PRIMIDONE 50 MG TABLET PO SCH (20:20)
[2019-07-22] MEDS: SODIUM CHLORIDE 0.65% NASAL SPRAY 45ML BOTTLE. NS PRN (20:21)
--- NOTE | 2019-07-22 22:31 | PDOC ---
Exam Note: Heri Note: S/O: This note covers elements not covered in my initial note. The patient was seen on audio-visual rounds in the evening with René LAUREN. Nursing report was with René LAUREN. The patient continues to be somatic, withdrawn, still complains of back pain radiating to her leg. She was very appreciative of the nursing care provider by René LAUREN and expressed this to him during the rounds. ROS: She does not complain of the eye blinking. Does complain of tiredness. Ambulation impaired in wheelchair. No CV, , Pulmonary system symptoms on review. MSE: Oriented reasonably. Speech coherent. She appears less anxious. Abstraction fair. Computation somewhat impaired. Language function intact. Mood is dysphoric at times. She minimizes this. No suicidal or homicidal ideation. Labs: Reviewed. Imp: Major depressive disorder in partial remission. Anxiety disorder unspecified. Plan: No change from initial note. Assessment: Vital Signs/I&O: Vital Signs Date Time Temp Pulse Resp B/P (MAP) Pulse Ox O2 Delivery O2 Flow Rate FiO2 07/22/19 22:11 20 Room Air 07/22/19 20:20 2.5 07/22/19 16:56 87 151/79 07/22/19 15:36 99.1 95 I & O 07/21/19 07/21/19 07/22/19 15:00 23:00 07:00 Intake Total 840 ml 780 ml Balance 840 ml 780 ml Labs: Laboratory Tests Test 07/22/19 05:34 White Blood Count 4.5 x10^3/uL (4.0-11.0) Red Blood Count 3.94 x10^6/uL (3.50-5.40) Hemoglobin 11.6 g/dL (12.0-15.5) L Hematocrit 36.4 % (36.0-47.0) Mean Corpuscular Volume 92 fL (79-100) Mean Corpuscular Hemoglobin 29 pg (25-35) Mean Corpuscular Hemoglobin Concent 32 g/dL (31-37) Red Cell Distribution Width 13.4 % (11.5-14.5) Platelet Count 231 x10^3/uL (140-400) Neutrophils (%) (Auto) 53 % (31-73) Lymphocytes (%) (Auto) 36 % (24-48) Monocytes (%) (Auto) 6 % (0-9) Eosinophils (%) (Auto) 4 % (0-3) H Basophils (%) (Auto) 1 % (0-3) Neutrophils # (Auto) 2.4 x10^3uL (1.8-7.7) Lymphocytes # (Auto) 1.6 x10^3/uL (1.0-4.8) Monocytes # (Auto) 0.3 x10^3/uL (0.0-1.1) Eosinophils # (Auto) 0.2 x10^3/uL (0.0-0.7) Basophils # (Auto) 0.0 x10^3/uL (0.0-0.2) Sodium Level 139 mmol/L (136-145) Potassium Level 4.3 mmol/L (3.5-5.1) Chloride Level 96 mmol/L (98-107) L Carbon Dioxide Level 42 mmol/L (21-32) H Anion Gap 1 (6-14) L Blood Urea Nitrogen 16 mg/dL (7-20) Creatinine 0.8 mg/dL (0.6-1.0) Estimated GFR (Cockcroft-Gault) 72.0 BUN/Creatinine Ratio 20 (6-20) Glucose Level 77 mg/dL (70-99) Calcium Level 9.0 mg/dL (8.5-10.1) Total Bilirubin 0.1 mg/dL (0.2-1.0) L Aspartate Amino Transferase (AST) 16 U/L (15-37) Alanine Aminotransferase (ALT) 37 U/L (14-59) Alkaline Phosphatase 64 U/L (46-116) Total Protein 7.2 g/dL (6.4-8.2) Albumin 3.2 g/dL (3.4-5.0) L Albumin/Globulin Ratio 0.8 (1.0-1.7) L Current Medications: I have reviewed the current psychotropics carefully including drug interactions. Risk benefit ratio favors no change other than as noted in my dictated progress note. Diagnosis: Problems: (1) Personality disorder, unspecified (2) Mood disorder (3) Anxiety disorder (4) Major depressive disorder, recurrent episode (5) Bipolar affective, mixed ALBER GARCES MD Jul 22, 2019 22:31
[2019-07-23] MEDS: HYDROcodone/APAP 7.5/325MG 1 TAB TABLET PO PRN ×4 (02:52→21:55)
[2019-07-23] MEDS: ACETAMINOPHEN 325 MG TABLET PO PRN (05:39)
[2019-07-23] MEDS: MECLIZINE 12.5 MG TABLET. PO PRN (05:39)
[2019-07-23 06:14] VITALS: BP 141/81
[2019-07-23] MEDS: POLYVINYL ALCOHOL/POVIDONE/PF OPHTH SOLUTION DROPERETTE. OU SCH ×2 (08:36→20:00)
[2019-07-23] MEDS: CARVEDILOL 6.25 MG TABLET PO SCH ×2 (08:36→15:52)
[2019-07-23] MEDS: LACTOBACILLUS RHAMNOSUS GG 1 CAPSULE. PO SCH ×2 (08:36→20:00)
[2019-07-23] MEDS: POTASSIUM CHLORIDE 20 MEQ TABLET.ER. PO SCH ×2 (08:36→20:00)
[2019-07-23] MEDS: PANTOPRAZOLE 40 MG TABLET. PO SCH (08:36)
[2019-07-23] MEDS: FERROUS SULFATE 325 MG TABLET. PO SCH (08:36)
[2019-07-23] MEDS: LOSARTAN 50 MG TABLET. PO SCH (08:37)
[2019-07-23] MEDS: CETIRIZINE HCL 10 MG TABLET PO SCH (08:37)
[2019-07-23] MEDS: CYANOCOBALAMIN (VITAMIN B-12) 1,000 MCG TABLET. PO SCH (08:37)
[2019-07-23] MEDS: FUROSEMIDE 40 MG TABLET PO SCH ×2 (08:37→15:51)
[2019-07-23] MEDS: DULoxetine HCL 30 MG CAPSULE.DR PO SCH (08:37)
[2019-07-23] MEDS: ASPIRIN ENTERIC COATED 81 MG TABLET.DR. PO SCH (08:37)
[2019-07-23] MEDS: ARIPiprazole 5 MG TABLET PO SCH (08:37)
[2019-07-23] MEDS: FLUTICASONE FUROATE 200mcg/INH ELLIPTA INHALER. INH SCH (08:38)
[2019-07-23] MEDS: SENNOSIDES/DOCUSATE 8.6/50MG TABLET. PO SCH (08:38)
[2019-07-23] MEDS: FLUTICASONE 50MCG/NASAL SPRAY 16GM BOTTLE. NS SCH (08:38)
[2019-07-23] MEDS: IPRATROPIUM/ALBUTEROL 20/100mcg/INH INHALER. INH SCH ×4 (08:38→20:00)
[2019-07-23] MEDS: ENOXAPARIN 40 MG/0.4 ML SYRINGE. SQ SCH ×2 (08:39→20:01)
[2019-07-23] MEDS: ALPRAZolam 0.5 MG TABLET PO PRN ×3 (09:00→21:55)
[2019-07-23 15:44] VITALS: BP 110/68
[2019-07-23] MEDS: PRIMIDONE 50 MG TABLET PO SCH (20:00)
--- NOTE | 2019-07-23 21:44 | PDOC ---
Exam Note: Heri Note: Please also refer to the separate dictated note~for this date of service dictated separately.~Patient seen individually. Discussed the patient with Nursing staff reviewed the chart.~Reviewed interim history and current functioning. Reviewed vital signs,~Labs/ Radiology~and current medications noted below. Continue current treatment with the changes noted in the dictated addendum note Assessment: Vital Signs/I&O: Vital Signs Date Time Temp Pulse Resp B/P (MAP) Pulse Ox O2 Delivery O2 Flow Rate FiO2 07/23/19 19:34 14 07/23/19 15:53 98 Nasal Cannula 2.0 07/23/19 15:52 76 110/68 07/23/19 15:44 98.4 I & O 07/22/19 07/22/19 07/23/19 15:00 23:00 07:00 Intake Total 600 ml 240 ml Balance 600 ml 240 ml Current Medications: I have reviewed the current psychotropics carefully including drug interactions. Risk benefit ratio favors no change other than as noted in my dictated progress note. Diagnosis: Problems: (1) Personality disorder, unspecified (2) Mood disorder (3) Anxiety disorder (4) Major depressive disorder, recurrent episode (5) Bipolar affective, mixed ALBER GARCES MD Jul 23, 2019 21:44
[2019-07-24] MEDS: ALPRAZolam 0.5 MG TABLET PO PRN ×3 (05:11→20:07)
[2019-07-24] MEDS: HYDROcodone/APAP 7.5/325MG 1 TAB TABLET PO PRN ×3 (05:11→20:07)
[2019-07-24 05:32] VITALS: BP 136/84
[2019-07-24] MEDS: POLYVINYL ALCOHOL/POVIDONE/PF OPHTH SOLUTION DROPERETTE. OU SCH ×2 (08:39→20:04)
[2019-07-24] MEDS: ARIPiprazole 5 MG TABLET PO SCH (08:39)
[2019-07-24] MEDS: CARVEDILOL 6.25 MG TABLET PO SCH ×2 (08:39→17:02)
[2019-07-24] MEDS: CYANOCOBALAMIN (VITAMIN B-12) 1,000 MCG TABLET. PO SCH (08:39)
[2019-07-24] MEDS: LACTOBACILLUS RHAMNOSUS GG 1 CAPSULE. PO SCH ×2 (08:39→20:05)
[2019-07-24] MEDS: FERROUS SULFATE 325 MG TABLET. PO SCH (08:39)
[2019-07-24] MEDS: DULoxetine HCL 30 MG CAPSULE.DR PO SCH (08:39)
[2019-07-24] MEDS: SENNOSIDES/DOCUSATE 8.6/50MG TABLET. PO SCH (08:40)
[2019-07-24] MEDS: FUROSEMIDE 40 MG TABLET PO SCH ×2 (08:40→17:03)
[2019-07-24] MEDS: LOSARTAN 50 MG TABLET. PO SCH (08:40)
[2019-07-24] MEDS: POTASSIUM CHLORIDE 20 MEQ TABLET.ER. PO SCH ×2 (08:40→20:05)
[2019-07-24] MEDS: PANTOPRAZOLE 40 MG TABLET. PO SCH (08:41)
[2019-07-24] MEDS: CETIRIZINE HCL 10 MG TABLET PO SCH (08:41)
[2019-07-24] MEDS: ENOXAPARIN 40 MG/0.4 ML SYRINGE. SQ SCH ×2 (08:41→20:04)
[2019-07-24] MEDS: ASPIRIN ENTERIC COATED 81 MG TABLET.DR. PO SCH (08:41)
[2019-07-24] MEDS: FLUTICASONE 50MCG/NASAL SPRAY 16GM BOTTLE. NS SCH (08:44)
[2019-07-24] MEDS: FLUTICASONE FUROATE 200mcg/INH ELLIPTA INHALER. INH SCH (08:44)
[2019-07-24] MEDS: IPRATROPIUM/ALBUTEROL 20/100mcg/INH INHALER. INH SCH ×4 (08:48→20:05)
[2019-07-24] MEDS: MECLIZINE 12.5 MG TABLET. PO PRN (08:51)
--- NOTE | 2019-07-24 10:25 | PDOC ---
Exam Note: Heri Note: S/O: This note is a late entry for DOS 07/23/19 covers elements not covered in my initial note. The patient was seen on audio-visual rounds in the evening with René LAUREN. Nursing report was with René LAUREN. The patient slept 5-1/2 hours previous night. She complains of some burning while urination. We will d efer to Dr. Morales. She also complains of some dizziness. Vital signs have been stable. ROS: Ambulation impaired. No CV, GI/, Pulmonary system symptoms on review. She has vague eye symptoms but these are better since she is getting Artificial Tears. MSE: Oriented reasonably. She is lying in bed as I met with her. Speech is coherent, somewhat pressured at times. Abstraction fair. Computation somewhat impaired. Language function intact. Mood is dysphoric at times. She minimizes this. No suicidal or homicidal ideation. Labs: Reviewed. Imp: Major depressive disorder in partial remission. Anxiety disorder unspecified. Plan: No change from initial note. Assessment: Vital Signs/I&O: Vital Signs Date Time Temp Pulse Resp B/P (MAP) Pulse Ox O2 Delivery O2 Flow Rate FiO2 07/24/19 08:40 75 136/84 07/24/19 06:15 14 07/24/19 05:32 97.4 97 07/23/19 15:53 Nasal Cannula 2.0 I & O 07/23/19 07/23/19 07/24/19 15:00 23:00 07:00 Intake Total 840 ml 480 ml Balance 840 ml 480 ml Current Medications: I have reviewed the current psychotropics carefully including drug interactions. Risk benefit ratio favors no change other than as noted in my dictated progress note. Diagnosis: Problems: (1) Personality disorder, unspecified (2) Mood disorder (3) Anxiety disorder (4) Major depressive disorder, recurrent episode (5) Bipolar affective, mixed ALBER GARCES MD Jul 24, 2019 10:25
[2019-07-24 15:01] LABS: BILIRUBIN,URINE NEG (NEG); CLARITY,URINE CLEAR; COLOR,URINE STRAW; GLUCOSE,URINE NEG (NEG)
[2019-07-24 15:02] LABS: NITRITE,URINE NEG (NEG); UROBILINOGEN,URINE 0.2 mg/dL (0.2 mg/dL)
[2019-07-24 15:04] LABS: RBC,URINE 0 /HPF (0-2)
[2019-07-24 15:05] LABS: AMORPHOUS SEDIMENT,UR PRESENT /HPF; BACTERIA,URINE FEW /HPF (0-FEW); WBC,URINE 0 /HPF (0-4)
[2019-07-24 15:39] VITALS: BP 116/67
--- NOTE | 2019-07-24 16:23 | TX PLAN ---
Interdisciplinary Tx Plan Admission Information May 29, 2019 at 22:10 Legal Status (on Admission): Voluntary DPOA/Guardian Name: Pt is a self-sign Contact Verified Code Status: Full Code Allergies: Coded Allergies: bupropion (Verified Allergy, Unknown, 05/29/19) clonazepam (Verified Allergy, Unknown, 05/29/19) erythromycin base (Verified Allergy, Unknown, 05/29/19) fentanyl (Verified Allergy, Unknown, 05/29/19) haloperidol (Verified Allergy, Unknown, 05/29/19) lisinopril (Verified Allergy, Unknown, 05/29/19) lorazepam (Verified Allergy, Unknown, 05/29/19) ondansetron (Verified Allergy, Unknown, 05/29/19) tree nut (Verified Allergy, Unknown, 05/29/19) Diagnoses Primary Diagnosis: MDD recurrent Reasons for Admission: Depressed, Suicidal ideation Problem in Patient's Words: I have so much going on I just don't know what kind of life I have left to live. Additional Admission Comments: SI with plan but will not disclose the plan. paranoid, thinks people at hospitals don't treat her nicely, anxious, depressed, suspicious, intermittent verbal aggression. Problems Active Problems: SI with no plan Verbal aggression Physical aggression Attention-seeking/demanding Medication non-compliance Inactive Problems: N/A Pt Strengths/Limitations Ability for [place]: Poor Cognitive Functioning/Ability: Fair Communication Skills/Ability: Fair Financial Resources: Poor Insight/Judgement: Poor Intellectual Ability: Fair Physical Health: Poor Social Skills: Fair Stability in Family: Poor Stability in School/Work: Poor Verbal Skills: Fair Discharge Criteria Discharge Criteria: Able meet basic life need, No need for close observ., Able to meet health needs, Adequate arrangements @DC, Verbal commit aftercare, Adequate self-care, Improved behavior, Improved mood/thought Preliminary Discharge Plan Preliminary DC Plan: Current Living Arrange., Home Special Precautions Fall Risk: Moderate Initial D/C Plan Patient will plan to discharge home and have an evaluation for hospice Identified Discharge Needs: Pt will be assessed for Hospice and other community services Currently Utilized Resources Currently Utilized Resources/P: None; pt appears to have no active services in place Referrals Community Resources: Primary Care Psychiatry Counseling Case Management/Social Work Potential Hospice referrals Identified Problems/Hx/Goals Objectives/Short-Term Goals Short Term Goals: Dec. Anxiety/Panic, Decrease Isolation, Dec. Symp. Depression, Medication Stabilization, No Suicidal/Mal. ideation, Promote Coping Skill Short Term Goals in Patient's: I need to get out of here. You guys are horrible. Interventions/Frequency Staff Interventions/Frequency&: Psychiatry to assess pt at least 3x per week. Wool Dyer to assess pt at least 2x per week. Nursing to complete 15 minute checks daily. Encourage group/active participation during activities. 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 Education: BS in Nursing Community Follow-up May send referrals to potential SNF's. Treatment Plan Explained Patient/Netezza Developer had this treatment plan explained to him/her as indicated by the signature below and has been given the opportunity to ask questions and make suggestions: Date: Patient/Netezza Developer Signature: Status Update Update Pt is eating 100% of meals and sleeping on average 6.25 hours per night. Pt continues to be somatic but has of late been calm, compliant and cooperative with staff direction. Pt did have one incident of wanting to "talk bad about a specific staff"; however, pt was able to redirect herself, which is great progress for pt. At this time, multiple referrals have been sent out to facilities and pt has been denied for SNF/rehab. will widen the search and continue to send referrals for pt. Discharge is scheduled for Sunday07/29/2019. EVITA CLARK Jul 24, 2019 16:23
[2019-07-24] MEDS: PRIMIDONE 50 MG TABLET PO SCH (20:05)
--- NOTE | 2019-07-24 21:59 | PDOC ---
Exam Note: Heri Note: Please also refer to the separate dictated note~for this date of service dictated separately.~Patient seen individually. Discussed the patient with Nursing staff reviewed the chart.~Reviewed interim history and current functioning. Reviewed vital signs,~Labs/ Radiology~and current medications noted below. Continue current treatment with the changes noted in the dictated addendum note Assessment: Vital Signs/I&O: Vital Signs Date Time Temp Pulse Resp B/P (MAP) Pulse Ox O2 Delivery O2 Flow Rate FiO2 07/24/19 20:07 Nasal Cannula 2.0 07/24/19 17:02 87 116/67 07/24/19 15:39 98.0 18 96 I & O 0 07/23/19 07/23/19 07/24/19 15:00 23:00 07:00 Intake Total 840 ml 480 ml Balance 840 ml 480 ml Labs: Laboratory Tests Test 07/24/19 14:50 Urine Collection Type Clean catch Urine Color Straw Urine Clarity Clear Urine pH 6.5 Urine Specific [place] 1.015 Urine Protein Neg (NEG-TRACE) Urine Glucose (UA) Neg mg/dL (NEG) Urine Ketones (Stick) Neg mg/dL (NEG) Urine Blood Neg (NEG) Urine Nitrite Neg (NEG) Urine Bilirubin Neg (NEG) Urine Urobilinogen Dipstick 0.2 mg/dL (0.2 mg/dL) Urine Leukocyte Esterase Neg (NEG) Urine RBC 0 /HPF (0-2) Urine WBC 0 /HPF (0-4) Urine Squamous Epithelial Cells None /LPF Urine Amorphous Sediment Present /HPF Urine Bacteria Few /HPF (0-FEW) Current Medications: I have reviewed the current psychotropics carefully including drug interactions. Risk benefit ratio favors no change other than as noted in my dictated progress note. Diagnosis: Problems: (1) Personality disorder, unspecified (2) Mood disorder (3) Anxiety disorder (4) Major depressive disorder, recurrent episode (5) Bipolar affective, mixed ALBER GARCES MD Jul 24, 2019 21:59
[2019-07-25] MEDS: ACETAMINOPHEN 325 MG TABLET PO PRN (00:32)
[2019-07-25] MEDS: ALPRAZolam 0.5 MG TABLET PO PRN ×5 (00:32→21:40)
[2019-07-25] MEDS: HYDROcodone/APAP 7.5/325MG 1 TAB TABLET PO PRN ×3 (06:49→17:43)
[2019-07-25] MEDS: FLUTICASONE 50MCG/NASAL SPRAY 16GM BOTTLE. NS SCH (08:22)
[2019-07-25] MEDS: FLUTICASONE FUROATE 200mcg/INH ELLIPTA INHALER. INH SCH (08:23)
[2019-07-25] MEDS: ENOXAPARIN 40 MG/0.4 ML SYRINGE. SQ SCH ×2 (08:23→20:13)
[2019-07-25] MEDS: POLYVINYL ALCOHOL/POVIDONE/PF OPHTH SOLUTION DROPERETTE. OU SCH ×2 (08:23→20:13)
[2019-07-25] MEDS: IPRATROPIUM/ALBUTEROL 20/100mcg/INH INHALER. INH SCH ×4 (08:23→20:10)
[2019-07-25] MEDS: LACTOBACILLUS RHAMNOSUS GG 1 CAPSULE. PO SCH ×2 (08:24→20:11)
[2019-07-25] MEDS: PANTOPRAZOLE 40 MG TABLET. PO SCH (08:24)
[2019-07-25] MEDS: POTASSIUM CHLORIDE 20 MEQ TABLET.ER. PO SCH ×2 (08:24→20:11)
[2019-07-25] MEDS: DULoxetine HCL 30 MG CAPSULE.DR PO SCH (08:24)
[2019-07-25] MEDS: FERROUS SULFATE 325 MG TABLET. PO SCH (08:25)
[2019-07-25] MEDS: FUROSEMIDE 40 MG TABLET PO SCH ×2 (08:25→17:39)
[2019-07-25] MEDS: CYANOCOBALAMIN (VITAMIN B-12) 1,000 MCG TABLET. PO SCH (08:25)
[2019-07-25] MEDS: CETIRIZINE HCL 10 MG TABLET PO SCH (08:25)
[2019-07-25] MEDS: ARIPiprazole 5 MG TABLET PO SCH (08:25)
[2019-07-25] MEDS: CARVEDILOL 6.25 MG TABLET PO SCH ×2 (08:25→17:39)
[2019-07-25] MEDS: ASPIRIN ENTERIC COATED 81 MG TABLET.DR. PO SCH (08:27)
[2019-07-25] MEDS: SENNOSIDES/DOCUSATE 8.6/50MG TABLET. PO SCH (08:32)
[2019-07-25] MEDS: LOSARTAN 50 MG TABLET. PO SCH (08:34)
--- NOTE | 2019-07-25 09:33 | PDOC ---
Exam Note: Heri Note: S/O: This note is a late entry for DOS 07/24/19 covers elements not covered in my initial note. Treatment team meeting was done in the morning with Yenifer Laurent (medical social worker) and Arleth LAUREN. Reviewed the patients progress, disposition plans, current psychotropics, discussed potential side-effects and drug interactions. The patient was seen on audio-visual rounds in the evening due to the COVID-19 exposure on the unit with Arleth LAUREN. The patient slept 7-1/2 hours previous night. The patient continues to have some vague somatic symptoms, complains of some dysuria but her UA is negative. She also complains of some dizziness and I will defer this to Dr. Morales. ROS: Impaired ambulation, difficulty transferring herself. No CV, GI/, Pulmonary, Eye system symptoms on review. MSE: Oriented reasonably. Speech is coherent, somewhat pressured at times. Abstraction fair. Computation somewhat impaired. Language function intact. Mood is dysphoric at times. She minimizes this. No suicidal or homicidal ideation. Labs: Reviewed. Imp: Major depressive disorder in partial remission. Anxiety disorder unspecified. Plan: Continue current psychotropics per initial note and transition to a lower level of care next Sunday. Yenifer reiterated that she was denied placement for the patient from several nursing facilities but is pursuing several others and an attempt to find appropriate placement for the patient. Assessment: Vital Signs/I&O: Vital Signs Date Time Temp Pulse Resp B/P (MAP) Pulse Ox O2 Delivery O2 Flow Rate FiO2 07/25/19 08:34 87 116/67 07/25/19 07:49 96 07/25/19 06:49 Nasal Cannula 07/24/19 20:07 2.0 07/24/19 15:39 98.0 18 I & O 07/24/19 07/24/19 07/25/19 15:00 23:00 07:00 Intake Total 720 ml 480 ml Balance 720 ml 480 ml Labs: Laboratory Tests Test 07/24/19 14:50 Urine Collection Type Clean catch Urine Color Straw Urine Clarity Clear Urine pH 6.5 Urine Specific [place] 1.015 Urine Protein Neg (NEG-TRACE) Urine Glucose (UA) Neg mg/dL (NEG) Urine Ketones (Stick) Neg mg/dL (NEG) Urine Blood Neg (NEG) Urine Nitrite Neg (NEG) Urine Bilirubin Neg (NEG) Urine Urobilinogen Dipstick 0.2 mg/dL (0.2 mg/dL) Urine Leukocyte Esterase Neg (NEG) Urine RBC 0 /HPF (0-2) Urine WBC 0 /HPF (0-4) Urine Squamous Epithelial Cells None /LPF Urine Amorphous Sediment Present /HPF Urine Bacteria Few /HPF (0-FEW) Current Medications: Meds: Current Medications Medications (Trade) Dose Ordered Sig/Mason Route PRN Reason Start Time Stop Time Status Last Admin Dose Admin Senna/Docusate Sodium (Senna Plus) 1 tab DAILY PO 07/25/19 09:00 07/25/19 08:32 I have reviewed the current psychotropics carefully including drug interactions. Risk benefit ratio favors no change other than as noted in my dictated progress note. Diagnosis: Problems: (1) Personality disorder, unspecified (2) Mood disorder (3) Anxiety disorder (4) Major depressive disorder, recurrent episode (5) Bipolar affective, mixed ALBER GARCES MD Jul 25, 2019 09:33
[2019-07-25 11:00] VITALS: BP 137/85
[2019-07-25 15:40] VITALS: BP 128/79
[2019-07-25] MEDS: MECLIZINE 12.5 MG TABLET. PO PRN (17:43)
[2019-07-25] MEDS: PRIMIDONE 50 MG TABLET PO SCH (20:10)
--- NOTE | 2019-07-25 21:52 | PDOC ---
Exam Note: Heri Note: Please also refer to the separate dictated note~for this date of service dictated separately.~Patient seen individually. Discussed the patient with Nursing staff reviewed the chart.~Reviewed interim history and current functioning. Reviewed vital signs,~Labs/ Radiology~and current medications noted below. Continue current treatment with the changes noted in the dictated addendum note Assessment: Vital Signs/I&O: Vital Signs Date Time Temp Pulse Resp B/P (MAP) Pulse Ox O2 Delivery O2 Flow Rate FiO2 07/25/19 17:43 97 07/25/19 17:39 83 128/79 07/25/19 15:40 97.8 18 2.0 07/25/19 13:05 Nasal Cannula I & O 07/24/19 07/24/19 07/25/19 15:00 23:00 07:00 Intake Total 720 ml 480 ml Balance 720 ml 480 ml Current Medications: Meds: Current Medications Medications (Trade) Dose Ordered Sig/Mason Route PRN Reason Start Time Stop Time Status Last Admin Dose Admin Senna/Docusate Sodium (Senna Plus) 1 tab DAILY PO 07/25/19 09:00 07/25/19 08:32 I have reviewed the current psychotropics carefully including drug interactions. Risk benefit ratio favors no change other than as noted in my dictated progress note. Diagnosis: Problems: (1) Personality disorder, unspecified (2) Mood disorder (3) Anxiety disorder (4) Major depressive disorder, recurrent episode (5) Bipolar affective, mixed ALBER GARCES MD Jul 25, 2019 21:52
[2019-07-26] MEDS: MECLIZINE 12.5 MG TABLET. PO PRN (01:26)
[2019-07-26] MEDS: HYDROcodone/APAP 7.5/325MG 1 TAB TABLET PO PRN ×3 (01:26→16:34)
[2019-07-26 06:09] VITALS: BP 135/71
[2019-07-26] MEDS: FLUTICASONE FUROATE 200mcg/INH ELLIPTA INHALER. INH SCH (08:25)
[2019-07-26] MEDS: IPRATROPIUM/ALBUTEROL 20/100mcg/INH INHALER. INH SCH ×4 (08:25→20:40)
[2019-07-26] MEDS: PANTOPRAZOLE 40 MG TABLET. PO SCH (08:25)
[2019-07-26] MEDS: FLUTICASONE 50MCG/NASAL SPRAY 16GM BOTTLE. NS SCH (08:26)
[2019-07-26] MEDS: CARVEDILOL 6.25 MG TABLET PO SCH ×2 (08:26→16:34)
[2019-07-26] MEDS: ARIPiprazole 5 MG TABLET PO SCH (08:27)
[2019-07-26] MEDS: POLYVINYL ALCOHOL/POVIDONE/PF OPHTH SOLUTION DROPERETTE. OU SCH ×2 (08:27→20:40)
[2019-07-26] MEDS: FERROUS SULFATE 325 MG TABLET. PO SCH (08:27)
[2019-07-26] MEDS: ASPIRIN ENTERIC COATED 81 MG TABLET.DR. PO SCH (08:27)
[2019-07-26] MEDS: LOSARTAN 50 MG TABLET. PO SCH (08:27)
[2019-07-26] MEDS: LACTOBACILLUS RHAMNOSUS GG 1 CAPSULE. PO SCH ×2 (08:27→20:40)
[2019-07-26] MEDS: SENNOSIDES/DOCUSATE 8.6/50MG TABLET. PO SCH (08:28)
[2019-07-26] MEDS: FUROSEMIDE 40 MG TABLET PO SCH ×2 (08:28→16:33)
[2019-07-26] MEDS: CYANOCOBALAMIN (VITAMIN B-12) 1,000 MCG TABLET. PO SCH (08:28)
[2019-07-26] MEDS: DULoxetine HCL 30 MG CAPSULE.DR PO SCH (08:28)
[2019-07-26] MEDS: CETIRIZINE HCL 10 MG TABLET PO SCH (08:28)
[2019-07-26] MEDS: POTASSIUM CHLORIDE 20 MEQ TABLET.ER. PO SCH ×2 (08:28→20:40)
[2019-07-26] MEDS: ALPRAZolam 0.5 MG TABLET PO PRN ×2 (08:29→16:34)
[2019-07-26] MEDS: ENOXAPARIN 40 MG/0.4 ML SYRINGE. SQ SCH ×2 (08:29→20:41)
[2019-07-26 15:31] VITALS: BP 156/83
[2019-07-26] MEDS: PRIMIDONE 50 MG TABLET PO SCH (20:40)
[2019-07-26] MEDS: NYSTATIN 100,000 UNIT/GM TOPICAL CREAM 15GM TUBE. TP PRN (20:41)
--- NOTE | 2019-07-26 22:43 | PDOC ---
Exam Note: Heri Note: Please also refer to the separate dictated note~for this date of service dictated separately.~Patient seen individually. Discussed the patient with Nursing staff reviewed the chart.~Reviewed interim history and current functioning. Reviewed vital signs,~Labs/ Radiology~and current medications noted below. Continue current treatment with the changes noted in the dictated addendum note Assessment: Vital Signs/I&O: Vital Signs Date Time Temp Pulse Resp B/P (MAP) Pulse Ox O2 Delivery O2 Flow Rate FiO2 07/26/19 17:34 20 07/26/19 16:34 88 156/83 07/26/19 15:31 99.0 97 Nasal Cannula 2.0 I & O 0 07/25/19 07/25/19 07/26/19 15:00 23:00 07:00 Intake Total 720 ml 480 ml Balance 720 ml 480 ml Current Medications: I have reviewed the current psychotropics carefully including drug interactions. Risk benefit ratio favors no change other than as noted in my dictated progress note. Diagnosis: Problems: (1) Personality disorder, unspecified (2) Mood disorder (3) Anxiety disorder (4) Major depressive disorder, recurrent episode (5) Bipolar affective, mixed ALBER GARCES MD Jul 26, 2019 22:43
--- NOTE | 2019-07-26 22:43 | PDOC ---
Exam Note: Heri Note: S/O: This note is a late entry for DOS 07/25/2019 covers elements not covered in my initial note. The patient was seen on audio-visual rounds in the evening with Fela LAUREN. Discussed the patient with nursing staff reviewed the chart. Nursing report was with Arleth LAUREN. The patient has been complaining of chronic cough and green phlegm. Complains of pain in the left denominational area. Dr. Morales has been consulted per nursing staff and Dr. Daniels is following the patient from a neurological standpoint and we will defer to Dr. Morales and Dr. Daniels for any further medical recommendations. 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 ROS: Impaired ambulation. No CV, GI/, Pulmonary, Eye system symptoms on review. MSE: Oriented reasonably. Speech is coherent. She talked at length during audiovisual rounds that no one cared for her whether she lived or and we processed this to help her focus on the positives. Abstraction fair. Computation impaired. Language function intact. Mood and affect is somewhat dysphoric with multiple somatic complaints. Labs: Reviewed. Imp: Major depressive disorder in partial remission. Anxiety disorder unspecified. Plan: Continue current psychotropics per initial note. She takes opiates and Xanax on a fairly regularly basis when it is scheduled. She remains on trazodone, Cymbalta, and Abilify to augment the Cymbalta, hydroxyzine p.r.n., Xanax p.r.n. Assessment: Vital Signs/I&O: Vital Signs Date Time Temp Pulse Resp B/P (MAP) Pulse Ox O2 Delivery O2 Flow Rate FiO2 07/26/19 17:34 20 07/26/19 16:34 88 156/83 07/26/19 15:31 99.0 97 Nasal Cannula 2.0 I & O 07/25/19 07/25/19 07/26/19 15:00 23:00 07:00 Intake Total 720 ml 480 ml Balance 720 ml 480 ml Current Medications: I have reviewed the current psychotropics carefully including drug interactions. Risk benefit ratio favors no change other than as noted in my dictated progress note. Diagnosis: Problems: (1) Personality disorder, unspecified (2) Mood disorder (3) Anxiety disorder (4) Major depressive disorder, recurrent episode (5) Bipolar affective, mixed MILI,MAN M MD Jul 26, 2019 22:43
[2019-07-27] MEDS: ALPRAZolam 0.5 MG TABLET PO PRN ×3 (04:23→20:51)
[2019-07-27] MEDS: HYDROcodone/APAP 7.5/325MG 1 TAB TABLET PO PRN ×3 (04:23→20:51)
[2019-07-27 05:57] VITALS: BP 124/86
[2019-07-27] MEDS: IPRATROPIUM/ALBUTEROL 20/100mcg/INH INHALER. INH SCH ×4 (07:28→20:51)
[2019-07-27] MEDS: FLUTICASONE FUROATE 200mcg/INH ELLIPTA INHALER. INH SCH (07:28)
[2019-07-27] MEDS: ENOXAPARIN 40 MG/0.4 ML SYRINGE. SQ SCH ×2 (07:28→20:50)
[2019-07-27] MEDS: FLUTICASONE 50MCG/NASAL SPRAY 16GM BOTTLE. NS SCH (07:28)
[2019-07-27] MEDS: ASPIRIN ENTERIC COATED 81 MG TABLET.DR. PO SCH (07:29)
[2019-07-27] MEDS: CETIRIZINE HCL 10 MG TABLET PO SCH (07:29)
[2019-07-27] MEDS: CYANOCOBALAMIN (VITAMIN B-12) 1,000 MCG TABLET. PO SCH (07:29)
[2019-07-27] MEDS: FUROSEMIDE 40 MG TABLET PO SCH ×2 (07:29→17:31)
[2019-07-27] MEDS: ARIPiprazole 5 MG TABLET PO SCH (07:30)
[2019-07-27] MEDS: LOSARTAN 50 MG TABLET. PO SCH (07:30)
[2019-07-27] MEDS: FERROUS SULFATE 325 MG TABLET. PO SCH (07:30)
[2019-07-27] MEDS: LACTOBACILLUS RHAMNOSUS GG 1 CAPSULE. PO SCH ×2 (07:30→20:51)
[2019-07-27] MEDS: CARVEDILOL 6.25 MG TABLET PO SCH ×2 (07:30→17:31)
[2019-07-27] MEDS: SENNOSIDES/DOCUSATE 8.6/50MG TABLET. PO SCH (07:30)
[2019-07-27] MEDS: DULoxetine HCL 30 MG CAPSULE.DR PO SCH (07:30)
[2019-07-27] MEDS: POTASSIUM CHLORIDE 20 MEQ TABLET.ER. PO SCH ×2 (07:31→20:51)
[2019-07-27] MEDS: CHOLECALCIFEROL (VITAMIN D3) 50,000 UNIT CAPSULE PO SCH (07:31)
[2019-07-27] MEDS: PANTOPRAZOLE 40 MG TABLET. PO SCH (07:31)
[2019-07-27] MEDS: POLYVINYL ALCOHOL/POVIDONE/PF OPHTH SOLUTION DROPERETTE. OU SCH ×2 (07:31→20:50)
[2019-07-27 16:21] VITALS: BP 133/78
[2019-07-27] MEDS: PRIMIDONE 50 MG TABLET PO SCH (20:51)
--- NOTE | 2019-07-27 22:38 | PDOC ---
Exam Note: Heri Note: S/O: This note is a late entry for DOS 07/26/2019 covers elements not covered in my initial note. The patient was seen on audio-visual rounds in the evening with Viji LAUREN. Discussed the patient with nursing staff reviewed the chart. Nursing report was with Viji LAUREN. The patient slept 6 hours previous night. She remains somewhat needy, anxious with vague somatic symptoms. She complains of some pain in her left religious area. Dr. Morales has assessed this and Dr. Daniels is following her from neurological standpoint and we will request a follow-up. ROS: Impaired ambulation. No CV, GI/ system symptoms on review. MSE: Oriented reasonably. Speech is coherent. She is anxious with vague somatic symptoms. Abstraction fair. Computation impaired. Language function intact. Mood and affect is somewhat dysphoric with multiple somatic complaints. Labs: Reviewed. Imp: Major depressive disorder in partial remission. Anxiety disorder unspecified. Plan: Continue current psychotropics per initial note. Assessment: Vital Signs/I&O: Vital Signs Date Time Temp Pulse Resp B/P (MAP) Pulse Ox O2 Delivery O2 Flow Rate FiO2 07/27/19 21:58 95 07/27/19 17:31 94 133/78 07/27/19 16:21 98.3 18 07/27/19 05:57 2.0 07/26/19 15:31 Nasal Cannula I & O 07/26/19 07/26/19 07/27/19 15:00 23:00 07:00 Intake Total 600 ml 480 ml Balance 600 ml 480 ml Current Medications: I have reviewed the current psychotropics carefully including drug interactions. Risk benefit ratio favors no change other than as noted in my dictated progress note. Diagnosis: Problems: (1) Personality disorder, unspecified (2) Mood disorder (3) Anxiety disorder (4) Major depressive disorder, recurrent episode (5) Bipolar affective, mixed ALBER GARCES MD Jul 27, 2019 22:38
--- NOTE | 2019-07-27 22:40 | PDOC ---
Exam Note: Heri Note: S/O: This note of 07/27/2019 covers elements not covered in my initial note. The patient was seen on audio-visual rounds in the evening with Viviana LAUREN. Discussed the patient with nursing staff reviewed the chart. Nursing report was with Viviana LAUREN. The patient remains somewhat somatically preoccupied. She did not have any specific presybeterian pain complaints but does complain of head and neck movements. She has been seen by Dr. Daniels neurologist in the past. She was started on Primidone. We will request a follow up with Dr. Daniels. She has been trying to split staff. ROS: Impaired ambulation. No CV, GI/ system symptoms on review. MSE: Oriented reasonably. Speech is coherent. She remains anxious and somewhat somatically preoccupied Abstraction fair. Computation impaired. Language function intact. Mood and affect is somewhat dysphoric. Labs: Reviewed. Imp: Major depressive disorder in partial remission. Anxiety disorder unspeci fied. Plan: Continue current psychotropics per initial note. Assessment: Vital Signs/I&O: Vital Signs Date Time Temp Pulse Resp B/P (MAP) Pulse Ox O2 Delivery O2 Flow Rate FiO2 07/27/19 21:58 95 07/27/19 17:31 94 133/78 07/27/19 16:21 98.3 18 07/27/19 05:57 2.0 07/26/19 15:31 Nasal Cannula I & O 07/26/19 07/26/19 07/27/19 15:00 23:00 07:00 Intake Total 600 ml 480 ml Balance 600 ml 480 ml Current Medications: I have reviewed the current psychotropics carefully including drug interactions. Risk benefit ratio favors no change other than as noted in my dictated progress note. Diagnosis: Problems: (1) Personality disorder, unspecified (2) Mood disorder (3) Anxiety disorder (4) Major depressive disorder, recurrent episode (5) Bipolar affective, mixed ALBER GARCES MD Jul 27, 2019 22:40
[2019-07-28] MEDS: ALPRAZolam 0.5 MG TABLET PO PRN ×3 (04:18→17:15)
[2019-07-28] MEDS: HYDROcodone/APAP 7.5/325MG 1 TAB TABLET PO PRN ×3 (04:18→18:17)
[2019-07-28 06:12] VITALS: BP 123/76
[2019-07-28] MEDS: PANTOPRAZOLE 40 MG TABLET. PO SCH (08:15)
[2019-07-28] MEDS: IPRATROPIUM/ALBUTEROL 20/100mcg/INH INHALER. INH SCH ×4 (08:27→20:30)
[2019-07-28] MEDS: CARVEDILOL 6.25 MG TABLET PO SCH ×2 (08:28→17:13)
[2019-07-28] MEDS: FLUTICASONE FUROATE 200mcg/INH ELLIPTA INHALER. INH SCH (08:28)
[2019-07-28] MEDS: FERROUS SULFATE 325 MG TABLET. PO SCH (08:28)
[2019-07-28] MEDS: POLYVINYL ALCOHOL/POVIDONE/PF OPHTH SOLUTION DROPERETTE. OU SCH ×2 (08:29→20:30)
[2019-07-28] MEDS: FLUTICASONE 50MCG/NASAL SPRAY 16GM BOTTLE. NS SCH (08:29)
[2019-07-28] MEDS: ARIPiprazole 5 MG TABLET PO SCH (08:29)
[2019-07-28] MEDS: ASPIRIN ENTERIC COATED 81 MG TABLET.DR. PO SCH (08:29)
[2019-07-28] MEDS: LOSARTAN 50 MG TABLET. PO SCH (08:29)
[2019-07-28] MEDS: CYANOCOBALAMIN (VITAMIN B-12) 1,000 MCG TABLET. PO SCH (08:30)
[2019-07-28] MEDS: FUROSEMIDE 40 MG TABLET PO SCH ×2 (08:30→17:12)
[2019-07-28] MEDS: CETIRIZINE HCL 10 MG TABLET PO SCH (08:30)
[2019-07-28] MEDS: SENNOSIDES/DOCUSATE 8.6/50MG TABLET. PO SCH (08:30)
[2019-07-28] MEDS: DULoxetine HCL 30 MG CAPSULE.DR PO SCH (08:30)
[2019-07-28] MEDS: LACTOBACILLUS RHAMNOSUS GG 1 CAPSULE. PO SCH ×2 (08:30→20:30)
[2019-07-28] MEDS: POTASSIUM CHLORIDE 20 MEQ TABLET.ER. PO SCH ×2 (08:30→20:30)
[2019-07-28] MEDS: ENOXAPARIN 40 MG/0.4 ML SYRINGE. SQ SCH ×2 (08:31→20:30)
[2019-07-28 15:35] VITALS: BP 167/83
[2019-07-28] MEDS: CYCLOBENZAPRINE 10 MG TABLET. PO PRN (20:30)
[2019-07-28] MEDS: PRIMIDONE 50 MG TABLET PO SCH (20:30)
[2019-07-28] MEDS: NYSTATIN 100,000 UNIT/GM TOPICAL CREAM 15GM TUBE. TP PRN (20:31)
--- NOTE | 2019-07-28 22:31 | PDOC ---
Exam Note: Heri Note: S/O: This note covers elements not covered in my initial note. The patient was seen on audio-visual rounds in the evening with René LAUREN. Discussed the patient with nursing staff reviewed the chart. Nursing report was with Viji LAUREN. She slept 6-1/2 hours. The patient complains of some ongoing dizziness and states she is weak and is going to a facility rather than going home and she is accepting of that. She states she has paid 3 months rent at home for her rental apartments and expects to be back there after her rehab. ROS: Impaired ambulation. She was lying in bed. No CV, GI/, Eye system symptoms on review. MSE: Oriented reasonably. Speech is coherent. She remains anxious and somewhat somatically preoccupied Abstraction fair. Computation impaired. Language function intact. Mood and affect is somewhat dysphoric. Labs: Reviewed. Imp: Major depressive disorder in partial remission. Anxiety disorder unspecified. Plan: Continue current psychotropics per initial note. We had a discussion about her discharge plans. Assessment: Vital Signs/I&O: Vital Signs Date Time Temp Pulse Resp B/P (MAP) Pulse Ox O2 Delivery O2 Flow Rate FiO2 07/28/19 19:18 94 07/28/19 18:17 20 07/28/19 17:13 92 167/83 07/28/19 15:35 98.0 2.0 07/26/19 15:31 Nasal Cannula I & O 07/27/19 07/27/19 07/28/19 15:00 23:00 07:00 Intake Total 480 ml 360 ml 120 ml Balance 480 ml 360 ml 120 ml Current Medications: I have reviewed the current psychotropics carefully including drug interactions. Risk benefit ratio favors no change other than as noted in my dictated progress note. Diagnosis: Problems: (1) Personality disorder, unspecified (2) Mood disorder (3) Anxiety disorder (4) Major depressive disorder, recurrent episode (5) Bipolar affective, mixed ALBER GARCES MD Jul 28, 2019 22:31
[2019-07-29] MEDS: ALPRAZolam 0.5 MG TABLET PO PRN ×2 (01:38→08:21)
[2019-07-29] MEDS: HYDROcodone/APAP 7.5/325MG 1 TAB TABLET PO PRN ×2 (01:38→08:21)
[2019-07-29 05:48] VITALS: BP 151/83
[2019-07-29] MEDS: ENOXAPARIN 40 MG/0.4 ML SYRINGE. SQ SCH (08:22)
[2019-07-29] MEDS: SENNOSIDES/DOCUSATE 8.6/50MG TABLET. PO SCH ×2 (08:23→08:32)
[2019-07-29] MEDS: LACTOBACILLUS RHAMNOSUS GG 1 CAPSULE. PO SCH (08:23)
[2019-07-29] MEDS: FUROSEMIDE 40 MG TABLET PO SCH (08:23)
[2019-07-29] MEDS: POTASSIUM CHLORIDE 20 MEQ TABLET.ER. PO SCH (08:23)
[2019-07-29] MEDS: DULoxetine HCL 30 MG CAPSULE.DR PO SCH (08:23)
[2019-07-29] MEDS: ASPIRIN ENTERIC COATED 81 MG TABLET.DR. PO SCH (08:24)
[2019-07-29] MEDS: LOSARTAN 50 MG TABLET. PO SCH (08:24)
[2019-07-29 08:25] VITALS: BP 151/83
[2019-07-29] MEDS: ARIPiprazole 5 MG TABLET PO SCH (08:25)
[2019-07-29] MEDS: FERROUS SULFATE 325 MG TABLET. PO SCH (08:25)
[2019-07-29] MEDS: CYANOCOBALAMIN (VITAMIN B-12) 1,000 MCG TABLET. PO SCH (08:25)
[2019-07-29] MEDS: CARVEDILOL 6.25 MG TABLET PO SCH (08:25)
[2019-07-29] MEDS: PANTOPRAZOLE 40 MG TABLET. PO SCH (08:26)
[2019-07-29] MEDS: POLYVINYL ALCOHOL/POVIDONE/PF OPHTH SOLUTION DROPERETTE. OU SCH (08:26)
[2019-07-29] MEDS: IPRATROPIUM/ALBUTEROL 20/100mcg/INH INHALER. INH SCH ×2 (08:26→12:00)
[2019-07-29] MEDS: CETIRIZINE HCL 10 MG TABLET PO SCH (08:26)
[2019-07-29] MEDS: FLUTICASONE 50MCG/NASAL SPRAY 16GM BOTTLE. NS SCH (08:27)
[2019-07-29] MEDS: FLUTICASONE FUROATE 200mcg/INH ELLIPTA INHALER. INH SCH (08:27)
[2019-07-29] MEDS: LOPERAMIDE 2 MG CAPSULE PO PRN (08:38)
--- NOTE | 2019-07-29 22:07 | PDOC ---
Exam Note: Heri Note: Please also refer to the separate dictated note~for this date of service dictated separately.~Patient seen individually. Discussed the patient with Nursing staff reviewed the chart.~Reviewed interim history and current functioning. Reviewed vital signs,~Labs/ Radiology~and current medications noted below. Continue current treatment with the changes noted in the dictated addendum note Assessment: Vital Signs/I&O: Vital Signs Date Time Temp Pulse Resp B/P (MAP) Pulse Ox O2 Delivery O2 Flow Rate FiO2 07/29/19 08:25 81 151/83 07/29/19 05:48 97.5 18 97 2.0 07/26/19 15:31 Nasal Cannula I & O 0 07/28/19 07/28/19 07/29/19 14:59 22:59 06:59 Intake Total 840 ml 340 ml Balance 840 ml 340 ml Current Medications: I have reviewed the current psychotropics carefully including drug interactions. Risk benefit ratio favors no change other than as noted in my dictated progress note. Diagnosis: Problems: (1) Personality disorder, unspecified (2) Mood disorder (3) Anxiety disorder (4) Major depressive disorder, recurrent episode (5) Bipolar affective, mixed ALBER GARCES MD Jul 29, 2019 22:07
--- NOTE | 2019-07-29 22:26 | DS ---
DATE OF DISCHARGE: 07/29/2019 PSYCHIATRIC PROGRESS NOTE This note covers elements not covered in my initial note on 07/29/2019. REASON FOR ADMISSION: Please refer to the admission history for details. Briefly, the patient is a 63-year-old female who was sent to us from [facility] after she presented to the Emergency Room from home with multiple somatic symptoms of depression and suicidal ideation. She was medically stabilized at [facility], remained depressed, was suicidal, lived alone at home, which was extremely tenuous situation given her marked physical/medical problems, obesity, inability to ambulate other than with a walker or wheelchair and consequently very dangerous situation at home by herself. She had previously been declined to be followed medically by various medical providers due to her mood lability and agitation. The patient was sent to us for psychiatric stabilization and appropriate placement. SIGNIFICANT FINDINGS AND CLINICAL COURSE: Following admission, the patient was seen daily individually by myself from a psychiatric standpoint, medical followup per Dr. Morales/Dr. Wright. The patient was quite depressed, anxious, frequently splitting staff, seemed to have significant personality disorder, problems with marked somatic preoccupation with various symptoms changing from day-to-day. She did have a Neurology consult with Dr. Daniels and followed on a regular basis by Dr. Morales/Dr. Wright medically. From a psychiatric standpoint, she seemed to respond to a combination of Cymbalta 30 mg a day augmented with Abilify 5 mg a day. Abilify had been increased to 10 mg a day, then she had some extrapyramidal side effects and it was reduced down to 5 mg a day. She was also on Xanax 0.5 mg q. 4 hours p.r.n. anxiety, trazodone 50 mg at bedtime p.r.n. insomnia, may repeat x 1, later increased to 100 mg at bedtime p.r.n. and may repeat x 1. Vistaril 50 mg at bedtime p.r.n. and started on primidone 50 mg at bedtime for head and neck tremors per Dr. Daniels. She was also getting Lortab on a scheduled basis for her chronic pain management by Dr. Morales. Her hospitalization was overly prolonged because of the COVID-19 exposure on our unit and several nursing staff turning positive and several patients turning positive as well, some who needed transfer to the ICU The [employer] [place] [facility] had quarantine the unit with no admissions at discharges for over 2 weeks reaching about 3 to 3-1/2 weeks. This in addition to multiple nursing facility refusing to accept the patient did prolong her hospitalization significantly. REVIEW OF SYSTEMS: Nevertheless prior to discharge on 07/29/2019 ambulation impaired, in a wheelchair. She has vague somatic symptoms. No CV, , GI system symptoms on review. MENTAL STATUS EXAM: Reasonably oriented. Speech is coherent, abstraction fair, computation impaired, language function intact, attention span short. Mood and affect remain somewhat labile, anxious. LABORATORY DATA: Reviewed. FINAL DIAGNOSES: Major depressive disorder, recurrent without psychotic features; anxiety disorder, unspecified; personality disorder, unspecified. Rest unchanged from admission. DISCHARGE MEDICATIONS: Please refer to the MRAD. DISCHARGE INSTRUCTIONS: Outpatient psychiatric and medical followup at the senior living. Time for discharge day management greater than 30 minutes. ALBER GARCES MD DR: JOSE CARLOS/roslyn JOB#: [id number] / [id number]
== END 2019-07-29 13:21 | DRG 885 ==
LOC: GEROPSY 22:10
PROVIDERS: ADMIT Psychiatry & Neurology Psychiatry; ATTEND Psychiatry & Neurology Psychiatry
DX: F33.9 Major depressive disorder, recurrent, unspecified (principal); R45.851 Suicidal ideations; Z68.42 Body mass index [BMI] 45.0-49.9, adult; N39.0 Urinary tract infection, site not specified; F41.9 Anxiety disorder, unspecified; E66.9 Obesity, unspecified; Z88.8 Allergy status to other drugs, medicaments and biological substances; G25.81 Restless legs syndrome; I11.0 Hypertensive heart disease with heart failure; I50.9 Heart failure, unspecified; F03.90 Unspecified dementia, unspecified severity, without behavioral disturbance, psychotic disturbance, mood disturbance, and anxiety; Z79.899 Other long term (current) drug therapy; Z90.710 Acquired absence of both cervix and uterus; Z91.19 Patient's noncompliance with other medical treatment and regimen; Z91.5 Personal history of self-harm; J44.9 Chronic obstructive pulmonary disease, unspecified; Z20.828 Contact with and (suspected) exposure to other viral communicable diseases
CPT/HCPCS: 36415; 71045; 80048; 80053; 80061; 81001; 82306; 82550; 82607; 82947; 83036; 83540; 83550; 83735; 83880; 84436; 84443; 84480; 84484; 85007; 85025; 86592; 87086; 87186; 87635; 93005; 94640; J1650; J7613; J7626; J8597; Q0163; 97110; 97530